=== PATIENT | male | born 1955 | race Caucasian/White ===

== ENCOUNTER 2024-05-29 16:48 | Inpatient (IN) | payer MEDICARE, MEDICAID, SELFPAY ==
[2024-05-29 17:01] VITALS: BP 169/80; PULSE 105; RESP 16; TEMP 37.4; O2SAT 97; BMI 25.8
--- NOTE | 2024-05-29 17:05 | ED_ITS ---
HPI - Psych General Chief Complaint: Psychiatric Symptoms Stated Complaint: SECTION 12 Time Seen by Provider: 05/29/24 16:53 Source: patient, EMS and old records reviewed Mode of arrival: EMS Limitations: other (poor historian) History of Present Illness ED Provider: PEDRO RIBEIRO Narrative: 68 yo male with PMH schizophrenia apparently not on medications who has been decompensated and calling PD weekly they note he appears more disheveled pressured and thin. He is very hard to interview he starts fixating on someone stealing cards at his house or a girlfriend getting murdered. He then states he is okay and looks away and is rambling complaint: other Onset (ago): unknown Duration: getting worse History of same: Yes Relieving factors: none Exacerbating factors: other Context: not taking psychiatric medications Associated psychiatric symptoms: racing thoughts and delusions Associated symptoms: denies other symptoms Treatments prior to arrival: placed on mental health hold Related Data Allergies Allergy/AdvReac Type Severity Reaction Status Date / Time No Known Allergies Allergy Unknown UNKNOWN Verified 05/29/24 17:28 Review of Systems 2 Review of Systems: ROS unable to be obtained due to inability to have a coherent conversation [facility] Past Medical History Source: other Medical History Schizophrenia Social History Social History (Updated 05/29/24 @ 17:45 by Erica Grady DO) Patient Tobacco Use Status: Tobacco use Unknown Advance Directives: No Advance Directives Information Provided: No Physical Exam 2 Vital Signs: Vital Signs: Last Vital Signs Temp 99.3 F 05/29/24 17:01 Pulse 105 H 05/29/24 17:01 Resp 16 05/29/24 17:42 BP 169/80 H 05/29/24 17:01 Pulse Ox 97 05/29/24 17:01 O2 Del Method Room Air 05/29/24 17:01 BMI result Body Mass Index 25.8 Appearance: Alert. Oriented X3. rapid pressured speech poor eye contact, non fluent conversation, no acute distress. Eyes: Pupils equal, round and reactive to light. ENT: Pharynx normal. atraumatic Neck: Normal inspection. Neck supple. CVS: Normal heart rate and rhythm. Pulses normal. Respiratory: No respiratory distress. Breath sounds normal. Abdomen: Soft and non-tender. Skin: Skin warm and dry. Normal skin color. Extremities: No lower extremity edema. Neuro: Oriented X 3. No motor deficit. No sensory deficit. CN2-12 intact Medications Administered Discontinued Medications Generic Name Dose Route Start Last Admin Trade Name Ilsa PRN Reason Stop Dose Admin Lorazepam 1 mg 05/29/24 17:30 05/29/24 17:46 Lorazepam 1 Mg Tablet PO 05/29/24 17:31 1 mg ONCE ONE Administration Olanzapine 10 mg 05/29/24 17:30 05/29/24 17:46 Olanzapine Odt 10 Mg Tab.Rapdis TRANSLINGU 05/29/24 17:31 10 mg ONCE ONE Administration Medical Decision Making Medical Decision Making [facility] Narrative: 68 yo male with PMH schizophrenia here with decompensation and patient is not on medications at this time will need labs, CARE team consult, I offered oral medications which he agreed to. He denies any medical issues but he is very hard to interview Differential Diagnosis Differential Diagnoses: The differential diagnosis associated with the presentation includes schizophrenia, decompensation Admission/Observation Consideration of admission/observation: Escalation of care including admission/observation considered physician observation started at 550pm pending CARE team Consult Healthcare Provider Management of the patient was discussed with: Behavioral Health Provider Lab Data [facility] Lab Attestation statement: I reviewed the patient's lab results. 05/29/24 19:31 05/29/24 19:30 Labs: Lab Results 05/29/24 05/29/24 Range/Units 18:06 19:31 WBC 6.6 (4.8-10.8) X10*3/uL RBC 4.49 L (4.60-5.80) X10*6/uL Hgb 13.6 L (14.0-18.0) g/dl Hct 40.5 L (42.0-52.0) % MCV 90.2 (80.0-98.0) fL MCH 30.3 (27.0-33.0) pg MCHC 33.6 (31.0-36.0) g/dl RDW 12.8 (11.0-16.0) % Plt Count 183 (160-400) X10*3/uL MPV 10.0 (9.4-12.4) fL Immature Gran % (Auto) 0.2 (0.0-0.4) % Neut % (Auto) 82.0 H (45-73) % Lymph % (Auto) 8.8 L (20-40) % [place] % (Auto) 7.9 (2-11) % Eos % (Auto) 0.6 (0-4) % Baso % (Auto) 0.5 (0-2) % Lymph # (Auto) 0.6 L (1.2-4.9) X10*3/uL [place] # (Auto) 0.5 (0.1-1.2) X10*3/uL Eos # (Auto) 0.0 (0.0-0.4) X10*3/uL Baso # (Auto) 0.0 (0.0-0.2) X10*3/uL Abs Immat Gran (auto) 0.01 (0.00-0.03) X10*3/uL Absolute Neuts (auto) 5.4 (2.0-8.3) x10*3/uL Absolute Nucleated RBC 0.000 (0.0-0.012) X10*3/uL Nucleated RBC % (auto) 0.0 (0.0-0.2) /100WBC Urine Color Yellow Urine Appearance Clear Urine pH 6.5 (5.0-9.0) Ur Specific [place] 1.020 (1.005-1.025) Urine Protein 30 (1+) H (Neg-Trace) mg/dL Urine Glucose (UA) Negative (Negative) mg/dL Urine Ketones Negative (Negative) mg/dL Urine Blood Negative (Negative) Urine Nitrite Negative (Negative) Ur Leukocyte Esterase Trace H (Negative) Urine RBC 0-2 (0-2) /HPF Urine WBC 0-5 (0-5) /HPF Ur Squamous Epith Cells 0-2 (0-2) /HPF Urine Bacteria None Seen (None Seen) Hyaline Casts 0-2 (0-2) /LPF Urine Opiates Screen Not Detected (Not Detect) Ur Buprenorphine Scrn Not Detected (Not Detect) ng/mL Ur Oxycodone Screen Not Detected (Not Detect) ng/mL Urine Methadone Screen Not Detected (Not Detect) ng/mL Urine Fentanyl Screen Not Detected (Not Detect) Ur Barbiturates Screen Not Detected (Not Detect) Ur Phencyclidine Scrn Not Detected (Not Detect) Ur Amphetamines Screen Not Detected (Not Detect) U Benzodiazepines Scrn Not Detected (Not Detect) Urine Cocaine Screen Not Detected (Not Detect) U Marijuana (THC) Screen Not Detected (Not Detect) Independent Interpretation I performed an independent interpretation of an: EKG Interpretation: Rate: 63 Rhythm: NSR [place]: normal Normal P waves. Normal JARED. Normal QRS complex. ST T wave : inverted t wave V1, no AMINA qTC: 411 prior studies: no acute ischemia The study has been interpreted contemporaneously by me. . Independent Historian Clinical information obtained from an independent historian. History obtained from or confirmed by: EMS External Record Review External record reviewed: Outpatient record Discharge Plan Discharge Clinical Impression: Schizophrenia Qualifiers: Schizophrenia type: unspecified Qualified Code(s): F20.9 - Schizophrenia, unspecified Patient Disposition: Still a Patient Interventions: Weber-Suicide Risk Severity Scale Last Done: 05/29/24 17:44 Print Language: Persian
--- NOTE | 2024-05-29 17:20 | MHC.CARE ---
Addendum entered by Ana Galaviz LCSW 05/29/24 17:26: Dx of Paranoid Schizophrenia Original Note: Pt seen [place] Co-response clincian (Barb) due to concern of increased disorganization, diminished ADL's and weight loss secondary to non medication compliance for 4 months. Pt was transported to [facility] on a section 12. HCP/cousin: Marlin Dowd; [phone] Psychiatrist: Bronson Condon OP: Maria Alejandra Hough [facility] Elder Care: Maricel Singh
--- NOTE | 2024-05-29 17:29 | ECG_ITS ---
Test Reason : med clear Blood Pressure : / mmHG Vent. Rate : 063 BPM Atrial Rate : 063 BPM P-R Int : 178 ms QRS Dur : 098 ms QT Int : 402 ms P-R-T Axes : 059 072 046 degrees QTc Int : 411 ms Normal sinus rhythm with sinus arrhythmia Normal ECG When compared with ECG of 06-JUL-2019 09:11, No significant change was found Referred By: Erica Grady Electronically Signed By:HANH LEE MD
[2024-05-29 17:42] VITALS: RESP 16
[2024-05-29] MEDS: OLANZapine ODT 10 MG TAB.RAPDIS TRANSLINGU (17:46)
[2024-05-29] MEDS: LORazepam 1 MG TABLET PO (17:46)
--- NOTE | 2024-05-29 17:49 | PC.NURSE ---
Pt willingly took Zyprexa and Ativan PO without issue. Patient does present to ED with pressured speech, rambling about losing his house, choosing the right , occasionally unclear what the topic is. Patient is calm and cooperative for this RN, able to redirect verbally at this time. Patient in common area speaking with another patient at this time. patient denies SI/HI/AH/VH. Per senior warehouse clerk, patient has been non-med compliant over the past two months and has since decompensated
[2024-05-29 18:15] LABS: Appearance Urine Clear; Color Urine Yellow; Glucose Urine UA Negative (Negative); Leukocyte Esterase Urine Trace (Negative); Nitrite Urine Negative (Negative); PH 6.5 (5.0-9.0); UMIC TRIGGER UACC YES; Urine Blood Negative (Negative); Urine Ketones Negative (Negative); Urine Protein 30 (1+) mg/dL (Neg-Trace)
[2024-05-29 18:21] LABS: Bacteria Urine None Seen (None Seen); Hyaline Casts Urine 0-2 /LPF (0-2); RBC Urine 0-2 /HPF (0-2); Squamous Epithelial Cell Urine 0-2 /HPF (0-2); WBC Urine 0-5 /HPF (0-5)
[2024-05-29 18:25] LABS: Amphetamine Screen Urine Not Detected (Not Detect); Barbiturates, Urine Not Detected (Not Detect); Benzodiazepines Screen Urine Not Detected (Not Detect); Buprenorphine Scr Not Detected (Not Detect); Cannabinoid Screen Urine Not Detected (Not Detect); Cocaine Screen Urine Not Detected (Not Detect); Fentanyl, urine Not Detected (Not Detect); Methadone Screen, Urine Not Detected (Not Detect); Opiate Screen Urine Not Detected (Not Detect); Oxycodone Screen Urine Not Detected (Not Detect); Phencyclidine Screen Urine Not Detected (Not Detect)
[2024-05-29 19:38] LABS: MANUAL DIFF FLAG NO
[2024-05-29 19:43] LABS: Basophils Percent Auto 0.5 % (0-2); Eosinophils Percent Auto 0.6 % (0-4); Hematocrit 40.5 % (42.0-52.0); Hemoglobin 13.6 g/dl (14.0-18.0); Imm Gran Abs Auto 0.01 X10*3/uL (0.00-0.03); Imm Gran Pct Auto 0.2 % (0.0-0.4); Lymphocytes Absolute Auto 0.6 X10*3/uL (1.2-4.9); Lymphocytes Percent Auto 8.8 % (20-40); Mean Corpuscular HGB Conc 33.6 g/dl (31.0-36.0); Mean Corpuscular Hemoglobin 30.3 pg (27.0-33.0); Mean Corpuscular Volume 90.2 fL (80.0-98.0); Monocytes Absolute Auto 0.5 X10*3/uL (0.1-1.2); Monocytes Percent Auto 7.9 % (2-11); Neutrophils Absolute Auto 5.4 x10*3/uL (2.0-8.3); Platelet Count 183 X10*3/uL (160-400); Red Blood Count 4.49 X10*6/uL (4.60-5.80); Red Cell Distribution Width 12.8 % (11.0-16.0); White Blood Count 6.6 X10*3/uL (4.8-10.8)
[2024-05-29 20:04] VITALS: BP 165/60; PULSE 58; RESP 17; TEMP 36.7; O2SAT 100
[2024-05-29 20:04] LABS: Alanine Aminotransferase 22 U/L (0-40); Albumin Level 3.8 g/dL (3.5-5.0); Alkaline Phosphatase 75 U/L (39-117); Anion Gap 8 (12-20); Aspartate Amino Transferase 25 U/L (5-37); Bilirubin Direct 0.2 mg/dL (0.0-0.5); Bilirubin Total 0.5 mg/dL (0.0-1.0); Blood Urea Nitrogen 16 mg/dL (9-16); Carbon Dioxide 28 mmol/L (22-29); Chloride 107 mmol/L (96-108); Creatinine Clr Calc Pharmacy 86.4; Estimated Glomerular Filt Rate > 60; Ethanol < 10 mg/dL; Glucose Random 102 mg/dL (60-115); Magnesium 2.2 mg/dL (1.6-2.6); Potassium 3.5 mmol/L (3.3-5.1); Sodium 139 mmol/L (135-145); Total Protein 6.8 g/dL (6.5-8.0)
[2024-05-29 20:14] LABS: TSH reflex Free T4 0.83 uIU/mL (0.32-4.0)
--- NOTE | 2024-05-30 04:24 | PC.NURSE ---
patient appears to be getting up about q 30 mins or 60 minutes and spontaneously bubbles of conversation arise. client reoriented and returns to room
[2024-05-30 05:57] VITALS: BP 151/51; PULSE 65; RESP 18; TEMP 36.9; O2SAT 98
--- NOTE | 2024-05-30 07:03 | PC.NURSE ---
Assumed care of patient at 0645, patient appears to be in no apparent distress this am, tossing and turning in bed, respirations even and unlabored. Continue plan of care for inpatient bedsearch at this time
--- NOTE | 2024-05-30 09:12 | PC.NURSE ---
RE: med rec this RN confirmed medications with [facility] Bertrand Love
[2024-05-30 12:30] VITALS: BP 173/84; PULSE 67; RESP 18; TEMP 36.5; O2SAT 100
--- NOTE | 2024-05-30 13:40 | HO.PSYADMNOT ---
HPI Date of Service: 05/30/24 Chief Complaint: crisis Sources of Information: patient interviewed, chart reviewed and crisis/core team assessment reviewed HPI Subjective Notes: [place] Warning and Section 12B Narrative: Patient is a 68-year-old male with history of schizophrenia who was brought in to ER via ambulance on a section 12 by police and [facility] due to disorganization and diminished ADLs secondary to medication noncompliance. Per crisis report, police and [facility] team were dispatched to patient's home after patient called 911 speaking incoherently about his girlfriend who in 2009. When they arrived to his home patient was speaking rapidly and making statements about satellite shooting down planes, making cars disappear, and was not able to be redirected. He appeared disheveled. Patient is paranoid and delusional at baseline. When EMS arrived patient became combative and agitated stating, I'll get a knife and slit my throat before I let you take me to the hospital . Patient's cousin who is healthcare proxy, reports patient's in 2022 and pt has significantly declined since. Patient was connected with [facility] and in-home services with [facility] but due to noncompliance the services were terminated. Patient does receive meals on wheels. No history of substance use. During admission assessment, patient presents calm yet agitated. Patient requesting to be discharged home. Organized throughout the conversation however, becomes tangential at times but is able to be redirected back to the topic; rapid and pressured speech. Patient reports feeling fine ; patient stated, two people came to my door saying they were checking on me and then they told me that I needed help. I didn't do anything wrong. I felt fine . Patient reports that he showers every day and when asked about his eating habits; patient stated I eat all kinds of food . Patient reports that he has lost weight recently due to yard work at his home. Patient reports being medication compliant to T/W however, told admitting RN that he has not been taking his medications. Patient stated, I think this is a big mistake. I'm not going to sign something that isn't fair to me. I can just go home and take my medications . Patient denies SI/HI/VH/AH. Discussed restarting his home medications; patient agreed to take medications while inpatient. Past Psychiatric History: History of inpatient psychiatric admissions. Unclear of last inpatient admission. Psychiatrist: Therapist: Maxine Padron History of being connected with [facility] and [facility] Medical Evaluation Reviewed: Yes [facility] Medical History Schizophrenia Family History: Denies Social History: . No children. Lives alone in [place] in his own home. Substance History: Denies Trauma History: Denies Diagnostics Vital Signs (24Hr): Vital Signs - 24 hr 05/29/24 17:01 05/29/24 17:42 05/29/24 20:04 Temperature 99.3 F 98.1 F Pulse Rate 105 H 58 Respiratory Rate 16 16 17 Blood Pressure 169/80 H 165/60 H Pulse Oximetry 97 100 Oxygen Delivery Method Room Air Room Air 05/30/24 05:57 05/30/24 12:30 Temperature 98.4 F 97.7 F Pulse Rate 65 67 Respiratory Rate 18 18 Blood Pressure 151/51 H 173/84 H Pulse Oximetry 98 100 Oxygen Delivery Method Room Air Room Air BMI result Body Mass Index 25.8 Labs 05/29/24 19:31 05/30/24 15:25 Labs: Laboratory Results - last 48 hr 05/29/24 05/29/24 05/29/24 18:06 19:30 19:31 WBC 6.6 RBC 4.49 L Hgb 13.6 L Hct 40.5 L MCV 90.2 MCH 30.3 MCHC 33.6 RDW 12.8 Plt Count 183 MPV 10.0 Immature Gran % (Auto) 0.2 Neut % (Auto) 82.0 H Lymph % (Auto) 8.8 L [place] % (Auto) 7.9 Eos % (Auto) 0.6 Baso % (Auto) 0.5 Lymph # (Auto) 0.6 L [place] # (Auto) 0.5 Eos # (Auto) 0.0 Baso # (Auto) 0.0 Abs Immat Gran (auto) 0.01 Absolute Neuts (auto) 5.4 Absolute Nucleated RBC 0.000 Nucleated RBC % (auto) 0.0 Sodium 139 Potassium 3.5 Chloride 107 Carbon Dioxide 28 Anion Gap 8 L BUN 16 Creatinine 0.91 Estim Creat Clear Calc 86.4 Estimated GFR > 60 Random Glucose 102 Calcium 9.0 Magnesium 2.2 Total Bilirubin 0.5 Direct Bilirubin 0.2 AST 25 ALT 22 Alkaline Phosphatase 75 Total Protein 6.8 Albumin 3.8 TSH 0.83 Urine Color Yellow Urine Appearance Clear Urine pH 6.5 Ur Specific [place] 1.020 Urine Protein 30 (1+) H Urine Glucose (UA) Negative Urine Ketones Negative Urine Blood Negative Urine Nitrite Negative Ur Leukocyte Esterase Trace H Urine RBC 0-2 Urine WBC 0-5 Ur Squamous Epith Cells 0-2 Urine Bacteria None Seen Hyaline Casts 0-2 Urine Opiates Screen Not Detected Ur Buprenorphine Scrn Not Detected Ur Oxycodone Screen Not Detected Urine Methadone Screen Not Detected Urine Fentanyl Screen Not Detected Ur Barbiturates Screen Not Detected Ur Phencyclidine Scrn Not Detected Ur Amphetamines Screen Not Detected U Benzodiazepines Scrn Not Detected Urine Cocaine Screen Not Detected U Marijuana (THC) Screen Not Detected Ethyl Alcohol < 10 Meds/Allergies Meds Home Medications ?Medication ?Instructions ?Recorded ?Confirmed ?Type betaxolol 0.5 % eye drops 1 drp ophthalmic (eye) Q12H 05/30/24 05/30/24 History bimatoprost 0.01 % eye drops 1 drp ophthalmic (eye) BEDTIME 05/30/24 05/30/24 History ([place]) brinzolamide 1 %-brimonidine 0.2 % 1 drp ophthalmic (eye) Q12H 05/30/24 05/30/24 History eye drops,suspension (Simbrinza) cariprazine 3 mg capsule (Vraylar) 3 mg PO BEDTIME 05/30/24 05/30/24 History paliperidone 6 mg tablet,extended 6 mg PO BEDTIME 05/30/24 05/30/24 History release 24 hr Allergies Allergies Allergy/AdvReac Type Severity Reaction Status Date / Time No Known Allergies Allergy Unknown UNKNOWN Verified 05/29/24 17:28 Mental Status Exam Mental Status Exam Narrative: Pt is alert and oriented; behavior is agitated; dressed in casual attire; mood is described as fine ; eye contact appropriate; Speech is rapid rate, normal volume but pressured; tangential at times, focused on discharge, is able to be redirected back to conversation; denies SI/HI/VH/AH. Assessment & Plan Assessment & Plan (1) Schizophrenia: Status: Acute Qualifiers: Schizophrenia type: unspecified Qualified Code(s): F20.9 - Schizophrenia, unspecified Code(s): F20.9 - Schizophrenia, unspecified Plan Patient is a 68-year-old male with history of schizophrenia who was brought in to ER via ambulance on a section 12 by police and [facility] due to disorganization and diminished ADLs secondary to medication noncompliance. Plan: 12B 15 minute safety checks Continue home medications Obtain collateral Encourage groups Discharge planning Patient educated on: diagnosis and medication risk/benefits Reason for continued inpatient stay Substantial Risk for: med/psych decompensation Statement Statement: I have reviewed the history and physical and performed a pertinent examination on my patient. No changes have occurred unless specified. If the History and Physical was not performed prior to admission, the Hospitalist's service will be consulted for completing the admission physical. Time Spent With Patient Time: Total time managing care of this patient today _60___ minutes.
--- NOTE | 2024-05-30 13:50 | PC.NURSE ---
Pt refused flu vaccine at this time
[2024-05-30 13:51] VITALS: BMI 22.0
--- NOTE | 2024-05-30 13:52 | PC.ADMIT ---
Kash is a 68-year-old male admitted from [facility] to [facility] on a 12b for treatment of unspecified psychosis. Tox screen negative. Pt was transported to [facility] ED due to disorganized thoughts, poor ADLs, and weight loss secondary to pt not taking his medications for the last 4 months. When police arrived to pt's home, pt made a statement I'll get a knife and slit my throat before I let you take me to the hospital. Upon arrival to [facility], pt's speech was pressured, thought process disorganized at times and tangential. Pt appears internally preoccupied and was talking to himself. Pt appears paranoid and suspicious however pt is paranoid and delusional at baseline. Pt was unable to answer assessment questions or complete admission due to mental status. Pt lacks insight into diagnosis and situation and said I'm not mentally ill, that girl that made me come here is mentally ill. I don't need to be in a hospital, I want to go home. I've been falsely accused, someone is trying to take my identity. Pt has medical hx HTN. Pt currently has a non-productive cough. Pt placed on 15 minute safety checks. Pt's cousin Marlin Dowd is pt's HCP, paperwork is in his chart.
[2024-05-30 16:34] LABS: Albumin Level 3.9 g/dL (3.5-5.0); Aspartate Amino Transferase 25 U/L (5-37); Bilirubin Total 0.4 mg/dL (0.0-1.0); Blood Urea Nitrogen 17 mg/dL (9-16); Calcium 9.2 mg/dL (8.4-10.2); Creatinine Clr Calc Pharmacy 81.1; Estimated Glomerular Filt Rate > 60; Glucose Random 97 mg/dL (60-115)
[2024-05-30 16:54] LABS: Alanine Aminotransferase 20 U/L (0-40); Alkaline Phosphatase 81 U/L (39-117); Anion Gap 12 (12-20); Carbon Dioxide 29 mmol/L (22-29); Chloride 103 mmol/L (96-108); Potassium 4.3 mmol/L (3.3-5.1); Sodium 140 mmol/L (135-145)
[2024-05-30 19:30] VITALS: BP 205/98; PULSE 78; RESP 16; TEMP 36.8; O2SAT 100
[2024-05-30] MEDS: Dorzolamide HCl 2 % Ophth Sol 10 ML DRPBTL 1 DROP EYE-BOTH (20:03)
[2024-05-30] MEDS: Brimonidine Tartrate 0.2% Oph 5 ML BOTTLE 1 DROP EYE-BOTH (20:03)
[2024-05-30] MEDS: Latanoprost 0.005 % Ophth Sol 2.5 ML DROPS 1 DROP EYE-BOTH (20:03)
[2024-05-30] MEDS: timoloL maleate 0.5 % Oph Sol 5 ML DRBTL 1 DROP EYE-BOTH (20:04)
[2024-05-30] MEDS: Cariprazine HCl 3 MG CAPSULE PO (20:11)
[2024-05-30] MEDS: Paliperidone ER 6 MG TAB.ER.24 PO (20:11)
[2024-05-30 21:00] VITALS: BP 151/70; PULSE 76
[2024-05-31] MEDS: OLANZapine 5 MG TABLET PO ×2 (02:00→20:51)
[2024-05-31 08:00] VITALS: BP 163/72; PULSE 80; RESP 20; TEMP 36.6; O2SAT 96
[2024-05-31] MEDS: timoloL maleate 0.5 % Oph Sol 5 ML DRBTL 1 DROP EYE-BOTH ×2 (08:54→20:50)
[2024-05-31] MEDS: Dorzolamide HCl 2 % Ophth Sol 10 ML DRPBTL 1 DROP EYE-BOTH ×2 (08:54→20:51)
[2024-05-31] MEDS: Brimonidine Tartrate 0.2% Oph 5 ML BOTTLE 1 DROP EYE-BOTH ×2 (08:54→20:49)
--- NOTE | 2024-05-31 09:36 | HO.PSYCHPN ---
Subjective Subjective Date of Service: 05/31/24 Reason For Visit: crisis Subjective Notes: Section 12B Interim History: Rapid and pressured speech. Alert and oriented to time,date, place and situation. He reports feeling fine today; pt stated, I just want to get out of here. I can take care of my self. I took care of my and took her to her doctors appointments. I would take my meds if I went home . When discussing comments he made prior to admission, pt stated, I don't want to talk about that stuff . Showering, eating meals. 12b up on 06/02/24. Medication Compliance: Yes Side effects from medications: No Review of Systems Constitutional: Reports as per HPI Eyes: Reports as per HPI Reports as per HPI Cardiovascular: Reports as per HPI Respiratory: Reports as per HPI Gastrointestinal: Reports as per HPI Genitourinary: Reports as per HPI Musculoskeletal: Reports as per HPI Skin/Breast: Reports as per HPI Reports as per HPI Psychiatric: Reports as per HPI Endocrine: Reports as per HPI Hematologic/Lymphatic: Reports as per HPI Allergic/Immunologic: Reports as per HPI Mental Status Exam Mental Status Exam Narrative: Pt is alert and oriented; behavior is cooperative; dressed in casual attire; mood is described as fine ; eye contact appropriate; Speech is rapid rate, normal volume but pressured; focused on discharge; not making any paranoid or delusional statements during assessment; denies SI/HI/VH/AH. Diagnostics Vital Signs (24Hr): Vital Signs - 24 hr 05/30/24 12:30 05/30/24 19:30 05/30/24 21:00 Temperature 97.7 F 98.3 F Pulse Rate 67 78 76 Respiratory Rate 18 16 Blood Pressure 173/84 H 205/98 H 151/70 H Pulse Oximetry 100 100 Oxygen Delivery Method Room Air Room Air 05/31/24 08:00 Temperature 98 F Pulse Rate 80 Respiratory Rate 20 Blood Pressure 163/72 H Pulse Oximetry 96 Oxygen Delivery Method Room Air BMI result Body Mass Index 22.0 Labs 05/29/24 19:31 05/30/24 15:25 Labs: Laboratory Results - last 48 hr 05/29/24 05/29/24 05/29/24 18:06 19:30 19:31 WBC 6.6 RBC 4.49 L Hgb 13.6 L Hct 40.5 L MCV 90.2 MCH 30.3 MCHC 33.6 RDW 12.8 Plt Count 183 MPV 10.0 Immature Gran % (Auto) 0.2 Neut % (Auto) 82.0 H Lymph % (Auto) 8.8 L [place] % (Auto) 7.9 Eos % (Auto) 0.6 Baso % (Auto) 0.5 Lymph # (Auto) 0.6 L [place] # (Auto) 0.5 Eos # (Auto) 0.0 Baso # (Auto) 0.0 Abs Immat Gran (auto) 0.01 Absolute Neuts (auto) 5.4 Absolute Nucleated RBC 0.000 Nucleated RBC % (auto) 0.0 Hold Purple Top Sodium 139 Potassium 3.5 Chloride 107 Carbon Dioxide 28 Anion Gap 8 L BUN 16 Creatinine 0.91 Estim Creat Clear Calc 86.4 Estimated GFR > 60 Random Glucose 102 Calcium 9.0 Magnesium 2.2 Total Bilirubin 0.5 Direct Bilirubin 0.2 AST 25 ALT 22 Alkaline Phosphatase 75 Total Protein 6.8 Albumin 3.8 TSH 0.83 Urine Color Yellow Urine Appearance Clear Urine pH 6.5 Ur Specific [place] 1.020 Urine Protein 30 (1+) H Urine Glucose (UA) Negative Urine Ketones Negative Urine Blood Negative Urine Nitrite Negative Ur Leukocyte Esterase Trace H Urine RBC 0-2 Urine WBC 0-5 Ur Squamous Epith Cells 0-2 Urine Bacteria None Seen Hyaline Casts 0-2 Urine Opiates Screen Not Detected Ur Buprenorphine Scrn Not Detected Ur Oxycodone Screen Not Detected Urine Methadone Screen Not Detected Urine Fentanyl Screen Not Detected Ur Barbiturates Screen Not Detected Ur Phencyclidine Scrn Not Detected Ur Amphetamines Screen Not Detected U Benzodiazepines Scrn Not Detected Urine Cocaine Screen Not Detected U Marijuana (THC) Screen Not Detected Ethyl Alcohol < 10 05/30/24 05/30/24 15:25 15:30 WBC RBC Hgb Hct MCV MCH MCHC RDW Plt Count MPV Immature Gran % (Auto) Neut % (Auto) Lymph % (Auto) [place] % (Auto) Eos % (Auto) Baso % (Auto) Lymph # (Auto) [place] # (Auto) Eos # (Auto) Baso # (Auto) Abs Immat Gran (auto) Absolute Neuts (auto) Absolute Nucleated RBC Nucleated RBC % (auto) Hold Purple Top SEE NOTE Sodium 140 Potassium 4.3 D Chloride 103 Carbon Dioxide 29 Anion Gap 12 BUN 17 H Creatinine 0.92 Estim Creat Clear Calc 81.1 Estimated GFR > 60 Random Glucose 97 Calcium 9.2 Magnesium Total Bilirubin 0.4 Direct Bilirubin AST 25 ALT 20 Alkaline Phosphatase 81 Total Protein 7.0 Albumin 3.9 TSH Urine Color Urine Appearance Urine pH Ur Specific [place] Urine Protein Urine Glucose (UA) Urine Ketones Urine Blood Urine Nitrite Ur Leukocyte Esterase Urine RBC Urine WBC Ur Squamous Epith Cells Urine Bacteria Hyaline Casts Urine Opiates Screen Ur Buprenorphine Scrn Ur Oxycodone Screen Urine Methadone Screen Urine Fentanyl Screen Ur Barbiturates Screen Ur Phencyclidine Scrn Ur Amphetamines Screen U Benzodiazepines Scrn Urine Cocaine Screen U Marijuana (THC) Screen Ethyl Alcohol Medications Medications Current Medications Acetaminophen (Acetaminophen 325 Mg Tablet) 650 mg PO Q6H PRN PRN Reason: Headache/Pain Mild Scale (1-3) Al Hydroxide/Mg Hydroxide (Magnesium Hydrox/Alum Hydrox 30 Ml Oral.Susp) 30 ml PO Q6H PRN PRN Reason: Heartburn/Nausea Brimonidine Tartrate (Brimonidine Tartrate 0.2% Oph 5 Ml Bottle) 1 drop EYE-BOTH BID [facility] Last Admin: 05/31/24 08:54 Dose: 1 drop Cariprazine (Cariprazine Hcl 3 Mg Capsule) 3 mg PO BEDTIME [facility] Last Admin: 05/30/24 20:11 Dose: 3 mg Dorzolamide HCl (Dorzolamide Hcl 2 % Ophth Jossy 10 Ml Drpbtl) 1 drop EYE-BOTH BID [facility] Last Admin: 05/31/24 08:54 Dose: 1 drop Hydroxyzine HCl (Hydroxyzine Hcl 25 Mg Tablet) 25 mg PO Q6H PRN PRN Reason: Anxiety Latanoprost (Latanoprost 0.005 % Ophth Jossy 2.5 Ml Drops) 1 drop EYE-BOTH BEDTIME [facility] Last Admin: 05/30/24 20:03 Dose: 1 drop Magnesium Hydroxide (Milk Of Magnesia 30 Ml Oral.Susp) 30 ml PO DAILY PRN PRN Reason: Constipation Nicotine Polacrilex (Nicotine Polacrilex 2 Mg Gum) 4 mg BUCCAL Q2H PRN PRN Reason: Nicotine Cravings Olanzapine (Olanzapine 5 Mg Tablet) 5 mg PO Q4H PRN PRN Reason: agitation Last Admin: 05/31/24 02:00 Dose: 5 mg Paliperidone (Paliperidone Er 6 Mg Tab.Er.24) 6 mg PO BEDTIME [facility] Last Admin: 12/10/24 20:11 Dose: 6 mg Timolol Maleate (Timolol Maleate 0.5 % Oph Jossy 5 Ml Drbtl) 1 drop EYE-BOTH BID [facility] Last Admin: 05/31/24 08:54 Dose: 1 drop Trazodone HCl (Trazodone Hcl 50 Mg Tablet) 50 mg PO BEDTIME MRX1 PRN PRN Reason: Insomnia Allergies Allergies Allergy/AdvReac Type Severity Reaction Status Date / Time No Known Allergies Allergy Unknown UNKNOWN Verified 05/29/24 17:28 Assessment & Plan Assessment & Plan (1) Schizophrenia: Qualifiers: Schizophrenia type: unspecified Qualified Code(s): F20.9 - Schizophrenia, unspecified Status: Acute Code(s): F20.9 - Schizophrenia, unspecified Plan Patient is a 68-year-old male with history of schizophrenia who was brought in to ER via ambulance on a section 12 by police and [facility] due to disorganization and diminished ADLs secondary to medication noncompliance. Plan: 12B 15 minute safety checks Continue home medications Obtain collateral Encourage groups Discharge planning 05/31: Rapid and pressured speech. Alert and oriented to time,date, place and situation. He reports feeling fine today; pt stated, I just want to get out of here. I can take care of my self. I took care of my and took her to her doctors appointments. I would take my meds if I went home . When discussing comments he made prior to admission, pt stated, I don't want to talk about that stuff . Showering, eating meals, medication compliant. 12b up on 06/02/24. Continue current tx plan. Patient educated on: diagnosis and medication risk/benefits Reason for continued inpatient stay Substantial Risk for: med/psych decompensation Time Spent With Patient Time: Total time managing care of this patient today _20___ minutes.
[2024-05-31 10:00] LABS: Cholesterol 128 mg/dL (<200); HDL Cholesterol 49 mg/dL (>40); LDL Cholesterol Calculated 65 mg/dL (<100); Triglycerides 74 mg/dL (<150)
--- OUTSIDE RECORDS SUMMARY | 2024-05-31 18:08 | XMS_ITS | Clinical Summary ---
Author Organization Unknown Care Team Providers Care Office Services Assistant Name Role Phone PILLO MAC, JOEY Unavailable Unavailable SINGH MESSINA, LETICIA Unavailable Unavailable Payers Payer Name Policy Type Policy Number Effective Date Expira tion Date [place] - ABN [id number] ON DEMAND MEDICARE - [facility] BILLING - ABN [id number] Problems Condition Name Condition Details Condition Category Status Onset Date Resolution Date Last Treatment Date Treating Clinician Comments PARANOID SCHIZOPHRENI A Active 10-21 00:00: 00 Allergies, Adverse Reactions, Alerts Allergy Name Allergy Type Status Severity Reaction(s) Onset Date Inactive Date Treating Clinician Comments NKA Propensity to adverse reactions Active 2022-12 11:22:4 2 Medications Ordered Medication Name Filled Medication Name Start Date Stop Date Current Medication? Ordering Clinician Indication Dosage Frequency Signature (SIG) Comments Components betaxolol 0.5 % eye drops 12 00:00: 00 Yes [id number] 1 drops EVERY AM 1 drops EVERY AM (route: ophthalmic (eye)) Med Classific ation: Ophthalmi c Agents bupropion HCl SR 200 mg tablet,12 hr sustained-r elease 8-18 00:00: 00 05-28 23:59 :00 No [id number] 1 tablet DAILY 1 tablet DAILY (route: oral) Med Classific ation: Central Nervous System Agents clonazepam 0.5 mg tablet 3-04 00:00: 00 04-19 23:59 :00 No [id number] 1 tablet Every hs 1 tablet Every hs (route: oral) Med Classific ation: Central Nervous System Agents Latuda 20 mg tablet 5-27 00:00: 00 05-28 23:59 :00 No [id number] 1 tablet Every bedtime 1 tablet Every bedtime (route: oral) Med Classific ation: Central Nervous System Agents lisinopril 20 mg-hydrochl orothiazide 12.5 mg tablet 08-30 00:00: 00 Yes [id number] 1 tablet EVERY AM 1 tablet EVERY AM (route: oral) Med Classific ation: Cardiovas cular Therapy Agents Risperdal 3 mg tablet 8-26 00:00: 00 05-28 23:59 :00 No [id number] 2 tablet BEDTIME 2 tablet BEDTIME (route: oral) Med Classific ation: Central Nervous System Agents Seroquel 100 mg tablet 07-25 00:00: 00 12-24 23:59 :00 No [id number] 1 tablet Every hs 1 tablet Every hs (route: oral) Med Classific ation: Central Nervous System Agents Simbrinza 1 %-0.2 % eye drops,suspe nsion 08-30 00:00: 00 Yes [id number] Per instruc tions EVERY AM Per instructio ns EVERY AM (route: ophthalmic (eye)) Med Classific ation: Ophthalmi c Agents Fish Oil 1,000 mg (120 mg-180 mg) capsule 2019-06 00:00: 00 08-31 23:59 :00 No [id number] 1 capsule DAILY 1 capsule DAILY (route: oral) Med Classific ation: Cardiovas cular Therapy Agents Invega 6 mg tablet,exte nded release 2019-06 00:00: 00 08-31 23:59 :00 No [id number] 1 tablet BEDTIME 1 tablet BEDTIME (route: oral) Med Classific ation: Central Nervous System Agents Multivitami n 50 Plus tablet 2019-06 00:00: 00 08-31 23:59 :00 No [id number] 1 tablet DAILY 1 tablet DAILY (route: oral) Med Classific ation: Electroly te Balance-N utritiona l Products Vitamin D3 25 mcg (1,000 unit) capsule 2019-06 00:00: 00 08-31 23:59 :00 No [id number] 1 capsule DAILY 1 capsule DAILY (route: oral) Med Classific ation: Electroly te Balance-N utritiona l Products bupropion HCl SR 200 mg tablet,12 hr sustained-r elease 2019-06 2-22 00:00: 00 03-21 23:59 :00 No [id number] 1 tablet DAILY 1 tablet DAILY (route: oral) Med Classific ation: Central Nervous System Agents clonazepam 0.5 mg tablet 3-13 00:00: 00 09-11 23:59 :00 No [id number] 1 tablet NEEDED 1 tablet NEEDED (route: oral) Med Classific ation: Central Nervous System Agents risperidone 3 mg tablet 13 00:00: 00 01-07 23:59 :00 No [id number] 2 tablet BEDTIME 2 tablet BEDTIME (route: oral) Med Classific ation: Central Nervous System Agents bupropion HCl XL 300 mg 24 hr tablet, extended release 2020-06 030 00:00: 00 01-07 23:59 :00 No [id number] 300 mg DAILY 300 mg DAILY (route: oral) Med Classific ation: Central Nervous System Agents Ativan 0.5 mg tablet 12-25 00:00: 00 Yes [id number] 0.5 mg 2 TIMES DAILY 0.5 mg 2 TIMES DAILY (route: oral) Med Classific ation: Central Nervous System Agents Nyamyc 100,000 unit/gram topical powder 12-08 00:00: 00 Yes [id number] 1 gram NEEDED 1 gram NEEDED (route: topical) Med Classific ation: Dermatolo gical quetiapine 100 mg tablet 12-24 00:00: 00 02-19 23:59 :00 No [id number] 2 tablet BEDTIME 2 tablet BEDTIME (route: oral) Med Classific ation: Central Nervous System Agents betaxolol 0.5 % eye drops 11-30 00:00: 00 Yes [id number] 1 drops DAILY 1 drops DAILY (route: ophthalmic (eye)) Med Classific ation: Ophthalmi c Agents Simbrinza 1 %-0.2 % eye drops,suspe nsion 11-30 00:00: 00 12-24 23:59 :00 No [id number] 1 drops DAILY 1 drops DAILY (route: ophthalmic (eye)) Med Classific ation: Ophthalmi c Agents Lumigan 0.01 % eye drops 609 00:00: 00 Yes [id number] 1 drops BEDTIME 1 drops BEDTIME (route: ophthalmic (eye)) Med Classific ation: Ophthalmi c Agents clonazepam 0.5 mg tablet 05 00:00: 00 12-24 23:59 :00 No [id number] 1 tablet BEDTIME 1 tablet BEDTIME (route: oral) Med Classific ation: Central Nervous System Agents risperidone 2 mg tablet 20 00:00: 00 Yes [id number] 1 tablet DAILY 1 tablet DAILY (route: oral) Med Classific ation: Central Nervous System Agents risperidone 3 mg tablet 01-07 00:00: 00 Yes [id number] 1 tablet DAILY 1 tablet DAILY (route: oral) Med Classific ation: Central Nervous System Agents Seroquel 100 mg tablet 9-04 00:00: 00 Yes [id number] 1 tablet BEDTIME 1 tablet BEDTIME (route: oral) Med Classific ation: Central Nervous System Agents INVEGA ORAL 6-04 00:00: 00 02-05 00:00 :00 No 1 tab6mg Every pm 1 tab6mg Every pm (route: ) Med Classific ation: CENTRAL NERVOUS SYSTEM AGENTS BUPROPION HCL ORAL 2-25 00:00: 00 02-05 00:00 :00 No 1 [id number] g Daily 1 [id number] Daily (route: ) Med Classific ation: CENTRAL NERVOUS SYSTEM AGENTS RISPERDAL ORAL 8-18 00:00: 00 02-13 00:00 :00 No 3 mg1 BEDTIME 3 mg1 BEDTIME (route: ) Med Classific ation: CENTRAL NERVOUS SYSTEM AGENTS Vital Signs Vital Name Observation Time Observation Value Commen ts Temperature 2023-06-07 06:53:00.000 98.8 [degF] Temperature 2023-06-03 07:04:00.000 98.3 [degF] Temperature 2023-05-20 07:13:00.000 98.6 [degF] Temperature 2023-05-12 07:28:00.000 97.5 [degF] Temperature 2023-05-10 07:17:00.000 97.8 [degF] Temperature 2023-05-06 07:34:00.000 98.3 [degF] Pulse 2023-06-10 20:06:00.000 78 /min Pulse 2023-06-07 06:53:00.000 94 /min Pulse 2023-06-03 07:04:00.000 110 /min Pulse 2023-05-31 16:30:00.000 80 /min Pulse 2023-05-27 07:29:00.000 72 /min Pulse 2023-05-17 07:14:00.000 88 /min Pulse 2023-05-12 07:28:00.000 99 /min Pulse 2023-05-10 07:17:00.000 89 /min Pulse 2023-05-06 07:34:00.000 78 /min O2 Saturation (%) 2023-06-07 06:53:00.000 96 % O2 Saturation (%) 2023-06-03 07:04:00.000 97 % O2 Saturation (%) 2023-05-12 07:28:00.000 96 % O2 Saturation (%) 2023-05-10 07:17:00.000 96 % O2 Saturation (%) 2023-05-06 07:34:00.000 98 % Respirations 2023-06-10 20:06:00.000 18 /min Respirations 2023-06-07 06:53:00.000 18 /min Respirations 2023-06-03 07:04:00.000 20 /min Respirations 2023-05-31 16:30:00.000 18 /min Respirations 2023-05-27 07:29:00.000 18 /min Respirations 2023-05-24 07:19:00.000 18 /min Respirations 2023-05-20 07:13:00.000 18 /min Respirations 2023-05-17 07:14:00.000 18 /min Respirations 2023-05-12 07:28:00.000 17 /min Respirations 2023-05-10 07:17:00.000 18 /min Respirations 2023-05-06 07:34:00.000 16 /min Respirations 2023-04-29 07:37:00.000 18 /min Systolic Blood Pressure 2023-06-10 20:06:00.000 138 mm [Hg] Systolic Blood Pressure 2023-06-07 06:53:00.000 136 mm [Hg] Systolic Blood Pressure 2023-06-03 07:04:00.000 138 mm [Hg] Systolic Blood Pressure 2023-05-31 16:30:00.000 140 mm [Hg] Systolic Blood Pressure 2023-05-27 07:29:00.000 132 mm [Hg] Systolic Blood Pressure 2023-05-24 07:19:00.000 130 mm [Hg] Systolic Blood Pressure 2023-05-20 07:13:00.000 118 mm [Hg] Systolic Blood Pressure 2023-05-17 07:14:00.000 122 mm [Hg] Systolic Blood Pressure 2023-05-12 07:28:00.000 150 mm [Hg] Systolic Blood Pressure 2023-05-10 07:17:00.000 150 mm [Hg] Systolic Blood Pressure 2023-05-06 07:34:00.000 120 mm [Hg] Systolic Blood Pressure 2023-04-29 07:37:00.000 130 mm [Hg] Systolic Blood Pressure 2023-04-26 07:20:00.000 130 mm [Hg] Diastolic Blood Pressure 2023-06-10 20:06:00.000 80 mm [Hg] Diastolic Blood Pressure 2023-06-07 06:53:00.000 88 mm [Hg] Diastolic Blood Pressure 2023-06-03 07:04:00.000 80 mm [Hg] Diastolic Blood Pressure 2023-05-31 16:30:00.000 60 mm [Hg] Diastolic Blood Pressure 2023-05-27 07:29:00.000 78 mm [Hg] Diastolic Blood Pressure 2023-05-24 07:19:00.000 60 mm [Hg] Diastolic Blood Pressure 2023-05-20 07:13:00.000 60 mm [Hg] Diastolic Blood Pressure 2023-05-17 07:14:00.000 62 mm [Hg] Diastolic Blood Pressure 2023-05-12 07:28:00.000 70 mm [Hg] Diastolic Blood Pressure 2023-05-10 07:17:00.000 80 mm [Hg] Diastolic Blood Pressure 2023-05-06 07:34:00.000 80 mm [Hg] Diastolic Blood Pressure 2023-04-29 07:37:00.000 70 mm [Hg] Diastolic Blood Pressure 2023-04-26 07:20:00.000 62 mm [Hg] Plan of Treatment Planned Activity Planned Date Details Comments Future Scheduled Test SKILLED NU RSE TO EVALUATE PATIENT, IDENTIFY PRIMARY AND CO-MORBID CONDITIONS CODED PER CODING GUIDELINES, AND DEVELOP PATIENT SPECIFIC PLAN OF CARE THAT INCLUDES PATIENT GOAL FOR HOME HEALTH. [code = SKILLED NURSE TO EVALUATE PATIENT, IDENTIFY PRIMARY AND CO-MORBID CONDITIONS CODED PER CODING GUIDELINES, AND DEVELOP PATIENT SPECIFIC PLAN OF CARE THAT INCLUDES PATIENT GOAL FOR HOME HEALTH.] Future Scheduled Test SKILLED NU RSE TO O/A OF PATIENTS MENTAL/BEHAVIORAL STATUS, ASSESS VITAL SIGNS MONTHLY AND PRN ALLOW 2 PRNS FOR MEDICATION MANAGEMENT. [code = SKILLED NURSE TO O/A OF PATIENTS MENTAL/BEHAVIORAL STATUS, ASSESS VITAL SIGNS MONTHLY AND PRN ALLOW 2 PRNS FOR MEDICATION MANAGEMENT.] Future Scheduled Test SKILLED NU RSE TO PRE-POUR MEDICATION PER MEDICATION LIST [code = SKILLED NURSE TO PRE-POUR MEDICATION PER MEDICATION LIST] Future Scheduled Test SKILLED NU RSE FOR O/A AND SKILLED TEACHING OF COPING SKILLS TO MANAGE ANXIETY AND MAINTAIN SAFETY. [code = SKILLED NURSE FOR O/A AND SKILLED TEACHING OF COPING SKILLS TO MANAGE ANXIETY AND MAINTAIN SAFETY.] Future Scheduled Test SKILLED NU RSE FOR O/A OF ALTERED THOUGHT PROCESS AND/OR DISRUPTION IN COGNITIVE OPERATIONS AND ACTIVITIES [code = SKILLED NURSE FOR O/A OF ALTERED THOUGHT PROCESS AND/OR DISRUPTION IN COGNITIVE OPERATIONS AND ACTIVITIES ] Future Scheduled Test SKILLED NU RSE TO PROVIDE TEACHING ON SIGNS AND SYMPTOMS AND MANAGEMENT OF HYPERTENSION. [code = SKILLED NURSE TO PROVIDE TEACHING ON SIGNS AND SYMPTOMS AND MANAGEMENT OF HYPERTENSION.] Future Scheduled Test SKILLED NU RSE FOR O/A OF CLIENT'S ALTERED PSYCHOSOCIAL BEHAVIOR [code = SKILLED NURSE FOR O/A OF CLIENT'S ALTERED PSYCHOSOCIAL BEHAVIOR] Future Scheduled Test SKILLED NU RSE FOR O/A OF CLIENT'S SLEEP PATTERNS. MAY TEACH INTERVENTIONS R/T ACQUIRING IMPROVED REST [code = SKILLED NURSE FOR O/A OF CLIENT'S SLEEP PATTERNS. MAY TEACH INTERVENTIONS R/T ACQUIRING IMPROVED REST] Goal 2023-02-19 Patient Goal - N OGOALS, TAKE IT ONE DAY AT A TIME Goal 2023-04-19 Patient Goal - N O GOALS, TAKE IT ONE DAY AT A TIME Goal 2023-06-17 Patient Goal - N O GOALS, TAKE IT ONE DAY AT A TIME Goal Provider Goal - A PLAN OF CARE WILL BE ESTABLISHED THAT MEETS PATIENT'S JAIL NEEDS AND INCLUDES PATIENT GOAL FOR HOME HEALTH. Goal Provider Goal - ALTERED MENTAL/BEHAVIORAL STATUS WILL BE IDENTIFIED PROMPTLY AND INTERVENTION INITIATED QUICKLY TO MINIMIZE ASSOCIATED RISKS Goal Provider Goal - PATIENT WILL COMPLY WITH MEDICATION WHEN SKILLED NURSE PRE-POURS MEDICATION. Goal Provider Goal - PATIENT WILL BE ABLE TO PERFORM DAILY FUNCTIONS AND HAVE OPTIMAL IMPROVEMENT IN LEVEL OF ANXIETY Goal Provider Goal - PATIENT WILL BE ABLE TO PERFORM DAILY FUNCTIONS AND HAVE OPTIMAL IMPROVEMENT IN THOUGHT PROCESS Goal Provider Goal - PATIENT/CAREGIVER WILL VERBALIZE SIGNS AND SYMPTOMS OF HYPERTENSION AND WILL BE ABLE TO DEMONSTRATE ABILITY TO MANAGE EXACERBATION BY END OF THE EPISODE. Goal Provider Goal - PATIENT WILL VERBALIZE ACCEPTANCE OF ALTERED PSYCHOSOCIAL BEHAVIOR AND WILL BE ACCEPTING OF ENOC'S ASSISTANCE IN THERAPEUTIC APPROACH TO WELLNESS. Goal Provider Goal - PATIENT WILL REPORT AT LEAST 6-8 HOURS A NIGHT, RESTFUL SLEEP PATTERNS ACHIEVED USING THERAPEUTIC INTERVENTIONS BEFORE THE END OF THE CERTIFICATION PERIOD. Reason for Visit INDEPENDENT IN THE COMMUNITY Encounters Start Date/Time End Date/Time Encounter Type Admission Type Attending [facility] Care Department Encounter ID Discharge Date Discharge Status Discharge Condition Discharge Reason Percent Goals Met 2022-12-24 00:00:00 2023-06-17 00:00:00 Outpatient RECERTIFIC LETICIA ZUÑIGA [facility] [id number] 2023-06-17 00:00:00 DISCHARGE TO HOME OR SELF CARE INDEPENDEN T IN THE COMMUNITY PER CLIENT REQUEST 58.33
[2024-05-31 20:00] VITALS: BP 152/67; PULSE 62; RESP 16; TEMP 36.4; O2SAT 100
[2024-05-31] MEDS: Latanoprost 0.005 % Ophth Sol 2.5 ML DROPS 1 DROP EYE-BOTH (20:50)
[2024-05-31] MEDS: Paliperidone ER 6 MG TAB.ER.24 PO (20:51)
[2024-06-01] MEDS: traZODone HCL 50 MG TABLET PO ×2 (02:55→20:46)
[2024-06-01 07:00] VITALS: BMI 22.2
[2024-06-01 07:38] VITALS: BP 155/85; PULSE 69; RESP 18; TEMP 36.2; O2SAT 99
[2024-06-01 08:00] VITALS: BP 155/85; PULSE 69; RESP 18; TEMP 36.2; O2SAT 99
[2024-06-01] MEDS: timoloL maleate 0.5 % Oph Sol 5 ML DRBTL 1 DROP EYE-BOTH ×2 (08:37→20:44)
[2024-06-01] MEDS: Dorzolamide HCl 2 % Ophth Sol 10 ML DRPBTL 1 DROP EYE-BOTH ×2 (08:37→20:44)
[2024-06-01] MEDS: Brimonidine Tartrate 0.2% Oph 5 ML BOTTLE 1 DROP EYE-BOTH ×2 (08:38→20:44)
--- NOTE | 2024-06-01 09:25 | HO.PSYCHPN ---
Subjective Subjective Date of Service: 06/01/24 Reason For Visit: crisis Subjective Notes: Section 12B Interim History: Patient calmer today. Showering, eating meals. He reports feeling good ; he is hoping to be discharged home tomorrow. Pt reports he plans on continuing to take his prescribed medications. He agreed to VNA services. Pt did not make any delusional or paranoid statements; when asked about statements he made prior to admission. Pt stated, oh, I don't think those things anymore . denies SI/HI/VH/AH. 12b up 06/02/24. Spoke to patient's cousin, Marlin; and pt's outpatient psychiatrist, Dr. Condon, with patient's verbal consent. Both report pt does not have hx of violent behavior or self injurious behavior. Medication Compliance: Yes Side effects from medications: No Attending Groups: No Review of Systems Constitutional: Reports as per HPI Eyes: Reports as per HPI Reports as per HPI Cardiovascular: Reports as per HPI Respiratory: Reports as per HPI Gastrointestinal: Reports as per HPI Genitourinary: Reports as per HPI Musculoskeletal: Reports as per HPI Skin/Breast: Reports as per HPI Reports as per HPI Psychiatric: Reports as per HPI Endocrine: Reports as per HPI Hematologic/Lymphatic: Reports as per HPI Allergic/Immunologic: Reports as per HPI Mental Status Exam Mental Status Exam Narrative: Pt is alert and oriented; behavior is cooperative; dressed in casual attire; mood is described as good ; eye contact appropriate; Speech is normal rate, volume but pressured; focused on discharge; not making any paranoid or delusional statements during assessment; denies SI/HI/VH/AH. Diagnostics Vital Signs (24Hr): Vital Signs - 24 hr 05/31/24 20:00 06/01/24 07:38 06/01/24 08:00 Temperature 97.6 F 97.2 F 97.2 F Pulse Rate 62 69 69 Respiratory Rate 16 18 18 Blood Pressure 152/67 H 155/85 H 155/85 H Pulse Oximetry 100 99 99 Oxygen Delivery Method Room Air Room Air Room Air BMI result Body Mass Index 22.2 Labs 05/29/24 19:31 05/30/24 15:25 Labs: Laboratory Results - last 48 hr 05/30/24 05/30/24 05/31/24 15:25 15:30 09:10 Hold Purple Top SEE NOTE Sodium 140 Potassium 4.3 D Chloride 103 Carbon Dioxide 29 Anion Gap 12 BUN 17 H Creatinine 0.92 Estim Creat Clear Calc 81.1 Estimated GFR > 60 Random Glucose 97 Calcium 9.2 Total Bilirubin 0.4 AST 25 ALT 20 Alkaline Phosphatase 81 Total Protein 7.0 Albumin 3.9 Triglycerides 74 Cholesterol 128 LDL Cholesterol, Calc 65 HDL Cholesterol 49 Medications Medications Current Medications Acetaminophen (Acetaminophen 325 Mg Tablet) 650 mg PO Q6H PRN PRN Reason: Headache/Pain Mild Scale (1-3) Al Hydroxide/Mg Hydroxide (Magnesium Hydrox/Alum Hydrox 30 Ml Oral.Susp) 30 ml PO Q6H PRN PRN Reason: Heartburn/Nausea Brimonidine Tartrate (Brimonidine Tartrate 0.2% Oph 5 Ml Bottle) 1 drop EYE-BOTH BID [facility] Last Admin: 06/01/24 08:38 Dose: 1 drop Cariprazine (Cariprazine Hcl 3 Mg Capsule) 3 mg PO BEDTIME NAZ Last Admin: 05/31/24 20:54 Dose: Not Given Clonidine HCl (Clonidine Hcl 0.1 Mg Tablet) 0.1 mg PO BID PRN; Protocol PRN Reason: anxiety Dorzolamide HCl (Dorzolamide Hcl 2 % Ophth Jossy 10 Ml Drpbtl) 1 drop EYE-BOTH BID [facility] Last Admin: 06/01/24 08:37 Dose: 1 drop Hydroxyzine HCl (Hydroxyzine Hcl 25 Mg Tablet) 25 mg PO Q6H PRN PRN Reason: Anxiety Latanoprost (Latanoprost 0.005 % Ophth Jossy 2.5 Ml Drops) 1 drop EYE-BOTH BEDTIME [facility] Last Admin: 05/31/24 20:50 Dose: 1 drop Magnesium Hydroxide (Milk Of Magnesia 30 Ml Oral.Susp) 30 ml PO DAILY PRN PRN Reason: Constipation Nicotine Polacrilex (Nicotine Polacrilex 2 Mg Gum) 4 mg BUCCAL Q2H PRN PRN Reason: Nicotine Cravings Olanzapine (Olanzapine 5 Mg Tablet) 5 mg PO Q4H PRN PRN Reason: agitation Last Admin: 05/31/24 20:51 Dose: 5 mg Paliperidone (Paliperidone Er 6 Mg Tab.Er.24) 6 mg PO BEDTIME NAZ Last Admin: 05/31/24 20:51 Dose: 6 mg Timolol Maleate (Timolol Maleate 0.5 % Oph Jossy 5 Ml Drbtl) 1 drop EYE-BOTH BID NAZ Last Admin: 06/01/24 08:37 Dose: 1 drop Trazodone HCl (Trazodone Hcl 50 Mg Tablet) 50 mg PO BEDTIME MRX1 PRN PRN Reason: Insomnia Last Admin: 06/01/24 02:55 Dose: 50 mg Allergies Allergies Allergy/AdvReac Type Severity Reaction Status Date / Time No Known Allergies Allergy Unknown UNKNOWN Verified 05/29/24 17:28 Assessment & Plan Assessment & Plan (1) Schizophrenia: Qualifiers: Schizophrenia type: unspecified Qualified Code(s): F20.9 - Schizophrenia, unspecified Status: Acute Code(s): F20.9 - Schizophrenia, unspecified Plan Patient is a 68-year-old male with history of schizophrenia who was brought in to ER via ambulance on a section 12 by police and [employer] due to disorganization and diminished ADLs secondary to medication noncompliance. Plan: 12B 15 minute safety checks Continue home medications Obtain collateral Encourage groups Discharge planning 05/31: Rapid and pressured speech. Alert and oriented to time,date, place and situation. He reports feeling fine today; pt stated, I just want to get out of here. I can take care of my self. I took care of my and took her to her doctors appointments. I would take my meds if I went home . When discussing comments he made prior to admission, pt stated, I don't want to talk about that stuff . Showering, eating meals, medication compliant. 12b up on 06/02/24. Continue current tx plan. 06/01: Patient calmer today. Showering, eating meals. He reports feeling good ; he is hoping to be discharged home tomorrow. Pt reports he plans on continuing to take his prescribed medications. He agreed to VNA services. Pt did not make any delusional or paranoid statements; when asked about statements he made prior to admission. Pt stated, oh, I don't think those things anymore . denies SI/HI/VH/AH. 12b up 06/02/24. Spoke to patient's cousin, Marlin; and pt's outpatient psychiatrist, Dr. Condon, with patient's verbal consent. Both report pt does not have hx of violent behavior or self injurious behavior. Patient educated on: diagnosis and medication risk/benefits Reason for continued inpatient stay Substantial Risk for: med/psych decompensation Time Spent With Patient Time: Total time managing care of this patient today _20___ minutes.
[2024-06-01] MEDS: LORazepam 0.5 MG TABLET PO (13:13)
[2024-06-01 20:00] VITALS: BP 159/77; PULSE 63; RESP 16; TEMP 36.4; O2SAT 100
[2024-06-01] MEDS: Latanoprost 0.005 % Ophth Sol 2.5 ML DROPS 1 DROP EYE-BOTH (20:44)
[2024-06-01] MEDS: cloNIDine HCL 0.1 MG TABLET PO (20:46)
[2024-06-01] MEDS: hydrOXYzine HCL 25 MG TABLET PO (20:46)
[2024-06-01] MEDS: Paliperidone ER 6 MG TAB.ER.24 PO (20:46)
[2024-06-01] MEDS: OLANZapine 5 MG TABLET PO (20:46)
[2024-06-02 07:34] VITALS: BP 135/63; PULSE 63; RESP 14; TEMP 36.4; O2SAT 99
[2024-06-02] MEDS: Dorzolamide HCl 2 % Ophth Sol 10 ML DRPBTL 1 DROP EYE-BOTH (09:12)
[2024-06-02] MEDS: timoloL maleate 0.5 % Oph Sol 5 ML DRBTL 1 DROP EYE-BOTH (09:12)
[2024-06-02] MEDS: Brimonidine Tartrate 0.2% Oph 5 ML BOTTLE 1 DROP EYE-BOTH (09:12)
--- NOTE | 2024-06-02 09:17 | PM.PSYDC ---
DS: Providers Provider Date of Service: 06/02/24 Date of admission: 05/30/24 11:54 Date of discharge: 06/02/24 Primary care physician: Rodrick Milan MD Admitting clinician: So Zambrano Attending physician on admission: Roman Garcia Attending physician on discharge: Roman Garcia Discharging clinician: So Zambrano DS: Diagnosis Discharge Diagnosis (1) Schizophrenia: Status: Acute DS: Medications Discharge Medications Home Medications: Home Medications ?Medication ?Instructions ?Recorded ?Confirmed betaxolol 0.5 % eye drops 1 drp ophthalmic (eye) Q12H 05/30/24 05/30/24 bimatoprost 0.01 % eye drops 1 drp ophthalmic (eye) BEDTIME 05/30/24 05/30/24 (Lumigan) brinzolamide 1 %-brimonidine 0.2 % 1 drp ophthalmic (eye) Q12H 05/30/24 05/30/24 eye drops,suspension (Simbrinza) cariprazine 3 mg capsule (Vraylar) 3 mg PO BEDTIME 05/30/24 05/30/24 paliperidone 6 mg tablet,extended 6 mg PO BEDTIME 05/30/24 05/30/24 release 24 hr Mental Status Exam Mental Status Exam Narrative: Pt is alert and oriented; behavior is cooperative; dressed in casual attire; mood is described as good ; eye contact appropriate; Speech is normal rate, volume; focused on discharge; denies SI/HI/VH/AH. Data Data Completed and Pending Completed studies during hospitalization [Text1]: 05/29/24 05/29/24 05/29/24 18:06 19:30 19:31 WBC 6.6 RBC 4.49 L Hgb 13.6 L Hct 40.5 L MCV 90.2 MCH 30.3 MCHC 33.6 RDW 12.8 Plt Count 183 MPV 10.0 Immature Gran % (Auto) 0.2 Neut % (Auto) 82.0 H Lymph % (Auto) 8.8 L [place] % (Auto) 7.9 Eos % (Auto) 0.6 Baso % (Auto) 0.5 Lymph # (Auto) 0.6 L [place] # (Auto) 0.5 Eos # (Auto) 0.0 Baso # (Auto) 0.0 Abs Immat Gran (auto) 0.01 Absolute Neuts (auto) 5.4 Absolute Nucleated RBC 0.000 Nucleated RBC % (auto) 0.0 Hold Purple Top Sodium 139 Potassium 3.5 Chloride 107 Carbon Dioxide 28 Anion Gap 8 L BUN 16 Creatinine 0.91 Estim Creat Clear Calc 86.4 Estimated GFR > 60 Random Glucose 102 Calcium 9.0 Magnesium 2.2 Total Bilirubin 0.5 Direct Bilirubin 0.2 AST 25 ALT 22 Alkaline Phosphatase 75 Total Protein 6.8 Albumin 3.8 Triglycerides Cholesterol LDL Cholesterol, Calc HDL Cholesterol TSH 0.83 Urine Color Yellow Urine Appearance Clear Urine pH 6.5 Ur Specific [place] 1.020 Urine Protein 30 (1+) H Urine Glucose (UA) Negative Urine Ketones Negative Urine Blood Negative Urine Nitrite Negative Ur Leukocyte Esterase Trace H Urine RBC 0-2 Urine WBC 0-5 Ur Squamous Epith Cells 0-2 Urine Bacteria None Seen Hyaline Casts 0-2 Urine Opiates Screen Not Detected Ur Buprenorphine Scrn Not Detected Ur Oxycodone Screen Not Detected Urine Methadone Screen Not Detected Urine Fentanyl Screen Not Detected Ur Barbiturates Screen Not Detected Ur Phencyclidine Scrn Not Detected Ur Amphetamines Screen Not Detected U Benzodiazepines Scrn Not Detected Urine Cocaine Screen Not Detected U Marijuana (THC) Screen Not Detected Ethyl Alcohol < 10 05/30/24 05/30/24 05/31/24 15:25 15:30 09:10 WBC RBC Hgb Hct MCV MCH MCHC RDW Plt Count MPV Immature Gran % (Auto) Neut % (Auto) Lymph % (Auto) [place] % (Auto) Eos % (Auto) Baso % (Auto) Lymph # (Auto) [place] # (Auto) Eos # (Auto) Baso # (Auto) Abs Immat Gran (auto) Absolute Neuts (auto) Absolute Nucleated RBC Nucleated RBC % (auto) Hold Purple Top SEE NOTE Sodium 140 Potassium 4.3 D Chloride 103 Carbon Dioxide 29 Anion Gap 12 BUN 17 H Creatinine 0.92 Estim Creat Clear Calc 81.1 Estimated GFR > 60 Random Glucose 97 Calcium 9.2 Magnesium Total Bilirubin 0.4 Direct Bilirubin AST 25 ALT 20 Alkaline Phosphatase 81 Total Protein 7.0 Albumin 3.9 Triglycerides 74 Cholesterol 128 LDL Cholesterol, Calc 65 HDL Cholesterol 49 TSH Urine Color Urine Appearance Urine pH Ur Specific [place] Urine Protein Urine Glucose (UA) Urine Ketones Urine Blood Urine Nitrite Ur Leukocyte Esterase Urine RBC Urine WBC Ur Squamous Epith Cells Urine Bacteria Hyaline Casts Urine Opiates Screen Ur Buprenorphine Scrn Ur Oxycodone Screen Urine Methadone Screen Urine Fentanyl Screen Ur Barbiturates Screen Ur Phencyclidine Scrn Ur Amphetamines Screen U Benzodiazepines Scrn Urine Cocaine Screen U Marijuana (THC) Screen Ethyl Alcohol DS: Summary Hospital Course Hospital Course: Patient is a 68-year-old male with history of schizophrenia who was brought in to ER via ambulance on a section 12 by police and [facility] due to disorganization and diminished ADLs secondary to medication noncompliance. Per crisis report, police and [employer] team were dispatched to patient's home after patient called 911 speaking incoherently about his girlfriend who in 2009. When they arrived to his home patient was speaking rapidly and making statements about satellite shooting down planes, making cars disappear, and was not able to be redirected. He appeared disheveled. Patient is paranoid and delusional at baseline. When EMS arrived patient became combative and agitated stating, I'll get a knife and slit my throat before I let you take me to the hospital . Patient's cousin who is healthcare proxy, reports patient's in 2022 and pt has significantly declined since. Patient was connected with [facility] and in-home services with [facility] but due to noncompliance the services were terminated. Patient does receive meals on wheels. No history of substance use. During admission assessment, patient presents calm yet agitated. Patient requesting to be discharged home. Organized throughout the conversation however, becomes tangential at times but is able to be redirected back to the topic; rapid and pressured speech. Patient reports feeling fine ; patient stated, two people came to my door saying they were checking on me and then they told me that I needed help. I didn't do anything wrong. I felt fine . Patient reports that he showers every day and when asked about his eating habits; patient stated I eat all kinds of food . Patient reports that he has lost weight recently due to yard work at his home. Patient reports being medication compliant to T/W however, told admitting RN that he has not been taking his medications. Patient stated, I think this is a big mistake. I'm not going to sign something that isn't fair to me. I can just go home and take my medications . Patient denies SI/HI/VH/AH. Discussed restarting his home medications; patient agreed to take medications while inpatient. Plan: 12B 15 minute safety checks Continue home medications Obtain collateral Encourage groups Discharge planning Rapid and pressured speech. Alert and oriented to time,date, place and situation. He reports feeling fine today; pt stated, I just want to get out of here. I can take care of my self. I took care of my and took her to her doctors appointments. I would take my meds if I went home . When discussing comments he made prior to admission, pt stated, I don't want to talk about that stuff . Showering, eating meals, medication compliant. 12b up on 06/02/24. Continue current tx plan. Patient calmer today. Showering, eating meals. He reports feeling good ; he is hoping to be discharged home tomorrow. Pt reports he plans on continuing to take his prescribed medications. He agreed to VNA services. Pt did not make any delusional or paranoid statements; when asked about statements he made prior to admission. Pt stated, oh, I don't think those things anymore . denies SI/HI/VH/AH. 12b up 06/02/24. Spoke to patient's cousin, Marlin; and pt's outpatient psychiatrist, Dr. Condon, with patient's verbal consent. Both report pt does not have hx of violent behavior or self injurious behavior. Patient reports feeling great and ready to go home ; patient reports he plans on continuing taking his medications and following up with his outpatient providers. denies SI/HI/VH/AH. Time spent discussing smoking cessation with patient: 3 to 10 minutes Status at Discharge Cognitive/behavioral status at discharge: Patient has insight and demonstrates good judgment in terms of wanting to pursue treatment. Patient has a safety plan that includes presenting to the closest ER or calling 911 if feeling unsafe. Functional status at discharge: independent ambulation Overall status at discharge: patient is back to baseline Time Spent with Patient Time attestation: Total time managing care of this patient today _20___ minutes. Time spent: Less than 30 minutes Discharge Plan Discharge Anticipated Discharge Date/Time: 06/02/24 11:00 Patient Disposition: Home, Self-Care Discharge Diagnosis: Schizophrenia Referrals: Dr. Bronson Condon (psychiatrist) [Other] - 06/19/24 11:30 am (In person appointment) Rodrick Milan MD [Primary Care Provider] - 1 Week (your primary care provider will be contacting you within 24 hours to schedule your follow up appt.) Discharge Medications: Continued betaxolol 0.5 % drops 1 drp ophthalmic (eye) Q12H Lumigan 0.01 % drops 1 drp ophthalmic (eye) BEDTIME Simbrinza 1-0.2 % drops,suspension 1 drp ophthalmic (eye) Q12H paliperidone 6 mg tablet extended release 24 hr 6 mg PO BEDTIME 30 Days Qty: 30 0RF Vraylar 3 mg capsule 3 mg PO BEDTIME 30 Days Qty: 30 0RF Discharge Orders: Discharge Order (Routine); Ordered 06/02/24 Ordered By: So Zambrano Diet: Regular diet Activity on Discharge: As tolerated Stand Alone Forms: Patient Portal Discharge page, Community Support Print Language: Uzbek Care Plan Goals: Maintain mood and safe behaviors Take medications as prescribed Practice coping skills Continue with outpatient providers and reach out to them as needed Health Concerns: Mood stability and behaviors Plan of Treatment: Follow up with your PCP, psychiatric provider and other outpatient providers regarding above concerns Take medications as prescribed Assessment: Patient has insight and demonstrates good judgment in terms of wanting to pursue treatment. Patient has a safety plan that includes presenting to the closest ER or calling 911 if feeling unsafe.
== END 2024-06-02 11:11 | disposition home or self-care (01) | DRG 885 ==
LOC: HO.ED 19:28 → HO.PADLT16 05-30 11:55
PROVIDERS: Admitting Provider Registered Nurse; Emergency Provider Emergency Medicine; PCP Internal Medicine; Responsible Provider Registered Nurse; Visit Provider Psychiatry & Neurology Psychiatry
DX: F20.9 Schizophrenia, unspecified (principal); Z91.148 Patient's other noncompliance with medication regimen for other reason; Z79.899 Other long term (current) drug therapy
CPT/HCPCS: 36415; 80048; 80053; 80061; 80076; 80307; 81001; 83735; 84443; 85025; 93005; 99285

== ENCOUNTER → 2024-05-29 17:29 | Outpatient (BNV) | payer MEDICARE, MEDICAID, SELFPAY | PROVIDERS: Admitting Provider Registered Nurse; Emergency Provider Emergency Medicine; PCP Internal Medicine; Responsible Provider Registered Nurse; Visit Provider Internal Medicine Cardiovascular Disease | DX: I49.9 Cardiac arrhythmia, unspecified (principal) | CPT/HCPCS: 93010 ==

== ENCOUNTER → 2024-05-30 11:54 | Outpatient (BNV) | payer MEDICARE, MEDICAID, SELFPAY | PROVIDERS: Admitting Provider Registered Nurse; Emergency Provider Emergency Medicine; PCP Internal Medicine; Responsible Provider Registered Nurse; Visit Provider Registered Nurse | DX: F20.9 Schizophrenia, unspecified (principal) | CPT/HCPCS: 90792 ==

== ENCOUNTER 2024-06-14 00:18 | Inpatient (IN) | payer MEDICARE, MEDICAID, SELFPAY ==
[2024-06-14 00:30] VITALS: BP 143/81; PULSE 105; RESP 18; TEMP 36.4; O2SAT 98; BMI 23.5
--- NOTE | 2024-06-14 00:46 | ED_ITS ---
HPI - Psych General Chief Complaint: Psychiatric Symptoms Stated Complaint: MANIC EPISODE Time Seen by Provider: 06/14/24 00:46 Source: EMS Mode of arrival: EMS Limitations: no limitations History of Present Illness ED Provider: HPI Narrative: Patient's history of schizophrenia found by PD driving in his backyard with lights off patient appears to be hyperverbal and manic talking to himself according to PD they have seen him before when he does not take this medication patient is very manic and talking to himself and not responding to questions Related Data Home Medications ?Medication ?Instructions ?Recorded ?Confirmed betaxolol 0.5 % eye drops 1 drp ophthalmic (eye) Q12H 05/30/24 05/30/24 bimatoprost 0.01 % eye drops 1 drp ophthalmic (eye) BEDTIME 05/30/24 05/30/24 (Lumigan) brinzolamide 1 %-brimonidine 0.2 % 1 drp ophthalmic (eye) Q12H 05/30/24 05/30/24 eye drops,suspension (Simbrinza) Previous Rx's ?Medication ?Instructions ?Recorded cariprazine 3 mg capsule (Vraylar) 3 mg PO BEDTIME 30 days #30 caps 06/02/24 paliperidone 6 mg tablet,extended 6 mg PO BEDTIME 30 days #30 tabs 06/02/24 release 24 hr Allergies Allergy/AdvReac Type Severity Reaction Status Date / Time No Known Allergies Allergy Unknown UNKNOWN Verified 06/14/24 00:30 Review of Systems 2 Review of Systems: Yes all other systems are reviewed and are negative PMFSH Past Medical History Medical History Schizophrenia Social History Social History Household Members: None Housing: House Do you presently have visiting nurse or other home services: No Patient Tobacco Use Status: Refuse Tobacco use screen Advance Directives: Yes Advance Directives on File: Yes Advance Directives Date on File: 06/05/24 service: No Sexual orientation: Straight/Heterosexual Physical Exam 2 Vital Signs: Vital Signs: Last Vital Signs Temp 97.6 F 06/14/24 00:30 Pulse 103 H 06/14/24 03:42 Resp 18 06/14/24 03:42 BP 160/91 H 06/14/24 03:42 Pulse Ox 96 06/14/24 03:42 O2 Del Method Room Air 06/14/24 03:42 BMI result Body Mass Index 23.5 Appearance: Alert. Manic talking to himself. No acute distress. Eyes: PERRLA, No Nystagmus ENT: Pharynx normal. Oral Mucosa moist Neck: Normal inspection. Neck supple. CVS: Normal heart rate and rhythm. Pulses normal. Respiratory: No respiratory distress. Equal air entry bilateral, no wheezing/rales/rhonchi Abdomen: Soft and nontender. Bowel sounds are present, no mass palpable, no CVA tenderness Skin: Skin warm and dry. Normal skin color. Normal skin turgor. Extremities: No lower extremity edema. No calf tenderness Neuro: Manic moving all 4 extremities Medications Administered Discontinued Medications Generic Name Dose Route Start Last Admin Trade Name Freq PRN Reason Stop Dose Admin Diphenhydramine HCl 50 mg 06/14/24 06:19 06/14/24 06:25 Diphenhydramine Hcl 50 Mg/Ml Vial IM 06/14/24 06:20 50 mg ONCE ONE Administration Haloperidol Lactate 5 mg 06/14/24 06:19 06/14/24 06:25 Haloperidol Lactate 5 Mg/Ml Vial IM 06/14/24 06:20 5 mg ONCE ONE Administration Lorazepam 2 mg 06/14/24 00:53 06/14/24 01:20 Lorazepam 1 Mg Tablet PO 06/14/24 00:54 Not Given ONCE ONE Olanzapine 10 mg 06/14/24 00:53 06/14/24 01:20 Olanzapine 10 Mg Tablet PO 06/14/24 00:54 Not Given ONCE ONE Medical Decision Making Medical Decision Making [facility] Narrative: Patient has schizoaffective disorder with acute psychotic presentation? Noncompliant to his medication. Will get care team involved for further evaluation 545 am patient's very manic and agitated had to give IM Haldol and Benadryl patient has refused to take p.o. medication earlier Lab Data [facility] Lab Attestation statement: I reviewed the patient's lab results. 06/14/24 00:45 06/14/24 00:45 Labs: Lab Results 06/14/24 06/14/24 Range/Units 00:45 04:18 WBC 6.7 (4.8-10.8) X10*3/uL RBC 4.45 L (4.60-5.80) X10*6/uL Hgb 13.8 L (14.0-18.0) g/dl Hct 39.9 L (42.0-52.0) % MCV 89.7 (80.0-98.0) fL MCH 31.0 (27.0-33.0) pg MCHC 34.6 (31.0-36.0) g/dl RDW 12.4 (11.0-16.0) % Plt Count 222 (160-400) X10*3/uL MPV 9.6 (9.4-12.4) fL Immature Gran % (Auto) 0.3 (0.0-0.4) % Neut % (Auto) 65.4 (45-73) % Lymph % (Auto) 21.7 (20-40) % [place] % (Auto) 11.1 H (2-11) % Eos % (Auto) 1.2 (0-4) % Baso % (Auto) 0.3 (0-2) % Lymph # (Auto) 1.5 (1.2-4.9) X10*3/uL [place] # (Auto) 0.8 (0.1-1.2) X10*3/uL Eos # (Auto) 0.1 (0.0-0.4) X10*3/uL Baso # (Auto) 0.0 (0.0-0.2) X10*3/uL Abs Immat Gran (auto) 0.02 (0.00-0.03) X10*3/uL Absolute Neuts (auto) 4.4 (2.0-8.3) x10*3/uL Absolute Nucleated RBC 0.000 (0.0-0.012) X10*3/uL Nucleated RBC % (auto) 0.0 (0.0-0.2) /100WBC Sodium 144 (135-145) mmol/L Potassium 3.6 (3.3-5.1) mmol/L Chloride 110 H (96-108) mmol/L Carbon Dioxide 24 (22-29) mmol/L Anion Gap 14 (12-20) BUN 18 H (9-16) mg/dL Creatinine 0.74 (0.5-1.4) mg/dL Estim Creat Clear Calc 103.1 Estimated GFR > 60 Random Glucose 129 H (60-115) mg/dL Calcium 9.3 (8.4-10.2) mg/dL Total Bilirubin 0.7 (0.0-1.0) mg/dL AST 24 (5-37) U/L ALT 17 (0-40) U/L Alkaline Phosphatase 93 (39-117) U/L Total Protein 7.7 (6.5-8.0) g/dL Albumin 4.2 (3.5-5.0) g/dL Urine Color Yellow Urine Appearance Clear Urine pH 6.0 (5.0-9.0) Ur Specific [place] 1.025 (1.005-1.025) Urine Protein 100 (2+) H (Neg-Trace) mg/dL Urine Glucose (UA) Negative (Negative) mg/dL Urine Ketones 15 (Negative) mg/dL Urine Blood Negative (Negative) Urine Nitrite Negative (Negative) Ur Leukocyte Esterase Trace H (Negative) Urine RBC 0-2 (0-2) /HPF Urine WBC 6-10 H (0-5) /HPF Ur Squamous Epith Cells 0-2 (0-2) /HPF Urine Bacteria None Seen (None Seen) Hyaline Casts 0-2 (0-2) /LPF Urine Opiates Screen Not Detected (Not Detect) Ur Buprenorphine Scrn Not Detected (Not Detect) ng/mL Ur Oxycodone Screen Not Detected (Not Detect) ng/mL Urine Methadone Screen Not Detected (Not Detect) ng/mL Urine Fentanyl Screen Not Detected (Not Detect) Ur Barbiturates Screen Not Detected (Not Detect) Ur Phencyclidine Scrn Not Detected (Not Detect) Ur Amphetamines Screen Not Detected (Not Detect) U Benzodiazepines Scrn Not Detected (Not Detect) Urine Cocaine Screen Not Detected (Not Detect) U Marijuana (THC) Screen Not Detected (Not Detect) Ethyl Alcohol < 10 mg/dL Discharge Plan Discharge Clinical Impression: Acute psychosis Schizophrenia Qualifiers: Schizophrenia type: unspecified Qualified Code(s): F20.9 - Schizophrenia, unspecified Patient Disposition: Still a Patient Prescriptions: No Action betaxolol 0.5 % drops 1 drp ophthalmic (eye) Q12H Lumigan 0.01 % drops 1 drp ophthalmic (eye) BEDTIME Simbrinza 1-0.2 % drops,suspension 1 drp ophthalmic (eye) Q12H paliperidone 6 mg tablet extended release 24 hr 6 mg PO BEDTIME 30 Days Qty: 30 0RF Vraylar 3 mg capsule 3 mg PO BEDTIME 30 Days Qty: 30 0RF Print Language: Slovenian
[2024-06-14 00:49] LABS: MANUAL DIFF FLAG NO
[2024-06-14 00:50] LABS: Basophils Percent Auto 0.3 % (0-2); Eosinophils Absolute Auto 0.1 X10*3/uL (0.0-0.4); Eosinophils Percent Auto 1.2 % (0-4); Hematocrit 39.9 % (42.0-52.0); Hemoglobin 13.8 g/dl (14.0-18.0); Imm Gran Abs Auto 0.02 X10*3/uL (0.00-0.03); Imm Gran Pct Auto 0.3 % (0.0-0.4); Lymphocytes Absolute Auto 1.5 X10*3/uL (1.2-4.9); Lymphocytes Percent Auto 21.7 % (20-40); Mean Corpuscular HGB Conc 34.6 g/dl (31.0-36.0); Mean Corpuscular Volume 89.7 fL (80.0-98.0); Mean Platelet Volume 9.6 fL (9.4-12.4); Monocytes Absolute Auto 0.8 X10*3/uL (0.1-1.2); Monocytes Percent Auto 11.1 % (2-11); Neutrophils Absolute Auto 4.4 x10*3/uL (2.0-8.3); Neutrophils Percent Auto 65.4 % (45-73); Platelet Count 222 X10*3/uL (160-400); Red Blood Count 4.45 X10*6/uL (4.60-5.80); Red Cell Distribution Width 12.4 % (11.0-16.0); White Blood Count 6.7 X10*3/uL (4.8-10.8)
--- OUTSIDE RECORDS SUMMARY | 2024-06-14 00:57 | XMS_ITS | Clinical Summary ---
Author Organization Unknown Care Team Providers Care Dock Loader Name Role Phone [place] MAC, DANIEL Unavailable Unavailable LUIS MESSINA, MAGI Unavailable Unavailable Payers Payer Name Policy Type Policy Number Effective Date Expira tion Date ON DEMAND MEDIC[place] - [place] [id number] [place] [id number] Problems Condition Name Condition Details Condition Category Status Onset Date Resolution Date Last Treatment Date Treating Clinician Comments SCHIZOPHRENI A, UNSPECIFIED Active 2023-06 00:00: 00 Allergies, Adverse Reactions, Alerts Allergy Name Allergy Type Status Severity Reaction(s) Onset Date Inactive Date Treating Clinician Comments NKA Propensity to adverse reactions Active 2024-05 13:53:0 6 Medications Ordered Medication Name Filled Medication Name Start Date Stop Date Current Medication? Ordering Clinician Indication Dosage Frequency Signature (SIG) Comments Components betaxolol 0.5 % eye drops 08-30 00:00: 00 06-08 00:00 :00 No [id number] 1 drops EVERY AM 1 drops EVERY AM (route: ophthalmic (eye)) Med Classific ation: Ophthalmi c Agents bupropion HCl SR 200 mg tablet,12 hr sustained-r elease 8-18 00:00: 00 05-28 23:59 :00 No [id number] 1 tablet DAILY 1 tablet DAILY (route: oral) Med Classific ation: Central Nervous System Agents clonazepam 0.5 mg tablet 3-04 00:00: 00 04-19 23:59 :00 No [id number] 1 tablet Every hs 1 tablet Every hs (route: oral) Med Classific ation: Central Nervous System Agents Latuda 20 mg tablet 5-27 00:00: 00 05-28 23:59 :00 No [id number] 1 tablet Every bedtime 1 tablet Every bedtime (route: oral) Med Classific ation: Central Nervous System Agents lisinopril 20 mg-hydrochl orothiazide 12.5 mg tablet 08-30 00:00: 00 06-08 00:00 :00 No [id number] 1 tablet EVERY AM 1 tablet EVERY AM (route: oral) Med Classific ation: Cardiovas cular Therapy Agents Risperdal 3 mg tablet 8-26 00:00: 00 05-28 23:59 :00 No [id number] 2 tablet BEDTIME 2 tablet BEDTIME (route: oral) Med Classific ation: Central Nervous System Agents Seroquel 100 mg tablet 2 00:00: 00 12-24 23:59 :00 No [id number] 1 tablet Every hs 1 tablet Every hs (route: oral) Med Classific ation: Central Nervous System Agents Simbrinza 1 %-0.2 % eye drops,suspe nsion 08-30 00:00: 00 06-08 00:00 :00 No [id number] Per instruc tions EVERY AM Per instructio ns EVERY AM (route: ophthalmic (eye)) Med Classific ation: Ophthalmi c Agents Fish Oil 1,000 mg (120 mg-180 mg) capsule 2019-06 00:00: 00 08-31 23:59 :00 No [id number] 1 capsule DAILY 1 capsule DAILY (route: oral) Med Classific ation: Cardiovas cular Therapy Agents Invega 6 mg tablet,exte nded release 2019-06 00:00: 00 08-31 23:59 :00 No [id number] 1 tablet BEDTIME 1 tablet BEDTIME (route: oral) Med Classific ation: Central Nervous System Agents Multivitami n 50 Plus tablet 2019-06 00:00: 00 08-31 23:59 :00 No [id number] 1 tablet DAILY 1 tablet DAILY (route: oral) Med Classific ation: Electroly te Balance-N utritiona l Products Vitamin D3 25 mcg (1,000 unit) capsule 2019-06 00:00: 00 08-31 23:59 :00 No [id number] 1 capsule DAILY 1 capsule DAILY (route: oral) Med Classific ation: Electroly te Balance-N utritiona l Products bupropion HCl SR 200 mg tablet,12 hr sustained-r elease 2019-0622 00:00: 00 03-21 23:59 :00 No [id number] 1 tablet DAILY 1 tablet DAILY (route: oral) Med Classific ation: Central Nervous System Agents clonazepam 0.5 mg tablet 08-31 00:00: 00 09-11 23:59 :00 No [id number] 1 tablet NEEDED 1 tablet NEEDED (route: oral) Med Classific ation: Central Nervous System Agents risperidone 3 mg tablet 08-31 00:00: 00 01-07 23:59 :00 No [id number] 2 tablet BEDTIME 2 tablet BEDTIME (route: oral) Med Classific ation: Central Nervous System Agents bupropion HCl XL 300 mg 24 hr tablet, extended release 2020-06 030 00:00: 00 01-07 23:59 :00 No [id number] 300 mg DAILY 300 mg DAILY (route: oral) Med Classific ation: Central Nervous System Agents Ativan 0.5 mg tablet 12-25 00:00: 00 06-08 00:00 :00 No [id number] 0.5 mg 2 TIMES DAILY 0.5 mg 2 TIMES DAILY (route: oral) Med Classific ation: Central Nervous System Agents Nyamyc 100,000 unit/gram topical powder 12-08 00:00: 00 06-08 00:00 :00 No [id number] 1 gram NEEDED 1 gram NEEDED (route: topical) Med Classific ation: Dermatolo gical quetiapine 100 mg tablet 12-24 00:00: 00 02-19 23:59 :00 No [id number] 2 tablet BEDTIME 2 tablet BEDTIME (route: oral) Med Classific ation: Central Nervous System Agents betaxolol 0.5 % eye drops 11-30 00:00: 00 06-08 00:00 :00 No [id number] 1 drops DAILY 1 drops DAILY (route: ophthalmic (eye)) Med Classific ation: Ophthalmi c Agents Simbrinza 1 %-0.2 % eye drops,suspe nsion 11-30 00:00: 00 12-24 23:59 :00 No [id number] 1 drops DAILY 1 drops DAILY (route: ophthalmic (eye)) Med Classific ation: Ophthalmi c Agents Lumigan 0.01 % eye drops 11-27 00:00: 00 06-08 00:00 :00 No [id number] 1 drops BEDTIME 1 drops BEDTIME (route: ophthalmic (eye)) Med Classific ation: Ophthalmi c Agents clonazepam 0.5 mg tablet 11-23 00:00: 00 12-24 23:59 :00 No [id number] 1 tablet BEDTIME 1 tablet BEDTIME (route: oral) Med Classific ation: Central Nervous System Agents risperidone 2 mg tablet -20 00:00: 00 06-08 00:00 :00 No [id number] 1 tablet DAILY 1 tablet DAILY (route: oral) Med Classific ation: Central Nervous System Agents risperidone 3 mg tablet -20 00:00: 00 06-08 00:00 :00 No [id number] 1 tablet DAILY 1 tablet DAILY (route: oral) Med Classific ation: Central Nervous System Agents Seroquel 100 mg tablet 9-04 00:00: 00 06-08 00:00 :00 No [id number] 1 tablet BEDTIME 1 tablet BEDTIME (route: oral) Med Classific ation: Central Nervous System Agents RISPERDAL ORAL 8-18 00:00: 00 02-13 00:00 :00 No 3 mg1 BEDTIME 3 mg1 BEDTIME (route: ) Med Classific ation: CENTRAL NERVOUS SYSTEM AGENTS BUPROPION HCL ORAL 0 2-25 00:00: 00 02-05 00:00 :00 No 1 [id number] g Daily 1 [id number] Daily (route: ) Med Classific ation: CENTRAL NERVOUS SYSTEM AGENTS INVEGA ORAL 6-04 00:00: 00 02-05 00:00 :00 No 1 tab6mg Every pm 1 tab6mg Every pm (route: ) Med Classific ation: CENTRAL NERVOUS SYSTEM AGENTS Vital Signs Vital Name Observation Time Observation Value Commen ts BMI (%) 2024-06-08 11:23:00.000 22 kg/m2 Height 2024-06-08 11:23:00.000 71 [in_us] Pulse 2024-06-08 11:23:00.000 96 /min O2 Saturation (%) 2024-06-08 11:27:00.000 97 % Respirations 2024-06-08 11:23:00.000 20 /min Weight (lbs) 2024-06-08 11:23:00.000 158 [lb_av] Systolic Blood Pressure 2024-06-08 11:23:00.000 160 mm [Hg] Diastolic Blood Pressure 2024-06-08 11:23:00.000 72 mm [Hg] Plan of Treatment Planned Activity [...] OF PATIENTS MENTAL/BEHAVIORAL STATUS, ASSESS VITAL SIGNS 1X/WK, SNV 5WK8 ALLOW 2 PRNS FOR MEDICATION MANAGEMENT. [code = SKILLED NURSE TO O/A OF PATIENTS MENTAL/BEHAVIORAL STATUS, ASSESS VITAL SIGNS 1X/WK, SNV 5WK8 ALLOW 2 PRNS FOR MEDICATION MANAGEMENT.] Future Scheduled Test SKILLED NU RSE FOR O/A OF ALTERED THOUGHT PROCESS AND/OR DISRUPTION IN COGNITIVE OPERATIONS AND ACTIVITIES [code = SKILLED NURSE FOR O/A OF ALTERED THOUGHT PROCESS AND/OR DISRUPTION IN COGNITIVE OPERATIONS AND ACTIVITIES ] Future Scheduled Test SKILLED NU RSE FOR O/A OF GENERAL HEALTH STATUS OF PAIN, CARDIAC, RESPIRATORY, GASTROINTESTINAL, GENITOURINARY, SKIN, NEUROLOGIC, ENDOCRINE SYSTEMS TO IDENTIFY CHANGES ASSOCIATED WITH EXACERBATION FOR EARLY INTERVENTION OF COMPLICATIONS WEEKLY. [code = SKILLED NURSE FOR O/A OF GENERAL HEALTH STATUS OF PAIN, CARDIAC, RESPIRATORY, GASTROINTESTINAL, GENITOURINARY, SKIN, NEUROLOGIC, ENDOCRINE SYSTEMS TO IDENTIFY CHANGES ASSOCIATED WITH EXACERBATION FOR EARLY INTERVENTION OF COMPLICATIONS WEEKLY.] Future Scheduled Test SKILLED NU RSE TO ADMINISTER MEDICATIONS 5WK8 AND PRE-POUR MEDICATIONS 1WK8 PER MEDICATION LIST. [code = SKILLED NURSE TO ADMINISTER MEDICATIONS 5WK8 AND PRE-POUR MEDICATIONS 1WK8 PER MEDICATION LIST.] Future Scheduled Test SKILLED NU RSE FOR O/A AND SKILLED TEACHING RELATED TO MANAGEMENT OF DEPRESSIVE SYMPTOMS AND/OR DEPRESSION. SN TO REPORT SIGNIFICANT CHANGE IN DEPRESSIVE SYMPTOMS TO CLINICAL PROVIDER FOR EARLY INTERVENTION. [code = SKILLED NURSE FOR O/A AND SKILLED TEACHING RELATED TO MANAGEMENT OF DEPRESSIVE SYMPTOMS AND/OR DEPRESSION. SN TO REPORT SIGNIFICANT CHANGE IN DEPRESSIVE SYMPTOMS TO CLINICAL PROVIDER FOR EARLY INTERVENTION.] Future Scheduled Test SKILLED NU RSE TO REVIEW PATIENT MEDICATIONS. INSTRUCT PATIENT/CAREGIVER ON MONITORING OF EFFECTIVENESS, ADVERSE DRUG REACTIONS, SIDE EFFECTS OF ALL MEDICATIONS (PRESCRIPTION/-OTC), AND HOW AND WHEN TO REPORT PROBLEMS. [code = SKILLED NURSE TO REVIEW PATIENT MEDICATIONS. INSTRUCT PATIENT/CAREGIVER ON MONITORING OF EFFECTIVENESS, ADVERSE DRUG REACTIONS, SIDE EFFECTS OF ALL MEDICATIONS (PRESCRIPTION/-OTC), AND HOW AND WHEN TO REPORT PROBLEMS. ] Future Scheduled Test SKILLED NU RSE TO ASSESS PATIENTS PSYCHOSOCIAL STATUS TO IDENTIFY POTENTIAL ISSUES THAT MAY COMPLICATE THE PROVISION OF THE PLAN OF CARE INCLUDING THE PATIENTS ABILITY TO ACCESS COMMUNITY RESOURCES AND PSYCHOSOCIAL SUPPORT SERVICES. [code = SKILLED NURSE TO ASSESS PATIENTS PSYCHOSOCIAL STATUS TO IDENTIFY POTENTIAL ISSUES THAT MAY COMPLICATE THE PROVISION OF THE PLAN OF CARE INCLUDING THE PATIENTS ABILITY TO ACCESS COMMUNITY RESOURCES AND PSYCHOSOCIAL SUPPORT SERVICES.] Future Scheduled Test SKILLED NU RSE WILL MAINTAIN SITUATIONAL AWARENESS FOR SAFETY AND WILL NOTIFY CLINICAL SOCIOLOGY INSTRUCTOR AND PHYSICIAN/PROVIDER WITH ANY CHANGE IN CONDITION. [code = SKILLED NURSE WILL MAINTAIN SITUATIONAL AWARENESS FOR SAFETY AND WILL NOTIFY CLINICAL SOCIOLOGY INSTRUCTOR AND PHYSICIAN/PROVIDER WITH ANY CHANGE IN CONDITION.] Goal Patient Goal - NO ANSWER FRO M PATIENT Goal Provider Goal - A PLAN OF CARE WILL BE ESTABLISHED THAT MEETS PATIENT'S SENIOR CARE NEEDS AND INCLUDES PATIENT GOAL FOR HOME HEALTH. Goal Provider Goal - ALTERED MENTAL/BEHAVIORAL STATUS WILL BE IDENTIFIED PROMPTLY AND INTERVENTION INITIATED QUICKLY TO MINIMIZE ASSOCIATED RISKS THROUGHOUT CERTIFICATION PERIOD. Goal Provider Goal - PATIENT WILL BE ABLE TO PERFORM DAILY FUNCTIONS AND HAVE OPTIMAL IMPROVEMENT IN THOUGHT PROCESS THROUGHOUT CERTIFICATION PERIOD. Goal Provider Goal - CHANGE IN GENERAL HEALTH STATUS WILL BE IDENTIFIED AND REPORTED TO PHYSICIAN FOR PROMPT INTERVENTION TO MINIMIZE ASSOCIATED RISKS THROUGHOUT CERTIFICATION PERIOD. Goal Provider Goal - PATIENT WILL COMPLY WITH MEDICATION WHEN SKILLED NURSE ADMINISTERS AND PRE-POURS MEDICATION THROUGHOUT CERTIFICATION PERIOD. Goal Provider Goal - PATIENT WILL REMAIN SAFE WITHOUT DECOMPENSATION IN DEPRESSIVE CONDITION, WHILE MAINTAINING OPTIMAL LEVEL OF MENTAL HEALTH AND WELL BEING THROUGHOUT CERTIFICATION PERIOD. Goal Provider Goal - PATIENT/CAREGIVER WILL VERBALIZE UNDERSTANDING OF EDUCATION PROVIDED ON MEDICATIONS BY THE END OF THE CERTIFICATION PERIOD. Goal Provider Goal - PSYCHOSOCIAL NEEDS WILL BE IDENTIFIED AND PLAN IMPLEMENTED TO MINIMIZE RISK THROUGHOUT CERTIFICATION PERIOD. Goal Provider Goal - PATIENT WILL REMAIN SAFE IN THE COMMUNITY AND WILL BE FREE OF DANGER TO SELF AND OTHERS THROUGHOUT THE CERTIFICATION PERIOD. Progress Notes Progress Notes <paragraph>[Visit Date: 2023 by MAGI SMITH RN]:</paragraph><paragraph>PATIENT IS A 68 YO SINGLE MALE THAT LIVES ALONE IN A SINGLE FAMILY HOME IN [place]. HE IS BEING SEEN TODAY FOR A SOC. HE HAS A PRIMARY DX OF SCHIZOPHRENIA. HE WAS RECENTLY HOSPITALIZED AFTER BEING SECTIONED AFTER A WELFARE CHECK. HE PRESENTS DISHELVELED AND UNKEPT. HE IS PARANOID, HYPERACTIVE, AND HYPERVERBAL DURING ASSESSMENT AND EDUCATION PROCESS. HE REPORTS AUDIO AND VISUAL HALLUCINATIONS. HE DENIES SI/HI. HE DOES NOT PRESENT WITH ANY AGGRESSIVE OR THREATENING BEHAVIOR. SN WAS UNABLE TO LOCATE ANY PO MEDICATIONS IN THE HOME. SN CALLED [facility] AND PT DOES HAVE ACTIVE SCRIPTS ON FILE. SN CALLED PCP AND UPDATED ON PT ADMISSION TO SERVICES AND THAT PT HAS NOT BEEN TAKING HIS MEDICATIONS. SN REQUESTED RETURN CALL WITH CLARIFICATION ON HIS CURRENT MEDICATIONS SO SN CAN HAVE FILLED. HOME IS NOTED TO BE CLUTTERED AND DIRTY, HE DENIES ANY COMMUNITY SERVICES. SN TO SEE PATIENT 5WK8 FOR MEDICATION ADMINISTRATION/MANAGEMENT AND MONITORING OF HIS DISEASE PROCESS. A REFERRAL FOR A [facility] IS NECESSARY FOR MORE SUPPORTIVE SERVICES DUE TO HIS RISK OF DECOMPENSATION AND REHOSPITALIZATION..</paragraph> Encounters Start Date/Time End Date/Time Encounter Type Admission Type Attending Clinicians Care Facility Care Department Encounter ID Discharge Date Discharge Status Discharge Condition Discharge Reason Percent Goals Met 2024-06-08 00:00:00 2024-08-06 00:00:00 Outpatient MAGI CRAFT [facility] [id number] 20.00
[2024-06-14 01:07] LABS: Alanine Aminotransferase 17 U/L (0-40); Albumin Level 4.2 g/dL (3.5-5.0); Alkaline Phosphatase 93 U/L (39-117); Anion Gap 14 (12-20); Aspartate Amino Transferase 24 U/L (5-37); Bilirubin Total 0.7 mg/dL (0.0-1.0); Blood Urea Nitrogen 18 mg/dL (9-16); Calcium 9.3 mg/dL (8.4-10.2); Carbon Dioxide 24 mmol/L (22-29); Chloride 110 mmol/L (96-108); Creatinine Clr Calc Pharmacy 103.1; Estimated Glomerular Filt Rate > 60; Ethanol < 10 mg/dL; Glucose Random 129 mg/dL (60-115); Potassium 3.6 mmol/L (3.3-5.1); Sodium 144 mmol/L (135-145); Total Protein 7.7 g/dL (6.5-8.0)
[2024-06-14 03:31] VITALS: RESP 18
[2024-06-14 03:42] VITALS: BP 160/91; PULSE 103; RESP 18; O2SAT 96
[2024-06-14 04:26] LABS: Appearance Urine Clear; Color Urine Yellow; Glucose Urine UA Negative (Negative); Leukocyte Esterase Urine Trace (Negative); Nitrite Urine Negative (Negative); Specific Gravity - Urine 1.025 (1.005-1.025); UMIC TRIGGER UACC YES; Urine Blood Negative (Negative); Urine Ketones 15 mg/dL (Negative); Urine Protein 100 (2+) mg/dL (Neg-Trace)
[2024-06-14 04:28] LABS: Bacteria Urine None Seen (None Seen); Hyaline Casts Urine 0-2 /LPF (0-2); RBC Urine 0-2 /HPF (0-2); Squamous Epithelial Cell Urine 0-2 /HPF (0-2); UACC Culture Trigger YES
[2024-06-14 04:40] LABS: Amphetamine Screen Urine Not Detected (Not Detect); Barbiturates, Urine Not Detected (Not Detect); Benzodiazepines Screen Urine Not Detected (Not Detect); Buprenorphine Scr Not Detected (Not Detect); Cannabinoid Screen Urine Not Detected (Not Detect); Cocaine Screen Urine Not Detected (Not Detect); Fentanyl, urine Not Detected (Not Detect); Methadone Screen, Urine Not Detected (Not Detect); Opiate Screen Urine Not Detected (Not Detect); Oxycodone Screen Urine Not Detected (Not Detect); Phencyclidine Screen Urine Not Detected (Not Detect)
[2024-06-14] MEDS: diphenhydrAMINE HCL 50 MG/ML VIAL IM (06:25)
[2024-06-14] MEDS: Haloperidol Lactate 5 MG/ML VIAL IM (06:25)
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
--- NOTE | 2024-06-14 07:03 | PC.NURSE ---
Assumed care of patient, patient up ambulating on unit. Patient speaking rapidly with disorganized speech. Difficult to re-direct, patient provided with warm blanket ambulated to bed to lay down. Continues to decline vitals becomes agitated
--- NOTE | 2024-06-14 12:21 | PC.NURSE ---
Ambulating on unit appearing to be responding to internal stimuli. Walked up to clock in common area and stood in front of it point and talking towards clock. Sitting in room at desk eating lunch.
[2024-06-14 13:01] VITALS: BP 153/69; PULSE 99; RESP 23; TEMP 37.1; O2SAT 95
--- NOTE | 2024-06-14 13:44 | PC.NURSE ---
Continues to respond to internal stimuli. Provided with toothbrush and toothpaste to brush teeth after lunch. Patient talking about who , stating he needs to go home to take care of her.
--- NOTE | 2024-06-14 14:02 | PC.NURSE ---
Patient came to common area stating he now wants his eyes drops or he will go blind, medicated per mar
[2024-06-14] MEDS: Brimonidine Tartrate 0.2% Oph 5 ML BOTTLE 1 DROP EYE-BOTH ×2 (14:03→20:11)
[2024-06-14] MEDS: Dorzolamide HCl 2 % Ophth Sol 10 ML DRPBTL 1 DROP EYE-BOTH ×2 (14:05→20:02)
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
--- NOTE | 2024-06-14 20:10 | PC.NURSE ---
disinhibited, rambling near constant speech
[2024-06-14] MEDS: Latanoprost 0.005 % Ophth Sol 2.5 ML DROPS 1 DROP EYE-BOTH (20:11)
[2024-06-14] MEDS: timoloL maleate 0.5 % Oph Sol 5 ML DRBTL 1 DROP EYE-BOTH (20:11)
[2024-06-14] MEDS: Paliperidone ER 3 MG TAB.ER.24 6 MG PO (20:24)
[2024-06-14] MEDS: Cariprazine HCl 3 MG CAPSULE PO (20:24)
--- NOTE | 2024-06-14 20:35 | PC.NURSE ---
ptient takes meds w encouragement then a few minutes later comes out with wm top off, rapid rambling speech.
[2024-06-15] MEDS: diphenhydrAMINE HCL 25 MG CAPSULE 50 MG PO (00:01)
[2024-06-15] MEDS: HaloperidoL 5 MG TABLET PO (00:01)
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
--- NOTE | 2024-06-15 03:50 | PC.NURSE ---
patient has had very broken sleep, sleeping no longer than 120 minutes uninterruptedly.
[2024-06-15 06:18] VITALS: BP 144/63; PULSE 63; RESP 16; TEMP 36.7; O2SAT 98
--- NOTE | 2024-06-15 08:13 | ECG_ITS ---
Test Reason : MEDICAL CLERANCE Blood Pressure : / mmHG Vent. Rate : 060 BPM Atrial Rate : 060 BPM P-R Int : 182 ms QRS Dur : 100 ms QT Int : 422 ms P-R-T Axes : 069 079 058 degrees QTc Int : 422 ms Normal sinus rhythm Normal ECG No previous ECGs available Referred By: Lamar Carter Electronically Signed By:HANH LEE MD
[2024-06-15] MEDS: Brimonidine Tartrate 0.2% Oph 5 ML BOTTLE 1 DROP EYE-BOTH ×2 (09:33→19:53)
[2024-06-15] MEDS: timoloL maleate 0.5 % Oph Sol 5 ML DRBTL 1 DROP EYE-BOTH ×2 (09:34→19:54)
[2024-06-15] MEDS: Dorzolamide HCl 2 % Ophth Sol 10 ML DRPBTL 1 DROP EYE-BOTH ×2 (09:35→19:54)
--- NOTE | 2024-06-15 10:06 | PHA.MEDREC ---
Addendum entered by Kian Flores RPh 06/15/24 10:22: Reviewed by [facility]. Original Note: Pharmacy Consult ? Medication Reconciliation Pharmacy reviewed med rec done by nursing. Claims match what is confirmed on med rec.
--- NOTE | 2024-06-15 12:02 | MHC.CM.ED ---
Received notification from [facility] that patient is active with their agency. Return referral made in [facility] so agency can follow for d/c needs.
[2024-06-15 17:49] VITALS: BP 167/82; PULSE 74; RESP 18; TEMP 36.6; O2SAT 100
[2024-06-15] MEDS: Cariprazine HCl 3 MG CAPSULE PO (19:53)
[2024-06-15] MEDS: Paliperidone ER 3 MG TAB.ER.24 6 MG PO (19:53)
[2024-06-15] MEDS: Latanoprost 0.005 % Ophth Sol 2.5 ML DROPS 1 DROP EYE-BOTH (19:54)
[2024-06-15 20:35] VITALS: BP 136/66; PULSE 72; RESP 16; TEMP 36.3; O2SAT 99
[2024-06-16] MEDS: traZODone HCL 50 MG TABLET PO ×2 (02:55→20:36)
[2024-06-16] MEDS: OLANZapine 5 MG TABLET PO ×3 (02:55→20:36)
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
[2024-06-16 08:10] VITALS: BP 166/80; PULSE 70; TEMP 36.4; O2SAT 98
[2024-06-16] MEDS: Brimonidine Tartrate 0.2% Oph 5 ML BOTTLE 1 DROP EYE-BOTH ×2 (08:44→20:33)
[2024-06-16] MEDS: Dorzolamide HCl 2 % Ophth Sol 10 ML DRPBTL 1 DROP EYE-BOTH ×3 (08:49→20:33)
[2024-06-16 08:51] LABS: Estimated Average Glucose 120 mg/dL; Hemoglobin A1C 148.9424 umol/L; Hemoglobin A1c % 5.8 % (<6.0); Total Hemoglobin (HGBA1C) 3719.7202 umol/L
[2024-06-16] MEDS: timoloL maleate 0.5 % Oph Sol 5 ML DRBTL 1 DROP EYE-BOTH ×2 (08:56→20:33)
[2024-06-16 09:03] LABS: Cholesterol 121 mg/dL (<200); HDL Cholesterol 52 mg/dL (>40); LDL Cholesterol Calculated 59 mg/dL (<100); Magnesium 2.2 mg/dL (1.6-2.6); Triglycerides 53 mg/dL (<150)
[2024-06-16 09:21] LABS: Free T4 (Free Thyroxine) 1.49 ng/dL (0.71-1.85); Thyroid Stimulating Hormone 1.06 uIU/mL (0.32-4.0)
[2024-06-16 09:33] LABS: Folate 10.1 ng/mL (> or = 4.0); Vitamin B12 186 pg/mL (200-900)
--- NOTE | 2024-06-16 10:16 | HO.PSYADMNOT ---
HPI Date of Service: 06/16/24 Chief Complaint: schizophrenia Sources of Information: patient interviewed, chart reviewed and crisis/core team assessment reviewed HPI Subjective Notes: [place] Warning, Conditional Voluntary and Section 12B Narrative: Patient is a 68-year-old male with history of schizoaffective, bipolar type, (vs bipolar), glaucoma who presents via police for disorganized behavior in the community. Patient is disorganized in speech, rambling, often incoherently. He asks commercial insurance underwriter. about the mott of the sexes and Eleazar and Vidya... Learning Center Instructor inquired about ED/police report that he was disorganized, that he was driving in the backyard of his house, shiny his lights on neighbors house. He said he was trying to park in his driveway and I did not. Mean to drive in the backyard.. Saying it was accidental. Regarding being disorganized outside a convenience store, patient said that there was a angry woman there a sick woman.. Who was upset with and all he was doing was sitting in his car outside the convenience store for a little while, listening to music. Patient denies any drug or alcohol use. Says his throat is bothering him but he can not tolerate any questions regarding it. Says he does not need medications but has been taking them since he got here. Collateral report says patient was brought in for acting erratic, driving in circles and backyard of his house after neighbors called; also reports that he was acting erratically at nighttime outside of a convenience store. Patient seen at 11 a.m. Past Psychiatric History: History of numerous inpatient psychiatric admissions. Most recently discharged from on 06/01/2024 Psychiatrist: Therapist: Maxine Padron History of being connected with [facility] and [facility] [place]. Medical Evaluation Reviewed: Yes [facility] Medical History (Updated 06/16/24 @ 14:16 by Kaleb Loza MD) Glaucoma Schizoaffective disorder, bipolar type Schizophrenia Family History: Denies Social History: girlfriend who in 2009. . No children. Lives alone in [place] in his own home. Substance History: Denies and UDS negative Trauma History: Denies Diagnostics Vital Signs (24Hr): Vital Signs - 24 hr 06/15/24 17:49 06/15/24 20:35 06/16/24 08:10 Temperature 97.9 F 97.3 F 97.5 F Pulse Rate 74 72 70 Respiratory Rate 18 16 Blood Pressure 167/82 H 136/66 166/80 H Pulse Oximetry 100 99 98 Oxygen Delivery Method Room Air Room Air Room Air BMI result Body Mass Index 23.5 Labs 06/14/24 00:45 06/14/24 00:45 Labs: Laboratory Results - last 48 hr 06/16/24 08:20 Estimat Average Glucose 120 Hemoglobin A1c % 5.8 Magnesium 2.2 Triglycerides 53 Cholesterol 121 LDL Cholesterol, Calc 59 HDL Cholesterol 52 Vitamin B12 186 L Folate 10.1 TSH 1.06 Free T4 1.49 Meds/Allergies Meds Home Medications ?Medication ?Instructions ?Recorded ?Confirmed ?Type betaxolol 0.5 % eye drops 1 drp ophthalmic (eye) Q12H 05/30/24 06/14/24 History bimatoprost 0.01 % eye drops 1 drp ophthalmic (eye) BEDTIME 05/30/24 06/14/24 History (Lumigan) brinzolamide 1 %-brimonidine 0.2 % 1 drp ophthalmic (eye) Q12H 05/30/24 06/14/24 History eye drops,suspension (Simbrinza) Allergies Allergies Allergy/AdvReac Type Severity Reaction Status Date / Time No Known Allergies Allergy Unknown UNKNOWN Verified 06/14/24 00:30 Mental Status Exam Mental Status Exam Narrative: Pt is alert and oriented; behavior is disorganized, standing up, sitting down, pressured speech; patient is not in distress; dressed in hospital attire, disheveled; mood is described as fine and affect irritable; eye contact limited; Speech is pressured and rambling, often muttering incoherently; [id number] psychomotor agitation present; thought process is disorganized, rambling and tangential; Thought content is on various unrelated topics; denies any SI/HI. Denies AH but patient appears to be internally preoccupied and responding to internal stimuli. Patients insight and judgment impaired. Assessment & Plan Assessment & Plan (1) Schizoaffective disorder, bipolar type: Status: Acute Code(s): F25.0 - Schizoaffective disorder, bipolar type (2) Glaucoma: Status: Acute Code(s): H40.9 - Unspecified glaucoma Plan Patient is a 68-year-old male with history of schizoaffective, bipolar type (vs bipolar), glaucoma who presents via police for disorganized behavior in the community in the face of medication noncompliance. Patient is disorganized in speech, rambling, often incoherently. He asks commercial insurance underwriter. about the mott of the sexes and Eleazar and Vidya... Learning Center Instructor inquired about ED/police report that he was disorganized, that he was driving in the backyard of his house, shiny his lights on neighbors house. He said he was trying to park in his driveway and I did not. Mean to drive in the backyard.. Saying it was accidental. Regarding being disorganized outside a convenience store, patient said that there was a angry woman there a sick woman.. Who was upset with and all he was doing was sitting in his car outside the convenience store for a little while, listening to music. Patient denies any drug or alcohol use. Says his throat is bothering him but he can not tolerate any questions regarding it. Says he does not need medications but has been taking them since he got here. Collateral report says patient was brought in for acting erratic, driving in circles and backyard of his house after neighbors called; also reports that he was acting erratically at nighttime outside of a convenience store. Formulation/clinical reasoning: Patient presents in a manic episode and acting erratically in the community. Recently discharged from [facility] on paliperidone 6mg qhs and Vraylar 3mg qhs. Not sure why patient is on 2 antipsychotics unless Vraylar is meant to be only a mood stabilizer. Will continue this regimen now since he seemed to somewhat stabilize on M3. If stabilizes will strongly consider long-acting injectable of paliperidone given history of noncompliance Plan: Twelve B Q 15 minute checks Restarted Vraylar 3 mg q.h.s. Restarted Paliperidone 6 mg q.h.s. Continue Brimonide Tartrate Continue Dorzolamide Continue Latanoprost Continue Timolol Patient educated on: diagnosis and medication risk/benefits Informed Consent: understands, does not understand and further education needed Reason for continued inpatient stay Substantial Risk for: inability to function Statement Statement: I have reviewed the history and physical and performed a pertinent examination on my patient. No changes have occurred unless specified. If the History and Physical was not performed prior to admission, the Hospitalist's service will be consulted for completing the admission physical. Time Spent With Patient Time: Total time managing care of this patient today ____ minutes.
[2024-06-16] MEDS: Acetaminophen 325 MG TABLET 650 MG PO (13:42)
--- NOTE | 2024-06-16 17:06 | MHC.SL.SWA ---
Speech Pathologist Impression: WFL Risk of Aspiration Due to: N/A Dysphasia Diet Status: No Change Liquid Consistency and Strategies for Safe Swallow: Liquid Intake Recommendation: Thin Liquid Intake Strategies: Small Sips Solid Food Consistency: Dietary Recommendations: Regular Oral Medication Intake: Whole with Liquid Please contact the pharmacy regarding appropriate crushable or liquid drug formulations that are available whenever modified delivery is recommended. Compensatory Strategies and Precautions to be Taken for Safe Swallow: Sitting Upright (90 deg) Small Bites and Sips Alternate Liquids/Solids Supervision While Eating and Drinking for Safe Swallow: None Needed Recommendation for Speech: NA:Typical Evaluation Comment: Unremarkable exam. Further dysphagia tx no longer indicated. Please re-refer if needed. Towel Folder Clinican/Clinical Fellow: No Supervisory Statement: I have reviewed and agree with the student/clinical fellow's documentation: N/A Speech Language Pathologist: Mayelin Garcia M.A., CCC-LEGAL ACTIVITY ADJUDICATOR
[2024-06-16 19:52] VITALS: BP 180/81; PULSE 75; TEMP 36.9; O2SAT 99
[2024-06-16] MEDS: Latanoprost 0.005 % Ophth Sol 2.5 ML DROPS 1 DROP EYE-BOTH (20:33)
[2024-06-16] MEDS: Paliperidone ER 3 MG TAB.ER.24 6 MG PO (20:36)
[2024-06-17] MEDS: traZODone HCL 50 MG TABLET PO (00:32)
[2024-06-17] MEDS: hydrOXYzine HCL 25 MG TABLET PO (00:32)
[2024-06-17 08:12] VITALS: BP 156/74; PULSE 61; TEMP 36.4; O2SAT 99
[2024-06-17] MEDS: Dorzolamide HCl 2 % Ophth Sol 10 ML DRPBTL 1 DROP EYE-BOTH ×3 (09:53→20:44)
[2024-06-17] MEDS: Brimonidine Tartrate 0.2% Oph 5 ML BOTTLE 1 DROP EYE-BOTH ×2 (09:53→20:44)
[2024-06-17] MEDS: timoloL maleate 0.5 % Oph Sol 5 ML DRBTL 1 DROP EYE-BOTH ×2 (10:16→20:44)
--- NOTE | 2024-06-17 15:19 | HO.PSYCHPN ---
Subjective Subjective Date of Service: 06/17/24 Reason For Visit: schizophrenia Interim History: Pt seen, discussed with team Plan of care reviewed Pt is bed, with disorganization, confusion Attempted to address his questions Reports appetite is adequate, sleep is poor Medication Compliance: Yes Side effects from medications: No Attending Groups: No Review of Systems Acute medical concerns: No Review of Systems Review of Systems Yes Unobtainable due to mental status Mental Status Exam Mental Status Exam Patient Appearance: Fatigued Patient Orientation: Person and Place Level of Consciousness: Alert Patient Behavior: Talkative Mood Description: Constricted Affect Description: Constricted Ability to Follow Directions: Fair Speech Pattern: Spontaneous Speech Memory Description: Episodic Impaired Delusions: Present Thought Process: Distracted Thought Content: positive for Disorganized Judgement: Poor Diagnostics Vital Signs (24Hr): Vital Signs - 24 hr 06/16/24 19:52 06/17/24 08:12 Temperature 98.4 F 97.5 F Pulse Rate 75 61 Blood Pressure 180/81 H 156/74 H Pulse Oximetry 99 99 Oxygen Delivery Method Room Air Room Air BMI result Body Mass Index 23.5 Labs 06/14/24 00:45 06/14/24 00:45 Labs: Laboratory Results - last 48 hr 06/16/24 08:20 Estimat Average Glucose 120 Hemoglobin A1c % 5.8 Magnesium 2.2 Triglycerides 53 Cholesterol 121 LDL Cholesterol, Calc 59 HDL Cholesterol 52 Vitamin B12 186 L Folate 10.1 TSH 1.06 Free T4 1.49 Medications Medications Current Medications Acetaminophen (Acetaminophen 325 Mg Tablet) 650 mg PO Q6H PRN PRN Reason: Headache/Pain Mild Scale (1-3) Last Admin: 06/16/24 13:42 Dose: 650 mg Al Hydroxide/Mg Hydroxide (Magnesium Hydrox/Alum Hydrox 30 Ml Oral.Susp) 30 ml PO Q6H PRN PRN Reason: Heartburn/Nausea Brimonidine Tartrate (Brimonidine Tartrate 0.2% Oph 5 Ml Bottle) 1 drop EYE-BOTH BID [facility] Last Admin: 06/17/24 09:53 Dose: 1 drop Cariprazine (Cariprazine Hcl 3 Mg Capsule) 3 mg PO BEDTIME [facility] Last Admin: 06/16/24 20:38 Dose: Not Given Dorzolamide HCl (Dorzolamide Hcl 2 % Ophth Jossy 10 Ml Drpbtl) 1 drop EYE-BOTH TID [facility] Last Admin: 06/17/24 09:53 Dose: 1 drop Hydroxyzine HCl (Hydroxyzine Hcl 25 Mg Tablet) 25 mg PO Q6H PRN PRN Reason: Anxiety Last Admin: 06/17/24 00:32 Dose: 25 mg Latanoprost (Latanoprost 0.005 % Ophth Jossy 2.5 Ml Drops) 1 drop EYE-BOTH BEDTIME NAZ Last Admin: 06/16/24 20:33 Dose: 1 drop Magnesium Hydroxide (Milk Of Magnesia 30 Ml Oral.Susp) 30 ml PO DAILY PRN PRN Reason: Constipation Nicotine (Nicotine 21 Mg Patch.Td24) 21 mg TRANSDERMA DAILY PRN PRN Reason: nicotine cravings Nicotine Polacrilex (Nicotine Polacrilex 2 Mg Gum) 4 mg BUCCAL Q2H PRN PRN Reason: Nicotine Cravings Olanzapine (Olanzapine 5 Mg Tablet) 5 mg PO Q4H PRN PRN Reason: agitation,psychosis Last Admin: 06/16/24 20:36 Dose: 5 mg Paliperidone (Paliperidone Er 3 Mg Tab.Er.24) 6 mg PO BEDTIME NAZ Last Admin: 06/16/24 20:36 Dose: 6 mg Timolol Maleate (Timolol Maleate 0.5 % Oph Jossy 5 Ml Drbtl) 1 drop EYE-BOTH BID NAZ Last Admin: 06/17/24 10:16 Dose: 1 drop Trazodone HCl (Trazodone Hcl 50 Mg Tablet) 50 mg PO BEDTIME MRX1 PRN PRN Reason: Insomnia Last Admin: 06/17/24 00:32 Dose: 50 mg Allergies Allergies Allergy/AdvReac Type Severity Reaction Status Date / Time No Known Allergies Allergy Unknown UNKNOWN Verified 06/14/24 00:30 Assessment & Plan Assessment & Plan (1) Schizoaffective disorder, bipolar type: Status: Acute Code(s): F25.0 - Schizoaffective disorder, bipolar type (2) Glaucoma: Status: Acute Code(s): H40.9 - Unspecified glaucoma Plan Patient is a 68-year-old male with history of schizoaffective, bipolar type (vs bipolar), glaucoma who presents via police for disorganized behavior in the community in the face of medication noncompliance. Patient is disorganized in speech, rambling, often incoherently. He asks script writer. about the mott of the sexes and Soha... Generator Repairer inquired about ED/police report that he was disorganized, that he was driving in the backyard of his house, shiny his lights on neighbors house. He said he was trying to park in his driveway and I did not. Mean to drive in the backyard.. Saying it was accidental. Regarding being disorganized outside a convenience store, patient said that there was a angry woman there a sick woman.. Who was upset with and all he was doing was sitting in his car outside the convenience store for a little while, listening to music. Patient denies any drug or alcohol use. Says his throat is bothering him but he can not tolerate any questions regarding it. Says he does not need medications but has been taking them since he got here. Collateral report says patient was brought in for acting erratic, driving in circles and backyard of his house after neighbors called; also reports that he was acting erratically at nighttime outside of a convenience store. 06/17/24: Continue regime/plan. Formulation/clinical reasoning: Patient presents in a manic episode and acting erratically in the community. Recently discharged from [facility] on paliperidone 6mg qhs and Vraylar 3mg qhs. Not sure why patient is on 2 antipsychotics unless Vraylar is meant to be only a mood stabilizer. Will continue this regimen now since he seemed to somewhat stabilize on M3. If stabilizes will strongly consider long-acting injectable of paliperidone given history of noncompliance Plan: Twelve B Q 15 minute checks Restarted Vraylar 3 mg q.h.s. Restarted Paliperidone 6 mg q.h.s. Continue Brimonide Tartrate Continue Dorzolamide Continue Latanoprost Continue Timolol Reason for continued inpatient stay Substantial Risk for: rapid decompensation Time Spent With Patient Time: Total time managing care of this patient today ____ minutes.
[2024-06-17 19:43] VITALS: BP 165/84; PULSE 62; TEMP 36.8; O2SAT 100
[2024-06-17] MEDS: Latanoprost 0.005 % Ophth Sol 2.5 ML DROPS 1 DROP EYE-BOTH (20:44)
[2024-06-17] MEDS: Paliperidone ER 3 MG TAB.ER.24 6 MG PO (20:48)
[2024-06-18 08:28] VITALS: BP 143/70; PULSE 69; TEMP 36.9; O2SAT 98
[2024-06-18] MEDS: Dorzolamide HCl 2 % Ophth Sol 10 ML DRPBTL 1 DROP EYE-BOTH ×3 (09:30→20:37)
[2024-06-18] MEDS: timoloL maleate 0.5 % Oph Sol 5 ML DRBTL 1 DROP EYE-BOTH ×2 (09:30→20:37)
[2024-06-18] MEDS: Brimonidine Tartrate 0.2% Oph 5 ML BOTTLE 1 DROP EYE-BOTH ×2 (09:30→20:37)
--- NOTE | 2024-06-18 14:04 | P.PNPSI_ITS ---
Subjective Subjective Date of Service: 06/18/24 Reason For Visit: schizophrenia Interim History: Pt seen, reviewed with the team. Psychotic presentation, poor sleep last night, elopement risk per team. Thought process, content is disorganized, tangential, delusional. Medication Compliance: Yes Side effects from medications: No Attending Groups: No Review of Systems Acute medical concerns: No Medical Review of Systems: unchanged Review of Systems Review of Systems Yes Unobtainable due to mental status Mental Status Exam Mental Status Exam Patient Appearance: Fatigued Patient Orientation: Person and Place Level of Consciousness: Alert Patient Behavior: Talkative Mood Description: Constricted Affect Description: Constricted Ability to Follow Directions: Fair Speech Pattern: Spontaneous Speech Memory Description: Episodic Impaired Delusions: Present Thought Process: Distracted Thought Content: positive for Disorganized Judgement: Poor Diagnostics Vital Signs (24Hr): Vital Signs - 24 hr 06/17/24 19:43 06/18/24 08:28 Temperature 98.2 F 98.5 F Pulse Rate 62 69 Blood Pressure 165/84 H 143/70 H Pulse Oximetry 100 98 Oxygen Delivery Method Room Air Room Air BMI result Body Mass Index 23.5 Labs 06/14/24 00:45 06/14/24 00:45 Medications Medications Current Medications Acetaminophen (Acetaminophen 325 Mg Tablet) 650 mg PO Q6H PRN PRN Reason: Headache/Pain Mild Scale (1-3) Last Admin: 06/16/24 13:42 Dose: 650 mg Al Hydroxide/Mg Hydroxide (Magnesium Hydrox/Alum Hydrox 30 Ml Oral.Susp) 30 ml PO Q6H PRN PRN Reason: Heartburn/Nausea Brimonidine Tartrate (Brimonidine Tartrate 0.2% Oph 5 Ml Bottle) 1 drop EYE- BOTH BID [facility] Last Admin: 06/18/24 09:30 Dose: 1 drop Cariprazine (Cariprazine Hcl 3 Mg Capsule) 3 mg PO BEDTIME [facility] Last Admin: 06/17/24 20:49 Dose: Not Given Dorzolamide HCl (Dorzolamide Hcl 2 % Ophth Jossy 10 Ml Drpbtl) 1 drop EYE-BOTH TID [facility] Last Admin: 06/18/24 09:30 Dose: 1 drop Hydroxyzine HCl (Hydroxyzine Hcl 25 Mg Tablet) 25 mg PO Q6H PRN PRN Reason: Anxiety Last Admin: 06/17/24 00:32 Dose: 25 mg Latanoprost (Latanoprost 0.005 % Ophth Jossy 2.5 Ml Drops) 1 drop EYE-BOTH BEDTIME NAZ Last Admin: 06/17/24 20:44 Dose: 1 drop Lorazepam (Lorazepam 1 Mg Tablet) 1 mg PO BEDTIME NAZ Magnesium Hydroxide (Milk Of Magnesia 30 Ml Oral.Susp) 30 ml PO DAILY PRN PRN Reason: Constipation Nicotine (Nicotine 21 Mg Patch.Td24) 21 mg TRANSDERMA DAILY PRN PRN Reason: nicotine cravings Nicotine Polacrilex (Nicotine Polacrilex 2 Mg Gum) 4 mg BUCCAL Q2H PRN PRN Reason: Nicotine Cravings Olanzapine (Olanzapine 5 Mg Tablet) 5 mg PO Q4H PRN PRN Reason: agitation,psychosis Last Admin: 06/16/24 20:36 Dose: 5 mg Paliperidone (Paliperidone Er 3 Mg Tab.Er.24) 6 mg PO BEDTIME NAZ Last Admin: 06/17/24 20:48 Dose: 6 mg Timolol Maleate (Timolol Maleate 0.5 % Oph Jossy 5 Ml Drbtl) 1 drop EYE-BOTH BID NAZ Last Admin: 06/18/24 09:30 Dose: 1 drop Trazodone HCl (Trazodone Hcl 50 Mg Tablet) 50 mg PO BEDTIME MRX1 PRN PRN Reason: Insomnia Last Admin: 06/17/24 00:32 Dose: 50 mg Allergies Allergies Allergy/AdvReac Type Severity Reaction Status Date / Time No Known Allergies Allergy Unknown UNKNOWN Verified 06/14/24 00:30 Assessment & Plan Assessment & Plan (1) Schizoaffective disorder, bipolar type: Status: Acute Code(s): F25.0 - Schizoaffective disorder, bipolar type (2) Glaucoma: Status: Acute Code(s): H40.9 - Unspecified glaucoma Plan Patient is a 68-year-old male with history of schizoaffective, bipolar type (vs bipolar), glaucoma who presents via police for disorganized behavior in the community in the face of medication noncompliance. Patient is disorganized in speech, rambling, often incoherently. He asks production underwriter. about the mott of the sexes and Eleazar and Vidya... Hotel Room Attendant inquired about ED/police report that he was disorganized, that he was driving in the backyard of his house, shiny his lights on neighbors house. He said he was trying to park in his driveway and I did not. Mean to drive in the backyard.. Saying it was accidental. Regarding being disorganized outside a convenience store, patient said that there was a angry woman there a sick woman.. Who was upset with and all he was doing was sitting in his car outside the convenience store for a little while, listening to music. Patient denies any drug or alcohol use. Says his throat is bothering him but he can not tolerate any questions regarding it. Says he does not need medications but has been taking them since he got here. Collateral report says patient was brought in for acting erratic, driving in circles and backyard of his house after neighbors called; also reports that he was acting erratically at nighttime outside of a convenience store. 06/18: Continue tx Formulation/clinical reasoning: Patient presents in a manic episode and acting erratically in the community. Recently discharged from [facility] on paliperidone 6mg qhs and Vraylar 3mg qhs. Not sure why patient is on 2 antipsychotics unless Vraylar is meant to be only a mood stabilizer. Will continue this regimen now since he seemed to somewhat stabilize on M3. If stabilizes will strongly consider long-acting injectable of paliperidone given history of noncompliance Plan: Twelve B Q 15 minute checks Restarted Vraylar 3 mg q.h.s. Restarted Paliperidone 6 mg q.h.s. Continue Brimonide Tartrate Continue Dorzolamide Continue Latanoprost Continue Timolol Reason for continued inpatient stay Substantial Risk for: rapid decompensation Time Spent With Patient Time: Total time managing care of this patient today ____ minutes.
[2024-06-18 20:00] VITALS: BP 161/74; PULSE 66; TEMP 36.9; O2SAT 99
[2024-06-18] MEDS: Paliperidone ER 3 MG TAB.ER.24 6 MG PO (20:36)
[2024-06-18] MEDS: Latanoprost 0.005 % Ophth Sol 2.5 ML DROPS 1 DROP EYE-BOTH (20:37)
[2024-06-18] MEDS: LORazepam 1 MG TABLET PO (20:37)
[2024-06-19] MEDS: traZODone HCL 50 MG TABLET PO ×2 (01:26→02:40)
[2024-06-19] MEDS: Dorzolamide HCl 2 % Ophth Sol 10 ML DRPBTL 1 DROP EYE-BOTH ×3 (08:37→21:07)
[2024-06-19] MEDS: timoloL maleate 0.5 % Oph Sol 5 ML DRBTL 1 DROP EYE-BOTH ×2 (08:37→21:07)
[2024-06-19] MEDS: Brimonidine Tartrate 0.2% Oph 5 ML BOTTLE 1 DROP EYE-BOTH ×2 (08:37→21:07)
--- NOTE | 2024-06-19 09:52 | P.PNPSI_ITS ---
Subjective Subjective Date of Service: 06/19/24 Reason For Visit: schizophrenia Interim History: Met with patient; discussed with team Patient remains disorganized and is having a difficult time explaining his thoughts. On approach he is rambling about something and magnetic tape typewriter operator has a very hard time understanding him as he is jumping from topic to topic. He says he wants to go home and that he has a lot to accomplish. He has not been taking Vraylar and says he does not like it. He said he will take the paliperidone but refuses long-acting injectable. Multi Media Specialist asked about paranoid delusional thinking and he said that others are making fictitious statements. Regarding driving erratically, he says I was driving between the lines... However he does acknowledge he was playing his music too loudly. Multi Media Specialist discussed that team does not feel he is ready for discharge however patient is unable to tolerate this discussion just says no that he wants to go... wafer production worker discussed case with patient's cousin Marlin Dowd who is also his healthcare proxy (document in chart). She has significant concerns about his safety. She said that over the past week to 2 weeks he has been increasingly disorganized; magnetic tape typewriter operator around [place] he refused his meds (from [facility]?); she drove in the car as a passenger with him and said she was very fearful as he was driving well below the speed limit, weaving in and out of the lanes and completely unsafe. She said he recently showed up at a work place and employees were scared of him because he was talking nonsensically. She says that he is delusional, thinking that his food is poisoned and threw away a significant amount of food that he got from a food shelf. She says he has lost about 30-40 lb over the past 2 months. She says that he has talked about raise or beams beaming down onto his head; saying that he seeing cars Vanish, planes Vanish and other bizarre delusional things. She says that he is historically not compliant with medication and would like him to be on a long-acting injectable. Multi Media Specialist discussed case with HOUSING DEVELOPMENT SPECIALIST inpatient provider who saw patient on his recent admission to a few weeks ago; she talked with his outpatient psychiatric provider Dr. Condon the said that patient needed Vraylar in addition to palpate own for stabilization. Mental Status Exam Mental Status Exam Narrative: Pt is alert and oriented; behavior is disorganized, hyperverbal patient is not in distress; dressed in casual attire, with improved grooming; mood is described as good however affect constricted and irritable; eye contact limited; Speech is pressured and rambling, sometimes muttering incoherently; mild psychomotor agitation present; thought process is disorganized, rambling and tangential; Thought content is on various unrelated topics; denies any paranoid delusional thinking; denies any SI/HI. Denies AH but patient appears to be internally preoccupied and responding to internal stimuli. Patients insight and judgment impaired. Diagnostics Vital Signs (24Hr): Vital Signs - 24 hr 06/18/24 20:00 Temperature 98.5 F Pulse Rate 66 Blood Pressure 161/74 H Pulse Oximetry 99 Oxygen Delivery Method Room Air BMI result Body Mass Index 23.5 Labs 06/14/24 00:45 06/14/24 00:45 Medications Medications Current Medications Acetaminophen (Acetaminophen 325 Mg Tablet) 650 mg PO Q6H PRN PRN Reason: Headache/Pain Mild Scale (1-3) Last Admin: 06/16/24 13:42 Dose: 650 mg Al Hydroxide/Mg Hydroxide (Magnesium Hydrox/Alum Hydrox 30 Ml Oral.Susp) 30 ml PO Q6H PRN PRN Reason: Heartburn/Nausea Brimonidine Tartrate (Brimonidine Tartrate 0.2% Oph 5 Ml Bottle) 1 drop EYE- BOTH BID [facility] Last Admin: 06/19/24 08:37 Dose: 1 drop Cariprazine (Cariprazine Hcl 3 Mg Capsule) 3 mg PO BEDTIME [facility] Last Admin: 06/18/24 20:39 Dose: Not Given Dorzolamide HCl (Dorzolamide Hcl 2 % Ophth Jossy 10 Ml Drpbtl) 1 drop EYE-BOTH TID [facility] Last Admin: 06/19/24 08:37 Dose: 1 drop Hydroxyzine HCl (Hydroxyzine Hcl 25 Mg Tablet) 25 mg PO Q6H PRN PRN Reason: Anxiety Last Admin: 06/17/24 00:32 Dose: 25 mg Latanoprost (Latanoprost 0.005 % Ophth Jossy 2.5 Ml Drops) 1 drop EYE-BOTH BEDTIME [facility] Last Admin: 06/18/24 20:37 Dose: 1 drop Lorazepam (Lorazepam 1 Mg Tablet) 1 mg PO BEDTIME [facility] Last Admin: 06/18/24 20:37 Dose: 1 mg Magnesium Hydroxide (Milk Of Magnesia 30 Ml Oral.Susp) 30 ml PO DAILY PRN PRN Reason: Constipation Nicotine (Nicotine 21 Mg Patch.Td24) 21 mg TRANSDERMA DAILY PRN PRN Reason: nicotine cravings Nicotine Polacrilex (Nicotine Polacrilex 2 Mg Gum) 4 mg BUCCAL Q2H PRN PRN Reason: Nicotine Cravings Olanzapine (Olanzapine 5 Mg Tablet) 5 mg PO Q4H PRN PRN Reason: agitation,psychosis Last Admin: 06/16/24 20:36 Dose: 5 mg Paliperidone (Paliperidone Er 3 Mg Tab.Er.24) 6 mg PO BEDTIME [facility] Last Admin: 06/18/24 20:36 Dose: 6 mg Thiamine HCl (Thiamine Hcl 100 Mg Tablet) 100 mg PO DAILY [facility] Last Admin: 06/19/24 09:31 Dose: Not Given Timolol Maleate (Timolol Maleate 0.5 % Oph Jossy 5 Ml Drbtl) 1 drop EYE-BOTH BID [facility] Last Admin: 06/19/24 08:37 Dose: 1 drop Trazodone HCl (Trazodone Hcl 50 Mg Tablet) 50 mg PO BEDTIME MRX1 PRN PRN Reason: Insomnia Last Admin: 06/19/24 02:40 Dose: 50 mg Allergies Allergies Allergy/AdvReac Type Severity Reaction Status Date / Time No Known Allergies Allergy Unknown UNKNOWN Verified 06/14/24 00:30 Assessment & Plan Assessment & Plan (1) Schizoaffective disorder, bipolar type: Status: Acute Code(s): F25.0 - Schizoaffective disorder, bipolar type (2) Glaucoma: Status: Acute Code(s): H40.9 - Unspecified glaucoma Plan Patient is a 68-year-old male with history of schizoaffective, bipolar type (vs bipolar), glaucoma who presents via police for disorganized behavior in the community in the face of medication noncompliance. Patient is disorganized in speech, rambling, often incoherently. He asks magnetic tape typewriter operator. about the mott of the sexes and Eleazar and Vidya... Multi Media Specialist inquired about ED/police report that he was disorganized, that he was driving in the backyard of his house, shiny his lights on neighbors house. He said he was trying to park in his driveway and I did not. Mean to drive in the backyard.. Saying it was accidental. Regarding being disorganized outside a convenience store, patient said that there was a angry woman there a sick woman.. Who was upset with and all he was doing was sitting in his car outside the convenience store for a little while, listening to music. Patient denies any drug or alcohol use. Says his throat is bothering him but he can not tolerate any questions regarding it. Says he does not need medications but has been taking them since he got here. Collateral report says patient was brought in for acting erratic, driving in circles and backyard of his house after neighbors called; also reports that he was acting erratically at nighttime outside of a convenience store. Formulation/clinical reasoning: Patient presents in a manic episode and acting erratically in the community. Recently discharged from [facility] on paliperidone 6mg qhs and Vraylar 3mg qhs. Not sure why patient is on 2 antipsychotics unless Vraylar is meant to be only a mood stabilizer. Will continue this regimen now since he seemed to somewhat stabilize on [facility]. If stabilizes will strongly consider long-acting injectable of paliperidone given history of noncompliance Hospital course: 06/19 Patient remains disorganized and is having a difficult time explaining his thoughts. On approach he is rambling about something and magnetic tape typewriter operator has a very hard time understanding him as he is jumping from topic to topic. He says he wants to go home and that he has a lot to accomplish. He has not been taking Vraylar and says he does not like it. He said he will take the paliperidone but refuses long-acting injectable. Multi Media Specialist asked about paranoid delusional thinking and he said that others are making fictitious statements. Regarding driving erratically, he says I was driving between the lines... However he does acknowledge he was playing his music too loudly. Multi Media Specialist discussed that team does not feel he is ready for discharge however patient is unable to tolerate this discussion just says no that he wants to go... wafer production worker discussed case with patient's cousin Marlin Dowd who is also his healthcare proxy (document in chart). She has significant concerns about his safety. She said that over the past week to 2 weeks he has been increasingly disorganized; magnetic tape typewriter operator around [place] he refused his meds (from [facility]?); she drove in the car as a passenger with him and said she was very fearful as he was driving well below the speed limit, weaving in and out of the lanes and completely unsafe. She said he recently showed up at a work place and employees were scared of him because he was talking nonsensically. She says that he is delusional, thinking that his food is poisoned and threw away a significant amount of food that he got from a food shelf. She says he has lost about 30-40 lb over the past 2 months. She says that he has talked about raise or beams beaming down onto his head; saying that he seeing cars Vanish, planes Vanish and other bizarre delusional things. She says that he is historically not compliant with medication and would like him to be on a long-acting injectable. Multi Media Specialist discussed case with HOUSING DEVELOPMENT SPECIALIST inpatient provider who saw patient on his recent admission to a few weeks ago; she talked with his outpatient psychiatric provider Dr. Condon the said that patient needed Vraylar in addition to palpate own for stabilization. Impression: As patient remains without any insight to his illness or his behaviors, he remains unsafe and a danger to himself and others due to his erratic driving; also due to paranoid delusions he has been eating very little and seems to have lost significant weight and only a few months. At this time patient is not safe for discharge. He is not willing to sign a CV. Multi Media Specialist will file for involuntary commitment and substituted judgment. Also, magnetic tape typewriter operator is invoking the HCP on 06/19/24 as patient is unable to make medical decisions for himself. Plan: Twelve B Invoking healthcare proxy (06/19/2024) Filing for involuntary commitment and substituted judgment Q 15 minute checks Continue Vraylar 3 mg q.h.s. Continue Paliperidone 6 mg q.h.s. Continue Brimonide Tartrate Continue Dorzolamide Continue Latanoprost Continue Timolol Patient educated on: diagnosis and medication risk/benefits Informed Consent: does not understand Reason for continued inpatient stay Substantial Risk for: harm to self, harm to others and inability to function Time Spent With Patient Time: Total time managing care of this patient today ____ minutes.
[2024-06-19 20:00] VITALS: BP 157/79; PULSE 78; TEMP 36.2; O2SAT 99
[2024-06-19] MEDS: Paliperidone ER 3 MG TAB.ER.24 6 MG PO (21:06)
[2024-06-19] MEDS: LORazepam 1 MG TABLET PO (21:06)
[2024-06-19] MEDS: Latanoprost 0.005 % Ophth Sol 2.5 ML DROPS 1 DROP EYE-BOTH (21:07)
[2024-06-20] MEDS: OLANZapine 5 MG TABLET PO (03:37)
[2024-06-20 08:15] VITALS: BP 153/82; PULSE 86; TEMP 36.5; O2SAT 98
[2024-06-20] MEDS: Brimonidine Tartrate 0.2% Oph 5 ML BOTTLE 1 DROP EYE-BOTH ×2 (08:56→22:13)
[2024-06-20] MEDS: timoloL maleate 0.5 % Oph Sol 5 ML DRBTL 1 DROP EYE-BOTH ×2 (08:57→22:12)
[2024-06-20] MEDS: Dorzolamide HCl 2 % Ophth Sol 10 ML DRPBTL 1 DROP EYE-BOTH ×3 (08:58→22:12)
[2024-06-20] MEDS: Thiamine HCL 100 MG TABLET PO (09:03)
--- NOTE | 2024-06-20 09:07 | HO.PSYCHPN ---
Subjective Subjective Date of Service: 06/20/24 Reason For Visit: schizophrenia Interim History: Met with patient; discussed with team rambling, hard to understand. Impossible to have a therapeutic conversation with patient as he quickly becomes oblivious to typewriter assembly and parts inspector, lost in a tangential thought and rambling about unrelated and mostly non-sensical things. Tried to ask pt about collateral reports, however he adamantly denies reports. t. Pt standing in [place] talking to himself. from the unit, pt called 911 and told police there is a sniper loose; on inquiry, could not explain his concern Diagnostics Vital Signs (24Hr): Vital Signs - 24 hr 06/19/24 20:00 06/20/24 08:15 Temperature 97.1 F 97.7 F Pulse Rate 78 86 Blood Pressure 157/79 H 153/82 H Pulse Oximetry 99 98 Oxygen Delivery Method Room Air Room Air BMI result Body Mass Index 23.5 Labs 06/14/24 00:45 06/14/24 00:45 Medications Medications Current Medications Acetaminophen (Acetaminophen 325 Mg Tablet) 650 mg PO Q6H PRN PRN Reason: Headache/Pain Mild Scale (1-3) Last Admin: 06/16/24 13:42 Dose: 650 mg Al Hydroxide/Mg Hydroxide (Magnesium Hydrox/Alum Hydrox 30 Ml Oral.Susp) 30 ml PO Q6H PRN PRN Reason: Heartburn/Nausea Brimonidine Tartrate (Brimonidine Tartrate 0.2% Oph 5 Ml Bottle) 1 drop EYE-BOTH BID [facility] Last Admin: 06/20/24 08:56 Dose: 1 drop Cariprazine (Cariprazine Hcl 3 Mg Capsule) 3 mg PO BEDTIME [facility] Last Admin: 06/19/24 21:25 Dose: Not Given Dorzolamide HCl (Dorzolamide Hcl 2 % Ophth Jossy 10 Ml Drpbtl) 1 drop EYE-BOTH TID [facility] Last Admin: 06/20/24 08:58 Dose: 1 drop Hydroxyzine HCl (Hydroxyzine Hcl 25 Mg Tablet) 25 mg PO Q6H PRN PRN Reason: Anxiety Last Admin: 06/17/24 00:32 Dose: 25 mg Latanoprost (Latanoprost 0.005 % Ophth Jossy 2.5 Ml Drops) 1 drop EYE-BOTH BEDTIME [facility] Last Admin: 06/19/24 21:07 Dose: 1 drop Lorazepam (Lorazepam 1 Mg Tablet) 1 mg PO BEDTIME [facility] Last Admin: 06/19/24 21:06 Dose: 1 mg Magnesium Hydroxide (Milk Of Magnesia 30 Ml Oral.Susp) 30 ml PO DAILY PRN PRN Reason: Constipation Nicotine (Nicotine 21 Mg Patch.Td24) 21 mg TRANSDERMA DAILY PRN PRN Reason: nicotine cravings Nicotine Polacrilex (Nicotine Polacrilex 2 Mg Gum) 4 mg BUCCAL Q2H PRN PRN Reason: Nicotine Cravings Olanzapine (Olanzapine 5 Mg Tablet) 5 mg PO Q4H PRN PRN Reason: agitation,psychosis Last Admin: 06/20/24 03:37 Dose: 5 mg Paliperidone (Paliperidone Er 3 Mg Tab.Er.24) 6 mg PO BEDTIME [facility] Last Admin: 06/19/24 21:06 Dose: 6 mg Thiamine HCl (Thiamine Hcl 100 Mg Tablet) 100 mg PO DAILY [facility] Last Admin: 06/20/24 09:03 Dose: 100 mg Timolol Maleate (Timolol Maleate 0.5 % Oph Jossy 5 Ml Drbtl) 1 drop EYE-BOTH BID [facility] Last Admin: 06/20/24 08:57 Dose: 1 drop Trazodone HCl (Trazodone Hcl 50 Mg Tablet) 50 mg PO BEDTIME MRX1 PRN PRN Reason: Insomnia Last Admin: 06/19/24 02:40 Dose: 50 mg Allergies Allergies Allergy/AdvReac Type Severity Reaction Status Date / Time No Known Allergies Allergy Unknown UNKNOWN Verified 06/14/24 00:30 Assessment & Plan Assessment & Plan (1) Schizoaffective disorder, bipolar type: Status: Acute Code(s): F25.0 - Schizoaffective disorder, bipolar type (2) Glaucoma: Status: Acute Code(s): H40.9 - Unspecified glaucoma Plan Patient is a 68-year-old male with history of schizoaffective, bipolar type (vs bipolar), glaucoma who presents via police for disorganized behavior in the community in the face of medication noncompliance. Patient is disorganized in speech, rambling, often incoherently. He asks typewriter assembly and parts inspector. about the mott of the sexes and Eleazar and Vidya... Nanny/Household Manager inquired about ED/police report that he was disorganized, that he was driving in the backyard of his house, shiny his lights on neighbors house. He said he was trying to park in his driveway and I did not. Mean to drive in the backyard.. Saying it was accidental. Regarding being disorganized outside a convenience store, patient said that there was a angry woman there a sick woman.. Who was upset with and all he was doing was sitting in his car outside the convenience store for a little while, listening to music. Patient denies any drug or alcohol use. Says his throat is bothering him but he can not tolerate any questions regarding it. Says he does not need medications but has been taking them since he got here. Collateral report says patient was brought in for acting erratic, driving in circles and backyard of his house after neighbors called; also reports that he was acting erratically at nighttime outside of a convenience store. Formulation/clinical reasoning: Patient presents in a manic episode and acting erratically in the community. Recently discharged from [facility] on paliperidone 6mg qhs and Vraylar 3mg qhs. Not sure why patient is on 2 antipsychotics unless Vraylar is meant to be only a mood stabilizer. Will continue this regimen now since he seemed to somewhat stabilize on [facility]. If stabilizes will strongly consider long-acting injectable of paliperidone given history of noncompliance Hospital course: 06/19 Patient remains disorganized and is having a difficult time explaining his thoughts. On approach he is rambling about something and typewriter assembly and parts inspector has a very hard time understanding him as he is jumping from topic to topic. He says he wants to go home and that he has a lot to accomplish. He has not been taking Vraylar and says he does not like it. He said he will take the paliperidone but refuses long-acting injectable. Nanny/Household Manager asked about paranoid delusional thinking and he said that others are making fictitious statements. Regarding driving erratically, he says I was driving between the lines... However he does acknowledge he was playing his music too loudly. Nanny/Household Manager discussed that team does not feel he is ready for discharge however patient is unable to tolerate this discussion just says no that he wants to go... cone worker discussed case with patient's cousin Marlin Dowd who is also his healthcare proxy (document in chart). She has significant concerns about his safety. She said that over the past week to 2 weeks he has been increasingly disorganized; typewriter assembly and parts inspector around [place] he refused his meds (from [facility]?); she drove in the car as a passenger with him and said she was very fearful as he was driving well below the speed limit, weaving in and out of the lanes and completely unsafe. She said he recently showed up at a work place and employees were scared of him because he was talking nonsensically. She says that he is delusional, thinking that his food is poisoned and threw away a significant amount of food that he got from a food shelf. She says he has lost about 30-40 lb over the past 2 months. She says that he has talked about raise or beams beaming down onto his head; saying that he seeing cars Vanish, planes Vanish and other bizarre delusional things. She says that he is historically not compliant with medication and would like him to be on a long-acting injectable. Nanny/Household Manager discussed case with SIDE STITCHING MACHINE OPERATOR inpatient provider who saw patient on his recent admission to a few weeks ago; she talked with his outpatient psychiatric provider Dr. Condon the said that patient needed Vraylar in addition to palpate own for stabilization. 06/20 rambling, hard to understand. Impossible to have a therapeutic conversation with patient as he quickly becomes oblivious to typewriter assembly and parts inspector, lost in a tangential thought and rambling about unrelated and mostly non-sensical things. Tried to ask pt about collateral reports, however he adamantly denies reports. t. Pt standing in [place] talking to himself. from the unit, pt called 911 and told police there is a sniper loose; on inquiry, could not explain his concern Impression: As patient remains without any insight to his illness or his behaviors, he remains unsafe and a danger to himself and others due to his erratic driving; also due to paranoid delusions he has been eating very little and seems to have lost significant weight and only a few months. At this time patient is not safe for discharge. He is not willing to sign a CV. Nanny/Household Manager will file for involuntary commitment and substituted judgment. Also, typewriter assembly and parts inspector is invoking the HCP on 06/19/24 as patient is unable to make medical decisions for himself. Plan: [place] (Filing for involuntary commitment and substituted judgment) Invoking healthcare proxy (06/19/2024) Q 15 minute checks Continue Vraylar 3 mg q.h.s. Continue Paliperidone 6 mg q.h.s. Continue Brimonide Tartrate Continue Dorzolamide Continue Latanoprost Continue Timolol Patient educated on: diagnosis and medication risk/benefits Informed Consent: does not understand Reason for continued inpatient stay Substantial Risk for: inability to function Time Spent With Patient Time: Total time managing care of this patient today ____ minutes.
[2024-06-20 20:00] VITALS: BP 156/81; PULSE 86; RESP 16; TEMP 36.9; O2SAT 100
[2024-06-20] MEDS: Latanoprost 0.005 % Ophth Sol 2.5 ML DROPS 1 DROP EYE-BOTH (22:12)
[2024-06-21 08:00] VITALS: BP 189/86; PULSE 87; TEMP 36.4; O2SAT 100
[2024-06-21] MEDS: timoloL maleate 0.5 % Oph Sol 5 ML DRBTL 1 DROP EYE-BOTH ×2 (08:20→21:41)
[2024-06-21] MEDS: Dorzolamide HCl 2 % Ophth Sol 10 ML DRPBTL 1 DROP EYE-BOTH ×3 (08:30→21:46)
[2024-06-21] MEDS: Thiamine HCL 100 MG TABLET PO (08:49)
[2024-06-21] MEDS: Brimonidine Tartrate 0.2% Oph 5 ML BOTTLE 1 DROP EYE-BOTH ×2 (08:49→21:41)
[2024-06-21 08:54] VITALS: BP 149/74; PULSE 78
--- NOTE | 2024-06-21 09:46 | HO.PSYCHPN ---
Subjective Subjective Date of Service: 06/21/24 Reason For Visit: schizophrenia Interim History: Met with patient; discussed with team Patient remains disorganized; perseveration on his relationship. He says he is good today...wants to get back to his house since he rebuilt his whole house and has things to do...He said he does not think he'll take psychiatric medications. He tells bond underwriter that he has his own doctor, Dr. Hay. However, pt seemed open to writers explanation that medications ordered are the same ones that Dr. Hay prescribed. He seemed to agree to consider taking psych meds. Mental Status Exam Mental Status Exam Narrative: Pt is alert and oriented; behavior is disorganized, hyperverbal patient is not in distress; dressed in casual attire, with improved grooming; mood is described as good however affect constricted but less irritable; eye contact limited; Speech is pressured and rambling, sometimes muttering incoherently but a little easier to understand; no psychomotor agitation present; thought process is still disorganized, rambling and tangential; Thought content is on various unrelated topics; denies any paranoid delusional thinking; denies any SI/HI. Denies AH but patient appears to be internally preoccupied and responding to internal stimuli. Patients insight and judgment impaired. Diagnostics Vital Signs (24Hr): Vital Signs - 24 hr 06/20/24 20:00 Temperature 98.4 F Pulse Rate 86 Respiratory Rate 16 Blood Pressure 156/81 H Pulse Oximetry 100 Oxygen Delivery Method Room Air BMI result Body Mass Index 23.5 Labs 06/14/24 00:45 06/14/24 00:45 Medications Medications Current Medications Acetaminophen (Acetaminophen 325 Mg Tablet) 650 mg PO Q6H PRN PRN Reason: Headache/Pain Mild Scale (1-3) Last Admin: 06/16/24 13:42 Dose: 650 mg Al Hydroxide/Mg Hydroxide (Magnesium Hydrox/Alum Hydrox 30 Ml Oral.Susp) 30 ml PO Q6H PRN PRN Reason: Heartburn/Nausea Brimonidine Tartrate (Brimonidine Tartrate 0.2% Oph 5 Ml Bottle) 1 drop EYE-BOTH BID [facility] Last Admin: 06/21/24 08:49 Dose: 1 drop Cariprazine (Cariprazine Hcl 3 Mg Capsule) 3 mg PO BEDTIME [facility] Last Admin: 06/20/24 22:22 Dose: Not Given Dorzolamide HCl (Dorzolamide Hcl 2 % Ophth Jossy 10 Ml Drpbtl) 1 drop EYE-BOTH TID [facility] Last Admin: 06/21/24 08:30 Dose: 1 drop Hydroxyzine HCl (Hydroxyzine Hcl 25 Mg Tablet) 25 mg PO Q6H PRN PRN Reason: Anxiety Last Admin: 06/17/24 00:32 Dose: 25 mg Latanoprost (Latanoprost 0.005 % Ophth Jossy 2.5 Ml Drops) 1 drop EYE-BOTH BEDTIME [facility] Last Admin: 06/20/24 22:12 Dose: 1 drop Lorazepam (Lorazepam 1 Mg Tablet) 1 mg PO BEDTIME [facility] Last Admin: 06/20/24 22:22 Dose: Not Given Magnesium Hydroxide (Milk Of Magnesia 30 Ml Oral.Susp) 30 ml PO DAILY PRN PRN Reason: Constipation Nicotine (Nicotine 21 Mg Patch.Td24) 21 mg TRANSDERMA DAILY PRN PRN Reason: nicotine cravings Nicotine Polacrilex (Nicotine Polacrilex 2 Mg Gum) 4 mg BUCCAL Q2H PRN PRN Reason: Nicotine Cravings Olanzapine (Olanzapine 5 Mg Tablet) 5 mg PO Q4H PRN PRN Reason: agitation,psychosis Last Admin: 06/20/24 03:37 Dose: 5 mg Paliperidone (Paliperidone Er 3 Mg Tab.Er.24) 6 mg PO BEDTIME [facility] Last Admin: 06/20/24 22:22 Dose: Not Given Thiamine HCl (Thiamine Hcl 100 Mg Tablet) 100 mg PO DAILY [facility] Last Admin: 06/21/24 08:49 Dose: 100 mg Timolol Maleate (Timolol Maleate 0.5 % Oph Jossy 5 Ml Drbtl) 1 drop EYE-BOTH BID [facility] Last Admin: 06/21/24 08:20 Dose: 1 drop Trazodone HCl (Trazodone Hcl 50 Mg Tablet) 50 mg PO BEDTIME MRX1 PRN PRN Reason: Insomnia Last Admin: 06/19/24 02:40 Dose: 50 mg Allergies Allergies Allergy/AdvReac Type Severity Reaction Status Date / Time No Known Allergies Allergy Unknown UNKNOWN Verified 06/14/24 00:30 Assessment & Plan Assessment & Plan (1) Schizoaffective disorder, bipolar type: Status: Acute Code(s): F25.0 - Schizoaffective disorder, bipolar type (2) Glaucoma: Status: Acute Code(s): H40.9 - Unspecified glaucoma Plan Patient is a 68-year-old male with history of schizoaffective, bipolar type (vs bipolar), glaucoma who presents via police for disorganized behavior in the community in the face of medication noncompliance. Patient is disorganized in speech, rambling, often incoherently. He asks bond underwriter. about the mott of the sexes and Eleazar and Vidya... Paper Deliverer inquired about ED/police report that he was disorganized, that he was driving in the backyard of his house, shiny his lights on neighbors house. He said he was trying to park in his driveway and I did not. Mean to drive in the backyard.. Saying it was accidental. Regarding being disorganized outside a convenience store, patient said that there was a angry woman there a sick woman.. Who was upset with and all he was doing was sitting in his car outside the convenience store for a little while, listening to music. Patient denies any drug or alcohol use. Says his throat is bothering him but he can not tolerate any questions regarding it. Says he does not need medications but has been taking them since he got here. Collateral report says patient was brought in for acting erratic, driving in circles and backyard of his house after neighbors called; also reports that he was acting erratically at nighttime outside of a convenience store. Formulation/clinical reasoning: Patient presents in a manic episode and acting erratically in the community. Recently discharged from [facility] on paliperidone 6mg qhs and Vraylar 3mg qhs. Not sure why patient is on 2 antipsychotics unless Vraylar is meant to be only a mood stabilizer. Will continue this regimen now since he seemed to somewhat stabilize on M3. If stabilizes will strongly consider long-acting injectable of paliperidone given history of noncompliance Hospital course: 06/19 Patient remains disorganized and is having a difficult time explaining his thoughts. On approach he is rambling about something and bond underwriter has a very hard time understanding him as he is jumping from topic to topic. He says he wants to go home and that he has a lot to accomplish. He has not been taking Vraylar and says he does not like it. He said he will take the paliperidone but refuses long-acting injectable. Paper Deliverer asked about paranoid delusional thinking and he said that others are making fictitious statements. Regarding driving erratically, he says I was driving between the lines... However he does acknowledge he was playing his music too loudly. Paper Deliverer discussed that team does not feel he is ready for discharge however patient is unable to tolerate this discussion just says no that he wants to go... dairy feed worker discussed case with patient's cousin Marlin Dowd who is also his healthcare proxy (document in chart). She has significant concerns about his safety. She said that over the past week to 2 weeks he has been increasingly disorganized; bond underwriter around [place] he refused his meds (from [facility]?); she drove in the car as a passenger with him and said she was very fearful as he was driving well below the speed limit, weaving in and out of the lanes and completely unsafe. She said he recently showed up at a work place and employees were scared of him because he was talking nonsensically. She says that he is delusional, thinking that his food is poisoned and threw away a significant amount of food that he got from a food shelf. She says he has lost about 30-40 lb over the past 2 months. She says that he has talked about raise or beams beaming down onto his head; saying that he seeing cars Vanish, planes Vanish and other bizarre delusional things. She says that he is historically not compliant with medication and would like him to be on a long-acting injectable. Paper Deliverer discussed case with [facility] inpatient provider who saw patient on his recent admission to a few weeks ago; she talked with his outpatient psychiatric provider Dr. Condon the said that patient needed Vraylar in addition to palpate own for stabilization. 06/20 rambling, hard to understand. Impossible to have a therapeutic conversation with patient as he quickly becomes oblivious to bond underwriter, lost in a tangential thought and rambling about unrelated and mostly non-sensical things. Tried to ask pt about collateral reports, however he adamantly denies reports. t. Pt standing in [place] talking to himself. from the unit, pt called 911 and told police there is a sniper loose; on inquiry, could not explain his concern 06/21/24 Patient remains disorganized; perseveration on his relationship. He says he is good today...wants to get back to his house since he rebuilt his whole house and has things to do...He said he does not think he'll take psychiatric medications. He tells bond underwriter that he has his own doctor, Dr. Hay. However, pt seemed open to writers explanation that medications ordered are the same ones that Dr. Hay prescribed. He seemed to agree to consider taking psych meds. Impression: As patient remains without any insight to his illness or his behaviors, he remains unsafe and a danger to himself and others due to his erratic driving; also due to paranoid delusions he has been eating very little and seems to have lost significant weight and only a few months. At this time patient is not safe for discharge. He is not willing to sign a CV. Paper Deliverer will file for involuntary commitment and substituted judgment. Also, bond underwriter is invoking the HCP on 06/19/24 as patient is unable to make medical decisions for himself. Plan: Section 7 (Filing for involuntary commitment and substituted judgment) Invoking healthcare proxy (06/19/2024) Q 15 minute checks Continue Vraylar 3 mg q.h.s. Continue Paliperidone 6 mg q.h.s. Continue Brimonide Tartrate Continue Dorzolamide Continue Latanoprost Continue Timolol Patient educated on: diagnosis and medication risk/benefits Informed Consent: understands, does not understand and further education needed Reason for continued inpatient stay Substantial Risk for: inability to function Time Spent With Patient Time: Total time managing care of this patient today ____ minutes.
[2024-06-21 20:00] VITALS: BP 183/92; PULSE 69; RESP 18; TEMP 36.4; O2SAT 99
[2024-06-21] MEDS: Latanoprost 0.005 % Ophth Sol 2.5 ML DROPS 1 DROP EYE-BOTH (21:41)
[2024-06-21] MEDS: LORazepam 1 MG TABLET PO (21:43)
[2024-06-22 07:00] VITALS: BMI 24.1
[2024-06-22 09:00] VITALS: BP 154/72; PULSE 59; RESP 18; TEMP 36.5; O2SAT 99
[2024-06-22] MEDS: Thiamine HCL 100 MG TABLET PO (09:21)
[2024-06-22] MEDS: timoloL maleate 0.5 % Oph Sol 5 ML DRBTL 1 DROP EYE-BOTH ×2 (09:22→21:59)
[2024-06-22] MEDS: Brimonidine Tartrate 0.2% Oph 5 ML BOTTLE 1 DROP EYE-BOTH ×2 (09:24→21:59)
[2024-06-22] MEDS: Dorzolamide HCl 2 % Ophth Sol 10 ML DRPBTL 1 DROP EYE-BOTH ×3 (09:25→21:59)
[2024-06-22 20:00] VITALS: BP 175/81; PULSE 71; RESP 18; TEMP 36.3; O2SAT 98
[2024-06-22] MEDS: Latanoprost 0.005 % Ophth Sol 2.5 ML DROPS 1 DROP EYE-BOTH (21:59)
[2024-06-22] MEDS: Paliperidone ER 9 MG TAB.ER.24 PO (22:00)
[2024-06-22] MEDS: LORazepam 1 MG TABLET PO (22:00)
[2024-06-23] MEDS: hydrOXYzine HCL 25 MG TABLET PO (02:11)
[2024-06-23 08:00] VITALS: BP 157/77; PULSE 61; RESP 16; TEMP 36.5; O2SAT 98
[2024-06-23] MEDS: Dorzolamide HCl 2 % Ophth Sol 10 ML DRPBTL 1 DROP EYE-BOTH ×2 (09:20→21:13)
[2024-06-23] MEDS: timoloL maleate 0.5 % Oph Sol 5 ML DRBTL 1 DROP EYE-BOTH ×2 (09:20→21:13)
[2024-06-23] MEDS: Brimonidine Tartrate 0.2% Oph 5 ML BOTTLE 1 DROP EYE-BOTH ×2 (09:20→21:11)
--- NOTE | 2024-06-23 09:21 | HO.PSYCHPN ---
Subjective Subjective Date of Service: 06/22/24 Reason For Visit: schizophrenia Interim History: late entry note for patient seen on 06/22/24; discussed with team Patient remains disorganized, delusional. Start talking to patient about 1 topic but he is rambling and trails off into another completely unrelated 1. Tells typewriter repairer he thinks that there are gangs in the area and then something his cousin but typewriter repairer could not tell exactly. Inventory Manager again asked about taking medication and he said he would consider it. Mental Status Exam Mental Status Exam Narrative: Pt is alert and oriented; behavior is disorganized, hyperverbal patient is not in distress; dressed in casual attire, with improved grooming; mood is described as good however affect constricted but less irritable; eye contact limited; Speech is pressured and rambling, sometimes muttering incoherently but a little easier to understand; no psychomotor agitation present; thought process is still disorganized, rambling and tangential; Thought content is on various unrelated topics; denies any paranoid delusional thinking; denies any SI/HI. Denies AH but patient appears to be internally preoccupied and responding to internal stimuli. Patients insight and judgment impaired. Diagnostics Vital Signs (24Hr): Vital Signs - 24 hr 06/22/24 20:00 06/23/24 08:00 Temperature 97.3 F 97.7 F Pulse Rate 71 61 Respiratory Rate 18 16 Blood Pressure 175/81 H 157/77 H Pulse Oximetry 98 98 Oxygen Delivery Method Room Air BMI result Body Mass Index 24.1 Labs 06/14/24 00:45 06/14/24 00:45 Medications Medications Current Medications Acetaminophen (Acetaminophen 325 Mg Tablet) 650 mg PO Q6H PRN PRN Reason: Headache/Pain Mild Scale (1-3) Last Admin: 06/16/24 13:42 Dose: 650 mg Al Hydroxide/Mg Hydroxide (Magnesium Hydrox/Alum Hydrox 30 Ml Oral.Susp) 30 ml PO Q6H PRN PRN Reason: Heartburn/Nausea Brimonidine Tartrate (Brimonidine Tartrate 0.2% Oph 5 Ml Bottle) 1 drop EYE-BOTH BID [facility] Last Admin: 06/22/24 21:59 Dose: 1 drop Cariprazine (Cariprazine Hcl 3 Mg Capsule) 3 mg PO BEDTIME [facility] Last Admin: 06/22/24 22:13 Dose: Not Given Dorzolamide HCl (Dorzolamide Hcl 2 % Ophth Jossy 10 Ml Drpbtl) 1 drop EYE-BOTH TID [facility] Last Admin: 06/22/24 21:59 Dose: 1 drop Hydroxyzine HCl (Hydroxyzine Hcl 25 Mg Tablet) 25 mg PO Q6H PRN PRN Reason: Anxiety Last Admin: 06/23/24 02:11 Dose: 25 mg Latanoprost (Latanoprost 0.005 % Ophth Jossy 2.5 Ml Drops) 1 drop EYE-BOTH BEDTIME [facility] Last Admin: 06/22/24 21:59 Dose: 1 drop Lorazepam (Lorazepam 1 Mg Tablet) 1 mg PO BEDTIME [facility] Last Admin: 06/22/24 22:00 Dose: 1 mg Magnesium Hydroxide (Milk Of Magnesia 30 Ml Oral.Susp) 30 ml PO DAILY PRN PRN Reason: Constipation Nicotine (Nicotine 21 Mg Patch.Td24) 21 mg TRANSDERMA DAILY PRN PRN Reason: nicotine cravings Nicotine Polacrilex (Nicotine Polacrilex 2 Mg Gum) 4 mg BUCCAL Q2H PRN PRN Reason: Nicotine Cravings Olanzapine (Olanzapine 5 Mg Tablet) 5 mg PO Q4H PRN PRN Reason: agitation,psychosis Last Admin: 06/20/24 03:37 Dose: 5 mg Paliperidone (Paliperidone Er 9 Mg Tab.Er.24) 9 mg PO BEDTIME [facility] Last Admin: 06/22/24 22:00 Dose: 9 mg Thiamine HCl (Thiamine Hcl 100 Mg Tablet) 100 mg PO DAILY [facility] Last Admin: 06/22/24 09:21 Dose: 100 mg Timolol Maleate (Timolol Maleate 0.5 % Oph Jossy 5 Ml Drbtl) 1 drop EYE-BOTH BID [facility] Last Admin: 06/22/24 21:59 Dose: 1 drop Trazodone HCl (Trazodone Hcl 50 Mg Tablet) 50 mg PO BEDTIME MRX1 PRN PRN Reason: Insomnia Last Admin: 06/19/24 02:40 Dose: 50 mg Allergies Allergies Allergy/AdvReac Type Severity Reaction Status Date / Time No Known Allergies Allergy Unknown UNKNOWN Verified 06/14/24 00:30 Assessment & Plan Assessment & Plan (1) Schizoaffective disorder, bipolar type: Status: Acute Code(s): F25.0 - Schizoaffective disorder, bipolar type (2) Glaucoma: Status: Acute Code(s): H40.9 - Unspecified glaucoma Plan Patient is a 68-year-old male with history of schizoaffective, bipolar type (vs bipolar), glaucoma who presents via police for disorganized behavior in the community in the face of medication noncompliance. Patient is disorganized in speech, rambling, often incoherently. He asks typewriter repairer. about the mott of the sexes and Eleazar and Vidya... Inventory Manager inquired about ED/police report that he was disorganized, that he was driving in the backyard of his house, shiny his lights on neighbors house. He said he was trying to park in his driveway and I did not. Mean to drive in the backyard.. Saying it was accidental. Regarding being disorganized outside a convenience store, patient said that there was a angry woman there a sick woman.. Who was upset with and all he was doing was sitting in his car outside the convenience store for a little while, listening to music. Patient denies any drug or alcohol use. Says his throat is bothering him but he can not tolerate any questions regarding it. Says he does not need medications but has been taking them since he got here. Collateral report says patient was brought in for acting erratic, driving in circles and backyard of his house after neighbors called; also reports that he was acting erratically at nighttime outside of a convenience store. Formulation/clinical reasoning: Patient presents in a manic episode and acting erratically in the community. Recently discharged from [facility] on paliperidone 6mg qhs and Vraylar 3mg qhs. Not sure why patient is on 2 antipsychotics unless Vraylar is meant to be only a mood stabilizer. Will continue this regimen now since he seemed to somewhat stabilize on M[facility]. If stabilizes will strongly consider long-acting injectable of paliperidone given history of noncompliance Hospital course: 06/19 Patient remains disorganized and is having a difficult time explaining his thoughts. On approach he is rambling about something and typewriter repairer has a very hard time understanding him as he is jumping from topic to topic. He says he wants to go home and that he has a lot to accomplish. He has not been taking Vraylar and says he does not like it. He said he will take the paliperidone but refuses long-acting injectable. Inventory Manager asked about paranoid delusional thinking and he said that others are making fictitious statements. Regarding driving erratically, he says I was driving between the lines... However he does acknowledge he was playing his music too loudly. Inventory Manager discussed that team does not feel he is ready for discharge however patient is unable to tolerate this discussion just says no that he wants to go... cleaner touch up worker discussed case with patient's cousin Marlin Dowd who is also his healthcare proxy (document in chart). She has significant concerns about his safety. She said that over the past week to 2 weeks he has been increasingly disorganized; typewriter repairer around [place] he refused his meds (from [facility]?); she drove in the car as a passenger with him and said she was very fearful as he was driving well below the speed limit, weaving in and out of the lanes and completely unsafe. She said he recently showed up at a work place and employees were scared of him because he was talking nonsensically. She says that he is delusional, thinking that his food is poisoned and threw away a significant amount of food that he got from a food shelf. She says he has lost about 30-40 lb over the past 2 months. She says that he has talked about raise or beams beaming down onto his head; saying that he seeing cars Vanish, planes Vanish and other bizarre delusional things. She says that he is historically not compliant with medication and would like him to be on a long-acting injectable. Inventory Manager discussed case with [facility] inpatient provider who saw patient on his recent admission to a few weeks ago; she talked with his outpatient psychiatric provider Dr. Condon the said that patient needed Vraylar in addition to palpate own for stabilization. 06/20 rambling, hard to understand. Impossible to have a therapeutic conversation with patient as he quickly becomes oblivious to typewriter repairer, lost in a tangential thought and rambling about unrelated and mostly non-sensical things. Tried to ask pt about collateral reports, however he adamantly denies reports. t. Pt standing in [place] talking to himself. from the unit, pt called 911 and told police there is a sniper loose; on inquiry, could not explain his concern 1/1/25 Patient remains disorganized; perseveration on his relationship. He says he is good today...wants to get back to his house since he rebuilt his whole house and has things to do...He said he does not think he'll take psychiatric medications. He tells typewriter repairer that he has his own doctor, Dr. Hay. However, pt seemed open to writers explanation that medications ordered are the same ones that Dr. Hay prescribed. He seemed to agree to consider taking psych meds. 06/22 no change in presentation, remains disorganized, manic, delusional. Patient said he will contemplate taking the paliperidone. Will increase dose Impression: As patient remains without any insight to his illness or his behaviors, he remains unsafe and a danger to himself and others due to his erratic driving; also due to paranoid delusions he has been eating very little and seems to have lost significant weight and only a few months. At this time patient is not safe for discharge. He is not willing to sign a CV. Inventory Manager will file for involuntary commitment and substituted judgment. Also, typewriter repairer is invoking the HCP on 06/19/24 as patient is unable to make medical decisions for himself. Plan: Section 7 (Filing for involuntary commitment and substituted judgment) Invoking healthcare proxy (06/19/2024) Q 15 minute checks Continue Vraylar 3 mg q.h.s. Increase to Paliperidone 9 mg q.h.s. Continue Brimonide Tartrate Continue Dorzolamide Continue Latanoprost Continue Timolol Patient educated on: diagnosis and medication risk/benefits Informed Consent: understands, does not understand and further education needed Reason for continued inpatient stay Substantial Risk for: inability to function Time Spent With Patient Time: Total time managing care of this patient today ____ minutes.
--- NOTE | 2024-06-23 12:52 | P.PNPSI_ITS ---
Subjective Subjective Date of Service: 06/23/24 Reason For Visit: schizophrenia Interim History: Met with patient; discussed with team Remains delusional, paranoid thoughts, disorganized; patient rambling by himself in the romano, saying words out loud such as police... Killing Hot Air Furnace Installer And Repairer discussed patient's HTN and pt said he used to be on enalapril and agrees to restart ISAC-inhibitor Mental Status Exam Mental Status Exam Narrative: Pt is alert and oriented; behavior is disorganized, hyperverbal patient is not in distress; dressed in casual attire, with improved grooming; mood is described as good however affect constricted but less irritable; eye contact limited; Speech is pressured and rambling, sometimes muttering incoherently but a little easier to understand; no psychomotor agitation present; thought process is still disorganized, rambling and tangential; Thought content is on various unrelated topics; denies any paranoid delusional thinking; denies any SI/HI. Denies AH but patient appears to be internally preoccupied and responding to internal stimuli. Patients insight and judgment impaired. Diagnostics Vital Signs (24Hr): Vital Signs - 24 hr 06/22/24 20:00 06/23/24 08:00 Temperature 97.3 F 97.7 F Pulse Rate 71 61 Respiratory Rate 18 16 Blood Pressure 175/81 H 157/77 H Pulse Oximetry 98 98 Oxygen Delivery Method Room Air BMI result Body Mass Index 24.1 Labs 06/14/24 00:45 06/14/24 00:45 Medications Medications Current Medications Acetaminophen (Acetaminophen 325 Mg Tablet) 650 mg PO Q6H PRN PRN Reason: Headache/Pain Mild Scale (1-3) Last Admin: 06/16/24 13:42 Dose: 650 mg Al Hydroxide/Mg Hydroxide (Magnesium Hydrox/Alum Hydrox 30 Ml Oral.Susp) 30 ml PO Q6H PRN PRN Reason: Heartburn/Nausea Brimonidine Tartrate (Brimonidine Tartrate 0.2% Oph 5 Ml Bottle) 1 drop EYE- BOTH BID [facility] Last Admin: 06/23/24 09:20 Dose: 1 drop Cariprazine (Cariprazine Hcl 3 Mg Capsule) 3 mg PO BEDTIME [facility] Last Admin: 06/22/24 22:13 Dose: Not Given Dorzolamide HCl (Dorzolamide Hcl 2 % Ophth Jossy 10 Ml Drpbtl) 1 drop EYE-BOTH TID [facility] Last Admin: 06/23/24 09:20 Dose: 1 drop Hydroxyzine HCl (Hydroxyzine Hcl 25 Mg Tablet) 25 mg PO Q6H PRN PRN Reason: Anxiety Last Admin: 06/23/24 02:11 Dose: 25 mg Latanoprost (Latanoprost 0.005 % Ophth Jossy 2.5 Ml Drops) 1 drop EYE-BOTH BEDTIME [facility] Last Admin: 06/22/24 21:59 Dose: 1 drop Lisinopril (Lisinopril 5 Mg Tablet) 5 mg PO ONCE ONE; Protocol Stop: 06/23/24 12:52 Lisinopril (Lisinopril 5 Mg Tablet) 5 mg PO DAILY [facility]; Protocol Lorazepam (Lorazepam 1 Mg Tablet) 1 mg PO BEDTIME [facility] Last Admin: 06/22/24 22:00 Dose: 1 mg Magnesium Hydroxide (Milk Of Magnesia 30 Ml Oral.Susp) 30 ml PO DAILY PRN PRN Reason: Constipation Nicotine (Nicotine 21 Mg Patch.Td24) 21 mg TRANSDERMA DAILY PRN PRN Reason: nicotine cravings Nicotine Polacrilex (Nicotine Polacrilex 2 Mg Gum) 4 mg BUCCAL Q2H PRN PRN Reason: Nicotine Cravings Olanzapine (Olanzapine 5 Mg Tablet) 5 mg PO Q4H PRN PRN Reason: agitation,psychosis Last Admin: 06/20/24 03:37 Dose: 5 mg Paliperidone (Paliperidone Er 9 Mg Tab.Er.24) 9 mg PO BEDTIME [facility] Last Admin: 06/22/24 22:00 Dose: 9 mg Thiamine HCl (Thiamine Hcl 100 Mg Tablet) 100 mg PO DAILY [facility] Last Admin: 06/23/24 09:21 Dose: Not Given Timolol Maleate (Timolol Maleate 0.5 % Oph Jossy 5 Ml Drbtl) 1 drop EYE-BOTH BID [facility] Last Admin: 06/23/24 09:20 Dose: 1 drop Trazodone HCl (Trazodone Hcl 50 Mg Tablet) 50 mg PO BEDTIME MRX1 PRN PRN Reason: Insomnia Last Admin: 06/19/24 02:40 Dose: 50 mg Allergies Allergies Allergy/AdvReac Type Severity Reaction Status Date / Time No Known Allergies Allergy Unknown UNKNOWN Verified 06/14/24 00:30 Assessment & Plan Assessment & Plan (1) Schizoaffective disorder, bipolar type: Status: Acute Code(s): F25.0 - Schizoaffective disorder, bipolar type (2) Glaucoma: Status: Acute Code(s): H40.9 - Unspecified glaucoma Plan Patient is a 68-year-old male with history of schizoaffective, bipolar type (vs bipolar), glaucoma who presents via police for disorganized behavior in the community in the face of medication noncompliance. Patient is disorganized in speech, rambling, often incoherently. He asks underwriter solicitation director. about the mott of the sexes and Eleazar and Vidya... Hot Air Furnace Installer And Repairer inquired about ED/police report that he was disorganized, that he was driving in the backyard of his house, shiny his lights on neighbors house. He said he was trying to park in his driveway and I did not. Mean to drive in the backyard.. Saying it was accidental. Regarding being disorganized outside a convenience store, patient said that there was a angry woman there a sick woman.. Who was upset with and all he was doing was sitting in his car outside the convenience store for a little while, listening to music. Patient denies any drug or alcohol use. Says his throat is bothering him but he can not tolerate any questions regarding it. Says he does not need medications but has been taking them since he got here. Collateral report says patient was brought in for acting erratic, driving in circles and backyard of his house after neighbors called; also reports that he was acting erratically at nighttime outside of a convenience store. Formulation/clinical reasoning: Patient presents in a manic episode and acting erratically in the community. Recently discharged from [facility] on paliperidone 6mg qhs and Vraylar 3mg qhs. Not sure why patient is on 2 antipsychotics unless Vraylar is meant to be only a mood stabilizer. Will continue this regimen now since he seemed to somewhat stabilize on M3. If stabilizes will strongly consider long-acting injectable of paliperidone given history of noncompliance Hospital course: 06/19 Patient remains disorganized and is having a difficult time explaining his thoughts. On approach he is rambling about something and underwriter solicitation director has a very hard time understanding him as he is jumping from topic to topic. He says he wants to go home and that he has a lot to accomplish. He has not been taking Vraylar and says he does not like it. He said he will take the paliperidone but refuses long-acting injectable. Hot Air Furnace Installer And Repairer asked about paranoid delusional thinking and he said that others are making fictitious statements. Regarding driving erratically, he says I was driving between the lines... However he does acknowledge he was playing his music too loudly. Hot Air Furnace Installer And Repairer discussed that team does not feel he is ready for discharge however patient is unable to tolerate this discussion just says no that he wants to go... foundry worker apprentice discussed case with patient's cousin Marlin Dowd who is also his healthcare proxy (document in chart). She has significant concerns about his safety. She said that over the past week to 2 weeks he has been increasingly disorganized; underwriter solicitation director around [place] he refused his meds (from [facility]?); she drove in the car as a passenger with him and said she was very fearful as he was driving well below the speed limit, weaving in and out of the lanes and completely unsafe. She said he recently showed up at a work place and employees were scared of him because he was talking nonsensically. She says that he is delusional, thinking that his food is poisoned and threw away a significant amount of food that he got from a food shelf. She says he has lost about 30-40 lb over the past 2 months. She says that he has talked about raise or beams beaming down onto his head; saying that he seeing cars Vanish, planes Vanish and other bizarre delusional things. She says that he is historically not compliant with medication and would like him to be on a long-acting injectable. Hot Air Furnace Installer And Repairer discussed case with [employer] inpatient provider who saw patient on his recent admission to a few weeks ago; she talked with his outpatient psychiatric provider Dr. Condon the said that patient needed Vraylar in addition to palpate own for stabilization. 06/20 rambling, hard to understand. Impossible to have a therapeutic conversation with patient as he quickly becomes oblivious to underwriter solicitation director, lost in a tangential thought and rambling about unrelated and mostly non-sensical things. Tried to ask pt about collateral reports, however he adamantly denies reports. t. Pt standing in romano talking to himself. from the unit, pt called 911 and told police there is a sniper loose; on inquiry, could not explain his concern 06/21/24 Patient remains disorganized; perseveration on his relationship. He says he is good today...wants to get back to his house since he rebuilt his whole house and has things to do...He said he does not think he'll take psychiatric medications. He tells underwriter solicitation director that he has his own doctor, Dr. Hay. However, pt seemed open to writers explanation that medications ordered are the same ones that Dr. Hay prescribed. He seemed to agree to consider taking psych meds. 06/22 no change in presentation, remains disorganized, manic, delusional. Patient said he will contemplate taking the paliperidone. Will increase dose 06/23 patient took paliperidone last night. No change in presentation. Hot Air Furnace Installer And Repairer discussed hypertension with patient and he said he used to be on an ISAC inhibitor and agreed to restart 1 now Impression: As patient remains without any insight to his illness or his behaviors, he remains unsafe and a danger to himself and others due to his erratic driving; also due to paranoid delusions he has been eating very little and seems to have lost significant weight and only a few months. At this time patient is not safe for discharge. He is not willing to sign a CV. Hot Air Furnace Installer And Repairer will file for involuntary commitment and substituted judgment. Also, underwriter solicitation director is invoking the HCP on 06/19/24 as patient is unable to make medical decisions for himself. Plan: Section 7 (Filing for involuntary commitment and substituted judgment) Invoking healthcare proxy (06/19/2024) Q 15 minute checks START Lisinopril 5mg daily (patient said he used to be on enalapril however not on formulary) Continue Vraylar 3 mg q.h.s. Continue Paliperidone 6 mg q.h.s. Continue Brimonide Tartrate Continue Dorzolamide Continue Latanoprost Continue Timolol Patient educated on: diagnosis, medication risk/benefits and medical condition Informed Consent: understands, does not understand and further education needed Reason for continued inpatient stay Substantial Risk for: inability to function Time Spent With Patient Time: Total time managing care of this patient today ____ minutes.
[2024-06-23 20:00] VITALS: BP 185/82; PULSE 82; TEMP 36.6
[2024-06-23] MEDS: LORazepam 1 MG TABLET PO (21:06)
[2024-06-23] MEDS: Paliperidone ER 9 MG TAB.ER.24 PO (21:07)
[2024-06-23] MEDS: Latanoprost 0.005 % Ophth Sol 2.5 ML DROPS 1 DROP EYE-BOTH (21:14)
[2024-06-24 08:00] VITALS: BP 125/59; PULSE 79; RESP 16; TEMP 36.6; O2SAT 98
[2024-06-24] MEDS: Brimonidine Tartrate 0.2% Oph 5 ML BOTTLE 1 DROP EYE-BOTH ×2 (09:13→20:45)
[2024-06-24] MEDS: timoloL maleate 0.5 % Oph Sol 5 ML DRBTL 1 DROP EYE-BOTH ×2 (09:13→20:49)
[2024-06-24 09:14] VITALS: BP 125/59
[2024-06-24] MEDS: lisinopriL 5 MG TABLET PO (09:14)
[2024-06-24] MEDS: Thiamine HCL 100 MG TABLET PO (09:15)
[2024-06-24] MEDS: Dorzolamide HCl 2 % Ophth Sol 10 ML DRPBTL 1 DROP EYE-BOTH ×3 (09:26→20:47)
--- NOTE | 2024-06-24 09:52 | HO.PSYCHPN ---
Subjective Subjective Date of Service: 06/24/24 Reason For Visit: schizophrenia Medical Problems Affecting Mental Status: No Interim History: met with patient. Discussed with Nursing. In room. Is tangential, slightly pressured. Making statements that were quite connected for example talked about being a football player, then talked about [employer] in [place], then wanting to go home, then talked about the war many years ago. Declining all medications. Denied SI or HI. Denied feeling paranoid or scared from staff. Medication Compliance: No Side effects from medications: No Attending Groups: No Review of Systems Acute medical concerns: No Mental Status Exam Mental Status Exam Narrative: Pt is alert and oriented; behavior is disorganized, hyperverbal patient is not in distress; dressed in casual attire, with improved grooming; mood is described as very good however affect constricted; eye contact limited; Speech is pressured and rambling, sometimes muttering incoherently but a little easier to understand; no psychomotor agitation present; thought process is still disorganized, rambling and tangential; Thought content is on various unrelated topics; denies any paranoid delusional thinking; denies any SI/HI. Denies AH but patient appears to be internally preoccupied and responding to internal stimuli. Patients insight and judgment impaired. Diagnostics Vital Signs (24Hr): Vital Signs - 24 hr 06/23/24 20:00 06/24/24 08:00 06/24/24 09:14 Temperature 97.9 F 97.8 F Pulse Rate 82 79 Respiratory Rate 16 Blood Pressure 185/82 H 125/59 L 125/59 L Pulse Oximetry 98 BMI result Body Mass Index 24.1 Labs 06/14/24 00:45 06/14/24 00:45 Medications Medications Current Medications Acetaminophen (Acetaminophen 325 Mg Tablet) 650 mg PO Q6H PRN PRN Reason: Headache/Pain Mild Scale (1-3) Last Admin: 06/16/24 13:42 Dose: 650 mg Al Hydroxide/Mg Hydroxide (Magnesium Hydrox/Alum Hydrox 30 Ml Oral.Susp) 30 ml PO Q6H PRN PRN Reason: Heartburn/Nausea Brimonidine Tartrate (Brimonidine Tartrate 0.2% Oph 5 Ml Bottle) 1 drop EYE-BOTH BID [facility] Last Admin: 06/24/24 09:13 Dose: 1 drop Cariprazine (Cariprazine Hcl 3 Mg Capsule) 3 mg PO BEDTIME [facility] Last Admin: 06/23/24 21:06 Dose: Not Given Dorzolamide HCl (Dorzolamide Hcl 2 % Ophth Jossy 10 Ml Drpbtl) 1 drop EYE-BOTH TID [facility] Last Admin: 06/24/24 09:26 Dose: 1 drop Hydroxyzine HCl (Hydroxyzine Hcl 25 Mg Tablet) 25 mg PO Q6H PRN PRN Reason: Anxiety Last Admin: 06/23/24 02:11 Dose: 25 mg Latanoprost (Latanoprost 0.005 % Ophth Jossy 2.5 Ml Drops) 1 drop EYE-BOTH BEDTIME [facility] Last Admin: 06/23/24 21:14 Dose: 1 drop Lisinopril (Lisinopril 5 Mg Tablet) 5 mg PO DAILY [facility]; Protocol Last Admin: 06/24/24 09:14 Dose: 5 mg Lorazepam (Lorazepam 1 Mg Tablet) 1 mg PO BEDTIME [facility] Last Admin: 06/23/24 21:06 Dose: 1 mg Magnesium Hydroxide (Milk Of Magnesia 30 Ml Oral.Susp) 30 ml PO DAILY PRN PRN Reason: Constipation Nicotine (Nicotine 21 Mg Patch.Td24) 21 mg TRANSDERMA DAILY PRN PRN Reason: nicotine cravings Nicotine Polacrilex (Nicotine Polacrilex 2 Mg Gum) 4 mg BUCCAL Q2H PRN PRN Reason: Nicotine Cravings Olanzapine (Olanzapine 5 Mg Tablet) 5 mg PO Q4H PRN PRN Reason: agitation,psychosis Last Admin: 06/20/24 03:37 Dose: 5 mg Paliperidone (Paliperidone Er 9 Mg Tab.Er.24) 9 mg PO BEDTIME [facility] Last Admin: 06/23/24 21:07 Dose: 9 mg Thiamine HCl (Thiamine Hcl 100 Mg Tablet) 100 mg PO DAILY [facility] Last Admin: 06/24/24 09:15 Dose: 100 mg Timolol Maleate (Timolol Maleate 0.5 % Oph Jossy 5 Ml Drbtl) 1 drop EYE-BOTH BID [facility] Last Admin: 06/24/24 09:13 Dose: 1 drop Trazodone HCl (Trazodone Hcl 50 Mg Tablet) 50 mg PO BEDTIME MRX1 PRN PRN Reason: Insomnia Last Admin: 06/19/24 02:40 Dose: 50 mg Allergies Allergies Allergy/AdvReac Type Severity Reaction Status Date / Time No Known Allergies Allergy Unknown UNKNOWN Verified 06/14/24 00:30 Assessment & Plan Assessment & Plan (1) Schizoaffective disorder, bipolar type: Status: Acute Code(s): F25.0 - Schizoaffective disorder, bipolar type (2) Glaucoma: Status: Acute Code(s): H40.9 - Unspecified glaucoma Plan Patient is a 68-year-old male with history of schizoaffective, bipolar type (vs bipolar), glaucoma who presents via police for disorganized behavior in the community in the face of medication noncompliance. Patient is disorganized in speech, rambling, often incoherently. He asks feature writer. about the mott of the sexes and Eleazar and Vidya... Escrow Representative inquired about ED/police report that he was disorganized, that he was driving in the backyard of his house, shiny his lights on neighbors house. He said he was trying to park in his driveway and I did not. Mean to drive in the backyard.. Saying it was accidental. Regarding being disorganized outside a convenience store, patient said that there was a angry woman there a sick woman.. Who was upset with and all he was doing was sitting in his car outside the convenience store for a little while, listening to music. Patient denies any drug or alcohol use. Says his throat is bothering him but he can not tolerate any questions regarding it. Says he does not need medications but has been taking them since he got here. Collateral report says patient was brought in for acting erratic, driving in circles and backyard of his house after neighbors called; also reports that he was acting erratically at nighttime outside of a convenience store. Formulation/clinical reasoning: Patient presents in a manic episode and acting erratically in the community. Recently discharged from [facility] on paliperidone 6mg qhs and Vraylar 3mg qhs. Not sure why patient is on 2 antipsychotics unless Vraylar is meant to be only a mood stabilizer. Will continue this regimen now since he seemed to somewhat stabilize on M3. If stabilizes will strongly consider long-acting injectable of paliperidone given history of noncompliance Hospital course: 06/19 Patient remains disorganized and is having a difficult time explaining his thoughts. On approach he is rambling about something and feature writer has a very hard time understanding him as he is jumping from topic to topic. He says he wants to go home and that he has a lot to accomplish. He has not been taking Vraylar and says he does not like it. He said he will take the paliperidone but refuses long-acting injectable. Escrow Representative asked about paranoid delusional thinking and he said that others are making fictitious statements. Regarding driving erratically, he says I was driving between the lines... However he does acknowledge he was playing his music too loudly. Escrow Representative discussed that team does not feel he is ready for discharge however patient is unable to tolerate this discussion just says no that he wants to go... burlap worker discussed case with patient's cousin Marlin Dowd who is also his healthcare proxy (document in chart). She has significant concerns about his safety. She said that over the past week to 2 weeks he has been increasingly disorganized; feature writer around [place] he refused his meds (from [facility]?); she drove in the car as a passenger with him and said she was very fearful as he was driving well below the speed limit, weaving in and out of the lanes and completely unsafe. She said he recently showed up at a work place and employees were scared of him because he was talking nonsensically. She says that he is delusional, thinking that his food is poisoned and threw away a significant amount of food that he got from a food shelf. She says he has lost about 30-40 lb over the past 2 months. She says that he has talked about raise or beams beaming down onto his head; saying that he seeing cars Vanish, planes Vanish and other bizarre delusional things. She says that he is historically not compliant with medication and would like him to be on a long-acting injectable. Escrow Representative discussed case with HAND INSERTER OPERATOR inpatient provider who saw patient on his recent admission to a few weeks ago; she talked with his outpatient psychiatric provider Dr. Condon the said that patient needed Vraylar in addition to palpate own for stabilization. 06/20 rambling, hard to understand. Impossible to have a therapeutic conversation with patient as he quickly becomes oblivious to feature writer, lost in a tangential thought and rambling about unrelated and mostly non-sensical things. Tried to ask pt about collateral reports, however he adamantly denies reports. t. Pt standing in [place] talking to himself. from the unit, pt called 911 and told police there is a sniper loose; on inquiry, could not explain his concern 06/21/24 Patient remains disorganized; perseveration on his relationship. He says he is good today...wants to get back to his house since he rebuilt his whole house and has things to do...He said he does not think he'll take psychiatric medications. He tells feature writer that he has his own doctor, Dr. Hay. However, pt seemed open to writers explanation that medications ordered are the same ones that Dr. Hay prescribed. He seemed to agree to consider taking psych meds. 06/22 no change in presentation, remains disorganized, manic, delusional. Patient said he will contemplate taking the paliperidone. Will increase dose 06/23 patient took paliperidone last night. No change in presentation. Escrow Representative discussed hypertension with patient and he said he used to be on an ISAC inhibitor and agreed to restart 1 now 06/24/2024: Continue to encourage medication adherence Impression: As patient remains without any insight to his illness or his behaviors, he remains unsafe and a danger to himself and others due to his erratic driving; also due to paranoid delusions he has been eating very little and seems to have lost significant weight and only a few months. At this time patient is not safe for discharge. He is not willing to sign a CV. Escrow Representative will file for involuntary commitment and substituted judgment. Also, feature writer is invoking the HCP on 06/19/24 as patient is unable to make medical decisions for himself. Plan: Section 7 (Filing for involuntary commitment and substituted judgment) Invoking healthcare proxy (06/19/2024) Q 15 minute checks START Lisinopril 5mg daily (patient said he used to be on enalapril however not on formulary) Continue Vraylar 3 mg q.h.s. Continue Paliperidone 6 mg q.h.s. Continue Brimonide Tartrate Continue Dorzolamide Continue Latanoprost Continue Timolol Reason for continued inpatient stay Substantial Risk for: inability to function Time Spent With Patient Time: Total time managing care of this patient today ____ minutes.
[2024-06-24 20:00] VITALS: BP 153/68; PULSE 85; TEMP 37; O2SAT 99
[2024-06-24] MEDS: Paliperidone ER 9 MG TAB.ER.24 PO (20:42)
[2024-06-24] MEDS: LORazepam 1 MG TABLET PO (20:43)
[2024-06-24] MEDS: Latanoprost 0.005 % Ophth Sol 2.5 ML DROPS 1 DROP EYE-BOTH (20:47)
[2024-06-25 08:00] VITALS: BP 136/63; PULSE 69; RESP 16; TEMP 36.9; O2SAT 97
--- NOTE | 2024-06-25 08:34 | P.PNPSI_ITS ---
Subjective Subjective Date of Service: 06/25/24 Reason For Visit: schizophrenia Interim History: met with patient. Discussed with Nursing. in milieu. Continues to be tangential and difficult to follow in thought form. Reports wanting discharge home. Also difficulty communicating admission circumstances, how things have been in the hospital and any future planning. Reported feeling safe in the hospital. Declining all medications. Denied SI or HI. Medication Compliance: No Side effects from medications: No Attending Groups: Intermittent Review of Systems Acute medical concerns: No Review of Systems Review of Systems Unremarkable Mental Status Exam Mental Status Exam Narrative: Pt is alert and oriented; behavior is disorganized, hyperverbal patient is not in distress; dressed in casual attire, with improved grooming; mood is described as good however affect constricted; eye contact limited; Speech is pressured and rambling, sometimes muttering incoherently but a little easier to understand; no psychomotor agitation present; thought process is still disorganized, rambling and tangential; Thought content is on various unrelated topics; denies any paranoid delusional thinking; denies any SI/HI. Denies AH but patient appears to be internally preoccupied and responding to internal stimuli. Patients insight and judgment impaired. Diagnostics Vital Signs (24Hr): Vital Signs - 24 hr 06/24/24 09:14 06/24/24 20:00 Temperature 98.6 F Pulse Rate 85 Blood Pressure 125/59 L 153/68 H Pulse Oximetry 99 Oxygen Delivery Method Room Air BMI result Body Mass Index 24.1 Labs 06/14/24 00:45 06/14/24 00:45 Medications Medications Current Medications Acetaminophen (Acetaminophen 325 Mg Tablet) 650 mg PO Q6H PRN PRN Reason: Headache/Pain Mild Scale (1-3) Last Admin: 06/16/24 13:42 Dose: 650 mg Al Hydroxide/Mg Hydroxide (Magnesium Hydrox/Alum Hydrox 30 Ml Oral.Susp) 30 ml PO Q6H PRN PRN Reason: Heartburn/Nausea Brimonidine Tartrate (Brimonidine Tartrate 0.2% Oph 5 Ml Bottle) 1 drop EYE- BOTH BID [facility] Last Admin: 06/24/24 20:45 Dose: 1 drop Cariprazine (Cariprazine Hcl 3 Mg Capsule) 3 mg PO BEDTIME [facility] Last Admin: 06/24/24 20:46 Dose: Not Given Dorzolamide HCl (Dorzolamide Hcl 2 % Ophth Jossy 10 Ml Drpbtl) 1 drop EYE-BOTH TID [facility] Last Admin: 06/24/24 20:47 Dose: 1 drop Hydroxyzine HCl (Hydroxyzine Hcl 25 Mg Tablet) 25 mg PO Q6H PRN PRN Reason: Anxiety Last Admin: 06/23/24 02:11 Dose: 25 mg Latanoprost (Latanoprost 0.005 % Ophth Jossy 2.5 Ml Drops) 1 drop EYE-BOTH BEDTIME [facility] Last Admin: 06/24/24 20:47 Dose: 1 drop Lisinopril (Lisinopril 5 Mg Tablet) 5 mg PO DAILY [facility]; Protocol Last Admin: 06/24/24 09:14 Dose: 5 mg Lorazepam (Lorazepam 1 Mg Tablet) 1 mg PO BEDTIME [facility] Last Admin: 06/24/24 20:43 Dose: 1 mg Magnesium Hydroxide (Milk Of Magnesia 30 Ml Oral.Susp) 30 ml PO DAILY PRN PRN Reason: Constipation Nicotine (Nicotine 21 Mg Patch.Td24) 21 mg TRANSDERMA DAILY PRN PRN Reason: nicotine cravings Nicotine Polacrilex (Nicotine Polacrilex 2 Mg Gum) 4 mg BUCCAL Q2H PRN PRN Reason: Nicotine Cravings Olanzapine (Olanzapine 5 Mg Tablet) 5 mg PO Q4H PRN PRN Reason: agitation,psychosis Last Admin: 06/20/24 03:37 Dose: 5 mg Paliperidone (Paliperidone Er 9 Mg Tab.Er.24) 9 mg PO BEDTIME [facility] Last Admin: 06/24/24 20:42 Dose: 9 mg Thiamine HCl (Thiamine Hcl 100 Mg Tablet) 100 mg PO DAILY [facility] Last Admin: 06/24/24 09:15 Dose: 100 mg Timolol Maleate (Timolol Maleate 0.5 % Oph Jossy 5 Ml Drbtl) 1 drop EYE-BOTH BID [facility] Last Admin: 06/24/24 20:49 Dose: 1 drop Trazodone HCl (Trazodone Hcl 50 Mg Tablet) 50 mg PO BEDTIME MRX1 PRN PRN Reason: Insomnia Last Admin: 06/19/24 02:40 Dose: 50 mg Allergies Allergies Allergy/AdvReac Type Severity Reaction Status Date / Time No Known Allergies Allergy Unknown UNKNOWN Verified 06/14/24 00:30 Assessment & Plan Assessment & Plan (1) Schizoaffective disorder, bipolar type: Status: Acute Code(s): F25.0 - Schizoaffective disorder, bipolar type (2) Glaucoma: Status: Acute Code(s): H40.9 - Unspecified glaucoma Plan Patient is a 68-year-old male with history of schizoaffective, bipolar type (vs bipolar), glaucoma who presents via police for disorganized behavior in the community in the face of medication noncompliance. Patient is disorganized in speech, rambling, often incoherently. He asks typewriter assembly and parts inspector. about the mott of the sexes and Eleazar and Vidya... Transfer Iron Operator inquired about ED/police report that he was disorganized, that he was driving in the backyard of his house, shiny his lights on neighbors house. He said he was trying to park in his driveway and I did not. Mean to drive in the backyard.. Saying it was accidental. Regarding being disorganized outside a convenience store, patient said that there was a angry woman there a sick woman.. Who was upset with and all he was doing was sitting in his car outside the convenience store for a little while, listening to music. Patient denies any drug or alcohol use. Says his throat is bothering him but he can not tolerate any questions regarding it. Says he does not need medications but has been taking them since he got here. Collateral report says patient was brought in for acting erratic, driving in circles and backyard of his house after neighbors called; also reports that he was acting erratically at nighttime outside of a convenience store. Formulation/clinical reasoning: Patient presents in a manic episode and acting erratically in the community. Recently discharged from [facility] on paliperidone 6mg qhs and Vraylar 3mg qhs. Not sure why patient is on 2 antipsychotics unless Vraylar is meant to be only a mood stabilizer. Will continue this regimen now since he seemed to somewhat stabilize on M3. If stabilizes will strongly consider long-acting injectable of paliperidone given history of noncompliance Hospital course: 06/19 Patient remains disorganized and is having a difficult time explaining his thoughts. On approach he is rambling about something and typewriter assembly and parts inspector has a very hard time understanding him as he is jumping from topic to topic. He says he wants to go home and that he has a lot to accomplish. He has not been taking Vraylar and says he does not like it. He said he will take the paliperidone but refuses long-acting injectable. Transfer Iron Operator asked about paranoid delusional thinking and he said that others are making fictitious statements. Regarding driving erratically, he says I was driving between the lines... However he does acknowledge he was playing his music too loudly. Transfer Iron Operator discussed that team does not feel he is ready for discharge however patient is unable to tolerate this discussion just says no that he wants to go... pit crew support worker discussed case with patient's cousin Marlin Dowd who is also his healthcare proxy (document in chart). She has significant concerns about his safety. She said that over the past week to 2 weeks he has been increasingly disorganized; typewriter assembly and parts inspector around [place] he refused his meds (from [facility]?); she drove in the car as a passenger with him and said she was very fearful as he was driving well below the speed limit, weaving in and out of the lanes and completely unsafe. She said he recently showed up at a work place and employees were scared of him because he was talking nonsensically. She says that he is delusional, thinking that his food is poisoned and threw away a significant amount of food that he got from a food shelf. She says he has lost about 30-40 lb over the past 2 months. She says that he has talked about raise or beams beaming down onto his head; saying that he seeing cars Vanish, planes Vanish and other bizarre delusional things. She says that he is historically not compliant with medication and would like him to be on a long-acting injectable. Transfer Iron Operator discussed case with LANDSCAPING MANAGER inpatient provider who saw patient on his recent admission to a few weeks ago; she talked with his outpatient psychiatric provider Dr. Condon the said that patient needed Vraylar in addition to palpate own for stabilization. 06/20 rambling, hard to understand. Impossible to have a therapeutic conversation with patient as he quickly becomes oblivious to typewriter assembly and parts inspector, lost in a tangential thought and rambling about unrelated and mostly non-sensical things. Tried to ask pt about collateral reports, however he adamantly denies reports. t. Pt standing in [place] talking to himself. from the unit, pt called 911 and told police there is a sniper loose; on inquiry, could not explain his concern 06/21/24 Patient remains disorganized; perseveration on his relationship. He says he is good today...wants to get back to his house since he rebuilt his whole house and has things to do...He said he does not think he'll take psychiatric medications. He tells typewriter assembly and parts inspector that he has his own doctor, Dr. Hay. However, pt seemed open to writers explanation that medications ordered are the same ones that Dr. Hya prescribed. He seemed to agree to consider taking psych meds. 06/22 no change in presentation, remains disorganized, manic, delusional. Patient said he will contemplate taking the paliperidone. Will increase dose 06/23 patient took paliperidone last night. No change in presentation. Transfer Iron Operator discussed hypertension with patient and he said he used to be on an ISAC inhibitor and agreed to restart 1 now 06/25/2024: Continue to encourage medication adherence Impression: As patient remains without any insight to his illness or his behaviors, he remains unsafe and a danger to himself and others due to his erratic driving; also due to paranoid delusions he has been eating very little and seems to have lost significant weight and only a few months. At this time patient is not safe for discharge. He is not willing to sign a CV. Transfer Iron Operator will file for involuntary commitment and substituted judgment. Also, typewriter assembly and parts inspector is invoking the HCP on 06/19/24 as patient is unable to make medical decisions for himself. Plan: Section 7 (Filing for involuntary commitment and substituted judgment) Invoking healthcare proxy (06/19/2024) Q 15 minute checks START Lisinopril 5mg daily (patient said he used to be on enalapril however not on formulary) Continue Vraylar 3 mg q.h.s. Continue Paliperidone 6 mg q.h.s. Continue Brimonide Tartrate Continue Dorzolamide Continue Latanoprost Continue Timolol Reason for continued inpatient stay Substantial Risk for: inability to function Time Spent With Patient Time: Total time managing care of this patient today ____ minutes.
[2024-06-25 08:49] VITALS: BP 136/63
[2024-06-25] MEDS: Thiamine HCL 100 MG TABLET PO (08:49)
[2024-06-25] MEDS: lisinopriL 5 MG TABLET PO (08:49)
[2024-06-25] MEDS: Brimonidine Tartrate 0.2% Oph 5 ML BOTTLE 1 DROP EYE-BOTH ×2 (08:50→20:33)
[2024-06-25] MEDS: timoloL maleate 0.5 % Oph Sol 5 ML DRBTL 1 DROP EYE-BOTH ×2 (08:50→20:34)
[2024-06-25] MEDS: Dorzolamide HCl 2 % Ophth Sol 10 ML DRPBTL 1 DROP EYE-BOTH ×2 (08:50→20:34)
[2024-06-25 19:45] VITALS: BP 166/77; PULSE 81; TEMP 36.7; O2SAT 95
[2024-06-25] MEDS: Paliperidone ER 9 MG TAB.ER.24 PO (20:33)
[2024-06-25] MEDS: Latanoprost 0.005 % Ophth Sol 2.5 ML DROPS 1 DROP EYE-BOTH (20:33)
[2024-06-25] MEDS: LORazepam 1 MG TABLET PO (20:34)
[2024-06-26] MEDS: traZODone HCL 50 MG TABLET PO ×2 (03:07→20:34)
[2024-06-26 08:00] VITALS: BP 185/76; PULSE 80; RESP 18; TEMP 36.9; O2SAT 96
[2024-06-26] MEDS: Thiamine HCL 100 MG TABLET PO (08:32)
[2024-06-26] MEDS: lisinopriL 5 MG TABLET PO ×2 (08:32→12:52)
[2024-06-26] MEDS: Dorzolamide HCl 2 % Ophth Sol 10 ML DRPBTL 1 DROP EYE-BOTH ×2 (08:34→14:58)
[2024-06-26] MEDS: timoloL maleate 0.5 % Oph Sol 5 ML DRBTL 1 DROP EYE-BOTH (08:34)
[2024-06-26] MEDS: Brimonidine Tartrate 0.2% Oph 5 ML BOTTLE 1 DROP EYE-BOTH (09:23)
--- NOTE | 2024-06-26 09:43 | P.PNPSI_ITS ---
Subjective Subjective Date of Service: 06/26/24 Reason For Visit: schizophrenia Interim History: Met with patient; discussed with team No change in presentation; patient remains manic, rambling about various unrelated things. Came up to typewriter aligner and said something about [address] which patient could not explain. Staff reports only sleeping 2 hours last night. Patient again refuses Vraylar or long-acting medication. He says that the police that came to take him to the hospital were not real police... And says they were just dressed up to look like police. Again patient could not discuss this further Mental Status Exam Mental Status Exam Narrative: Pt is alert and oriented; behavior is disorganized, hyperverbal patient is not in distress; dressed in casual attire, with improved grooming; mood is described as good however affect constricted or expansive; eye contact limited; Speech is pressured and rambling, sometimes muttering incoherently but a little easier to understand; no psychomotor agitation present; thought process is still disorganized, rambling and tangential; Thought content is on various unrelated topics; denies any paranoid delusional thinking; denies any SI/HI. Denies AH but patient appears to be internally preoccupied and responding to internal stimuli. Patients insight and judgment impaired. Diagnostics Vital Signs (24Hr): Vital Signs - 24 hr 06/25/24 19:45 06/26/24 08:00 Temperature 98.0 F 98.5 F Pulse Rate 81 80 Respiratory Rate 18 Blood Pressure 166/77 H 185/76 H Pulse Oximetry 95 96 Oxygen Delivery Method Room Air Room Air BMI result Body Mass Index 24.1 Labs 06/14/24 00:45 06/14/24 00:45 Medications Medications Current Medications Acetaminophen (Acetaminophen 325 Mg Tablet) 650 mg PO Q6H PRN PRN Reason: Headache/Pain Mild Scale (1-3) Last Admin: 06/16/24 13:42 Dose: 650 mg Al Hydroxide/Mg Hydroxide (Magnesium Hydrox/Alum Hydrox 30 Ml Oral.Susp) 30 ml PO Q6H PRN PRN Reason: Heartburn/Nausea Brimonidine Tartrate (Brimonidine Tartrate 0.2% Oph 5 Ml Bottle) 1 drop EYE- BOTH BID [facility] Last Admin: 06/26/24 09:23 Dose: 1 drop Cariprazine (Cariprazine Hcl 3 Mg Capsule) 3 mg PO BEDTIME [facility] Last Admin: 06/25/24 20:33 Dose: Not Given Dorzolamide HCl (Dorzolamide Hcl 2 % Ophth Jossy 10 Ml Drpbtl) 1 drop EYE-BOTH TID [facility] Last Admin: 06/26/24 08:34 Dose: 1 drop Hydroxyzine HCl (Hydroxyzine Hcl 25 Mg Tablet) 25 mg PO Q6H PRN PRN Reason: Anxiety Last Admin: 06/23/24 02:11 Dose: 25 mg Latanoprost (Latanoprost 0.005 % Ophth Jossy 2.5 Ml Drops) 1 drop EYE-BOTH BEDTIME [facility] Last Admin: 06/25/24 20:33 Dose: 1 drop Lisinopril (Lisinopril 5 Mg Tablet) 5 mg PO DAILY [facility]; Protocol Last Admin: 06/26/24 08:32 Dose: 5 mg Lorazepam (Lorazepam 1 Mg Tablet) 1 mg PO BEDTIME [facility] Last Admin: 06/25/24 20:34 Dose: 1 mg Magnesium Hydroxide (Milk Of Magnesia 30 Ml Oral.Susp) 30 ml PO DAILY PRN PRN Reason: Constipation Nicotine (Nicotine 21 Mg Patch.Td24) 21 mg TRANSDERMA DAILY PRN PRN Reason: nicotine cravings Nicotine Polacrilex (Nicotine Polacrilex 2 Mg Gum) 4 mg BUCCAL Q2H PRN PRN Reason: Nicotine Cravings Olanzapine (Olanzapine 5 Mg Tablet) 5 mg PO Q4H PRN PRN Reason: agitation,psychosis Last Admin: 06/20/24 03:37 Dose: 5 mg Paliperidone (Paliperidone Er 9 Mg Tab.Er.24) 9 mg PO BEDTIME [facility] Last Admin: 06/25/24 20:33 Dose: 9 mg Thiamine HCl (Thiamine Hcl 100 Mg Tablet) 100 mg PO DAILY [facility] Last Admin: 06/26/24 08:32 Dose: 100 mg Timolol Maleate (Timolol Maleate 0.5 % Oph Jossy 5 Ml Drbtl) 1 drop EYE-BOTH BID [facility] Last Admin: 06/26/24 08:34 Dose: 1 drop Trazodone HCl (Trazodone Hcl 50 Mg Tablet) 50 mg PO BEDTIME MRX1 PRN PRN Reason: Insomnia Last Admin: 06/26/24 03:07 Dose: 50 mg Allergies Allergies Allergy/AdvReac Type Severity Reaction Status Date / Time No Known Allergies Allergy Unknown UNKNOWN Verified 06/14/24 00:30 Assessment & Plan Assessment & Plan (1) Schizoaffective disorder, bipolar type: Status: Acute Code(s): F25.0 - Schizoaffective disorder, bipolar type (2) Glaucoma: Status: Acute Code(s): H40.9 - Unspecified glaucoma Plan Patient is a 68-year-old male with history of schizoaffective, bipolar type (vs bipolar), glaucoma who presents via police for disorganized behavior in the community in the face of medication noncompliance. Patient is disorganized in speech, rambling, often incoherently. He asks typewriter aligner. about the mott of the sexes and Eleazar and Vidya... Social Science Manager inquired about ED/police report that he was disorganized, that he was driving in the backyard of his house, shiny his lights on neighbors house. He said he was trying to park in his driveway and I did not. Mean to drive in the backyard.. Saying it was accidental. Regarding being disorganized outside a convenience store, patient said that there was a angry woman there a sick woman.. Who was upset with and all he was doing was sitting in his car outside the convenience store for a little while, listening to music. Patient denies any drug or alcohol use. Says his throat is bothering him but he can not tolerate any questions regarding it. Says he does not need medications but has been taking them since he got here. Collateral report says patient was brought in for acting erratic, driving in circles and backyard of his house after neighbors called; also reports that he was acting erratically at nighttime outside of a convenience store. Formulation/clinical reasoning: Patient presents in a manic episode and acting erratically in the community. Recently discharged from [facility] on paliperidone 6mg qhs and Vraylar 3mg qhs. Not sure why patient is on 2 antipsychotics unless Vraylar is meant to be only a mood stabilizer. Will continue this regimen now since he seemed to somewhat stabilize on M3. If stabilizes will strongly consider long-acting injectable of paliperidone given history of noncompliance Hospital course: 06/19 Patient remains disorganized and is having a difficult time explaining his thoughts. On approach he is rambling about something and typewriter aligner has a very hard time understanding him as he is jumping from topic to topic. He says he wants to go home and that he has a lot to accomplish. He has not been taking Vraylar and says he does not like it. He said he will take the paliperidone but refuses long-acting injectable. Social Science Manager asked about paranoid delusional thinking and he said that others are making fictitious statements. Regarding driving erratically, he says I was driving between the lines... However he does acknowledge he was playing his music too loudly. Social Science Manager discussed that team does not feel he is ready for discharge however patient is unable to tolerate this discussion just says no that he wants to go... bushel worker discussed case with patient's cousin Marlin Dowd who is also his healthcare proxy (document in chart). She has significant concerns about his safety. She said that over the past week to 2 weeks he has been increasingly disorganized; typewriter aligner around [place] he refused his meds (from [facility]?); she drove in the car as a passenger with him and said she was very fearful as he was driving well below the speed limit, weaving in and out of the lanes and completely unsafe. She said he recently showed up at a work place and employees were scared of him because he was talking nonsensically. She says that he is delusional, thinking that his food is poisoned and threw away a significant amount of food that he got from a food shelf. She says he has lost about 30-40 lb over the past 2 months. She says that he has talked about raise or beams beaming down onto his head; saying that he seeing cars Vanish, planes Vanish and other bizarre delusional things. She says that he is historically not compliant with medication and would like him to be on a long-acting injectable. Social Science Manager discussed case with TRAVELING OPERATOR inpatient provider who saw patient on his recent admission to a few weeks ago; she talked with his outpatient psychiatric provider Dr. Condon the said that patient needed Vraylar in addition to palpate own for stabilization. 06/20 rambling, hard to understand. Impossible to have a therapeutic conversation with patient as he quickly becomes oblivious to typewriter aligner, lost in a tangential thought and rambling about unrelated and mostly non-sensical things. Tried to ask pt about collateral reports, however he adamantly denies reports. t. Pt standing in [place] talking to himself. from the unit, pt called 911 and told police there is a sniper loose; on inquiry, could not explain his concern 06/21/24 Patient remains disorganized; perseveration on his relationship. He says he is good today...wants to get back to his house since he rebuilt his whole house and has things to do...He said he does not think he'll take psychiatric medications. He tells typewriter aligner that he has his own doctor, Dr. Hay. However, pt seemed open to writers explanation that medications ordered are the same ones that Dr. Hay prescribed. He seemed to agree to consider taking psych meds. 06/22 no change in presentation, remains disorganized, manic, delusional. Patient said he will contemplate taking the paliperidone. Will increase dose 06/23 patient took paliperidone last night. No change in presentation. Social Science Manager discussed hypertension with patient and he said he used to be on an ISAC inhibitor and agreed to restart 1 now 06/25/2024: Continue to encourage medication adherence 06/26 No change in presentation; patient remains manic, rambling about various unrelated things. Came up to typewriter aligner and said something about [address] which patient could not explain. Staff reports only sleeping 2 hours last night. Patient again refuses Vraylar or long-acting medication. He says that the police that came to take him to the hospital were not real police... And says they were just dressed up to look like police. Again patient could not discuss this further; patient did however agree to increase lisinopril to 10 mg given continued hypertension -patient remains manic, disorganized and without any insight. It seems that without a mood stabilizer on board, patient will remain manic and disorganized and unable to be safe in the community. Impression: As patient remains without any insight to his illness or his behaviors, he remains unsafe and a danger to himself and others due to his erratic driving; also due to paranoid delusions he has been eating very little and seems to have lost significant weight and only a few months. At this time patient is not safe for discharge. He is not willing to sign a CV. Social Science Manager will file for involuntary commitment and substituted judgment. Also, typewriter aligner is invoking the HCP on 06/19/24 as patient is unable to make medical decisions for himself. Plan: Section 7 (Filing for involuntary commitment and substituted judgment) Invoking healthcare proxy (06/19/2024) Q 15 minute checks Increase to Lisinopril 10mg daily (patient said he used to be on enalapril however not on formulary) Continue Vraylar 3 mg q.h.s. Continue Paliperidone 6 mg q.h.s. Continue Brimonide Tartrate Continue Dorzolamide Continue Latanoprost Continue Timolol Patient educated on: diagnosis, medication risk/benefits and medical condition Informed Consent: understands, does not understand and further education needed Reason for continued inpatient stay Substantial Risk for: inability to function Time Spent With Patient Time: Total time managing care of this patient today ____ minutes.
[2024-06-26 12:51] VITALS: BP 164/77; PULSE 83; RESP 18; TEMP 36.3; O2SAT 96
[2024-06-26 20:00] VITALS: BP 168/84; PULSE 83; TEMP 36.7; O2SAT 100
[2024-06-26] MEDS: Cariprazine HCl 3 MG CAPSULE PO (20:34)
[2024-06-26] MEDS: Paliperidone ER 9 MG TAB.ER.24 PO (20:34)
[2024-06-26] MEDS: LORazepam 1 MG TABLET PO (20:34)
[2024-06-27 08:00] VITALS: BP 158/76; PULSE 82; RESP 18; TEMP 36.3; O2SAT 100
[2024-06-27 08:18] LABS: Glucose, Whole Blood 92 mg/dL (60-115)
[2024-06-27] MEDS: Thiamine HCL 100 MG TABLET PO (09:32)
[2024-06-27] MEDS: lisinopriL 10 MG TABLET PO (09:32)
[2024-06-27] MEDS: hydrOXYzine HCL 25 MG TABLET PO (09:34)
[2024-06-27] MEDS: Dorzolamide HCl 2 % Ophth Sol 10 ML DRPBTL 1 DROP EYE-BOTH ×3 (09:36→20:27)
[2024-06-27] MEDS: Brimonidine Tartrate 0.2% Oph 5 ML BOTTLE 1 DROP EYE-BOTH ×2 (09:36→20:31)
[2024-06-27] MEDS: timoloL maleate 0.5 % Oph Sol 5 ML DRBTL 1 DROP EYE-BOTH ×2 (09:37→20:29)
--- NOTE | 2024-06-27 17:52 | HO.PSYCHPN ---
Subjective Subjective Date of Service: 06/27/24 Reason For Visit: schizophrenia Interim History: Met with patient; discussed with team Again no change in presentation. Patient rambling and difficult with which to engage or understand. Did sleep a little more last night. Mental Status Exam Mental Status Exam Narrative: Pt is alert and oriented; behavior is disorganized, hyperverbal patient is not in distress; dressed in casual attire, with improved grooming; mood is described as good however affect constricted or expansive; eye contact limited; Speech is pressured and rambling, sometimes muttering incoherently but a little easier to understand; no psychomotor agitation present; thought process is still disorganized, rambling and tangential; Thought content is on various unrelated topics; denies any paranoid delusional thinking; denies any SI/HI. Denies AH but patient appears to be internally preoccupied and responding to internal stimuli. Patients insight and judgment impaired. Diagnostics Vital Signs (24Hr): Vital Signs - 24 hr 06/26/24 20:00 06/27/24 08:00 Temperature 98.0 F 97.3 F Pulse Rate 83 82 Respiratory Rate 18 Blood Pressure 168/84 H 158/76 H Pulse Oximetry 100 100 Oxygen Delivery Method Room Air Room Air BMI result Body Mass Index 24.1 Labs 06/14/24 00:45 06/14/24 00:45 Labs: Laboratory Results - last 48 hr 06/27/24 08:08 POC Glucose 92 Medications Medications Current Medications Acetaminophen (Acetaminophen 325 Mg Tablet) 650 mg PO Q6H PRN PRN Reason: Headache/Pain Mild Scale (1-3) Last Admin: 06/16/24 13:42 Dose: 650 mg Al Hydroxide/Mg Hydroxide (Magnesium Hydrox/Alum Hydrox 30 Ml Oral.Susp) 30 ml PO Q6H PRN PRN Reason: Heartburn/Nausea Brimonidine Tartrate (Brimonidine Tartrate 0.2% Oph 5 Ml Bottle) 1 drop EYE-BOTH BID COUNT INCLUDES [facility] Last Admin: 06/27/24 09:36 Dose: 1 drop Cariprazine (Cariprazine Hcl 3 Mg Capsule) 3 mg PO BEDTIME COUNT INCLUDES [facility] Last Admin: 06/26/24 20:34 Dose: 3 mg Dorzolamide HCl (Dorzolamide Hcl 2 % Ophth Jossy 10 Ml Drpbtl) 1 drop EYE-BOTH TID COUNT INCLUDES [facility] Last Admin: 06/27/24 16:27 Dose: 1 drop Hydroxyzine HCl (Hydroxyzine Hcl 25 Mg Tablet) 25 mg PO Q6H PRN PRN Reason: Anxiety Last Admin: 06/27/24 09:34 Dose: 25 mg Latanoprost (Latanoprost 0.005 % Ophth Jossy 2.5 Ml Drops) 1 drop EYE-BOTH BEDTIME COUNT INCLUDES [facility] Last Admin: 06/26/24 20:37 Dose: Not Given Lisinopril (Lisinopril 10 Mg Tablet) 10 mg PO DAILY COUNT [facility]CLUD[facility]; Protocol Last Admin: 06/27/24 09:32 Dose: 10 mg Lorazepam (Lorazepam 1 Mg Tablet) 1 mg PO BEDTIME COUNT [facility]CLUDES [facility] Last Admin: 06/26/24 20:34 Dose: 1 mg Magnesium Hydroxide (Milk Of Magnesia 30 Ml Oral.Susp) 30 ml PO DAILY PRN PRN Reason: Constipation Nicotine (Nicotine 21 Mg Patch.Td24) 21 mg TRANSDERMA DAILY PRN PRN Reason: nicotine cravings Nicotine Polacrilex (Nicotine Polacrilex 2 Mg Gum) 4 mg BUCCAL Q2H PRN PRN Reason: Nicotine Cravings Olanzapine (Olanzapine 5 Mg Tablet) 5 mg PO Q4H PRN PRN Reason: agitation,psychosis Last Admin: 06/20/24 03:37 Dose: 5 mg Paliperidone (Paliperidone Er 9 Mg Tab.Er.24) 9 mg PO BEDTIME COUNT INCLUDES [facility] Last Admin: 06/26/24 20:34 Dose: 9 mg Thiamine HCl (Thiamine Hcl 100 Mg Tablet) 100 mg PO DAILY COUNT [facility]CLUDES [facility] Last Admin: 06/27/24 09:32 Dose: 100 mg Timolol Maleate (Timolol Maleate 0.5 % Oph Jossy 5 Ml Drbtl) 1 drop EYE-BOTH BID COUNT [facility]CLUDES [facility] Last Admin: 06/27/24 09:37 Dose: 1 drop Trazodone HCl (Trazodone Hcl 50 Mg Tablet) 50 mg PO BEDTIME MRX1 PRN PRN Reason: Insomnia Last Admin: 06/26/24 20:34 Dose: 50 mg Allergies Allergies Allergy/AdvReac Type Severity Reaction Status Date / Time No Known Allergies Allergy Unknown UNKNOWN Verified 06/14/24 00:30 Assessment & Plan Assessment & Plan (1) Schizoaffective disorder, bipolar type: Status: Acute Code(s): F25.0 - Schizoaffective disorder, bipolar type (2) Glaucoma: Status: Acute Code(s): H40.9 - Unspecified glaucoma Plan Patient is a 68-year-old male with history of schizoaffective, bipolar type (vs bipolar), glaucoma who presents via police for disorganized behavior in the community in the face of medication noncompliance. Patient is disorganized in speech, rambling, often incoherently. He asks functional tester typewriters. about the mott of the sexes and Eleazar and Vidya... Clinical Technician inquired about ED/police report that he was disorganized, that he was driving in the backyard of his house, shiny his lights on neighbors house. He said he was trying to park in his driveway and I did not. Mean to drive in the backyard.. Saying it was accidental. Regarding being disorganized outside a convenience store, patient said that there was a angry woman there a sick woman.. Who was upset with and all he was doing was sitting in his car outside the convenience store for a little while, listening to music. Patient denies any drug or alcohol use. Says his throat is bothering him but he can not tolerate any questions regarding it. Says he does not need medications but has been taking them since he got here. Collateral report says patient was brought in for acting erratic, driving in circles and backyard of his house after neighbors called; also reports that he was acting erratically at nighttime outside of a convenience store. Formulation/clinical reasoning: Patient presents in a manic episode and acting erratically in the community. Recently discharged from [facility] on paliperidone 6mg qhs and Vraylar 3mg qhs. Not sure why patient is on 2 antipsychotics unless Vraylar is meant to be only a mood stabilizer. Will continue this regimen now since he seemed to somewhat stabilize on M3. If stabilizes will strongly consider long-acting injectable of paliperidone given history of noncompliance Hospital course: 06/19 Patient remains disorganized and is having a difficult time explaining his thoughts. On approach he is rambling about something and functional tester typewriters has a very hard time understanding him as he is jumping from topic to topic. He says he wants to go home and that he has a lot to accomplish. He has not been taking Vraylar and says he does not like it. He said he will take the paliperidone but refuses long-acting injectable. Clinical Technician asked about paranoid delusional thinking and he said that others are making fictitious statements. Regarding driving erratically, he says I was driving between the lines... However he does acknowledge he was playing his music too loudly. Clinical Technician discussed that team does not feel he is ready for discharge however patient is unable to tolerate this discussion just says no that he wants to go... rocket test fire worker discussed case with patient's cousin Marlin Dowd who is also his healthcare proxy (document in chart). She has significant concerns about his safety. She said that over the past week to 2 weeks he has been increasingly disorganized; functional tester typewriters around [place] he refused his meds (from [facility]?); she drove in the car as a passenger with him and said she was very fearful as he was driving well below the speed limit, weaving in and out of the lanes and completely unsafe. She said he recently showed up at a work place and employees were scared of him because he was talking nonsensically. She says that he is delusional, thinking that his food is poisoned and threw away a significant amount of food that he got from a food shelf. She says he has lost about 30-40 lb over the past 2 months. She says that he has talked about raise or beams beaming down onto his head; saying that he seeing cars Vanish, planes Vanish and other bizarre delusional things. She says that he is historically not compliant with medication and would like him to be on a long-acting injectable. Clinical Technician discussed case with BETTING AGENCY COUNTER CLERK inpatient provider who saw patient on his recent admission to a few weeks ago; she talked with his outpatient psychiatric provider Dr. Condon the said that patient needed Vraylar in addition to palpate own for stabilization. 06/20 rambling, hard to understand. Impossible to have a therapeutic conversation with patient as he quickly becomes oblivious to functional tester typewriters, lost in a tangential thought and rambling about unrelated and mostly non-sensical things. Tried to ask pt about collateral reports, however he adamantly denies reports. t. Pt standing in [place] talking to himself. from the unit, pt called 911 and told police there is a sniper loose; on inquiry, could not explain his concern 06/21/24 Patient remains disorganized; perseveration on his relationship. He says he is good today...wants to get back to his house since he rebuilt his whole house and has things to do...He said he does not think he'll take psychiatric medications. He tells functional tester typewriters that he has his own doctor, Dr. Hay. However, pt seemed open to writers explanation that medications ordered are the same ones that Dr. Hay prescribed. He seemed to agree to consider taking psych meds. 06/22 no change in presentation, remains disorganized, manic, delusional. Patient said he will contemplate taking the paliperidone. Will increase dose 06/23 patient took paliperidone last night. No change in presentation. Clinical Technician discussed hypertension with patient and he said he used to be on an ISAC inhibitor and agreed to restart 1 now 06/25/2024: Continue to encourage medication adherence 06/26 No change in presentation; patient remains manic, rambling about various unrelated things. Came up to functional tester typewriters and said something about [address] which patient could not explain. Staff reports only sleeping 2 hours last night. Patient again refuses Vraylar or long-acting medication. He says that the police that came to take him to the hospital were not real police... And says they were just dressed up to look like police. Again patient could not discuss this further; patient did however agree to increase lisinopril to 10 mg given continued hypertension 06/27 remains manic; reviewed blood pressures which was still avoided however lisinopril was just increase so needs more time to be effective. -patient remains manic, disorganized and without any insight. It seems that without a mood stabilizer on board, patient will remain manic and disorganized and unable to be safe in the community. Impression: As patient remains without any insight to his illness or his behaviors, he remains unsafe and a danger to himself and others due to his erratic driving; also due to paranoid delusions he has been eating very little and seems to have lost significant weight and only a few months. At this time patient is not safe for discharge. He is not willing to sign a CV. Clinical Technician will file for involuntary commitment and substituted judgment. Also, functional tester typewriters is invoking the HCP on 06/19/24 as patient is unable to make medical decisions for himself. Plan: Section 7 (Filing for involuntary commitment and substituted judgment) Invoking healthcare proxy (06/19/2024) Q 15 minute checks Increase to Lisinopril 10mg daily (patient said he used to be on enalapril however not on formulary) Continue Vraylar 3 mg q.h.s. Continue Paliperidone 6 mg q.h.s. Continue Brimonide Tartrate Continue Dorzolamide Continue Latanoprost Continue Timolol Patient educated on: diagnosis Informed Consent: does not understand Reason for continued inpatient stay Substantial Risk for: inability to function Time Spent With Patient Time: Total time managing care of this patient today ____ minutes.
[2024-06-27 20:00] VITALS: BP 168/89; PULSE 90; RESP 16; TEMP 35.7; O2SAT 98
[2024-06-27] MEDS: LORazepam 1 MG TABLET PO (20:22)
[2024-06-27] MEDS: Latanoprost 0.005 % Ophth Sol 2.5 ML DROPS 1 DROP EYE-BOTH (20:33)
[2024-06-27] MEDS: Paliperidone ER 9 MG TAB.ER.24 PO (20:44)
[2024-06-28] MEDS: Dorzolamide HCl 2 % Ophth Sol 10 ML DRPBTL 1 DROP EYE-BOTH ×3 (08:52→21:43)
[2024-06-28 08:54] VITALS: BP 140/73; PULSE 74; RESP 18; TEMP 36.2; O2SAT 98
[2024-06-28] MEDS: lisinopriL 10 MG TABLET PO (08:54)
[2024-06-28] MEDS: Thiamine HCL 100 MG TABLET PO (08:54)
[2024-06-28] MEDS: Brimonidine Tartrate 0.2% Oph 5 ML BOTTLE 1 DROP EYE-BOTH ×2 (09:20→21:45)
--- NOTE | 2024-06-28 10:04 | HO.PSYCHPN ---
Subjective Subjective Date of Service: 06/28/24 Reason For Visit: schizophrenia Interim History: Met with patient; discussed with team pt remains disorganized, rambling about various things perseverates on going home to fix his house, repair the roof. Telling staff that this financial underwriter is an imposter and saying i know who my 's killer is... Mental Status Exam Mental Status Exam Narrative: Pt is alert and oriented; behavior is disorganized, hyperverbal patient is not in distress; dressed in casual attire, adequate grooming; mood is described as good however affect constricted or expansive; eye contact appropriate; Speech is pressured and rambling, sometimes muttering incoherently but easier to understand; no psychomotor agitation present; thought process is still disorganized, rambling and tangential; Thought content is on various unrelated topics; denies any paranoid delusional thinking; denies any SI/HI. Denies AH but patient appears to be internally preoccupied and responding to internal stimuli. Patients insight and judgment impaired. Diagnostics Vital Signs (24Hr): Vital Signs - 24 hr 06/27/24 20:00 06/28/24 08:54 06/28/24 08:54 Temperature 96.2 F L 97.1 F Pulse Rate 90 74 Respiratory Rate 16 18 Blood Pressure 168/89 H 140/73 H 140/73 H Pulse Oximetry 98 98 Oxygen Delivery Method Room Air Room Air BMI result Body Mass Index 24.1 Labs 06/14/24 00:45 06/14/24 00:45 Labs: Laboratory Results - last 48 hr 06/27/24 08:08 POC Glucose 92 Medications Medications Current Medications Acetaminophen (Acetaminophen 325 Mg Tablet) 650 mg PO Q6H PRN PRN Reason: Headache/Pain Mild Scale (1-3) Last Admin: 06/16/24 13:42 Dose: 650 mg Al Hydroxide/Mg Hydroxide (Magnesium Hydrox/Alum Hydrox 30 Ml Oral.Susp) 30 ml PO Q6H PRN PRN Reason: Heartburn/Nausea Brimonidine Tartrate (Brimonidine Tartrate 0.2% Oph 5 Ml Bottle) 1 drop EYE-BOTH BID [facility] Last Admin: 06/28/24 09:20 Dose: 1 drop Cariprazine (Cariprazine Hcl 3 Mg Capsule) 3 mg PO BEDTIME [facility] Last Admin: 06/27/24 20:46 Dose: Not Given Dorzolamide HCl (Dorzolamide Hcl 2 % Ophth Jossy 10 Ml Drpbtl) 1 drop EYE-BOTH TID [facility] Last Admin: 06/28/24 08:52 Dose: 1 drop Hydroxyzine HCl (Hydroxyzine Hcl 25 Mg Tablet) 25 mg PO Q6H PRN PRN Reason: Anxiety Last Admin: 06/27/24 09:34 Dose: 25 mg Latanoprost (Latanoprost 0.005 % Ophth Jossy 2.5 Ml Drops) 1 drop EYE-BOTH BEDTIME [facility] Last Admin: 06/27/24 20:33 Dose: 1 drop Lisinopril (Lisinopril 10 Mg Tablet) 10 mg PO DAILY [facility]; Protocol Last Admin: 06/28/24 08:54 Dose: 10 mg Lorazepam (Lorazepam 1 Mg Tablet) 1 mg PO BEDTIME [facility] Last Admin: 06/27/24 20:22 Dose: 1 mg Magnesium Hydroxide (Milk Of Magnesia 30 Ml Oral.Susp) 30 ml PO DAILY PRN PRN Reason: Constipation Nicotine (Nicotine 21 Mg Patch.Td24) 21 mg TRANSDERMA DAILY PRN PRN Reason: nicotine cravings Nicotine Polacrilex (Nicotine Polacrilex 2 Mg Gum) 4 mg BUCCAL Q2H PRN PRN Reason: Nicotine Cravings Olanzapine (Olanzapine 5 Mg Tablet) 5 mg PO Q4H PRN PRN Reason: agitation,psychosis Last Admin: 06/20/24 03:37 Dose: 5 mg Paliperidone (Paliperidone Er 9 Mg Tab.Er.24) 9 mg PO BEDTIME [facility] Last Admin: 06/27/24 20:44 Dose: 9 mg Thiamine HCl (Thiamine Hcl 100 Mg Tablet) 100 mg PO DAILY [facility] Last Admin: 06/28/24 08:54 Dose: 100 mg Timolol Maleate (Timolol Maleate 0.5 % Oph Jossy 5 Ml Drbtl) 1 drop EYE-BOTH BID [facility] Last Admin: 06/27/24 20:29 Dose: 1 drop Trazodone HCl (Trazodone Hcl 50 Mg Tablet) 50 mg PO BEDTIME MRX1 PRN PRN Reason: Insomnia Last Admin: 06/26/24 20:34 Dose: 50 mg Allergies Allergies Allergy/AdvReac Type Severity Reaction Status Date / Time No Known Allergies Allergy Unknown UNKNOWN Verified 06/14/24 00:30 Assessment & Plan Assessment & Plan (1) Schizoaffective disorder, bipolar type: Status: Acute Code(s): F25.0 - Schizoaffective disorder, bipolar type (2) Glaucoma: Status: Acute Code(s): H40.9 - Unspecified glaucoma Plan Patient is a 68-year-old male with history of schizoaffective, bipolar type (vs bipolar), glaucoma who presents via police for disorganized behavior in the community in the face of medication noncompliance. Patient is disorganized in speech, rambling, often incoherently. He asks financial underwriter. about the mott of the sexes and Eleazar and Vidya... Apn inquired about ED/police report that he was disorganized, that he was driving in the backyard of his house, shiny his lights on neighbors house. He said he was trying to park in his driveway and I did not. Mean to drive in the backyard.. Saying it was accidental. Regarding being disorganized outside a convenience store, patient said that there was a angry woman there a sick woman.. Who was upset with and all he was doing was sitting in his car outside the convenience store for a little while, listening to music. Patient denies any drug or alcohol use. Says his throat is bothering him but he can not tolerate any questions regarding it. Says he does not need medications but has been taking them since he got here. Collateral report says patient was brought in for acting erratic, driving in circles and backyard of his house after neighbors called; also reports that he was acting erratically at nighttime outside of a convenience store. Formulation/clinical reasoning: Patient presents in a manic episode and acting erratically in the community. Recently discharged from [facility] on paliperidone 6mg qhs and Vraylar 3mg qhs. Not sure why patient is on 2 antipsychotics unless Vraylar is meant to be only a mood stabilizer. Will continue this regimen now since he seemed to somewhat stabilize on M3. If stabilizes will strongly consider long-acting injectable of paliperidone given history of noncompliance Hospital course: 06/19 Patient remains disorganized and is having a difficult time explaining his thoughts. On approach he is rambling about something and financial underwriter has a very hard time understanding him as he is jumping from topic to topic. He says he wants to go home and that he has a lot to accomplish. He has not been taking Vraylar and says he does not like it. He said he will take the paliperidone but refuses long-acting injectable. Apn asked about paranoid delusional thinking and he said that others are making fictitious statements. Regarding driving erratically, he says I was driving between the lines... However he does acknowledge he was playing his music too loudly. Apn discussed that team does not feel he is ready for discharge however patient is unable to tolerate this discussion just says no that he wants to go... nursery worker discussed case with patient's cousin Marlin Dowd who is also his healthcare proxy (document in chart). She has significant concerns about his safety. She said that over the past week to 2 weeks he has been increasingly disorganized; financial underwriter around [place] he refused his meds (from [facility]?); she drove in the car as a passenger with him and said she was very fearful as he was driving well below the speed limit, weaving in and out of the lanes and completely unsafe. She said he recently showed up at a work place and employees were scared of him because he was talking nonsensically. She says that he is delusional, thinking that his food is poisoned and threw away a significant amount of food that he got from a food shelf. She says he has lost about 30-40 lb over the past 2 months. She says that he has talked about raise or beams beaming down onto his head; saying that he seeing cars Vanish, planes Vanish and other bizarre delusional things. She says that he is historically not compliant with medication and would like him to be on a long-acting injectable. Apn discussed case with SILVER LAP MACHINE TENDER inpatient provider who saw patient on his recent admission to a few weeks ago; she talked with his outpatient psychiatric provider Dr. Condon the said that patient needed Vraylar in addition to palpate own for stabilization. 06/20 rambling, hard to understand. Impossible to have a therapeutic conversation with patient as he quickly becomes oblivious to financial underwriter, lost in a tangential thought and rambling about unrelated and mostly non-sensical things. Tried to ask pt about collateral reports, however he adamantly denies reports. t. Pt standing in [place] talking to himself. from the unit, pt called 911 and told police there is a sniper loose; on inquiry, could not explain his concern 06/21/24 Patient remains disorganized; perseveration on his relationship. He says he is good today...wants to get back to his house since he rebuilt his whole house and has things to do...He said he does not think he'll take psychiatric medications. He tells financial underwriter that he has his own doctor, Dr. Hay. However, pt seemed open to writers explanation that medications ordered are the same ones that Dr. Hay prescribed. He seemed to agree to consider taking psych meds. 06/22 no change in presentation, remains disorganized, manic, delusional. Patient said he will contemplate taking the paliperidone. Will increase dose 06/23 patient took paliperidone last night. No change in presentation. Apn discussed hypertension with patient and he said he used to be on an ISAC inhibitor and agreed to restart 1 now 06/25/2024: Continue to encourage medication adherence 06/26 No change in presentation; patient remains manic, rambling about various unrelated things. Came up to financial underwriter and said something about [address] which patient could not explain. Staff reports only sleeping 2 hours last night. Patient again refuses Vraylar or long-acting medication. He says that the police that came to take him to the hospital were not real police... And says they were just dressed up to look like police. Again patient could not discuss this further; patient did however agree to increase lisinopril to 10 mg given continued hypertension 06/27 remains manic; reviewed blood pressures which was still avoided however lisinopril was just increase so needs more time to be effective. -patient remains manic, disorganized and without any insight. It seems that without a mood stabilizer on board, patient will remain manic and disorganized and unable to be safe in the community. 06/28 pt remains disorganized, rambling about various things perseverates on going home to fix his house, repair the roof. Telling staff that this financial underwriter is an imposter and saying i know who my 's killer is... Impression: As patient remains without any insight to his illness or his behaviors, he remains unsafe and a danger to himself and others due to his erratic driving; also due to paranoid delusions he has been eating very little and seems to have lost significant weight and only a few months. At this time patient is not safe for discharge. He is not willing to sign a CV. Apn will file for involuntary commitment and substituted judgment. Also, financial underwriter is invoking the HCP on 06/19/24 as patient is unable to make medical decisions for himself. Plan: Section 7 (Filing for involuntary commitment and substituted judgment) Invoking healthcare proxy (06/19/2024) Q 15 minute checks Increase to Lisinopril 10mg daily (patient said he used to be on enalapril however not on formulary) Continue Vraylar 3 mg q.h.s. Continue Paliperidone 6 mg q.h.s. Continue Brimonide Tartrate Continue Dorzolamide Continue Latanoprost Continue Timolol Patient educated on: diagnosis and medication risk/benefits Informed Consent: does not understand Reason for continued inpatient stay Substantial Risk for: inability to function Time Spent With Patient Time: Total time managing care of this patient today ____ minutes.
[2024-06-28] MEDS: timoloL maleate 0.5 % Oph Sol 5 ML DRBTL 1 DROP EYE-BOTH ×2 (10:51→21:44)
[2024-06-28 20:00] VITALS: BP 148/79; PULSE 77; RESP 18; TEMP 36.6; O2SAT 99
[2024-06-28] MEDS: Paliperidone ER 9 MG TAB.ER.24 PO (21:41)
[2024-06-28] MEDS: LORazepam 1 MG TABLET PO (21:42)
[2024-06-28] MEDS: Latanoprost 0.005 % Ophth Sol 2.5 ML DROPS 1 DROP EYE-BOTH (22:23)
[2024-06-29 08:00] VITALS: BP 143/66; PULSE 70; RESP 16; TEMP 36.2; O2SAT 100
[2024-06-29] MEDS: Thiamine HCL 100 MG TABLET PO (08:48)
[2024-06-29] MEDS: timoloL maleate 0.5 % Oph Sol 5 ML DRBTL 1 DROP EYE-BOTH ×2 (08:49→21:16)
[2024-06-29] MEDS: Brimonidine Tartrate 0.2% Oph 5 ML BOTTLE 1 DROP EYE-BOTH ×2 (08:50→21:16)
[2024-06-29] MEDS: Dorzolamide HCl 2 % Ophth Sol 10 ML DRPBTL 1 DROP EYE-BOTH ×2 (08:51→21:16)
--- NOTE | 2024-06-29 18:05 | P.PNPSI_ITS ---
Subjective Subjective Date of Service: 06/29/24 Reason For Visit: schizophrenia Interim History: Met with patient; discussed with team still telling staff he thinks card writer hand is an imposter. Dental Technician Metal addressed this and assured pt card writer hand is a doctor. Patient accepted this and said he understood but shared why he was worried saying i know there are a lot of terrorists around and you never know...i was watching [place] Gallegos's speech on terrorists... Mental Status Exam Mental Status Exam Narrative: Pt is alert and oriented; behavior is disorganized, hyperverbal patient is not in distress; dressed in casual attire, adequate grooming; mood is described as good however affect constricted or expansive; eye contact appropriate; Speech is pressured and rambling, sometimes muttering incoherently but easier to understand; no psychomotor agitation present; thought process is still disorganized, rambling and tangential; Thought content is on various unrelated topics; denies any paranoid delusional thinking; denies any SI/HI. Denies AH but patient appears to be internally preoccupied and responding to internal stimuli. Patients insight and judgment impaired. Diagnostics Vital Signs (24Hr): Vital Signs - 24 hr 06/28/24 20:00 06/29/24 08:00 Temperature 97.8 F 97.1 F Pulse Rate 77 70 Respiratory Rate 18 16 Blood Pressure 148/79 H 143/66 H Pulse Oximetry 99 100 Oxygen Delivery Method Room Air BMI result Body Mass Index 24.1 Labs 06/14/24 00:45 06/14/24 00:45 Medications Medications Current Medications Acetaminophen (Acetaminophen 325 Mg Tablet) 650 mg PO Q6H PRN PRN Reason: Headache/Pain Mild Scale (1-3) Last Admin: 06/16/24 13:42 Dose: 650 mg Al Hydroxide/Mg Hydroxide (Magnesium Hydrox/Alum Hydrox 30 Ml Oral.Susp) 30 ml PO Q6H PRN PRN Reason: Heartburn/Nausea Brimonidine Tartrate (Brimonidine Tartrate 0.2% Oph 5 Ml Bottle) 1 drop EYE- BOTH BID [facility] Last Admin: 06/29/24 08:50 Dose: 1 drop Cariprazine (Cariprazine Hcl 3 Mg Capsule) 3 mg PO BEDTIME [facility] Last Admin: 06/28/24 22:17 Dose: Not Given Dorzolamide HCl (Dorzolamide Hcl 2 % Ophth Jossy 10 Ml Drpbtl) 1 drop EYE-BOTH TID [facility] Last Admin: 06/29/24 15:30 Dose: Not Given Hydroxyzine HCl (Hydroxyzine Hcl 25 Mg Tablet) 25 mg PO Q6H PRN PRN Reason: Anxiety Last Admin: 06/27/24 09:34 Dose: 25 mg Latanoprost (Latanoprost 0.005 % Ophth Jossy 2.5 Ml Drops) 1 drop EYE-BOTH BEDTIME [facility] Last Admin: 06/28/24 22:23 Dose: 1 drop Lisinopril (Lisinopril 10 Mg Tablet) 10 mg PO DAILY [facility]; Protocol Last Admin: 06/29/24 08:52 Dose: Not Given Lorazepam (Lorazepam 1 Mg Tablet) 1 mg PO BEDTIME [facility] Last Admin: 06/28/24 21:42 Dose: 1 mg Magnesium Hydroxide (Milk Of Magnesia 30 Ml Oral.Susp) 30 ml PO DAILY PRN PRN Reason: Constipation Nicotine (Nicotine 21 Mg Patch.Td24) 21 mg TRANSDERMA DAILY PRN PRN Reason: nicotine cravings Nicotine Polacrilex (Nicotine Polacrilex 2 Mg Gum) 4 mg BUCCAL Q2H PRN PRN Reason: Nicotine Cravings Olanzapine (Olanzapine 5 Mg Tablet) 5 mg PO Q4H PRN PRN Reason: agitation,psychosis Last Admin: 06/20/24 03:37 Dose: 5 mg Paliperidone (Paliperidone Er 9 Mg Tab.Er.24) 9 mg PO BEDTIME [facility] Last Admin: 06/28/24 21:41 Dose: 9 mg Thiamine HCl (Thiamine Hcl 100 Mg Tablet) 100 mg PO DAILY [facility] Last Admin: 06/29/24 08:48 Dose: 100 mg Timolol Maleate (Timolol Maleate 0.5 % Oph Jossy 5 Ml Drbtl) 1 drop EYE-BOTH BID [facility] Last Admin: 06/29/24 08:49 Dose: 1 drop Trazodone HCl (Trazodone Hcl 50 Mg Tablet) 50 mg PO BEDTIME MRX1 PRN PRN Reason: Insomnia Last Admin: 06/26/24 20:34 Dose: 50 mg Allergies Allergies Allergy/AdvReac Type Severity Reaction Status Date / Time No Known Allergies Allergy Unknown UNKNOWN Verified 06/14/24 00:30 Assessment & Plan Assessment & Plan (1) Schizoaffective disorder, bipolar type: Status: Acute Code(s): F25.0 - Schizoaffective disorder, bipolar type (2) Glaucoma: Status: Acute Code(s): H40.9 - Unspecified glaucoma Plan Patient is a 68-year-old male with history of schizoaffective, bipolar type (vs bipolar), glaucoma who presents via police for disorganized behavior in the community in the face of medication noncompliance. Patient is disorganized in speech, rambling, often incoherently. He asks card writer hand. about the mott of the sexes and Eleazar and Vidya... Dental Technician Metal inquired about ED/police report that he was disorganized, that he was driving in the backyard of his house, shiny his lights on neighbors house. He said he was trying to park in his driveway and I did not. Mean to drive in the backyard.. Saying it was accidental. Regarding being disorganized outside a convenience store, patient said that there was a angry woman there a sick woman.. Who was upset with and all he was doing was sitting in his car outside the convenience store for a little while, listening to music. Patient denies any drug or alcohol use. Says his throat is bothering him but he can not tolerate any questions regarding it. Says he does not need medications but has been taking them since he got here. Collateral report says patient was brought in for acting erratic, driving in circles and backyard of his house after neighbors called; also reports that he was acting erratically at nighttime outside of a convenience store. Formulation/clinical reasoning: Patient presents in a manic episode and acting erratically in the community. Recently discharged from [facility] on paliperidone 6mg qhs and Vraylar 3mg qhs. Not sure why patient is on 2 antipsychotics unless Vraylar is meant to be only a mood stabilizer. Will continue this regimen now since he seemed to somewhat stabilize on [facility]. If stabilizes will strongly consider long-acting injectable of paliperidone given history of noncompliance Hospital course: 06/19 Patient remains disorganized and is having a difficult time explaining his thoughts. On approach he is rambling about something and card writer hand has a very hard time understanding him as he is jumping from topic to topic. He says he wants to go home and that he has a lot to accomplish. He has not been taking Vraylar and says he does not like it. He said he will take the paliperidone but refuses long-acting injectable. Dental Technician Metal asked about paranoid delusional thinking and he said that others are making fictitious statements. Regarding driving erratically, he says I was driving between the lines... However he does acknowledge he was playing his music too loudly. Dental Technician Metal discussed that team does not feel he is ready for discharge however patient is unable to tolerate this discussion just says no that he wants to go... pole frame construction worker discussed case with patient's cousin Marlin Dowd who is also his healthcare proxy (document in chart). She has significant concerns about his safety. She said that over the past week to 2 weeks he has been increasingly disorganized; card writer hand around [place] he refused his meds (from [facility]?); she drove in the car as a passenger with him and said she was very fearful as he was driving well below the speed limit, weaving in and out of the lanes and completely unsafe. She said he recently showed up at a work place and employees were scared of him because he was talking nonsensically. She says that he is delusional, thinking that his food is poisoned and threw away a significant amount of food that he got from a food shelf. She says he has lost about 30-40 lb over the past 2 months. She says that he has talked about raise or beams beaming down onto his head; saying that he seeing cars Vanish, planes Vanish and other bizarre delusional things. She says that he is historically not compliant with medication and would like him to be on a long-acting injectable. Dental Technician Metal discussed case with [facility] inpatient provider who saw patient on his recent admission to a few weeks ago; she talked with his outpatient psychiatric provider Dr. Condon the said that patient needed Vraylar in addition to palpate own for stabilization. 06/20 rambling, hard to understand. Impossible to have a therapeutic conversation with patient as he quickly becomes oblivious to card writer hand, lost in a tangential thought and rambling about unrelated and mostly non-sensical things. Tried to ask pt about collateral reports, however he adamantly denies reports. t. Pt standing in [place] talking to himself. from the unit, pt called 911 and told police there is a sniper loose; on inquiry, could not explain his concern 06/21/24 Patient remains disorganized; perseveration on his relationship. He says he is good today...wants to get back to his house since he rebuilt his whole house and has things to do...He said he does not think he'll take psychiatric medications. He tells card writer hand that he has his own doctor, Dr. Hay. However, pt seemed open to writers explanation that medications ordered are the same ones that Dr. Hay prescribed. He seemed to agree to consider taking psych meds. 06/22 no change in presentation, remains disorganized, manic, delusional. Patient said he will contemplate taking the paliperidone. Will increase dose 06/23 patient took paliperidone last night. No change in presentation. Dental Technician Metal discussed hypertension with patient and he said he used to be on an ISAC inhibitor and agreed to restart 1 now 06/25/2024: Continue to encourage medication adherence 06/26 No change in presentation; patient remains manic, rambling about various unrelated things. Came up to card writer hand and said something about [address] which patient could not explain. Staff reports only sleeping 2 hours last night. Patient again refuses Vraylar or long-acting medication. He says that the police that came to take him to the hospital were not real police... And says they were just dressed up to look like police. Again patient could not discuss this further; patient did however agree to increase lisinopril to 10 mg given continued hypertension 06/27 remains manic; reviewed blood pressures which was still avoided however lisinopril was just increase so needs more time to be effective. -patient remains manic, disorganized and without any insight. It seems that without a mood stabilizer on board, patient will remain manic and disorganized and unable to be safe in the community. 06/28 pt remains disorganized, rambling about various things perseverates on going home to fix his house, repair the roof. Telling staff that this card writer hand is an imposter and saying i know who my 's killer is... 06/29 continue tx plan; pt not open to increasing dose. Impression: As patient remains without any insight to his illness or his behaviors, he remains unsafe and a danger to himself and others due to his erratic driving; also due to paranoid delusions he has been eating very little and seems to have lost significant weight and only a few months. At this time patient is not safe for discharge. He is not willing to sign a CV. Dental Technician Metal will file for involuntary commitment and substituted judgment. Also, card writer hand is invoking the HCP on 06/19/24 as patient is unable to make medical decisions for himself. Plan: Section 7 (Filing for involuntary commitment and substituted judgment) Invoking healthcare proxy (06/19/2024) Q 15 minute checks Increased Lisinopril 10mg daily (patient said he used to be on enalapril however not on formulary) Continue Vraylar 3 mg q.h.s. Continue Paliperidone 6 mg q.h.s. Continue Brimonide Tartrate Continue Dorzolamide Continue Latanoprost Continue Timolol Patient educated on: diagnosis and medication risk/benefits Informed Consent: does not understand Reason for continued inpatient stay Substantial Risk for: inability to function Time Spent With Patient Time: Total time managing care of this patient today ____ minutes.
[2024-06-29 20:00] VITALS: BP 151/69; PULSE 76; RESP 16; TEMP 36.6; O2SAT 100
[2024-06-29] MEDS: Paliperidone ER 9 MG TAB.ER.24 PO (21:16)
[2024-06-29] MEDS: Latanoprost 0.005 % Ophth Sol 2.5 ML DROPS 1 DROP EYE-BOTH (21:16)
[2024-06-29] MEDS: LORazepam 1 MG TABLET PO (21:19)
[2024-06-30 08:00] VITALS: BP 166/74; PULSE 90; RESP 16; TEMP 36.5; O2SAT 100
[2024-06-30] MEDS: lisinopriL 10 MG TABLET PO (08:48)
[2024-06-30] MEDS: hydrOXYzine HCL 25 MG TABLET PO (08:48)
[2024-06-30] MEDS: Brimonidine Tartrate 0.2% Oph 5 ML BOTTLE 1 DROP EYE-BOTH ×2 (08:50→20:38)
[2024-06-30] MEDS: Dorzolamide HCl 2 % Ophth Sol 10 ML DRPBTL 1 DROP EYE-BOTH ×2 (08:50→20:36)
[2024-06-30] MEDS: timoloL maleate 0.5 % Oph Sol 5 ML DRBTL 1 DROP EYE-BOTH ×2 (08:50→20:38)
--- NOTE | 2024-06-30 10:17 | HO.PSYCHPN ---
Subjective Subjective Date of Service: 06/30/24 Reason For Visit: schizophrenia Interim History: Met with patient; discussed with team No change in presentation. Says he wants to get home so he can work on his house. Continuing to rambling about unrelated, irrelevant and or delusional things. Refuses any medication changes. Walking around the milieu with buttocks exposed. Mental Status Exam Mental Status Exam Narrative: Pt is alert and oriented; behavior is disorganized, hyperverbal patient is not in distress; dressed in casual attire, adequate grooming; mood is described as good however affect constricted or expansive; eye contact appropriate; Speech is pressured and rambling, sometimes muttering incoherently but easier to understand; no psychomotor agitation present; thought process is still disorganized, rambling and tangential; Thought content is on various unrelated topics; denies any paranoid delusional thinking; denies any SI/HI. Denies AH but patient appears to be internally preoccupied and responding to internal stimuli. Patients insight and judgment impaired. Diagnostics Vital Signs (24Hr): Vital Signs - 24 hr 06/29/24 20:00 06/30/24 08:00 Temperature 97.9 F 97.7 F Pulse Rate 76 90 Respiratory Rate 16 16 Blood Pressure 151/69 H 166/74 H Pulse Oximetry 100 100 Oxygen Delivery Method Room Air BMI result Body Mass Index 24.1 Labs 06/14/24 00:45 06/14/24 00:45 Medications Medications Current Medications Acetaminophen (Acetaminophen 325 Mg Tablet) 650 mg PO Q6H PRN PRN Reason: Headache/Pain Mild Scale (1-3) Last Admin: 06/16/24 13:42 Dose: 650 mg Al Hydroxide/Mg Hydroxide (Magnesium Hydrox/Alum Hydrox 30 Ml Oral.Susp) 30 ml PO Q6H PRN PRN Reason: Heartburn/Nausea Brimonidine Tartrate (Brimonidine Tartrate 0.2% Oph 5 Ml Bottle) 1 drop EYE-BOTH BID [facility] Last Admin: 06/30/24 08:50 Dose: 1 drop Cariprazine (Cariprazine Hcl 3 Mg Capsule) 3 mg PO BEDTIME [facility] Last Admin: 06/29/24 21:22 Dose: Not Given Dorzolamide HCl (Dorzolamide Hcl 2 % Ophth Jossy 10 Ml Drpbtl) 1 drop EYE-BOTH TID [facility] Last Admin: 06/30/24 08:50 Dose: 1 drop Hydroxyzine HCl (Hydroxyzine Hcl 25 Mg Tablet) 25 mg PO Q6H PRN PRN Reason: Anxiety Last Admin: 06/30/24 08:48 Dose: 25 mg Latanoprost (Latanoprost 0.005 % Ophth Jossy 2.5 Ml Drops) 1 drop EYE-BOTH BEDTIME [facility] Last Admin: 06/29/24 21:16 Dose: 1 drop Lisinopril (Lisinopril 10 Mg Tablet) 10 mg PO DAILY [facility]; Protocol Last Admin: 06/30/24 08:48 Dose: 10 mg Lorazepam (Lorazepam 1 Mg Tablet) 1 mg PO BEDTIME [facility] Last Admin: 06/29/24 21:19 Dose: 1 mg Magnesium Hydroxide (Milk Of Magnesia 30 Ml Oral.Susp) 30 ml PO DAILY PRN PRN Reason: Constipation Nicotine (Nicotine 21 Mg Patch.Td24) 21 mg TRANSDERMA DAILY PRN PRN Reason: nicotine cravings Nicotine Polacrilex (Nicotine Polacrilex 2 Mg Gum) 4 mg BUCCAL Q2H PRN PRN Reason: Nicotine Cravings Olanzapine (Olanzapine 5 Mg Tablet) 5 mg PO Q4H PRN PRN Reason: agitation,psychosis Last Admin: 06/20/24 03:37 Dose: 5 mg Paliperidone (Paliperidone Er 9 Mg Tab.Er.24) 9 mg PO BEDTIME [facility] Last Admin: 06/29/24 21:16 Dose: 9 mg Thiamine HCl (Thiamine Hcl 100 Mg Tablet) 100 mg PO DAILY [facility] Last Admin: 06/30/24 08:53 Dose: Not Given Timolol Maleate (Timolol Maleate 0.5 % Oph Jossy 5 Ml Drbtl) 1 drop EYE-BOTH BID [facility] Last Admin: 06/30/24 08:50 Dose: 1 drop Trazodone HCl (Trazodone Hcl 50 Mg Tablet) 50 mg PO BEDTIME MRX1 PRN PRN Reason: Insomnia Last Admin: 06/26/24 20:34 Dose: 50 mg Allergies Allergies Allergy/AdvReac Type Severity Reaction Status Date / Time No Known Allergies Allergy Unknown UNKNOWN Verified 06/14/24 00:30 Assessment & Plan Assessment & Plan (1) Schizoaffective disorder, bipolar type: Status: Acute Code(s): F25.0 - Schizoaffective disorder, bipolar type (2) Glaucoma: Status: Acute Code(s): H40.9 - Unspecified glaucoma Plan Patient is a 68-year-old male with history of schizoaffective, bipolar type (vs bipolar), glaucoma who presents via police for disorganized behavior in the community in the face of medication noncompliance. Patient is disorganized in speech, rambling, often incoherently. He asks credit underwriter. about the mott of the sexes and Eleazar and Vidya... Telecommunication Tower Technician inquired about ED/police report that he was disorganized, that he was driving in the backyard of his house, shiny his lights on neighbors house. He said he was trying to park in his driveway and I did not. Mean to drive in the backyard.. Saying it was accidental. Regarding being disorganized outside a convenience store, patient said that there was a angry woman there a sick woman.. Who was upset with and all he was doing was sitting in his car outside the convenience store for a little while, listening to music. Patient denies any drug or alcohol use. Says his throat is bothering him but he can not tolerate any questions regarding it. Says he does not need medications but has been taking them since he got here. Collateral report says patient was brought in for acting erratic, driving in circles and backyard of his house after neighbors called; also reports that he was acting erratically at nighttime outside of a convenience store. Formulation/clinical reasoning: Patient presents in a manic episode and acting erratically in the community. Recently discharged from [facility] on paliperidone 6mg qhs and Vraylar 3mg qhs. Not sure why patient is on 2 antipsychotics unless Vraylar is meant to be only a mood stabilizer. Will continue this regimen now since he seemed to somewhat stabilize on [facility]. If stabilizes will strongly consider long-acting injectable of paliperidone given history of noncompliance Hospital course: 06/19 Patient remains disorganized and is having a difficult time explaining his thoughts. On approach he is rambling about something and credit underwriter has a very hard time understanding him as he is jumping from topic to topic. He says he wants to go home and that he has a lot to accomplish. He has not been taking Vraylar and says he does not like it. He said he will take the paliperidone but refuses long-acting injectable. Telecommunication Tower Technician asked about paranoid delusional thinking and he said that others are making fictitious statements. Regarding driving erratically, he says I was driving between the lines... However he does acknowledge he was playing his music too loudly. Telecommunication Tower Technician discussed that team does not feel he is ready for discharge however patient is unable to tolerate this discussion just says no that he wants to go... forest worker discussed case with patient's cousin Marlin Dowd who is also his healthcare proxy (document in chart). She has significant concerns about his safety. She said that over the past week to 2 weeks he has been increasingly disorganized; credit underwriter around [place] he refused his meds (from [facility]?); she drove in the car as a passenger with him and said she was very fearful as he was driving well below the speed limit, weaving in and out of the lanes and completely unsafe. She said he recently showed up at a work place and employees were scared of him because he was talking nonsensically. She says that he is delusional, thinking that his food is poisoned and threw away a significant amount of food that he got from a food shelf. She says he has lost about 30-40 lb over the past 2 months. She says that he has talked about raise or beams beaming down onto his head; saying that he seeing cars Vanish, planes Vanish and other bizarre delusional things. She says that he is historically not compliant with medication and would like him to be on a long-acting injectable. Telecommunication Tower Technician discussed case with ELECTRIC DEICER INSPECTOR inpatient provider who saw patient on his recent admission to a few weeks ago; she talked with his outpatient psychiatric provider Dr. Condon the said that patient needed Vraylar in addition to palpate own for stabilization. 06/20 rambling, hard to understand. Impossible to have a therapeutic conversation with patient as he quickly becomes oblivious to credit underwriter, lost in a tangential thought and rambling about unrelated and mostly non-sensical things. Tried to ask pt about collateral reports, however he adamantly denies reports. t. Pt standing in [place] talking to himself. from the unit, pt called 911 and told police there is a sniper loose; on inquiry, could not explain his concern 06/21/24 Patient remains disorganized; perseveration on his relationship. He says he is good today...wants to get back to his house since he rebuilt his whole house and has things to do...He said he does not think he'll take psychiatric medications. He tells credit underwriter that he has his own doctor, Dr. Hay. However, pt seemed open to writers explanation that medications ordered are the same ones that Dr. Hay prescribed. He seemed to agree to consider taking psych meds. 06/22 no change in presentation, remains disorganized, manic, delusional. Patient said he will contemplate taking the paliperidone. Will increase dose 06/23 patient took paliperidone last night. No change in presentation. Telecommunication Tower Technician discussed hypertension with patient and he said he used to be on an ISAC inhibitor and agreed to restart 1 now 06/25/2024: Continue to encourage medication adherence 06/26 No change in presentation; patient remains manic, rambling about various unrelated things. Came up to credit underwriter and said something about [employer] [address] which patient could not explain. Staff reports only sleeping 2 hours last night. Patient again refuses Vraylar or long-acting medication. He says that the police that came to take him to the hospital were not real police... And says they were just dressed up to look like police. Again patient could not discuss this further; patient did however agree to increase lisinopril to 10 mg given continued hypertension 06/27 remains manic; reviewed blood pressures which was still avoided however lisinopril was just increase so needs more time to be effective. -patient remains manic, disorganized and without any insight. It seems that without a mood stabilizer on board, patient will remain manic and disorganized and unable to be safe in the community. 06/28 pt remains disorganized, rambling about various things perseverates on going home to fix his house, repair the roof. Telling staff that this credit underwriter is an imposter and saying i know who my 's killer is... 06/29 continue tx plan; pt not open to increasing dose. 06/30 No change in presentation. Says he wants to get home so he can work on his house. Continuing to rambling about unrelated, irrelevant and or delusional things. Refuses any medication changes. Walking around the milieu with buttocks exposed. Impression: As patient remains without any insight to his illness or his behaviors, he remains unsafe and a danger to himself and others due to his erratic driving; also due to paranoid delusions he has been eating very little and seems to have lost significant weight and only a few months. At this time patient is not safe for discharge. He is not willing to sign a CV. Telecommunication Tower Technician will file for involuntary commitment and substituted judgment. Also, credit underwriter is invoking the HCP on 06/19/24 as patient is unable to make medical decisions for himself. Plan: Section 7 (Filing for involuntary commitment and substituted judgment) Invoking healthcare proxy (06/19/2024) Q 15 minute checks Increased Lisinopril 10mg daily (patient said he used to be on enalapril however not on formulary) Continue Vraylar 3 mg q.h.s. Continue Paliperidone 6 mg q.h.s. Continue Brimonide Tartrate Continue Dorzolamide Continue Latanoprost Continue Timolol Patient educated on: diagnosis and medication risk/benefits Informed Consent: does not understand Reason for continued inpatient stay Substantial Risk for: inability to function Time Spent With Patient Time: Total time managing care of this patient today ____ minutes.
[2024-06-30 20:00] VITALS: BP 173/78; PULSE 83; RESP 18; TEMP 36.7; O2SAT 99
[2024-06-30] MEDS: Paliperidone ER 9 MG TAB.ER.24 PO (20:34)
[2024-06-30] MEDS: Latanoprost 0.005 % Ophth Sol 2.5 ML DROPS 1 DROP EYE-BOTH (20:37)
[2024-07-01 08:00] VITALS: BP 193/93; PULSE 98; RESP 18; TEMP 36.4; O2SAT 98
[2024-07-01] MEDS: lisinopriL 10 MG TABLET PO ×2 (08:18→14:23)
[2024-07-01] MEDS: Thiamine HCL 100 MG TABLET PO (08:18)
[2024-07-01] MEDS: Brimonidine Tartrate 0.2% Oph 5 ML BOTTLE 1 DROP EYE-BOTH ×2 (08:19→20:52)
[2024-07-01] MEDS: timoloL maleate 0.5 % Oph Sol 5 ML DRBTL 1 DROP EYE-BOTH ×2 (08:19→20:51)
[2024-07-01] MEDS: Dorzolamide HCl 2 % Ophth Sol 10 ML DRPBTL 1 DROP EYE-BOTH ×3 (08:19→20:52)
[2024-07-01 09:13] VITALS: BP 144/67
--- NOTE | 2024-07-01 13:38 | P.PNPSI_ITS ---
Subjective Subjective Date of Service: 07/01/24 Reason For Visit: schizophrenia Interim History: Met with patient; discussed with team patient remains disorganized; rambling about various things, often talking about his , referring to paranoid delusions about terrorists... Reviewed blood pressure and he remains hypertensive; patient agree to increasing lisinopril Mental Status Exam Mental Status Exam Narrative: Pt is alert and oriented; behavior is disorganized, hyperverbal patient is not in distress; dressed in casual attire, adequate grooming; mood is described as good however affect constricted or expansive; eye contact appropriate; Speech is pressured and rambling, sometimes muttering incoherently but easier to understand; no psychomotor agitation present; thought process is still disorganized, rambling and tangential; Thought content is on various unrelated topics; denies any paranoid delusional thinking; denies any SI/HI. Denies AH but patient appears to be internally preoccupied and responding to internal stimuli. Patients insight and judgment impaired. Diagnostics Vital Signs (24Hr): Vital Signs - 24 hr 06/30/24 20:00 07/01/24 08:00 07/01/24 09:13 Temperature 98.1 F 97.5 F Pulse Rate 83 98 Respiratory Rate 18 18 Blood Pressure 173/78 H 193/93 H 144/67 H Pulse Oximetry 99 98 Oxygen Delivery Method Room Air Room Air BMI result Body Mass Index 24.1 Labs 06/14/24 00:45 06/14/24 00:45 Medications Medications Current Medications Acetaminophen (Acetaminophen 325 Mg Tablet) 650 mg PO Q6H PRN PRN Reason: Headache/Pain Mild Scale (1-3) Last Admin: 06/16/24 13:42 Dose: 650 mg Al Hydroxide/Mg Hydroxide (Magnesium Hydrox/Alum Hydrox 30 Ml Oral.Susp) 30 ml PO Q6H PRN PRN Reason: Heartburn/Nausea Brimonidine Tartrate (Brimonidine Tartrate 0.2% Oph 5 Ml Bottle) 1 drop EYE- BOTH BID [facility] Last Admin: 07/01/24 08:19 Dose: 1 drop Cariprazine (Cariprazine Hcl 3 Mg Capsule) 3 mg PO BEDTIME [facility] Last Admin: 06/30/24 20:39 Dose: Not Given Dorzolamide HCl (Dorzolamide Hcl 2 % Ophth Jossy 10 Ml Drpbtl) 1 drop EYE-BOTH TID [facility] Last Admin: 07/01/24 08:19 Dose: 1 drop Hydroxyzine HCl (Hydroxyzine Hcl 25 Mg Tablet) 25 mg PO Q6H PRN PRN Reason: Anxiety Last Admin: 06/30/24 08:48 Dose: 25 mg Latanoprost (Latanoprost 0.005 % Ophth Jossy 2.5 Ml Drops) 1 drop EYE-BOTH BEDTIME [facility] Last Admin: 06/30/24 20:37 Dose: 1 drop Lisinopril (Lisinopril 10 Mg Tablet) 10 mg PO DAILY [facility]; Protocol Last Admin: 07/01/24 08:18 Dose: 10 mg Lorazepam (Lorazepam 1 Mg Tablet) 1 mg PO BEDTIME [facility] Last Admin: 06/30/24 22:19 Dose: Not Given Magnesium Hydroxide (Milk Of Magnesia 30 Ml Oral.Susp) 30 ml PO DAILY PRN PRN Reason: Constipation Nicotine (Nicotine 21 Mg Patch.Td24) 21 mg TRANSDERMA DAILY PRN PRN Reason: nicotine cravings Nicotine Polacrilex (Nicotine Polacrilex 2 Mg Gum) 4 mg BUCCAL Q2H PRN PRN Reason: Nicotine Cravings Olanzapine (Olanzapine 5 Mg Tablet) 5 mg PO Q4H PRN PRN Reason: agitation,psychosis Last Admin: 06/20/24 03:37 Dose: 5 mg Paliperidone (Paliperidone Er 9 Mg Tab.Er.24) 9 mg PO BEDTIME [facility] Last Admin: 06/30/24 20:34 Dose: 9 mg Thiamine HCl (Thiamine Hcl 100 Mg Tablet) 100 mg PO DAILY [facility] Last Admin: 07/01/24 08:18 Dose: 100 mg Timolol Maleate (Timolol Maleate 0.5 % Oph Jossy 5 Ml Drbtl) 1 drop EYE-BOTH BID [facility] Last Admin: 07/01/24 08:19 Dose: 1 drop Trazodone HCl (Trazodone Hcl 50 Mg Tablet) 50 mg PO BEDTIME MRX1 PRN PRN Reason: Insomnia Last Admin: 06/26/24 20:34 Dose: 50 mg Allergies Allergies Allergy/AdvReac Type Severity Reaction Status Date / Time No Known Allergies Allergy Unknown UNKNOWN Verified 06/14/24 00:30 Assessment & Plan Assessment & Plan (1) Schizoaffective disorder, bipolar type: Status: Acute Code(s): F25.0 - Schizoaffective disorder, bipolar type (2) Glaucoma: Status: Acute Code(s): H40.9 - Unspecified glaucoma Plan Patient is a 68-year-old male with history of schizoaffective, bipolar type (vs bipolar), glaucoma who presents via police for disorganized behavior in the community in the face of medication noncompliance. Patient is disorganized in speech, rambling, often incoherently. He asks credit underwriter. about the mott of the sexes and Eleazar and Vidya... Professional Athlete inquired about ED/police report that he was disorganized, that he was driving in the backyard of his house, shiny his lights on neighbors house. He said he was trying to park in his driveway and I did not. Mean to drive in the backyard.. Saying it was accidental. Regarding being disorganized outside a convenience store, patient said that there was a angry woman there a sick woman.. Who was upset with and all he was doing was sitting in his car outside the convenience store for a little while, listening to music. Patient denies any drug or alcohol use. Says his throat is bothering him but he can not tolerate any questions regarding it. Says he does not need medications but has been taking them since he got here. Collateral report says patient was brought in for acting erratic, driving in circles and backyard of his house after neighbors called; also reports that he was acting erratically at nighttime outside of a convenience store. Formulation/clinical reasoning: Patient presents in a manic episode and acting erratically in the community. Recently discharged from [facility] on paliperidone 6mg qhs and Vraylar 3mg qhs. Not sure why patient is on 2 antipsychotics unless Vraylar is meant to be only a mood stabilizer. Will continue this regimen now since he seemed to somewhat stabilize on [facility]. If stabilizes will strongly consider long-acting injectable of paliperidone given history of noncompliance Hospital course: 06/19 Patient remains disorganized and is having a difficult time explaining his thoughts. On approach he is rambling about something and credit underwriter has a very hard time understanding him as he is jumping from topic to topic. He says he wants to go home and that he has a lot to accomplish. He has not been taking Vraylar and says he does not like it. He said he will take the paliperidone but refuses long-acting injectable. Professional Athlete asked about paranoid delusional thinking and he said that others are making fictitious statements. Regarding driving erratically, he says I was driving between the lines... However he does acknowledge he was playing his music too loudly. Professional Athlete discussed that team does not feel he is ready for discharge however patient is unable to tolerate this discussion just says no that he wants to go... lead worker of housekeeping and laundry discussed case with patient's cousin Marlin Dowd who is also his healthcare proxy (document in chart). She has significant concerns about his safety. She said that over the past week to 2 weeks he has been increasingly disorganized; credit underwriter around [place] he refused his meds (from [facility]?); she drove in the car as a passenger with him and said she was very fearful as he was driving well below the speed limit, weaving in and out of the lanes and completely unsafe. She said he recently showed up at a work place and employees were scared of him because he was talking nonsensically. She says that he is delusional, thinking that his food is poisoned and threw away a significant amount of food that he got from a food shelf. She says he has lost about 30-40 lb over the past 2 months. She says that he has talked about raise or beams beaming down onto his head; saying that he seeing cars Vanish, planes Vanish and other bizarre delusional things. She says that he is historically not compliant with medication and would like him to be on a long-acting injectable. Professional Athlete discussed case with [facility] inpatient provider who saw patient on his recent admission to a few weeks ago; she talked with his outpatient psychiatric provider Dr. Condon the said that patient needed Vraylar in addition to palpate own for stabilization. 06/20 rambling, hard to understand. Impossible to have a therapeutic conversation with patient as he quickly becomes oblivious to credit underwriter, lost in a tangential thought and rambling about unrelated and mostly non-sensical things. Tried to ask pt about collateral reports, however he adamantly denies reports. t. Pt standing in [place] talking to himself. from the unit, pt called 911 and told police there is a sniper loose; on inquiry, could not explain his concern 06/21/24 Patient remains disorganized; perseveration on his relationship. He says he is good today...wants to get back to his house since he rebuilt his whole house and has things to do...He said he does not think he'll take psychiatric medications. He tells credit underwriter that he has his own doctor, Dr. Hay. However, pt seemed open to writers explanation that medications ordered are the same ones that Dr. Hay prescribed. He seemed to agree to consider taking psych meds. 06/22 no change in presentation, remains disorganized, manic, delusional. Patient said he will contemplate taking the paliperidone. Will increase dose 06/23 patient took paliperidone last night. No change in presentation. Professional Athlete discussed hypertension with patient and he said he used to be on an ISAC inhibitor and agreed to restart 1 now 06/25/2024: Continue to encourage medication adherence 06/26 No change in presentation; patient remains manic, rambling about various unrelated things. Came up to credit underwriter and said something about [address] which patient could not explain. Staff reports only sleeping 2 hours last night. Patient again refuses Vraylar or long-acting medication. He says that the police that came to take him to the hospital were not real police... And says they were just dressed up to look like police. Again patient could not discuss this further; patient did however agree to increase lisinopril to 10 mg given continued hypertension 06/27 remains manic; reviewed blood pressures which was still avoided however lisinopril was just increase so needs more time to be effective. -patient remains manic, disorganized and without any insight. It seems that without a mood stabilizer on board, patient will remain manic and disorganized and unable to be safe in the community. 06/28 pt remains disorganized, rambling about various things perseverates on going home to fix his house, repair the roof. Telling staff that this credit underwriter is an imposter and saying i know who my 's killer is... 06/29 continue tx plan; pt not open to increasing dose. 06/30 No change in presentation. Says he wants to get home so he can work on his house. Continuing to rambling about unrelated, irrelevant and or delusional things. Refuses any medication changes. Walking around the milieu with buttocks exposed. 07/01 patient remains disorganized; rambling about various things, often talking about his , referring to paranoid delusions about terrorists... Reviewed BP, HTN; discussed with pt who agrees to increasing lisinopril -will switch blood pressure measurements to t.i.d. to better assess effectiveness of antihypertensive Impression: As patient remains without any insight to his illness or his behaviors, he remains unsafe and a danger to himself and others due to his erratic driving; also due to paranoid delusions he has been eating very little and seems to have lost significant weight and only a few months. At this time patient is not safe for discharge. He is not willing to sign a CV. Professional Athlete will file for involuntary commitment and substituted judgment. Also, credit underwriter is invoking the HCP on 06/19/24 as patient is unable to make medical decisions for himself. Plan: Section 7 (Filing for involuntary commitment and substituted judgment) Invoking healthcare proxy (06/19/2024) Q 15 minute checks Increased Lisinopril 20mg daily (patient said he used to be on enalapril however not on formulary) Continue Vraylar 3 mg q.h.s. patient has been refusing Continue Paliperidone 6 mg q.h.s. Continue Brimonide Tartrate Continue Dorzolamide Continue Latanoprost Continue Timolol Patient educated on: diagnosis, medication risk/benefits and medical condition Informed Consent: understands, does not understand and further education needed Reason for continued inpatient stay Substantial Risk for: inability to function Time Spent With Patient Time: Total time managing care of this patient today ____ minutes.
[2024-07-01 14:23] VITALS: BP 159/73
[2024-07-01 18:00] VITALS: BP 181/82; PULSE 92; TEMP 36.3; O2SAT 99
[2024-07-01] MEDS: Latanoprost 0.005 % Ophth Sol 2.5 ML DROPS 1 DROP EYE-BOTH (20:52)
[2024-07-01] MEDS: Paliperidone ER 9 MG TAB.ER.24 PO (20:54)
[2024-07-01] MEDS: traZODone HCL 50 MG TABLET PO (20:54)
[2024-07-01] MEDS: LORazepam 1 MG TABLET PO (20:54)
[2024-07-02] MEDS: OLANZapine 5 MG TABLET PO ×2 (06:23→21:07)
[2024-07-02] MEDS: hydrOXYzine HCL 25 MG TABLET PO (06:23)
[2024-07-02 08:05] VITALS: BP 152/72; PULSE 69; RESP 16; TEMP 36.4; O2SAT 98
[2024-07-02] MEDS: Thiamine HCL 100 MG TABLET PO (08:37)
[2024-07-02] MEDS: timoloL maleate 0.5 % Oph Sol 5 ML DRBTL 1 DROP EYE-BOTH ×2 (08:37→21:18)
[2024-07-02] MEDS: Dorzolamide HCl 2 % Ophth Sol 10 ML DRPBTL 1 DROP EYE-BOTH ×3 (08:37→21:08)
[2024-07-02] MEDS: lisinopriL 20 MG TABLET PO (08:37)
[2024-07-02] MEDS: Brimonidine Tartrate 0.2% Oph 5 ML BOTTLE 1 DROP EYE-BOTH ×2 (08:37→21:09)
--- NOTE | 2024-07-02 15:56 | HO.PSYCHPN ---
Subjective Subjective Date of Service: 07/02/24 Reason For Visit: schizophrenia Interim History: Met with patient; discussed with team No change in presentation. Nitroglycerin Supervisor asks patient how he is doing any patient starts talking about his , having been stolen, put into slavery and sex trafficking; says she is probably somewhere crying... Nitroglycerin Supervisor tried to apply reality testing however patient kept talking about such things. Patient difficult to interrupt or with which to engage further Mental Status Exam Mental Status Exam Narrative: Pt is alert and oriented; behavior is disorganized, hyperverbal patient is not in distress; dressed in casual attire, adequate grooming; mood is described as ok however affect constricted or expansive; eye contact appropriate; Speech is pressured and rambling, sometimes muttering incoherently but easier to understand; no psychomotor agitation present; thought process is still disorganized, rambling and tangential; Thought content is on often on his but with delusional twists; otherwise on various unrelated topics; paranoid delusions remain; denies any SI/HI. Denies AH but patient appears to be internally preoccupied and responding to internal stimuli. Patients insight and judgment impaired. Diagnostics Vital Signs (24Hr): Vital Signs - 24 hr 07/01/24 18:00 07/02/24 08:05 Temperature 97.3 F 97.5 F Pulse Rate 92 69 Respiratory Rate 16 Blood Pressure 181/82 H 152/72 H Pulse Oximetry 99 98 Oxygen Delivery Method Room Air Room Air BMI result Body Mass Index 24.1 Labs 06/14/24 00:45 06/14/24 00:45 Medications Medications Current Medications Acetaminophen (Acetaminophen 325 Mg Tablet) 650 mg PO Q6H PRN PRN Reason: Headache/Pain Mild Scale (1-3) Last Admin: 06/16/24 13:42 Dose: 650 mg Al Hydroxide/Mg Hydroxide (Magnesium Hydrox/Alum Hydrox 30 Ml Oral.Susp) 30 ml PO Q6H PRN PRN Reason: Heartburn/Nausea Brimonidine Tartrate (Brimonidine Tartrate 0.2% Oph 5 Ml Bottle) 1 drop EYE-BOTH BID [facility] Last Admin: 07/02/24 08:37 Dose: 1 drop Cariprazine (Cariprazine Hcl 3 Mg Capsule) 3 mg PO BEDTIME [facility] Last Admin: 07/01/24 20:54 Dose: Not Given Dorzolamide HCl (Dorzolamide Hcl 2 % Ophth Jossy 10 Ml Drpbtl) 1 drop EYE-BOTH TID [facility] Last Admin: 07/02/24 15:45 Dose: 1 drop Hydroxyzine HCl (Hydroxyzine Hcl 25 Mg Tablet) 25 mg PO Q6H PRN PRN Reason: Anxiety Last Admin: 07/02/24 06:23 Dose: 25 mg Latanoprost (Latanoprost 0.005 % Ophth Jossy 2.5 Ml Drops) 1 drop EYE-BOTH BEDTIME NAZ Last Admin: 07/01/24 20:52 Dose: 1 drop Lisinopril (Lisinopril 20 Mg Tablet) 20 mg PO DAILY [facility]; Protocol Last Admin: 07/02/24 08:37 Dose: 20 mg Lorazepam (Lorazepam 1 Mg Tablet) 1 mg PO BEDTIME NAZ Last Admin: 07/01/24 20:54 Dose: 1 mg Magnesium Hydroxide (Milk Of Magnesia 30 Ml Oral.Susp) 30 ml PO DAILY PRN PRN Reason: Constipation Nicotine (Nicotine 21 Mg Patch.Td24) 21 mg TRANSDERMA DAILY PRN PRN Reason: nicotine cravings Nicotine Polacrilex (Nicotine Polacrilex 2 Mg Gum) 4 mg BUCCAL Q2H PRN PRN Reason: Nicotine Cravings Olanzapine (Olanzapine 5 Mg Tablet) 5 mg PO Q4H PRN PRN Reason: agitation,psychosis Last Admin: 07/02/24 06:23 Dose: 5 mg Paliperidone (Paliperidone Er 9 Mg Tab.Er.24) 9 mg PO BEDTIME [facility] Last Admin: 07/01/24 20:54 Dose: 9 mg Thiamine HCl (Thiamine Hcl 100 Mg Tablet) 100 mg PO DAILY [facility] Last Admin: 07/02/24 08:37 Dose: 100 mg Timolol Maleate (Timolol Maleate 0.5 % Oph Jossy 5 Ml Drbtl) 1 drop EYE-BOTH BID [facility] Last Admin: 07/02/24 08:37 Dose: 1 drop Trazodone HCl (Trazodone Hcl 50 Mg Tablet) 50 mg PO BEDTIME MRX1 PRN PRN Reason: Insomnia Last Admin: 07/01/24 20:54 Dose: 50 mg Allergies Allergies Allergy/AdvReac Type Severity Reaction Status Date / Time No Known Allergies Allergy Unknown UNKNOWN Verified 06/14/24 00:30 Assessment & Plan Assessment & Plan (1) Schizoaffective disorder, bipolar type: Status: Acute Code(s): F25.0 - Schizoaffective disorder, bipolar type (2) Glaucoma: Status: Acute Code(s): H40.9 - Unspecified glaucoma (3) Hypertension: Status: Acute Code(s): I10 - Essential (primary) hypertension Plan Patient is a 68-year-old male with history of schizoaffective, bipolar type (vs bipolar), glaucoma who presents via police for disorganized behavior in the community in the face of medication noncompliance. Patient is disorganized in speech, rambling, often incoherently. He asks customs entry writer. about the mott of the sexes and Eleazar and Vidya... Nitroglycerin Supervisor inquired about ED/police report that he was disorganized, that he was driving in the backyard of his house, shiny his lights on neighbors house. He said he was trying to park in his driveway and I did not. Mean to drive in the backyard.. Saying it was accidental. Regarding being disorganized outside a convenience store, patient said that there was a angry woman there a sick woman.. Who was upset with and all he was doing was sitting in his car outside the convenience store for a little while, listening to music. Patient denies any drug or alcohol use. Says his throat is bothering him but he can not tolerate any questions regarding it. Says he does not need medications but has been taking them since he got here. Collateral report says patient was brought in for acting erratic, driving in circles and backyard of his house after neighbors called; also reports that he was acting erratically at nighttime outside of a convenience store. Formulation/clinical reasoning: Patient presents in a manic episode and acting erratically in the community. Recently discharged from [facility] on paliperidone 6mg qhs and Vraylar 3mg qhs. Not sure why patient is on 2 antipsychotics unless Vraylar is meant to be only a mood stabilizer. Will continue this regimen now since he seemed to somewhat stabilize on [facility]. If stabilizes will strongly consider long-acting injectable of paliperidone given history of noncompliance Hospital course: 06/19 Patient remains disorganized and is having a difficult time explaining his thoughts. On approach he is rambling about something and customs entry writer has a very hard time understanding him as he is jumping from topic to topic. He says he wants to go home and that he has a lot to accomplish. He has not been taking Vraylar and says he does not like it. He said he will take the paliperidone but refuses long-acting injectable. Nitroglycerin Supervisor asked about paranoid delusional thinking and he said that others are making fictitious statements. Regarding driving erratically, he says I was driving between the lines... However he does acknowledge he was playing his music too loudly. Nitroglycerin Supervisor discussed that team does not feel he is ready for discharge however patient is unable to tolerate this discussion just says no that he wants to go... fabric and textile factory worker discussed case with patient's cousin Marlin Dowd who is also his healthcare proxy (document in chart). She has significant concerns about his safety. She said that over the past week to 2 weeks he has been increasingly disorganized; customs entry writer around [place] he refused his meds (from [facility]?); she drove in the car as a passenger with him and said she was very fearful as he was driving well below the speed limit, weaving in and out of the lanes and completely unsafe. She said he recently showed up at a work place and employees were scared of him because he was talking nonsensically. She says that he is delusional, thinking that his food is poisoned and threw away a significant amount of food that he got from a food shelf. She says he has lost about 30-40 lb over the past 2 months. She says that he has talked about raise or beams beaming down onto his head; saying that he seeing cars Vanish, planes Vanish and other bizarre delusional things. She says that he is historically not compliant with medication and would like him to be on a long-acting injectable. Nitroglycerin Supervisor discussed case with [facility] inpatient provider who saw patient on his recent admission to a few weeks ago; she talked with his outpatient psychiatric provider Dr. Condon the said that patient needed Vraylar in addition to palpate own for stabilization. 06/20 rambling, hard to understand. Impossible to have a therapeutic conversation with patient as he quickly becomes oblivious to customs entry writer, lost in a tangential thought and rambling about unrelated and mostly non-sensical things. Tried to ask pt about collateral reports, however he adamantly denies reports. t. Pt standing in [place] talking to himself. from the unit, pt called 911 and told police there is a sniper loose; on inquiry, could not explain his concern 06/21/24 Patient remains disorganized; perseveration on his relationship. He says he is good today...wants to get back to his house since he rebuilt his whole house and has things to do...He said he does not think he'll take psychiatric medications. He tells customs entry writer that he has his own doctor, Dr. Hay. However, pt seemed open to writers explanation that medications ordered are the same ones that Dr. Hay prescribed. He seemed to agree to consider taking psych meds. 06/22 no change in presentation, remains disorganized, manic, delusional. Patient said he will contemplate taking the paliperidone. Will increase dose 06/23 patient took paliperidone last night. No change in presentation. Nitroglycerin Supervisor discussed hypertension with patient and he said he used to be on an ISAC inhibitor and agreed to restart 1 now 06/25/2024: Continue to encourage medication adherence 06/26 No change in presentation; patient remains manic, rambling about various unrelated things. Came up to customs entry writer and said something about [address] which patient could not explain. Staff reports only sleeping 2 hours last night. Patient again refuses Vraylar or long-acting medication. He says that the police that came to take him to the hospital were not real police... And says they were just dressed up to look like police. Again patient could not discuss this further; patient did however agree to increase lisinopril to 10 mg given continued hypertension 06/27 remains manic; reviewed blood pressures which was still avoided however lisinopril was just increase so needs more time to be effective. -patient remains manic, disorganized and without any insight. It seems that without a mood stabilizer on board, patient will remain manic and disorganized and unable to be safe in the community. 06/28 pt remains disorganized, rambling about various things perseverates on going home to fix his house, repair the roof. Telling staff that this customs entry writer is an imposter and saying i know who my 's killer is... 06/29 continue tx plan; pt not open to increasing dose. 06/30 No change in presentation. Says he wants to get home so he can work on his house. Continuing to rambling about unrelated, irrelevant and or delusional things. Refuses any medication changes. Walking around the milieu with buttocks exposed. 07/01 patient remains disorganized; rambling about various things, often talking about his , referring to paranoid delusions about terrorists... Reviewed BP, HTN; discussed with pt who agrees to increasing lisinopril -will switch blood pressure measurements to t.i.d. to better assess effectiveness of antihypertensive 07/02 No change in presentation. Nitroglycerin Supervisor asks patient how he is doing any patient starts talking about his , having been stolen, put into slavery and sex trafficking; says she is probably somewhere crying... Nitroglycerin Supervisor tried to apply reality testing however patient kept talking about such things. Patient difficult to interrupt or with which to engage further Impression: As patient remains without any insight to his illness or his behaviors, he remains unsafe and a danger to himself and others due to his erratic driving; also due to paranoid delusions he has been eating very little and seems to have lost significant weight and only a few months. At this time patient is not safe for discharge. He is not willing to sign a CV. Nitroglycerin Supervisor will file for involuntary commitment and substituted judgment. Also, customs entry writer is invoking the HCP on 06/19/24 as patient is unable to make medical decisions for himself. Plan: Section 7 (Filing for involuntary commitment and substituted judgment) Invoking healthcare proxy (06/19/2024) Q 15 minute checks Increased Lisinopril 20mg daily (patient said he used to be on enalapril however not on formulary) Continue Vraylar 3 mg q.h.s. patient has been refusing Continue Paliperidone 6 mg q.h.s. Continue Brimonide Tartrate Continue Dorzolamide Continue Latanoprost Continue Timolol Patient educated on: diagnosis Informed Consent: understands and does not understand Reason for continued inpatient stay Substantial Risk for: inability to function Time Spent With Patient Time: Total time managing care of this patient today ____ minutes.
[2024-07-02 18:00] VITALS: BP 165/70; PULSE 71; RESP 16; TEMP 36.4; O2SAT 98
[2024-07-02] MEDS: Paliperidone ER 9 MG TAB.ER.24 PO (21:07)
[2024-07-02] MEDS: LORazepam 1 MG TABLET PO (21:07)
[2024-07-02] MEDS: traZODone HCL 50 MG TABLET PO (21:07)
[2024-07-02] MEDS: Latanoprost 0.005 % Ophth Sol 2.5 ML DROPS 1 DROP EYE-BOTH (21:08)
[2024-07-03 08:20] VITALS: BP 139/71; PULSE 65; RESP 16; TEMP 36.3; O2SAT 99
[2024-07-03] MEDS: lisinopriL 20 MG TABLET PO (08:53)
[2024-07-03] MEDS: timoloL maleate 0.5 % Oph Sol 5 ML DRBTL 1 DROP EYE-BOTH ×2 (08:54→20:32)
[2024-07-03] MEDS: Thiamine HCL 100 MG TABLET PO (08:54)
[2024-07-03] MEDS: Dorzolamide HCl 2 % Ophth Sol 10 ML DRPBTL 1 DROP EYE-BOTH ×2 (08:54→20:33)
[2024-07-03] MEDS: Brimonidine Tartrate 0.2% Oph 5 ML BOTTLE 1 DROP EYE-BOTH ×2 (08:54→20:33)
--- NOTE | 2024-07-03 09:48 | HO.PSYCHPN ---
Subjective Subjective Date of Service: 07/03/24 Reason For Visit: schizophrenia Interim History: Met with patient; discussed with team No change in presentation. When verse writer asks patient a question he starts rambling and answer but remains tangential, going off topic and talking about paranoid delusional things, with frequent references to his . He continues to say he wants to discharge home but is unable to have any productive conversation about why this is not happening yet. Mental Status Exam Mental Status Exam Narrative: Pt is alert and oriented; behavior is disorganized, hyperverbal patient is not in distress; dressed in casual attire, adequate grooming; mood is described as ok however affect constricted or expansive; eye contact appropriate; Speech is pressured and rambling, sometimes muttering incoherently but easier to understand; no psychomotor agitation present; thought process is still disorganized, rambling and tangential; Thought content is on often on his but with delusional twists; otherwise on various unrelated topics; paranoid delusions remain; denies any SI/HI. Denies AH but patient appears to be internally preoccupied and responding to internal stimuli. Patients insight and judgment impaired. Diagnostics Vital Signs (24Hr): Vital Signs - 24 hr 07/02/24 18:00 07/03/24 08:20 Temperature 97.5 F 97.3 F Pulse Rate 71 65 Respiratory Rate 16 16 Blood Pressure 165/70 H 139/71 Pulse Oximetry 98 99 Oxygen Delivery Method Room Air Room Air BMI result Body Mass Index 24.1 Labs 06/14/24 00:45 06/14/24 00:45 Medications Medications Current Medications Acetaminophen (Acetaminophen 325 Mg Tablet) 650 mg PO Q6H PRN PRN Reason: Headache/Pain Mild Scale (1-3) Last Admin: 06/16/24 13:42 Dose: 650 mg Al Hydroxide/Mg Hydroxide (Magnesium Hydrox/Alum Hydrox 30 Ml Oral.Susp) 30 ml PO Q6H PRN PRN Reason: Heartburn/Nausea Brimonidine Tartrate (Brimonidine Tartrate 0.2% Oph 5 Ml Bottle) 1 drop EYE-BOTH BID [facility] Last Admin: 07/03/24 08:54 Dose: 1 drop Cariprazine (Cariprazine Hcl 3 Mg Capsule) 3 mg PO BEDTIME [facility] Last Admin: 07/02/24 21:08 Dose: Not Given Dorzolamide HCl (Dorzolamide Hcl 2 % Ophth Jossy 10 Ml Drpbtl) 1 drop EYE-BOTH TID [facility] Last Admin: 07/03/24 08:54 Dose: 1 drop Hydroxyzine HCl (Hydroxyzine Hcl 25 Mg Tablet) 25 mg PO Q6H PRN PRN Reason: Anxiety Last Admin: 07/02/24 06:23 Dose: 25 mg Latanoprost (Latanoprost 0.005 % Ophth Jossy 2.5 Ml Drops) 1 drop EYE-BOTH BEDTIME [facility] Last Admin: 07/02/24 21:08 Dose: 1 drop Lisinopril (Lisinopril 20 Mg Tablet) 20 mg PO DAILY [facility]; Protocol Last Admin: 07/03/24 08:53 Dose: 20 mg Lorazepam (Lorazepam 1 Mg Tablet) 1 mg PO BEDTIME [facility] Last Admin: 07/02/24 21:07 Dose: 1 mg Magnesium Hydroxide (Milk Of Magnesia 30 Ml Oral.Susp) 30 ml PO DAILY PRN PRN Reason: Constipation Nicotine (Nicotine 21 Mg Patch.Td24) 21 mg TRANSDERMA DAILY PRN PRN Reason: nicotine cravings Nicotine Polacrilex (Nicotine Polacrilex 2 Mg Gum) 4 mg BUCCAL Q2H PRN PRN Reason: Nicotine Cravings Olanzapine (Olanzapine 5 Mg Tablet) 5 mg PO Q4H PRN PRN Reason: agitation,psychosis Last Admin: 07/02/24 21:07 Dose: 5 mg Paliperidone (Paliperidone Er 9 Mg Tab.Er.24) 9 mg PO BEDTIME [facility] Last Admin: 07/02/24 21:07 Dose: 9 mg Thiamine HCl (Thiamine Hcl 100 Mg Tablet) 100 mg PO DAILY [facility] Last Admin: 07/03/24 08:54 Dose: 100 mg Timolol Maleate (Timolol Maleate 0.5 % Oph Jossy 5 Ml Drbtl) 1 drop EYE-BOTH BID [facility] Last Admin: 07/03/24 08:54 Dose: 1 drop Trazodone HCl (Trazodone Hcl 50 Mg Tablet) 50 mg PO BEDTIME MRX1 PRN PRN Reason: Insomnia Last Admin: 07/02/24 21:07 Dose: 50 mg Allergies Allergies Allergy/AdvReac Type Severity Reaction Status Date / Time No Known Allergies Allergy Unknown UNKNOWN Verified 06/14/24 00:30 Assessment & Plan Assessment & Plan (1) Schizoaffective disorder, bipolar type: Status: Acute Code(s): F25.0 - Schizoaffective disorder, bipolar type (2) Glaucoma: Status: Acute Code(s): H40.9 - Unspecified glaucoma (3) Hypertension: Status: Acute Code(s): I10 - Essential (primary) hypertension Plan Patient is a 68-year-old male with history of schizoaffective, bipolar type (vs bipolar), glaucoma who presents via police for disorganized behavior in the community in the face of medication noncompliance. Patient is disorganized in speech, rambling, often incoherently. He asks verse writer. about the mott of the sexes and Eleazar and Vidya... Orientation And Mobility Specialist inquired about ED/police report that he was disorganized, that he was driving in the backyard of his house, shiny his lights on neighbors house. He said he was trying to park in his driveway and I did not. Mean to drive in the backyard.. Saying it was accidental. Regarding being disorganized outside a convenience store, patient said that there was a angry woman there a sick woman.. Who was upset with and all he was doing was sitting in his car outside the convenience store for a little while, listening to music. Patient denies any drug or alcohol use. Says his throat is bothering him but he can not tolerate any questions regarding it. Says he does not need medications but has been taking them since he got here. Collateral report says patient was brought in for acting erratic, driving in circles and backyard of his house after neighbors called; also reports that he was acting erratically at nighttime outside of a convenience store. Formulation/clinical reasoning: Patient presents in a manic episode and acting erratically in the community. Recently discharged from [facility] on paliperidone 6mg qhs and Vraylar 3mg qhs. Not sure why patient is on 2 antipsychotics unless Vraylar is meant to be only a mood stabilizer. Will continue this regimen now since he seemed to somewhat stabilize on [facility]. If stabilizes will strongly consider long-acting injectable of paliperidone given history of noncompliance Hospital course: 06/19 Patient remains disorganized and is having a difficult time explaining his thoughts. On approach he is rambling about something and verse writer has a very hard time understanding him as he is jumping from topic to topic. He says he wants to go home and that he has a lot to accomplish. He has not been taking Vraylar and says he does not like it. He said he will take the paliperidone but refuses long-acting injectable. Orientation And Mobility Specialist asked about paranoid delusional thinking and he said that others are making fictitious statements. Regarding driving erratically, he says I was driving between the lines... However he does acknowledge he was playing his music too loudly. Orientation And Mobility Specialist discussed that team does not feel he is ready for discharge however patient is unable to tolerate this discussion just says no that he wants to go... grain elevator worker discussed case with patient's cousin Marlin Dowd who is also his healthcare proxy (document in chart). She has significant concerns about his safety. She said that over the past week to 2 weeks he has been increasingly disorganized; verse writer around [place] he refused his meds (from [facility]?); she drove in the car as a passenger with him and said she was very fearful as he was driving well below the speed limit, weaving in and out of the lanes and completely unsafe. She said he recently showed up at a work place and employees were scared of him because he was talking nonsensically. She says that he is delusional, thinking that his food is poisoned and threw away a significant amount of food that he got from a food shelf. She says he has lost about 30-40 lb over the past 2 months. She says that he has talked about raise or beams beaming down onto his head; saying that he seeing cars Vanish, planes Vanish and other bizarre delusional things. She says that he is historically not compliant with medication and would like him to be on a long-acting injectable. Orientation And Mobility Specialist discussed case with [facility] inpatient provider who saw patient on his recent admission to a few weeks ago; she talked with his outpatient psychiatric provider Dr. Condon the said that patient needed Vraylar in addition to palpate own for stabilization. 06/20 rambling, hard to understand. Impossible to have a therapeutic conversation with patient as he quickly becomes oblivious to verse writer, lost in a tangential thought and rambling about unrelated and mostly non-sensical things. Tried to ask pt about collateral reports, however he adamantly denies reports. t. Pt standing in [place] talking to himself. from the unit, pt called 911 and told police there is a sniper loose; on inquiry, could not explain his concern 06/21/24 Patient remains disorganized; perseveration on his relationship. He says he is good today...wants to get back to his house since he rebuilt his whole house and has things to do...He said he does not think he'll take psychiatric medications. He tells verse writer that he has his own doctor, Dr. Hay. However, pt seemed open to writers explanation that medications ordered are the same ones that Dr. Hay prescribed. He seemed to agree to consider taking psych meds. 06/22 no change in presentation, remains disorganized, manic, delusional. Patient said he will contemplate taking the paliperidone. Will increase dose 06/23 patient took paliperidone last night. No change in presentation. Orientation And Mobility Specialist discussed hypertension with patient and he said he used to be on an ISAC inhibitor and agreed to restart 1 now 06/25/2024: Continue to encourage medication adherence 06/26 No change in presentation; patient remains manic, rambling about various unrelated things. Came up to verse writer and said something about [address] which patient could not explain. Staff reports only sleeping 2 hours last night. Patient again refuses Vraylar or long-acting medication. He says that the police that came to take him to the hospital were not real police... And says they were just dressed up to look like police. Again patient could not discuss this further; patient did however agree to increase lisinopril to 10 mg given continued hypertension 06/27 remains manic; reviewed blood pressures which was still avoided however lisinopril was just increase so needs more time to be effective. -patient remains manic, disorganized and without any insight. It seems that without a mood stabilizer on board, patient will remain manic and disorganized and unable to be safe in the community. 06/28 pt remains disorganized, rambling about various things perseverates on going home to fix his house, repair the roof. Telling staff that this verse writer is an imposter and saying i know who my 's killer is... 06/29 continue tx plan; pt not open to increasing dose. 06/30 No change in presentation. Says he wants to get home so he can work on his house. Continuing to rambling about unrelated, irrelevant and or delusional things. Refuses any medication changes. Walking around the milieu with buttocks exposed. 07/01 patient remains disorganized; rambling about various things, often talking about his , referring to paranoid delusions about terrorists... Reviewed BP, HTN; discussed with pt who agrees to increasing lisinopril -will switch blood pressure measurements to t.i.d. to better assess effectiveness of antihypertensive 07/02 No change in presentation. Orientation And Mobility Specialist asks patient how he is doing any patient starts talking about his , having been stolen, put into slavery and sex trafficking; says she is probably somewhere crying... Orientation And Mobility Specialist tried to apply reality testing however patient kept talking about such things. Patient difficult to interrupt or with which to engage further Impression: As patient remains without any insight to his illness or his behaviors, he remains unsafe and a danger to himself and others due to his erratic driving; also due to paranoid delusions he has been eating very little and seems to have lost significant weight and only a few months. At this time patient is not safe for discharge. He is not willing to sign a CV. Orientation And Mobility Specialist will file for involuntary commitment and substituted judgment. Also, verse writer is invoking the HCP on 06/19/24 as patient is unable to make medical decisions for himself. Plan: Section 7 (Filing for involuntary commitment and substituted judgment) Invoking healthcare proxy (06/19/2024) Q 15 minute checks Increased Lisinopril 20mg daily (patient said he used to be on enalapril however not on formulary) Continue Vraylar 3 mg q.h.s. patient has been refusing Continue Paliperidone 6 mg q.h.s. Continue Brimonide Tartrate Continue Dorzolamide Continue Latanoprost Continue Timolol Patient educated on: diagnosis and medication risk/benefits Informed Consent: does not understand Reason for continued inpatient stay Substantial Risk for: inability to function Time Spent With Patient Time: Total time managing care of this patient today ____ minutes.
[2024-07-03 13:00] VITALS: BP 134/80; PULSE 76; RESP 16; O2SAT 97
[2024-07-03 18:00] VITALS: BP 166/78; PULSE 81; TEMP 36.8; O2SAT 99
[2024-07-03] MEDS: Paliperidone ER 9 MG TAB.ER.24 PO (20:32)
[2024-07-03] MEDS: LORazepam 1 MG TABLET PO (20:32)
[2024-07-03] MEDS: Latanoprost 0.005 % Ophth Sol 2.5 ML DROPS 1 DROP EYE-BOTH (20:33)
[2024-07-04 08:07] VITALS: BP 141/61; PULSE 62; RESP 17; TEMP 35.7; O2SAT 99
[2024-07-04] MEDS: lisinopriL 20 MG TABLET PO (08:32)
[2024-07-04] MEDS: Thiamine HCL 100 MG TABLET PO (08:32)
[2024-07-04] MEDS: Brimonidine Tartrate 0.2% Oph 5 ML BOTTLE 1 DROP EYE-BOTH ×2 (08:33→21:12)
[2024-07-04] MEDS: timoloL maleate 0.5 % Oph Sol 5 ML DRBTL 1 DROP EYE-BOTH ×2 (08:33→21:12)
[2024-07-04] MEDS: Dorzolamide HCl 2 % Ophth Sol 10 ML DRPBTL 1 DROP EYE-BOTH ×3 (08:33→21:13)
[2024-07-04 16:00] VITALS: BP 171/77; PULSE 67; RESP 17; TEMP 37.1; O2SAT 99
[2024-07-04] MEDS: hydrOXYzine HCL 25 MG TABLET PO (16:24)
[2024-07-04] MEDS: OLANZapine 5 MG TABLET PO (16:24)
[2024-07-04 18:00] VITALS: BP 145/77; PULSE 67; RESP 18; TEMP 36.6; O2SAT 97
--- NOTE | 2024-07-04 18:33 | P.PNPSI_ITS ---
Subjective Subjective Date of Service: 07/04/24 Reason For Visit: schizophrenia Interim History: Met with patient; discussed with team Remains manic and psychotic. Only slept 2-3 hours last night and pacing the romano. On inquiry patient could not seem to answer the question. Told staff that he has mob ties so staff should be careful... Then said that his called him from another man's bed... Patient asked about medications and caption writer discussed Vraylar and when caption writer explained again that his outpatient provider was the 1 who prescribed Vraylar, patient got agitated, said that Dr. Condon should not be listening psychopaths and asked for the clinic phone number which caption writer gave him Mental Status Exam Mental Status Exam Narrative: Pt is alert and oriented; behavior is disorganized, hyperverbal patient is not in distress; dressed in casual attire, adequate grooming; mood is described as anxious, affect congruent; eye contact appropriate; Speech is pressured and rambling, sometimes muttering incoherently but easier to understand; no psychomotor agitation present; thought process is still disorganized, rambling and tangential; Thought content is on often on his but with delusional twists; otherwise on various unrelated topics; paranoid delusions remain; denies any SI/HI. Denies AH but patient appears to be internally preoccupied and responding to internal stimuli. Patients insight and judgment impaired. Diagnostics Vital Signs (24Hr): Vital Signs - 24 hr 07/04/24 08:07 07/04/24 16:00 Temperature 96.2 F L 98.8 F Pulse Rate 62 67 Respiratory Rate 17 17 Blood Pressure 141/61 H 171/77 H Pulse Oximetry 99 99 Oxygen Delivery Method Room Air Room Air BMI result Body Mass Index 24.1 Labs 06/14/24 00:45 06/14/24 00:45 Medications Medications Current Medications Acetaminophen (Acetaminophen 325 Mg Tablet) 650 mg PO Q6H PRN PRN Reason: Headache/Pain Mild Scale (1-3) Last Admin: 06/16/24 13:42 Dose: 650 mg Al Hydroxide/Mg Hydroxide (Magnesium Hydrox/Alum Hydrox 30 Ml Oral.Susp) 30 ml PO Q6H PRN PRN Reason: Heartburn/Nausea Brimonidine Tartrate (Brimonidine Tartrate 0.2% Oph 5 Ml Bottle) 1 drop EYE- BOTH BID NAZ Last Admin: 07/04/24 08:33 Dose: 1 drop Cariprazine (Cariprazine Hcl 3 Mg Capsule) 3 mg PO BEDTIME [facility] Last Admin: 07/03/24 20:33 Dose: Not Given Dorzolamide HCl (Dorzolamide Hcl 2 % Ophth Jossy 10 Ml Drpbtl) 1 drop EYE-BOTH TID [facility] Last Admin: 07/04/24 16:15 Dose: 1 drop Hydroxyzine HCl (Hydroxyzine Hcl 25 Mg Tablet) 25 mg PO Q6H PRN PRN Reason: Anxiety Last Admin: 07/04/24 16:24 Dose: 25 mg Latanoprost (Latanoprost 0.005 % Ophth Jossy 2.5 Ml Drops) 1 drop EYE-BOTH BEDTIME [facility] Last Admin: 07/03/24 20:33 Dose: 1 drop Lisinopril (Lisinopril 20 Mg Tablet) 20 mg PO DAILY [facility]; Protocol Last Admin: 07/04/24 08:32 Dose: 20 mg Lorazepam (Lorazepam 1 Mg Tablet) 1 mg PO BEDTIME [facility] Last Admin: 07/03/24 20:32 Dose: 1 mg Magnesium Hydroxide (Milk Of Magnesia 30 Ml Oral.Susp) 30 ml PO DAILY PRN PRN Reason: Constipation Nicotine (Nicotine 21 Mg Patch.Td24) 21 mg TRANSDERMA DAILY PRN PRN Reason: nicotine cravings Nicotine Polacrilex (Nicotine Polacrilex 2 Mg Gum) 4 mg BUCCAL Q2H PRN PRN Reason: Nicotine Cravings Olanzapine (Olanzapine 5 Mg Tablet) 5 mg PO Q4H PRN PRN Reason: agitation,psychosis Last Admin: 07/04/24 16:24 Dose: 5 mg Paliperidone (Paliperidone Er 9 Mg Tab.Er.24) 9 mg PO BEDTIME [facility] Last Admin: 07/03/24 20:32 Dose: 9 mg Thiamine HCl (Thiamine Hcl 100 Mg Tablet) 100 mg PO DAILY [facility] Last Admin: 07/04/24 08:32 Dose: 100 mg Timolol Maleate (Timolol Maleate 0.5 % Oph Jossy 5 Ml Drbtl) 1 drop EYE-BOTH BID [facility] Last Admin: 07/04/24 08:33 Dose: 1 drop Trazodone HCl (Trazodone Hcl 50 Mg Tablet) 50 mg PO BEDTIME [facility] PRN PRN Reason: Insomnia Last Admin: 07/02/24 21:07 Dose: 50 mg Allergies Allergies Allergy/AdvReac Type Severity Reaction Status Date / Time No Known Allergies Allergy Unknown UNKNOWN Verified 06/14/24 00:30 Assessment & Plan Assessment & Plan (1) Schizoaffective disorder, bipolar type: Status: Acute Code(s): F25.0 - Schizoaffective disorder, bipolar type (2) Glaucoma: Status: Acute Code(s): H40.9 - Unspecified glaucoma (3) Hypertension: Status: Acute Code(s): I10 - Essential (primary) hypertension Plan Patient is a 68-year-old male with history of schizoaffective, bipolar type (vs bipolar), glaucoma who presents via police for disorganized behavior in the community in the face of medication noncompliance. Patient is disorganized in speech, rambling, often incoherently. He asks caption writer. about the mott of the sexes and Eleazar and Vidya... Telephone Appointment Clerk inquired about ED/police report that he was disorganized, that he was driving in the backyard of his house, shiny his lights on neighbors house. He said he was trying to park in his driveway and I did not. Mean to drive in the backyard.. Saying it was accidental. Regarding being disorganized outside a convenience store, patient said that there was a angry woman there a sick woman.. Who was upset with and all he was doing was sitting in his car outside the convenience store for a little while, listening to music. Patient denies any drug or alcohol use. Says his throat is bothering him but he can not tolerate any questions regarding it. Says he does not need medications but has been taking them since he got here. Collateral report says patient was brought in for acting erratic, driving in circles and backyard of his house after neighbors called; also reports that he was acting erratically at nighttime outside of a convenience store. Formulation/clinical reasoning: Patient presents in a manic episode and acting erratically in the community. Recently discharged from [facility] on paliperidone 6mg qhs and Vraylar 3mg qhs. Not sure why patient is on 2 antipsychotics unless Vraylar is meant to be only a mood stabilizer. Will continue this regimen now since he seemed to somewhat stabilize on [facility]. If stabilizes will strongly consider long-acting injectable of paliperidone given history of noncompliance Hospital course: 06/19 Patient remains disorganized and is having a difficult time explaining his thoughts. On approach he is rambling about something and caption writer has a very hard time understanding him as he is jumping from topic to topic. He says he wants to go home and that he has a lot to accomplish. He has not been taking Vraylar and says he does not like it. He said he will take the paliperidone but refuses long-acting injectable. Telephone Appointment Clerk asked about paranoid delusional thinking and he said that others are making fictitious statements. Regarding driving erratically, he says I was driving between the lines... However he does acknowledge he was playing his music too loudly. Telephone Appointment Clerk discussed that team does not feel he is ready for discharge however patient is unable to tolerate this discussion just says no that he wants to go... turn out worker discussed case with patient's cousin Marlin Dowd who is also his healthcare proxy (document in chart). She has significant concerns about his safety. She said that over the past week to 2 weeks he has been increasingly disorganized; caption writer around [place] he refused his meds (from [facility]?); she drove in the car as a passenger with him and said she was very fearful as he was driving well below the speed limit, weaving in and out of the lanes and completely unsafe. She said he recently showed up at a work place and employees were scared of him because he was talking nonsensically. She says that he is delusional, thinking that his food is poisoned and threw away a significant amount of food that he got from a food shelf. She says he has lost about 30-40 lb over the past 2 months. She says that he has talked about raise or beams beaming down onto his head; saying that he seeing cars Vanish, planes Vanish and other bizarre delusional things. She says that he is historically not compliant with medication and would like him to be on a long-acting injectable. Telephone Appointment Clerk discussed case with ORTHOD[employer] TECHNICIAN [employer]ISTANT inpatient provider who saw patient on his recent admission to a few weeks ago; she talked with his outpatient psychiatric provider Dr. Condon the said that patient needed Vraylar in addition to palpate own for stabilization. 06/20 rambling, hard to understand. Impossible to have a therapeutic conversation with patient as he quickly becomes oblivious to caption writer, lost in a tangential thought and rambling about unrelated and mostly non-sensical things. Tried to ask pt about collateral reports, however he adamantly denies reports. t. Pt standing in romano talking to himself. from the unit, pt called 911 and told police there is a sniper loose; on inquiry, could not explain his concern 06/21/24 Patient remains disorganized; perseveration on his relationship. He says he is good today...wants to get back to his house since he rebuilt his whole house and has things to do...He said he does not think he'll take psychiatric medications. He tells caption writer that he has his own doctor, Dr. Hay. However, pt seemed open to writers explanation that medications ordered are the same ones that Dr. Hay prescribed. He seemed to agree to consider taking psych meds. 06/22 no change in presentation, remains disorganized, manic, delusional. Patient said he will contemplate taking the paliperidone. Will increase dose 06/23 patient took paliperidone last night. No change in presentation. Telephone Appointment Clerk discussed hypertension with patient and he said he used to be on an ISAC inhibitor and agreed to restart 1 now 06/25/2024: Continue to encourage medication adherence 06/26 No change in presentation; patient remains manic, rambling about various unrelated things. Came up to caption writer and said something about [employer] [address] which patient could not explain. Staff reports only sleeping 2 hours last night. Patient again refuses Vraylar or long-acting medication. He says that the police that came to take him to the hospital were not real police... And says they were just dressed up to look like police. Again patient could not discuss this further; patient did however agree to increase lisinopril to 10 mg given continued hypertension 06/27 remains manic; reviewed blood pressures which was still avoided however lisinopril was just increase so needs more time to be effective. -patient remains manic, disorganized and without any insight. It seems that without a mood stabilizer on board, patient will remain manic and disorganized and unable to be safe in the community. 06/28 pt remains disorganized, rambling about various things perseverates on going home to fix his house, repair the roof. Telling staff that this caption writer is an imposter and saying i know who my 's killer is... 06/29 continue tx plan; pt not open to increasing dose. 06/30 No change in presentation. Says he wants to get home so he can work on his house. Continuing to rambling about unrelated, irrelevant and or delusional things. Refuses any medication changes. Walking around the milieu with buttocks exposed. 07/01 patient remains disorganized; rambling about various things, often talking about his , referring to paranoid delusions about terrorists... Reviewed BP, HTN; discussed with pt who agrees to increasing lisinopril -will switch blood pressure measurements to t.i.d. to better assess effectiveness of antihypertensive 07/02 No change in presentation. Telephone Appointment Clerk asks patient how he is doing any patient starts talking about his , having been stolen, put into slavery and sex trafficking; says she is probably somewhere crying... Telephone Appointment Clerk tried to apply reality testing however patient kept talking about such things. Patient difficult to interrupt or with which to engage further 07/04 no change in presentation; no insight and refusing mood stabilizing meds Impression: As patient remains without any insight to his illness or his behaviors, he remains unsafe and a danger to himself and others due to his erratic driving; also due to paranoid delusions he has been eating very little and seems to have lost significant weight and only a few months. At this time patient is not safe for discharge. He is not willing to sign a CV. Telephone Appointment Clerk will file for involuntary commitment and substituted judgment. Also, caption writer is invoking the HCP on 06/19/24 as patient is unable to make medical decisions for himself. Plan: Section 7 (Filing for involuntary commitment and substituted judgment) Invoking healthcare proxy (06/19/2024) Q 15 minute checks Increased Lisinopril 20mg daily (patient said he used to be on enalapril however not on formulary) Continue Vraylar 3 mg q.h.s. patient has been refusing Continue Paliperidone 6 mg q.h.s. Continue Brimonide Tartrate Continue Dorzolamide Continue Latanoprost Continue Timolol Patient educated on: diagnosis and medication risk/benefits Informed Consent: does not understand Reason for continued inpatient stay Substantial Risk for: inability to function Time Spent With Patient Time: Total time managing care of this patient today ____ minutes.
[2024-07-04 20:01] VITALS: BP 140/85; PULSE 65; TEMP 36.6; O2SAT 100
[2024-07-04] MEDS: Paliperidone ER 9 MG TAB.ER.24 PO (21:11)
[2024-07-04] MEDS: LORazepam 1 MG TABLET PO (21:11)
[2024-07-04] MEDS: Latanoprost 0.005 % Ophth Sol 2.5 ML DROPS 1 DROP EYE-BOTH (21:13)
--- NOTE | 2024-07-05 12:50 | P.PNPSI_ITS ---
Subjective Subjective Date of Service: 07/05/24 Reason For Visit: schizophrenia Interim History: met with patient; discussed with team no change in presentation. starts asking telegraphic typewriter operator chief for discharge, talking about medications, but quickly his ramble changes from unrelated topic to unrelated topic, imbued with paranoid ideations Mental Status Exam Mental Status Exam Narrative: Pt is alert and oriented; behavior is disorganized, hyperverbal patient is not in distress; dressed in casual attire, adequate grooming; mood is described as anxious, affect congruent; eye contact appropriate; Speech is pressured and rambling, sometimes muttering incoherently but easier to understand; no psychomotor agitation present; thought process is still disorganized, rambling and tangential; Thought content is on often on his but with delusional twists; otherwise on various unrelated topics; paranoid delusions remain; denies any SI/HI. Denies AH but patient appears to be internally preoccupied and responding to internal stimuli. Patients insight and judgment impaired. Diagnostics Vital Signs (24Hr): Vital Signs - 24 hr 07/04/24 16:00 07/04/24 18:00 07/04/24 20:01 Temperature 98.8 F 97.8 F 97.8 F Pulse Rate 67 67 65 Respiratory Rate 17 18 Blood Pressure 171/77 H 145/77 H 140/85 H Pulse Oximetry 99 97 100 Oxygen Delivery Method Room Air Room Air Room Air BMI result Body Mass Index 24.1 Labs 06/14/24 00:45 06/14/24 00:45 Medications Medications Current Medications Acetaminophen (Acetaminophen 325 Mg Tablet) 650 mg PO Q6H PRN PRN Reason: Headache/Pain Mild Scale (1-3) Last Admin: 06/16/24 13:42 Dose: 650 mg Al Hydroxide/Mg Hydroxide (Magnesium Hydrox/Alum Hydrox 30 Ml Oral.Susp) 30 ml PO Q6H PRN PRN Reason: Heartburn/Nausea Brimonidine Tartrate (Brimonidine Tartrate 0.2% Oph 5 Ml Bottle) 1 drop EYE- BOTH BID [facility] Last Admin: 07/05/24 11:27 Dose: Not Given Cariprazine (Cariprazine Hcl 3 Mg Capsule) 3 mg PO BEDTIME [facility] Last Admin: 07/04/24 21:15 Dose: Not Given Dorzolamide HCl (Dorzolamide Hcl 2 % Ophth Jossy 10 Ml Drpbtl) 1 drop EYE-BOTH TID [facility] Last Admin: 07/05/24 11:27 Dose: Not Given Hydroxyzine HCl (Hydroxyzine Hcl 25 Mg Tablet) 25 mg PO Q6H PRN PRN Reason: Anxiety Last Admin: 07/04/24 16:24 Dose: 25 mg Latanoprost (Latanoprost 0.005 % Ophth Jossy 2.5 Ml Drops) 1 drop EYE-BOTH BEDTIME [facility]Z Last Admin: 07/04/24 21:13 Dose: 1 drop Lisinopril (Lisinopril 20 Mg Tablet) 20 mg PO DAILY [facility]; Protocol Last Admin: 07/05/24 11:27 Dose: Not Given Lorazepam (Lorazepam 1 Mg Tablet) 1 mg PO BEDTIME [facility] Last Admin: 07/04/24 21:11 Dose: 1 mg Magnesium Hydroxide (Milk Of Magnesia 30 Ml Oral.Susp) 30 ml PO DAILY PRN PRN Reason: Constipation Nicotine (Nicotine 21 Mg Patch.Td24) 21 mg TRANSDERMA DAILY PRN PRN Reason: nicotine cravings Nicotine Polacrilex (Nicotine Polacrilex 2 Mg Gum) 4 mg BUCCAL Q2H PRN PRN Reason: Nicotine Cravings Olanzapine (Olanzapine 5 Mg Tablet) 5 mg PO Q4H PRN PRN Reason: agitation,psychosis Last Admin: 07/04/24 16:24 Dose: 5 mg Paliperidone (Paliperidone Er 9 Mg Tab.Er.24) 9 mg PO BEDTIME [facility] Last Admin: 07/04/24 21:11 Dose: 9 mg Thiamine HCl (Thiamine Hcl 100 Mg Tablet) 100 mg PO DAILY [facility] Last Admin: 07/05/24 11:28 Dose: Not Given Timolol Maleate (Timolol Maleate 0.5 % Oph Jossy 5 Ml Drbtl) 1 drop EYE-BOTH BID [facility] Last Admin: 07/05/24 11:28 Dose: Not Given Trazodone HCl (Trazodone Hcl 50 Mg Tablet) 50 mg PO BEDTIME MRX1 PRN PRN Reason: Insomnia Last Admin: 07/02/24 21:07 Dose: 50 mg Allergies Allergies Allergy/AdvReac Type Severity Reaction Status Date / Time No Known Allergies Allergy Unknown UNKNOWN Verified 06/14/24 00:30 Assessment & Plan Assessment & Plan (1) Schizoaffective disorder, bipolar type: Status: Acute Code(s): F25.0 - Schizoaffective disorder, bipolar type (2) Glaucoma: Status: Acute Code(s): H40.9 - Unspecified glaucoma (3) Hypertension: Status: Acute Code(s): I10 - Essential (primary) hypertension Plan Patient is a 68-year-old male with history of schizoaffective, bipolar type (vs bipolar), glaucoma who presents via police for disorganized behavior in the community in the face of medication noncompliance. Patient is disorganized in speech, rambling, often incoherently. He asks telegraphic typewriter operator chief. about the mott of the sexes and Eleazar and Vidya... Pearl Stringer inquired about ED/police report that he was disorganized, that he was driving in the backyard of his house, shiny his lights on neighbors house. He said he was trying to park in his driveway and I did not. Mean to drive in the backyard.. Saying it was accidental. Regarding being disorganized outside a convenience store, patient said that there was a angry woman there a sick woman.. Who was upset with and all he was doing was sitting in his car outside the convenience store for a little while, listening to music. Patient denies any drug or alcohol use. Says his throat is bothering him but he can not tolerate any questions regarding it. Says he does not need medications but has been taking them since he got here. Collateral report says patient was brought in for acting erratic, driving in circles and backyard of his house after neighbors called; also reports that he was acting erratically at nighttime outside of a convenience store. Formulation/clinical reasoning: Patient presents in a manic episode and acting erratically in the community. Recently discharged from [facility] on paliperidone 6mg qhs and Vraylar 3mg qhs. Not sure why patient is on 2 antipsychotics unless Vraylar is meant to be only a mood stabilizer. Will continue this regimen now since he seemed to somewhat stabilize on [facility]. If stabilizes will strongly consider long-acting injectable of paliperidone given history of noncompliance Hospital course: 06/19 Patient remains disorganized and is having a difficult time explaining his thoughts. On approach he is rambling about something and telegraphic typewriter operator chief has a very hard time understanding him as he is jumping from topic to topic. He says he wants to go home and that he has a lot to accomplish. He has not been taking Vraylar and says he does not like it. He said he will take the paliperidone but refuses long-acting injectable. Pearl Stringer asked about paranoid delusional thinking and he said that others are making fictitious statements. Regarding driving erratically, he says I was driving between the lines... However he does acknowledge he was playing his music too loudly. Pearl Stringer discussed that team does not feel he is ready for discharge however patient is unable to tolerate this discussion just says no that he wants to go... electrical line worker discussed case with patient's cousin Marlin Dowd who is also his healthcare proxy (document in chart). She has significant concerns about his safety. She said that over the past week to 2 weeks he has been increasingly disorganized; telegraphic typewriter operator chief around [place] he refused his meds (from [facility]?); she drove in the car as a passenger with him and said she was very fearful as he was driving well below the speed limit, weaving in and out of the lanes and completely unsafe. She said he recently showed up at a work place and employees were scared of him because he was talking nonsensically. She says that he is delusional, thinking that his food is poisoned and threw away a significant amount of food that he got from a food shelf. She says he has lost about 30-40 lb over the past 2 months. She says that he has talked about raise or beams beaming down onto his head; saying that he seeing cars Vanish, planes Vanish and other bizarre delusional things. She says that he is historically not compliant with medication and would like him to be on a long-acting injectable. Pearl Stringer discussed case with ANALYTICAL LABORATORY TECHNICIAN inpatient provider who saw patient on his recent admission to a few weeks ago; she talked with his outpatient psychiatric provider Dr. Condon the said that patient needed Vraylar in addition to palpate own for stabilization. 06/20 rambling, hard to understand. Impossible to have a therapeutic conversation with patient as he quickly becomes oblivious to telegraphic typewriter operator chief, lost in a tangential thought and rambling about unrelated and mostly non-sensical things. Tried to ask pt about collateral reports, however he adamantly denies reports. t. Pt standing in [place] talking to himself. from the unit, pt called 911 and told police there is a sniper loose; on inquiry, could not explain his concern 06/21/24 Patient remains disorganized; perseveration on his relationship. He says he is good today...wants to get back to his house since he rebuilt his whole house and has things to do...He said he does not think he'll take psychiatric medications. He tells telegraphic typewriter operator chief that he has his own doctor, Dr. Hay. However, pt seemed open to writers explanation that medications ordered are the same ones that Dr. Hay prescribed. He seemed to agree to consider taking psych meds. 06/22 no change in presentation, remains disorganized, manic, delusional. Patient said he will contemplate taking the paliperidone. Will increase dose 06/23 patient took paliperidone last night. No change in presentation. Pearl Stringer discussed hypertension with patient and he said he used to be on an ISAC inhibitor and agreed to restart 1 now 06/25/2024: Continue to encourage medication adherence 06/26 No change in presentation; patient remains manic, rambling about various unrelated things. Came up to telegraphic typewriter operator chief and said something about [address] which patient could not explain. Staff reports only sleeping 2 hours last night. Patient again refuses Vraylar or long-acting medication. He says that the police that came to take him to the hospital were not real police... And says they were just dressed up to look like police. Again patient could not discuss this further; patient did however agree to increase lisinopril to 10 mg given continued hypertension 06/27 remains manic; reviewed blood pressures which was still avoided however lisinopril was just increase so needs more time to be effective. -patient remains manic, disorganized and without any insight. It seems that without a mood stabilizer on board, patient will remain manic and disorganized and unable to be safe in the community. 06/28 pt remains disorganized, rambling about various things perseverates on going home to fix his house, repair the roof. Telling staff that this telegraphic typewriter operator chief is an imposter and saying i know who my 's killer is... 06/29 continue tx plan; pt not open to increasing dose. 06/30 No change in presentation. Says he wants to get home so he can work on his house. Continuing to rambling about unrelated, irrelevant and or delusional things. Refuses any medication changes. Walking around the milieu with buttocks exposed. 07/01 patient remains disorganized; rambling about various things, often talking about his , referring to paranoid delusions about terrorists... Reviewed BP, HTN; discussed with pt who agrees to increasing lisinopril -will switch blood pressure measurements to t.i.d. to better assess effectiveness of antihypertensive 07/02 No change in presentation. Pearl Stringer asks patient how he is doing any patient starts talking about his , having been stolen, put into slavery and sex trafficking; says she is probably somewhere crying... Pearl Stringer tried to apply reality testing however patient kept talking about such things. Patient difficult to interrupt or with which to engage further 07/04 no change in presentation; no insight and refusing mood stabilizing meds o change in presentation. starts asking telegraphic typewriter operator chief for discharge, talking about medications, but quickly his ramble changes from unrelated topic to unrelated topic, imbued with paranoid ideations Impression: As patient remains without any insight to his illness or his behaviors, he remains unsafe and a danger to himself and others due to his erratic driving; also due to paranoid delusions he has been eating very little and seems to have lost significant weight and only a few months. At this time patient is not safe for discharge. He is not willing to sign a CV. Pearl Stringer will file for involuntary commitment and substituted judgment. Also, telegraphic typewriter operator chief is invoking the HCP on 06/19/24 as patient is unable to make medical decisions for himself. Plan: Section 7 (Filing for involuntary commitment and substituted judgment) Invoking healthcare proxy (06/19/2024) Q 15 minute checks Increased Lisinopril 20mg daily (patient said he used to be on enalapril however not on formulary) Continue Vraylar 3 mg q.h.s. patient has been refusing Continue Paliperidone 6 mg q.h.s. Continue Brimonide Tartrate Continue Dorzolamide Continue Latanoprost Continue Timolol Patient educated on: diagnosis and medication risk/benefits Informed Consent: understands Reason for continued inpatient stay Substantial Risk for: inability to function Time Spent With Patient Time: Total time managing care of this patient today ____ minutes.
[2024-07-05] MEDS: hydrOXYzine HCL 25 MG TABLET PO (15:25)
[2024-07-05 18:00] VITALS: BP 155/70; PULSE 70; RESP 16; TEMP 36.2; O2SAT 96
[2024-07-05] MEDS: Dorzolamide HCl 2 % Ophth Sol 10 ML DRPBTL 1 DROP EYE-BOTH (22:20)
[2024-07-05] MEDS: Latanoprost 0.005 % Ophth Sol 2.5 ML DROPS 1 DROP EYE-BOTH (22:21)
[2024-07-05] MEDS: Brimonidine Tartrate 0.2% Oph 5 ML BOTTLE 1 DROP EYE-BOTH (22:21)
[2024-07-05] MEDS: timoloL maleate 0.5 % Oph Sol 5 ML DRBTL 1 DROP EYE-BOTH (22:21)
[2024-07-05] MEDS: LORazepam 1 MG TABLET PO (22:22)
[2024-07-05] MEDS: OLANZapine 5 MG TABLET PO (22:23)
[2024-07-05] MEDS: traZODone HCL 50 MG TABLET PO (22:23)
[2024-07-05] MEDS: Paliperidone ER 9 MG TAB.ER.24 PO (22:23)
[2024-07-06 07:00] VITALS: BMI 25.1
[2024-07-06 08:07] VITALS: BP 167/77; PULSE 79; RESP 18; TEMP 35.9; O2SAT 98
[2024-07-06] MEDS: Thiamine HCL 100 MG TABLET PO (08:52)
[2024-07-06] MEDS: lisinopriL 20 MG TABLET PO (08:52)
[2024-07-06] MEDS: Brimonidine Tartrate 0.2% Oph 5 ML BOTTLE 1 DROP EYE-BOTH ×2 (08:53→21:18)
[2024-07-06] MEDS: Dorzolamide HCl 2 % Ophth Sol 10 ML DRPBTL 1 DROP EYE-BOTH ×2 (08:53→21:20)
[2024-07-06] MEDS: timoloL maleate 0.5 % Oph Sol 5 ML DRBTL 1 DROP EYE-BOTH ×2 (08:53→21:19)
[2024-07-06 14:24] VITALS: BP 156/70; PULSE 62; RESP 18; TEMP 35.9; O2SAT 98
--- NOTE | 2024-07-06 15:12 | P.PNPSI_ITS ---
Subjective Subjective Date of Service: 07/06/24 Reason For Visit: schizophrenia Subjective Notes: Conditional Voluntary Interim History: Pt slept about 6 hrs. He reports he was brought to the hospital illegally. Police just brought him to the hospital. His speech is somewhat disorganized. He has signs in his room that he has been seeing gangs for several years around his house and same people stole my . When asked about this, he reports, don't worried about that He reports he is willing to take paliperidone but not vraylar. He has declined vraylar. He has taken paliperidone. He has also taken prn doses of olanzapine. He denies SI/HI. He asks if he can be discharged home soon. Diagnostics Vital Signs (24Hr): Vital Signs - 24 hr 07/05/24 18:00 07/06/24 08:07 07/06/24 14:24 Temperature 97.1 F 96.7 F L 96.7 F L Pulse Rate 70 79 62 Respiratory Rate 16 18 18 Blood Pressure 155/70 H 167/77 H 156/70 H Pulse Oximetry 96 98 98 Oxygen Delivery Method Room Air Room Air Room Air BMI result Body Mass Index 25.1 Labs 06/14/24 00:45 06/14/24 00:45 Medications Medications Current Medications Acetaminophen (Acetaminophen 325 Mg Tablet) 650 mg PO Q6H PRN PRN Reason: Headache/Pain Mild Scale (1-3) Last Admin: 06/16/24 13:42 Dose: 650 mg Al Hydroxide/Mg Hydroxide (Magnesium Hydrox/Alum Hydrox 30 Ml Oral.Susp) 30 ml PO Q6H PRN PRN Reason: Heartburn/Nausea Brimonidine Tartrate (Brimonidine Tartrate 0.2% Oph 5 Ml Bottle) 1 drop EYE- BOTH BID [facility] Last Admin: 07/06/24 08:53 Dose: 1 drop Cariprazine (Cariprazine Hcl 3 Mg Capsule) 3 mg PO BEDTIME [facility] Last Admin: 07/05/24 22:23 Dose: Not Given Dorzolamide HCl (Dorzolamide Hcl 2 % Ophth Jossy 10 Ml Drpbtl) 1 drop EYE-BOTH TID [facility] Last Admin: 07/06/24 14:20 Dose: Not Given Hydroxyzine HCl (Hydroxyzine Hcl 25 Mg Tablet) 25 mg PO Q6H PRN PRN Reason: Anxiety Last Admin: 07/05/24 15:25 Dose: 25 mg Latanoprost (Latanoprost 0.005 % Ophth Jossy 2.5 Ml Drops) 1 drop EYE-BOTH BEDTIME [facility] Last Admin: 07/05/24 22:21 Dose: 1 drop Lisinopril (Lisinopril 20 Mg Tablet) 20 mg PO DAILY [facility]; Protocol Last Admin: 07/06/24 08:52 Dose: 20 mg Lorazepam (Lorazepam 1 Mg Tablet) 1 mg PO BEDTIME [facility] Last Admin: 07/05/24 22:22 Dose: 1 mg Magnesium Hydroxide (Milk Of Magnesia 30 Ml Oral.Susp) 30 ml PO DAILY PRN PRN Reason: Constipation Nicotine (Nicotine 21 Mg Patch.Td24) 21 mg TRANSDERMA DAILY PRN PRN Reason: nicotine cravings Nicotine Polacrilex (Nicotine Polacrilex 2 Mg Gum) 4 mg BUCCAL Q2H PRN PRN Reason: Nicotine Cravings Olanzapine (Olanzapine 5 Mg Tablet) 5 mg PO Q4H PRN PRN Reason: agitation,psychosis Last Admin: 07/05/24 22:23 Dose: 5 mg Paliperidone (Paliperidone Er 9 Mg Tab.Er.24) 9 mg PO BEDTIME [facility] Last Admin: 07/05/24 22:23 Dose: 9 mg Thiamine HCl (Thiamine Hcl 100 Mg Tablet) 100 mg PO DAILY [facility] Last Admin: 07/06/24 08:52 Dose: 100 mg Timolol Maleate (Timolol Maleate 0.5 % Oph Jossy 5 Ml Drbtl) 1 drop EYE-BOTH BID [facility] Last Admin: 07/06/24 08:53 Dose: 1 drop Trazodone HCl (Trazodone Hcl 50 Mg Tablet) 50 mg PO BEDTIME MRX1 PRN PRN Reason: Insomnia Last Admin: 07/05/24 22:23 Dose: 50 mg Allergies Allergies Allergy/AdvReac Type Severity Reaction Status Date / Time No Known Allergies Allergy Unknown UNKNOWN Verified 06/14/24 00:30 Assessment & Plan Assessment & Plan (1) Schizoaffective disorder, bipolar type: Status: Acute Code(s): F25.0 - Schizoaffective disorder, bipolar type (2) Glaucoma: Status: Acute Code(s): H40.9 - Unspecified glaucoma (3) Hypertension: Status: Acute Code(s): I10 - Essential (primary) hypertension Plan Patient is a 68-year-old male with history of schizoaffective, bipolar type (vs bipolar), glaucoma who presents via police for disorganized behavior in the community in the face of medication noncompliance. Patient is disorganized in speech, rambling, often incoherently. He asks financial underwriter. about the mott of the sexes and Eleazar and Vidya... Content Specialist inquired about ED/police report that he was disorganized, that he was driving in the backyard of his house, shiny his lights on neighbors house. He said he was trying to park in his driveway and I did not. Mean to drive in the backyard.. Saying it was accidental. Regarding being disorganized outside a convenience store, patient said that there was a angry woman there a sick woman.. Who was upset with and all he was doing was sitting in his car outside the convenience store for a little while, listening to music. Patient denies any drug or alcohol use. Says his throat is bothering him but he can not tolerate any questions regarding it. Says he does not need medications but has been taking them since he got here. Collateral report says patient was brought in for acting erratic, driving in circles and backyard of his house after neighbors called; also reports that he was acting erratically at nighttime outside of a convenience store. Formulation/clinical reasoning: Patient presents in a manic episode and acting erratically in the community. Recently discharged from [facility] on paliperidone 6mg qhs and Vraylar 3mg qhs. Not sure why patient is on 2 antipsychotics unless Vraylar is meant to be only a mood stabilizer. Will continue this regimen now since he seemed to somewhat stabilize on [facility]. If stabilizes will strongly consider long-acting injectable of paliperidone given history of noncompliance Hospital course: 06/19 Patient remains disorganized and is having a difficult time explaining his thoughts. On approach he is rambling about something and financial underwriter has a very hard time understanding him as he is jumping from topic to topic. He says he wants to go home and that he has a lot to accomplish. He has not been taking Vraylar and says he does not like it. He said he will take the paliperidone but refuses long-acting injectable. Content Specialist asked about paranoid delusional thinking and he said that others are making fictitious statements. Regarding driving erratically, he says I was driving between the lines... However he does acknowledge he was playing his music too loudly. Content Specialist discussed that team does not feel he is ready for discharge however patient is unable to tolerate this discussion just says no that he wants to go... licensed master social worker discussed case with patient's cousin Marlin Dowd who is also his healthcare proxy (document in chart). She has significant concerns about his safety. She said that over the past week to 2 weeks he has been increasingly disorganized; financial underwriter around [place] he refused his meds (from [facility]?); she drove in the car as a passenger with him and said she was very fearful as he was driving well below the speed limit, weaving in and out of the lanes and completely unsafe. She said he recently showed up at a work place and employees were scared of him because he was talking nonsensically. She says that he is delusional, thinking that his food is poisoned and threw away a significant amount of food that he got from a food shelf. She says he has lost about 30-40 lb over the past 2 months. She says that he has talked about raise or beams beaming down onto his head; saying that he seeing cars Vanish, planes Vanish and other bizarre delusional things. She says that he is historically not compliant with medication and would like him to be on a long-acting injectable. Content Specialist discussed case with [facility] inpatient provider who saw patient on his recent admission to a few weeks ago; she talked with his outpatient psychiatric provider Dr. Condon the said that patient needed Vraylar in addition to palpate own for stabilization. 06/20 rambling, hard to understand. Impossible to have a therapeutic conversation with patient as he quickly becomes oblivious to financial underwriter, lost in a tangential thought and rambling about unrelated and mostly non-sensical things. Tried to ask pt about collateral reports, however he adamantly denies reports. t. Pt standing in [place] talking to himself. from the unit, pt called 911 and told police there is a sniper loose; on inquiry, could not explain his concern 06/21/24 Patient remains disorganized; perseveration on his relationship. He says he is good today...wants to get back to his house since he rebuilt his whole house and has things to do...He said he does not think he'll take psychiatric medications. He tells financial underwriter that he has his own doctor, Dr. Hay. However, pt seemed open to writers explanation that medications ordered are the same ones that Dr. Hay prescribed. He seemed to agree to consider taking psych meds. 06/22 no change in presentation, remains disorganized, manic, delusional. Patient said he will contemplate taking the paliperidone. Will increase dose 06/23 patient took paliperidone last night. No change in presentation. Content Specialist discussed hypertension with patient and he said he used to be on an ISAC inhibitor and agreed to restart 1 now 06/25/2024: Continue to encourage medication adherence 06/26 No change in presentation; patient remains manic, rambling about various unrelated things. Came up to financial underwriter and said something about [address] which patient could not explain. Staff reports only sleeping 2 hours last night. Patient again refuses Vraylar or long-acting medication. He says that the police that came to take him to the hospital were not real police... And says they were just dressed up to look like police. Again patient could not discuss this further; patient did however agree to increase lisinopril to 10 mg given continued hypertension 06/27 remains manic; reviewed blood pressures which was still avoided however lisinopril was just increase so needs more time to be effective. -patient remains manic, disorganized and without any insight. It seems that without a mood stabilizer on board, patient will remain manic and disorganized and unable to be safe in the community. 06/28 pt remains disorganized, rambling about various things perseverates on going home to fix his house, repair the roof. Telling staff that this financial underwriter is an imposter and saying i know who my 's killer is... 06/29 continue tx plan; pt not open to increasing dose. 06/30 No change in presentation. Says he wants to get home so he can work on his house. Continuing to rambling about unrelated, irrelevant and or delusional things. Refuses any medication changes. Walking around the milieu with buttocks exposed. 07/01 patient remains disorganized; rambling about various things, often talking about his , referring to paranoid delusions about terrorists... Reviewed BP, HTN; discussed with pt who agrees to increasing lisinopril -will switch blood pressure measurements to t.i.d. to better assess effectiveness of antihypertensive 07/02 No change in presentation. Content Specialist asks patient how he is doing any patient starts talking about his , having been stolen, put into slavery and sex trafficking; says she is probably somewhere crying... Content Specialist tried to apply reality testing however patient kept talking about such things. Patient difficult to interrupt or with which to engage further 07/04 no change in presentation; no insight and refusing mood stabilizing meds o change in presentation. starts asking financial underwriter for discharge, talking about medications, but quickly his ramble changes from unrelated topic to unrelated topic, imbued with paranoid ideations 07/06 continue tx. refuses vraylar but taking paliperidone as prescribed. Impression: As patient remains without any insight to his illness or his behaviors, he remains unsafe and a danger to himself and others due to his erratic driving; also due to paranoid delusions he has been eating very little and seems to have lost significant weight and only a few months. At this time patient is not safe for discharge. He is not willing to sign a CV. Content Specialist will file for involuntary commitment and substituted judgment. Also, financial underwriter is invoking the HCP on 06/19/24 as patient is unable to make medical decisions for himself. Plan: Section 7 (Filing for involuntary commitment and substituted judgment) Invoking healthcare proxy (06/19/2024) Q 15 minute checks Increased Lisinopril 20mg daily (patient said he used to be on enalapril however not on formulary) Continue Vraylar 3 mg q.h.s. patient has been refusing Continue Paliperidone 6 mg q.h.s. Continue Brimonide Tartrate Continue Dorzolamide Continue Latanoprost Continue Timolol Reason for continued inpatient stay Substantial Risk for: inability to function Time Spent With Patient Time: Total time managing care of this patient today ____ minutes.
[2024-07-06 18:29] VITALS: BP 165/60; PULSE 73; RESP 18; TEMP 36.4; O2SAT 98
[2024-07-06] MEDS: Latanoprost 0.005 % Ophth Sol 2.5 ML DROPS 1 DROP EYE-BOTH (21:18)
[2024-07-06] MEDS: LORazepam 1 MG TABLET PO (21:21)
[2024-07-06] MEDS: Paliperidone ER 9 MG TAB.ER.24 PO (21:21)
[2024-07-06] MEDS: hydrOXYzine HCL 25 MG TABLET PO (21:21)
[2024-07-06] MEDS: OLANZapine 5 MG TABLET PO (21:21)
[2024-07-06] MEDS: traZODone HCL 50 MG TABLET PO (21:22)
[2024-07-07 08:08] VITALS: BP 127/58; PULSE 68; RESP 16; TEMP 36.4; O2SAT 98
[2024-07-07] MEDS: Dorzolamide HCl 2 % Ophth Sol 10 ML DRPBTL 1 DROP EYE-BOTH ×3 (08:44→22:26)
[2024-07-07] MEDS: Brimonidine Tartrate 0.2% Oph 5 ML BOTTLE 1 DROP EYE-BOTH ×2 (08:44→22:27)
[2024-07-07] MEDS: Thiamine HCL 100 MG TABLET PO (08:44)
[2024-07-07] MEDS: timoloL maleate 0.5 % Oph Sol 5 ML DRBTL 1 DROP EYE-BOTH ×2 (08:44→22:28)
[2024-07-07] MEDS: lisinopriL 20 MG TABLET PO (08:44)
--- NOTE | 2024-07-07 09:41 | P.PNPSI_ITS ---
Subjective Subjective Date of Service: 07/07/24 Reason For Visit: schizophrenia Interim History: met with patient; discussed with team; reviewed chart No change in presentation; remains delusional. Today patient expressed worries that people are out to murder his family. Not able to have a linear conversation Mental Status Exam Mental Status Exam Narrative: Pt is alert and oriented; behavior is disorganized, hyperverbal patient is not in distress; dressed in casual attire, adequate grooming; mood is described as anxious, affect congruent; eye contact appropriate; Speech is pressured and rambling, sometimes muttering incoherently but easier to understand; no psychomotor agitation present; thought process is still disorganized, rambling and tangential; Thought content is on often on his but with delusional twists; otherwise on various unrelated topics; paranoid delusions remain; denies any SI/HI. Denies AH but patient appears to be internally preoccupied and responding to internal stimuli. Patients insight and judgment impaired. Diagnostics Vital Signs (24Hr): Vital Signs - 24 hr 07/06/24 14:24 07/06/24 18:29 07/07/24 08:08 Temperature 96.7 F L 97.5 F 97.6 F Pulse Rate 62 73 68 Respiratory Rate 18 18 16 Blood Pressure 156/70 H 165/60 H 127/58 L Pulse Oximetry 98 98 98 Oxygen Delivery Method Room Air Room Air Room Air BMI result Body Mass Index 25.1 Labs 06/14/24 00:45 06/14/24 00:45 Medications Medications Current Medications Acetaminophen (Acetaminophen 325 Mg Tablet) 650 mg PO Q6H PRN PRN Reason: Headache/Pain Mild Scale (1-3) Last Admin: 06/16/24 13:42 Dose: 650 mg Al Hydroxide/Mg Hydroxide (Magnesium Hydrox/Alum Hydrox 30 Ml Oral.Susp) 30 ml PO Q6H PRN PRN Reason: Heartburn/Nausea Brimonidine Tartrate (Brimonidine Tartrate 0.2% Oph 5 Ml Bottle) 1 drop EYE- BOTH BID [facility] Last Admin: 07/07/24 08:44 Dose: 1 drop Cariprazine (Cariprazine Hcl 3 Mg Capsule) 3 mg PO BEDTIME [facility] Last Admin: 07/06/24 23:10 Dose: Not Given Dorzolamide HCl (Dorzolamide Hcl 2 % Ophth Jossy 10 Ml Drpbtl) 1 drop EYE-BOTH TID [facility] Last Admin: 07/07/24 08:44 Dose: 1 drop Hydroxyzine HCl (Hydroxyzine Hcl 25 Mg Tablet) 25 mg PO Q6H PRN PRN Reason: Anxiety Last Admin: 07/06/24 21:21 Dose: 25 mg Latanoprost (Latanoprost 0.005 % Ophth Jossy 2.5 Ml Drops) 1 drop EYE-BOTH BEDTIME [facility] Last Admin: 07/06/24 21:18 Dose: 1 drop Lisinopril (Lisinopril 20 Mg Tablet) 20 mg PO DAILY [facility]; Protocol Last Admin: 07/07/24 08:44 Dose: 20 mg Lorazepam (Lorazepam 1 Mg Tablet) 1 mg PO BEDTIME [facility] Last Admin: 07/06/24 21:21 Dose: 1 mg Magnesium Hydroxide (Milk Of Magnesia 30 Ml Oral.Susp) 30 ml PO DAILY PRN PRN Reason: Constipation Nicotine (Nicotine 21 Mg Patch.Td24) 21 mg TRANSDERMA DAILY PRN PRN Reason: nicotine cravings Nicotine Polacrilex (Nicotine Polacrilex 2 Mg Gum) 4 mg BUCCAL Q2H PRN PRN Reason: Nicotine Cravings Olanzapine (Olanzapine 5 Mg Tablet) 5 mg PO Q4H PRN PRN Reason: agitation,psychosis Last Admin: 07/06/24 21:21 Dose: 5 mg Paliperidone (Paliperidone Er 9 Mg Tab.Er.24) 9 mg PO BEDTIME [facility] Last Admin: 07/06/24 21:21 Dose: 9 mg Thiamine HCl (Thiamine Hcl 100 Mg Tablet) 100 mg PO DAILY [facility] Last Admin: 07/07/24 08:44 Dose: 100 mg Timolol Maleate (Timolol Maleate 0.5 % Oph Jossy 5 Ml Drbtl) 1 drop EYE-BOTH BID [facility] Last Admin: 07/07/24 08:44 Dose: 1 drop Trazodone HCl (Trazodone Hcl 50 Mg Tablet) 50 mg PO BEDTIME MRX1 PRN PRN Reason: Insomnia Last Admin: 07/06/24 21:22 Dose: 50 mg Allergies Allergies Allergy/AdvReac Type Severity Reaction Status Date / Time No Known Allergies Allergy Unknown UNKNOWN Verified 06/14/24 00:30 Assessment & Plan Assessment & Plan (1) Schizoaffective disorder, bipolar type: Status: Acute Code(s): F25.0 - Schizoaffective disorder, bipolar type (2) Glaucoma: Status: Acute Code(s): H40.9 - Unspecified glaucoma (3) Hypertension: Status: Acute Code(s): I10 - Essential (primary) hypertension Plan Patient is a 68-year-old male with history of schizoaffective, bipolar type (vs bipolar), glaucoma who presents via police for disorganized behavior in the community in the face of medication noncompliance. Patient is disorganized in speech, rambling, often incoherently. He asks residential mortgage underwriter. about the mott of the sexes and Eleazar and Vidya... Family Physician inquired about ED/police report that he was disorganized, that he was driving in the backyard of his house, shiny his lights on neighbors house. He said he was trying to park in his driveway and I did not. Mean to drive in the backyard.. Saying it was accidental. Regarding being disorganized outside a convenience store, patient said that there was a angry woman there a sick woman.. Who was upset with and all he was doing was sitting in his car outside the convenience store for a little while, listening to music. Patient denies any drug or alcohol use. Says his throat is bothering him but he can not tolerate any questions regarding it. Says he does not need medications but has been taking them since he got here. Collateral report says patient was brought in for acting erratic, driving in circles and backyard of his house after neighbors called; also reports that he was acting erratically at nighttime outside of a convenience store. Formulation/clinical reasoning: Patient presents in a manic episode and acting erratically in the community. Recently discharged from [facility] on paliperidone 6mg qhs and Vraylar 3mg qhs. Not sure why patient is on 2 antipsychotics unless Vraylar is meant to be only a mood stabilizer. Will continue this regimen now since he seemed to somewhat stabilize on [facility]. If stabilizes will strongly consider long-acting injectable of paliperidone given history of noncompliance Hospital course: 06/19 Patient remains disorganized and is having a difficult time explaining his thoughts. On approach he is rambling about something and residential mortgage underwriter has a very hard time understanding him as he is jumping from topic to topic. He says he wants to go home and that he has a lot to accomplish. He has not been taking Vraylar and says he does not like it. He said he will take the paliperidone but refuses long-acting injectable. Family Physician asked about paranoid delusional thinking and he said that others are making fictitious statements. Regarding driving erratically, he says I was driving between the lines... However he does acknowledge he was playing his music too loudly. Family Physician discussed that team does not feel he is ready for discharge however patient is unable to tolerate this discussion just says no that he wants to go... target worker discussed case with patient's cousin Marlin Dowd who is also his healthcare proxy (document in chart). She has significant concerns about his safety. She said that over the past week to 2 weeks he has been increasingly disorganized; residential mortgage underwriter around [place] he refused his meds (from [facility]?); she drove in the car as a passenger with him and said she was very fearful as he was driving well below the speed limit, weaving in and out of the lanes and completely unsafe. She said he recently showed up at a work place and employees were scared of him because he was talking nonsensically. She says that he is delusional, thinking that his food is poisoned and threw away a significant amount of food that he got from a food shelf. She says he has lost about 30-40 lb over the past 2 months. She says that he has talked about raise or beams beaming down onto his head; saying that he seeing cars Vanish, planes Vanish and other bizarre delusional things. She says that he is historically not compliant with medication and would like him to be on a long-acting injectable. Family Physician discussed case with LEARNING COORDINATOR inpatient provider who saw patient on his recent admission to a few weeks ago; she talked with his outpatient psychiatric provider Dr. Condon the said that patient needed Vraylar in addition to palpate own for stabilization. 06/20 rambling, hard to understand. Impossible to have a therapeutic conversation with patient as he quickly becomes oblivious to residential mortgage underwriter, lost in a tangential thought and rambling about unrelated and mostly non-sensical things. Tried to ask pt about collateral reports, however he adamantly denies reports. t. Pt standing in [place] talking to himself. from the unit, pt called 911 and told police there is a sniper loose; on inquiry, could not explain his concern 06/21/24 Patient remains disorganized; perseveration on his relationship. He says he is good today...wants to get back to his house since he rebuilt his whole house and has things to do...He said he does not think he'll take psychiatric medications. He tells residential mortgage underwriter that he has his own doctor, Dr. Hay. However, pt seemed open to writers explanation that medications ordered are the same ones that Dr. Hay prescribed. He seemed to agree to consider taking psych meds. 06/22 no change in presentation, remains disorganized, manic, delusional. Patient said he will contemplate taking the paliperidone. Will increase dose 06/23 patient took paliperidone last night. No change in presentation. Family Physician discussed hypertension with patient and he said he used to be on an ISAC inhibitor and agreed to restart 1 now 06/25/2024: Continue to encourage medication adherence 06/26 No change in presentation; patient remains manic, rambling about various unrelated things. Came up to residential mortgage underwriter and said something about [address] which patient could not explain. Staff reports only sleeping 2 hours last night. Patient again refuses Vraylar or long-acting medication. He says that the police that came to take him to the hospital were not real police... And says they were just dressed up to look like police. Again patient could not discuss this further; patient did however agree to increase lisinopril to 10 mg given continued hypertension 06/27 remains manic; reviewed blood pressures which was still avoided however lisinopril was just increase so needs more time to be effective. -patient remains manic, disorganized and without any insight. It seems that without a mood stabilizer on board, patient will remain manic and disorganized and unable to be safe in the community. 06/28 pt remains disorganized, rambling about various things perseverates on going home to fix his house, repair the roof. Telling staff that this residential mortgage underwriter is an imposter and saying i know who my 's killer is... 06/29 continue tx plan; pt not open to increasing dose. 06/30 No change in presentation. Says he wants to get home so he can work on his house. Continuing to rambling about unrelated, irrelevant and or delusional things. Refuses any medication changes. Walking around the milieu with buttocks exposed. 07/01 patient remains disorganized; rambling about various things, often talking about his , referring to paranoid delusions about terrorists... Reviewed BP, HTN; discussed with pt who agrees to increasing lisinopril -will switch blood pressure measurements to t.i.d. to better assess effectiveness of antihypertensive 07/02 No change in presentation. Family Physician asks patient how he is doing any patient starts talking about his , having been stolen, put into slavery and sex trafficking; says she is probably somewhere crying... Family Physician tried to apply reality testing however patient kept talking about such things. Patient difficult to interrupt or with which to engage further 07/04 no change in presentation; no insight and refusing mood stabilizing meds o change in presentation. starts asking residential mortgage underwriter for discharge, talking about medications, but quickly his ramble changes from unrelated topic to unrelated topic, imbued with paranoid ideations 07/06 continue tx. refuses vraylar but taking paliperidone as prescribed. 07/07 no change in presentation; refuses any medication changes, increase paliperidone or other mood stabilizer Impression: As patient remains without any insight to his illness or his behaviors, he remains unsafe and a danger to himself and others due to his erratic driving; also due to paranoid delusions he has been eating very little and seems to have lost significant weight and only a few months. At this time patient is not safe for discharge. He is not willing to sign a CV. Family Physician will file for involuntary commitment and substituted judgment. Also, residential mortgage underwriter is invoking the HCP on 06/19/24 as patient is unable to make medical decisions for himself. Plan: Section 7 (Filing for involuntary commitment and substituted judgment) Invoking healthcare proxy (06/19/2024) Q 15 minute checks Increased Lisinopril 20mg daily (patient said he used to be on enalapril however not on formulary) Continue Vraylar 3 mg q.h.s. patient has been refusing Continue Paliperidone 6 mg q.h.s. Continue Brimonide Tartrate Continue Dorzolamide Continue Latanoprost Continue Timolol Patient educated on: diagnosis Informed Consent: does not understand Reason for continued inpatient stay Substantial Risk for: inability to function Time Spent With Patient Time: Total time managing care of this patient today ____ minutes.
[2024-07-07 13:34] VITALS: BP 163/74; PULSE 72; RESP 16; TEMP 37.1; O2SAT 98
[2024-07-07] MEDS: traZODone HCL 50 MG TABLET PO (22:21)
[2024-07-07] MEDS: Paliperidone ER 9 MG TAB.ER.24 PO (22:21)
[2024-07-07] MEDS: LORazepam 1 MG TABLET PO (22:21)
[2024-07-07] MEDS: Latanoprost 0.005 % Ophth Sol 2.5 ML DROPS 1 DROP EYE-BOTH (22:24)
[2024-07-07] MEDS: Carbamide Peroxide 6.5% Otic 15 ML DRPBTL 5 DROP EAR-LEFT (22:24)
[2024-07-08] MEDS: traZODone HCL 50 MG TABLET PO (03:38)
[2024-07-08 07:55] VITALS: BP 103/54; PULSE 66; TEMP 36.3; O2SAT 96
[2024-07-08] MEDS: Brimonidine Tartrate 0.2% Oph 5 ML BOTTLE 1 DROP EYE-BOTH ×2 (09:50→22:02)
[2024-07-08] MEDS: Carbamide Peroxide 6.5% Otic 15 ML DRPBTL 5 DROP EAR-LEFT ×2 (09:50→22:01)
[2024-07-08] MEDS: Dorzolamide HCl 2 % Ophth Sol 10 ML DRPBTL 1 DROP EYE-BOTH ×3 (09:51→22:01)
[2024-07-08] MEDS: Thiamine HCL 100 MG TABLET PO (09:52)
[2024-07-08] MEDS: timoloL maleate 0.5 % Oph Sol 5 ML DRBTL 1 DROP EYE-BOTH ×2 (10:03→22:01)
--- NOTE | 2024-07-08 10:39 | P.PNPSI_ITS ---
Subjective Subjective Date of Service: 07/08/24 Reason For Visit: schizophrenia Subjective Notes: Section 7 Interim History: Patient was seen and discussed in rounds today. Records and plans were reviewed. He continues to be delusional but is visible and talkative. Thought processes are at times nonsensical. Continues to have paranoid ideations and delusions. No complaints or side effects. No behavioral issues. No changes were made today Review of Systems Review of Systems Yes all other systems are reviewed and are negative Mental Status Exam Mental Status Exam Narrative: He is alert, pleasant and somewhat interactive. Soft-spoken speech. No eye contact. Affect is appropriate and constricted. No acute signs of psychosis but as paranoid ideations. No SI. Cognitively is disorganized. Judgment is marginal Diagnostics Vital Signs (24Hr): Vital Signs - 24 hr 07/07/24 13:34 07/08/24 07:55 Temperature 98.7 F 97.4 F Pulse Rate 72 66 Respiratory Rate 16 Blood Pressure 163/74 H 103/54 L Pulse Oximetry 98 96 Oxygen Delivery Method Room Air Room Air BMI result Body Mass Index 25.1 Labs 06/14/24 00:45 06/14/24 00:45 Medications Medications Current Medications Acetaminophen (Acetaminophen 325 Mg Tablet) 650 mg PO Q6H PRN PRN Reason: Headache/Pain Mild Scale (1-3) Last Admin: 06/16/24 13:42 Dose: 650 mg Al Hydroxide/Mg Hydroxide (Magnesium Hydrox/Alum Hydrox 30 Ml Oral.Susp) 30 ml PO Q6H PRN PRN Reason: Heartburn/Nausea Brimonidine Tartrate (Brimonidine Tartrate 0.2% Oph 5 Ml Bottle) 1 drop EYE- BOTH BID [facility] Last Admin: 07/08/24 09:50 Dose: 1 drop Carbamide Peroxide (Carbamide Peroxide 6.5% Otic 15 Ml Drpbtl) 5 drop EAR-LEFT BID [facility] Stop: 07/09/24 23:18 Last Admin: 07/08/24 09:50 Dose: 5 drop Cariprazine (Cariprazine Hcl 3 Mg Capsule) 3 mg PO BEDTIME [facility] Last Admin: 07/07/24 22:23 Dose: Not Given Dorzolamide HCl (Dorzolamide Hcl 2 % Ophth Jossy 10 Ml Drpbtl) 1 drop EYE-BOTH TID [facility] Last Admin: 07/08/24 09:51 Dose: 1 drop Hydroxyzine HCl (Hydroxyzine Hcl 25 Mg Tablet) 25 mg PO Q6H PRN PRN Reason: Anxiety Last Admin: 07/06/24 21:21 Dose: 25 mg Latanoprost (Latanoprost 0.005 % Ophth Jossy 2.5 Ml Drops) 1 drop EYE-BOTH BEDTIME NAZ Last Admin: 07/07/24 22:24 Dose: 1 drop Lisinopril (Lisinopril 20 Mg Tablet) 20 mg PO DAILY [facility]; Protocol Last Admin: 07/08/24 09:53 Dose: Not Given Lorazepam (Lorazepam 1 Mg Tablet) 1 mg PO BEDTIME NAZ Last Admin: 07/07/24 22:21 Dose: 1 mg Magnesium Hydroxide (Milk Of Magnesia 30 Ml Oral.Susp) 30 ml PO DAILY PRN PRN Reason: Constipation Nicotine (Nicotine 21 Mg Patch.Td24) 21 mg TRANSDERMA DAILY PRN PRN Reason: nicotine cravings Nicotine Polacrilex (Nicotine Polacrilex 2 Mg Gum) 4 mg BUCCAL Q2H PRN PRN Reason: Nicotine Cravings Olanzapine (Olanzapine 5 Mg Tablet) 5 mg PO Q4H PRN PRN Reason: agitation,psychosis Last Admin: 07/06/24 21:21 Dose: 5 mg Paliperidone (Paliperidone Er 9 Mg Tab.Er.24) 9 mg PO BEDTIME [facility] Last Admin: 07/07/24 22:21 Dose: 9 mg Thiamine HCl (Thiamine Hcl 100 Mg Tablet) 100 mg PO DAILY [facility] Last Admin: 07/08/24 09:52 Dose: 100 mg Timolol Maleate (Timolol Maleate 0.5 % Oph Jossy 5 Ml Drbtl) 1 drop EYE-BOTH BID [facility] Last Admin: 07/08/24 10:03 Dose: 1 drop Trazodone HCl (Trazodone Hcl 50 Mg Tablet) 50 mg PO BEDTIME MRX1 PRN PRN Reason: Insomnia Last Admin: 07/08/24 03:38 Dose: 50 mg Allergies Allergies Allergy/AdvReac Type Severity Reaction Status Date / Time No Known Allergies Allergy Unknown UNKNOWN Verified 06/14/24 00:30 Assessment & Plan Assessment & Plan (1) Schizoaffective disorder, bipolar type: Status: Acute Code(s): F25.0 - Schizoaffective disorder, bipolar type (2) Glaucoma: Status: Acute Code(s): H40.9 - Unspecified glaucoma (3) Hypertension: Status: Acute Code(s): I10 - Essential (primary) hypertension Plan Patient is a 68-year-old male with history of schizoaffective, bipolar type (vs bipolar), glaucoma who presents via police for disorganized behavior in the community in the face of medication noncompliance. Patient is disorganized in speech, rambling, often incoherently. He asks script writer. about the mott of the sexes and Eleazar and Vidya... Physician Representative inquired about ED/police report that he was disorganized, that he was driving in the backyard of his house, shiny his lights on neighbors house. He said he was trying to park in his driveway and I did not. Mean to drive in the backyard.. Saying it was accidental. Regarding being disorganized outside a convenience store, patient said that there was a angry woman there a sick woman.. Who was upset with and all he was doing was sitting in his car outside the convenience store for a little while, listening to music. Patient denies any drug or alcohol use. Says his throat is bothering him but he can not tolerate any questions regarding it. Says he does not need medications but has been taking them since he got here. Collateral report says patient was brought in for acting erratic, driving in circles and backyard of his house after neighbors called; also reports that he was acting erratically at nighttime outside of a convenience store. Formulation/clinical reasoning: Patient presents in a manic episode and acting erratically in the community. Recently discharged from [facility] on paliperidone 6mg qhs and Vraylar 3mg qhs. Not sure why patient is on 2 antipsychotics unless Vraylar is meant to be only a mood stabilizer. Will continue this regimen now since he seemed to somewhat stabilize on [facility]. If stabilizes will strongly consider long-acting injectable of paliperidone given history of noncompliance Hospital course: 06/19 Patient remains disorganized and is having a difficult time explaining his thoughts. On approach he is rambling about something and script writer has a very hard time understanding him as he is jumping from topic to topic. He says he wants to go home and that he has a lot to accomplish. He has not been taking Vraylar and says he does not like it. He said he will take the paliperidone but refuses long-acting injectable. Physician Representative asked about paranoid delusional thinking and he said that others are making fictitious statements. Regarding driving erratically, he says I was driving between the lines... However he does acknowledge he was playing his music too loudly. Physician Representative discussed that team does not feel he is ready for discharge however patient is unable to tolerate this discussion just says no that he wants to go... barge worker discussed case with patient's cousin Marlin Dowd who is also his healthcare proxy (document in chart). She has significant concerns about his safety. She said that over the past week to 2 weeks he has been increasingly disorganized; script writer around [place] he refused his meds (from [facility]?); she drove in the car as a passenger with him and said she was very fearful as he was driving well below the speed limit, weaving in and out of the lanes and completely unsafe. She said he recently showed up at a work place and employees were scared of him because he was talking nonsensically. She says that he is delusional, thinking that his food is poisoned and threw away a significant amount of food that he got from a food shelf. She says he has lost about 30-40 lb over the past 2 months. She says that he has talked about raise or beams beaming down onto his head; saying that he seeing cars Vanish, planes Vanish and other bizarre delusional things. She says that he is historically not compliant with medication and would like him to be on a long-acting injectable. Physician Representative discussed case with [facility] inpatient provider who saw patient on his recent admission to a few weeks ago; she talked with his outpatient psychiatric provider Dr. Condon the said that patient needed Vraylar in addition to palpate own for stabilization. 06/20 rambling, hard to understand. Impossible to have a therapeutic conversation with patient as he quickly becomes oblivious to script writer, lost in a tangential thought and rambling about unrelated and mostly non-sensical things. Tried to ask pt about collateral reports, however he adamantly denies reports. t. Pt standing in [place] talking to himself. from the unit, pt called 911 and told police there is a sniper loose; on inquiry, could not explain his concern 1/1/25 Patient remains disorganized; perseveration on his relationship. He says he is good today...wants to get back to his house since he rebuilt his whole house and has things to do...He said he does not think he'll take psychiatric medications. He tells script writer that he has his own doctor, Dr. Hay. However, pt seemed open to writers explanation that medications ordered are the same ones that Dr. Hay prescribed. He seemed to agree to consider taking psych meds. 06/22 no change in presentation, remains disorganized, manic, delusional. Patient said he will contemplate taking the paliperidone. Will increase dose 06/23 patient took paliperidone last night. No change in presentation. Physician Representative discussed hypertension with patient and he said he used to be on an ISAC inhibitor and agreed to restart 1 now 06/25/2024: Continue to encourage medication adherence 06/26 No change in presentation; patient remains manic, rambling about various unrelated things. Came up to script writer and said something about [address] which patient could not explain. Staff reports only sleeping 2 hours last night. Patient again refuses Vraylar or long-acting medication. He says that the police that came to take him to the hospital were not real police... And says they were just dressed up to look like police. Again patient could not discuss this further; patient did however agree to increase lisinopril to 10 mg given continued hypertension 06/27 remains manic; reviewed blood pressures which was still avoided however lisinopril was just increase so needs more time to be effective. -patient remains manic, disorganized and without any insight. It seems that without a mood stabilizer on board, patient will remain manic and disorganized and unable to be safe in the community. 06/28 pt remains disorganized, rambling about various things perseverates on going home to fix his house, repair the roof. Telling staff that this script writer is an imposter and saying i know who my 's killer is... 06/29 continue tx plan; pt not open to increasing dose. 06/30 No change in presentation. Says he wants to get home so he can work on his house. Continuing to rambling about unrelated, irrelevant and or delusional things. Refuses any medication changes. Walking around the milieu with buttocks exposed. 07/01 patient remains disorganized; rambling about various things, often talking about his , referring to paranoid delusions about terrorists... Reviewed BP, HTN; discussed with pt who agrees to increasing lisinopril -will switch blood pressure measurements to t.i.d. to better assess effectiveness of antihypertensive 07/02 No change in presentation. Physician Representative asks patient how he is doing any patient starts talking about his , having been stolen, put into slavery and sex trafficking; says she is probably somewhere crying... Physician Representative tried to apply reality testing however patient kept talking about such things. Patient difficult to interrupt or with which to engage further 07/04 no change in presentation; no insight and refusing mood stabilizing meds o change in presentation. starts asking script writer for discharge, talking about medications, but quickly his ramble changes from unrelated topic to unrelated topic, imbued with paranoid ideations 07/06 continue tx. refuses vraylar but taking paliperidone as prescribed. 07/07 no change in presentation; refuses any medication changes, increase paliperidone or other mood stabilizer 07/08/2024: Continue current regimen and plans Impression: As patient remains without any insight to his illness or his behaviors, he remains unsafe and a danger to himself and others due to his erratic driving; also due to paranoid delusions he has been eating very little and seems to have lost significant weight and only a few months. At this time patient is not safe for discharge. He is not willing to sign a CV. Physician Representative will file for involuntary commitment and substituted judgment. Also, script writer is invoking the HCP on 06/19/24 as patient is unable to make medical decisions for himself. Plan: Section 7 (Filing for involuntary commitment and substituted judgment) Invoking healthcare proxy (06/19/2024) Q 15 minute checks Increased Lisinopril 20mg daily (patient said he used to be on enalapril however not on formulary) Continue Vraylar 3 mg q.h.s. patient has been refusing Continue Paliperidone 6 mg q.h.s. Continue Brimonide Tartrate Continue Dorzolamide Continue Latanoprost Continue Timolol Reason for continued inpatient stay Substantial Risk for: med/psych decompensation Time Spent With Patient Time: Total time managing care of this patient today ____ minutes.
[2024-07-08 13:00] VITALS: TEMP 36.4
[2024-07-08 18:00] VITALS: BP 163/77; PULSE 68; TEMP 37.1; O2SAT 96
[2024-07-08 18:01] VITALS: BP 163/77
[2024-07-08] MEDS: lisinopriL 20 MG TABLET PO (18:01)
[2024-07-08 20:00] VITALS: BP 151/70; PULSE 69; TEMP 36.3; O2SAT 98
[2024-07-08] MEDS: Paliperidone ER 9 MG TAB.ER.24 PO (21:59)
[2024-07-08] MEDS: LORazepam 1 MG TABLET PO (22:00)
[2024-07-08] MEDS: Latanoprost 0.005 % Ophth Sol 2.5 ML DROPS 1 DROP EYE-BOTH (22:05)
[2024-07-09] MEDS: timoloL maleate 0.5 % Oph Sol 5 ML DRBTL 1 DROP EYE-BOTH ×2 (08:26→21:37)
[2024-07-09] MEDS: Brimonidine Tartrate 0.2% Oph 5 ML BOTTLE 1 DROP EYE-BOTH ×2 (08:26→21:37)
[2024-07-09] MEDS: Dorzolamide HCl 2 % Ophth Sol 10 ML DRPBTL 1 DROP EYE-BOTH ×2 (08:27→21:37)
[2024-07-09 08:29] VITALS: BP 126/78
[2024-07-09] MEDS: lisinopriL 20 MG TABLET PO (08:29)
[2024-07-09] MEDS: Thiamine HCL 100 MG TABLET PO (08:29)
[2024-07-09] MEDS: Carbamide Peroxide 6.5% Otic 15 ML DRPBTL 5 DROP EAR-LEFT ×2 (08:33→21:45)
[2024-07-09 09:00] VITALS: BP 138/63; PULSE 64; RESP 16; TEMP 36.3; O2SAT 95
--- NOTE | 2024-07-09 10:36 | HO.PSYCHPN ---
Subjective Subjective Date of Service: 07/09/24 Reason For Visit: schizophrenia Subjective Notes: Section 7 Interim History: Patient was seen and discussed in rounds today. Records and plans were reviewed. He has been inquiring about his discharge plans and I referred him to his provider for tomorrow. He has resumed his blood pressure medications. He has visible, anxious and pacing at times. No SI. No AVH. Eating and sleeping adequately. No changes were made today Review of Systems Review of Systems Yes all other systems are reviewed and are negative Mental Status Exam Mental Status Exam Narrative: He is alert, pleasant and somewhat interactive. Soft-spoken speech. No eye contact. Affect is appropriate and constricted. No acute signs of psychosis but as paranoid ideations. No SI. Cognitively is disorganized. Judgment is marginal Diagnostics Vital Signs (24Hr): Vital Signs - 24 hr 07/08/24 13:00 07/08/24 18:00 07/08/24 18:01 Temperature 97.6 F 98.7 F Pulse Rate 68 Respiratory Rate Blood Pressure 163/77 H 163/77 H Pulse Oximetry 96 Oxygen Delivery Method Room Air 07/08/24 20:00 07/09/24 08:29 07/09/24 09:00 Temperature 97.3 F 97.4 F Pulse Rate 69 64 Respiratory Rate 16 Blood Pressure 151/70 H 126/78 138/63 Pulse Oximetry 98 95 Oxygen Delivery Method Room Air BMI result Body Mass Index 25.1 Labs 06/14/24 00:45 06/14/24 00:45 Medications Medications Current Medications Acetaminophen (Acetaminophen 325 Mg Tablet) 650 mg PO Q6H PRN PRN Reason: Headache/Pain Mild Scale (1-3) Last Admin: 06/16/24 13:42 Dose: 650 mg Al Hydroxide/Mg Hydroxide (Magnesium Hydrox/Alum Hydrox 30 Ml Oral.Susp) 30 ml PO Q6H PRN PRN Reason: Heartburn/Nausea Brimonidine Tartrate (Brimonidine Tartrate 0.2% Oph 5 Ml Bottle) 1 drop EYE-BOTH BID [facility] Last Admin: 07/09/24 08:26 Dose: 1 drop Carbamide Peroxide (Carbamide Peroxide 6.5% Otic 15 Ml Drpbtl) 5 drop EAR-LEFT BID [facility] Stop: 07/09/24 23:18 Last Admin: 07/09/24 08:33 Dose: 5 drop Cariprazine (Cariprazine Hcl 3 Mg Capsule) 3 mg PO BEDTIME [facility] Last Admin: 07/08/24 22:03 Dose: Not Given Dorzolamide HCl (Dorzolamide Hcl 2 % Ophth Jossy 10 Ml Drpbtl) 1 drop EYE-BOTH TID [facility] Last Admin: 07/09/24 08:27 Dose: 1 drop Hydroxyzine HCl (Hydroxyzine Hcl 25 Mg Tablet) 25 mg PO Q6H PRN PRN Reason: Anxiety Last Admin: 07/06/24 21:21 Dose: 25 mg Latanoprost (Latanoprost 0.005 % Ophth Jossy 2.5 Ml Drops) 1 drop EYE-BOTH BEDTIME [facility] Last Admin: 07/08/24 22:05 Dose: 1 drop Lisinopril (Lisinopril 20 Mg Tablet) 20 mg PO DAILY [facility]; Protocol Last Admin: 07/09/24 08:29 Dose: 20 mg Lorazepam (Lorazepam 1 Mg Tablet) 1 mg PO BEDTIME [facility] Last Admin: 07/08/24 22:00 Dose: 1 mg Magnesium Hydroxide (Milk Of Magnesia 30 Ml Oral.Susp) 30 ml PO DAILY PRN PRN Reason: Constipation Nicotine (Nicotine 21 Mg Patch.Td24) 21 mg TRANSDERMA DAILY PRN PRN Reason: nicotine cravings Nicotine Polacrilex (Nicotine Polacrilex 2 Mg Gum) 4 mg BUCCAL Q2H PRN PRN Reason: Nicotine Cravings Olanzapine (Olanzapine 5 Mg Tablet) 5 mg PO Q4H PRN PRN Reason: agitation,psychosis Last Admin: 07/06/24 21:21 Dose: 5 mg Paliperidone (Paliperidone Er 9 Mg Tab.Er.24) 9 mg PO BEDTIME [facility] Last Admin: 07/08/24 21:59 Dose: 9 mg Thiamine HCl (Thiamine Hcl 100 Mg Tablet) 100 mg PO DAILY [facility] Last Admin: 07/09/24 08:29 Dose: 100 mg Timolol Maleate (Timolol Maleate 0.5 % Oph Jossy 5 Ml Drbtl) 1 drop EYE-BOTH BID [facility] Last Admin: 07/09/24 08:26 Dose: 1 drop Trazodone HCl (Trazodone Hcl 50 Mg Tablet) 50 mg PO BEDTIME MRX1 PRN PRN Reason: Insomnia Last Admin: 07/08/24 03:38 Dose: 50 mg Allergies Allergies Allergy/AdvReac Type Severity Reaction Status Date / Time No Known Allergies Allergy Unknown UNKNOWN Verified 06/14/24 00:30 Assessment & Plan Assessment & Plan (1) Schizoaffective disorder, bipolar type: Status: Acute Code(s): F25.0 - Schizoaffective disorder, bipolar type (2) Glaucoma: Status: Acute Code(s): H40.9 - Unspecified glaucoma (3) Hypertension: Status: Acute Code(s): I10 - Essential (primary) hypertension Plan Patient is a 68-year-old male with history of schizoaffective, bipolar type (vs bipolar), glaucoma who presents via police for disorganized behavior in the community in the face of medication noncompliance. Patient is disorganized in speech, rambling, often incoherently. He asks financial underwriter. about the mott of the sexes and Eleazar and Vidya... Landscape Photographer inquired about ED/police report that he was disorganized, that he was driving in the backyard of his house, shiny his lights on neighbors house. He said he was trying to park in his driveway and I did not. Mean to drive in the backyard.. Saying it was accidental. Regarding being disorganized outside a convenience store, patient said that there was a angry woman there a sick woman.. Who was upset with and all he was doing was sitting in his car outside the convenience store for a little while, listening to music. Patient denies any drug or alcohol use. Says his throat is bothering him but he can not tolerate any questions regarding it. Says he does not need medications but has been taking them since he got here. Collateral report says patient was brought in for acting erratic, driving in circles and backyard of his house after neighbors called; also reports that he was acting erratically at nighttime outside of a convenience store. Formulation/clinical reasoning: Patient presents in a manic episode and acting erratically in the community. Recently discharged from [facility] on paliperidone 6mg qhs and Vraylar 3mg qhs. Not sure why patient is on 2 antipsychotics unless Vraylar is meant to be only a mood stabilizer. Will continue this regimen now since he seemed to somewhat stabilize on [facility]. If stabilizes will strongly consider long-acting injectable of paliperidone given history of noncompliance Hospital course: 06/19 Patient remains disorganized and is having a difficult time explaining his thoughts. On approach he is rambling about something and financial underwriter has a very hard time understanding him as he is jumping from topic to topic. He says he wants to go home and that he has a lot to accomplish. He has not been taking Vraylar and says he does not like it. He said he will take the paliperidone but refuses long-acting injectable. Landscape Photographer asked about paranoid delusional thinking and he said that others are making fictitious statements. Regarding driving erratically, he says I was driving between the lines... However he does acknowledge he was playing his music too loudly. Landscape Photographer discussed that team does not feel he is ready for discharge however patient is unable to tolerate this discussion just says no that he wants to go... direct support worker discussed case with patient's cousin Marlin Dowd who is also his healthcare proxy (document in chart). She has significant concerns about his safety. She said that over the past week to 2 weeks he has been increasingly disorganized; financial underwriter around [place] he refused his meds (from [facility]?); she drove in the car as a passenger with him and said she was very fearful as he was driving well below the speed limit, weaving in and out of the lanes and completely unsafe. She said he recently showed up at a work place and employees were scared of him because he was talking nonsensically. She says that he is delusional, thinking that his food is poisoned and threw away a significant amount of food that he got from a food shelf. She says he has lost about 30-40 lb over the past 2 months. She says that he has talked about raise or beams beaming down onto his head; saying that he seeing cars Vanish, planes Vanish and other bizarre delusional things. She says that he is historically not compliant with medication and would like him to be on a long-acting injectable. Landscape Photographer discussed case with [employer] inpatient provider who saw patient on his recent admission to a few weeks ago; she talked with his outpatient psychiatric provider Dr. Condon the said that patient needed Vraylar in addition to palpate own for stabilization. 06/20 rambling, hard to understand. Impossible to have a therapeutic conversation with patient as he quickly becomes oblivious to financial underwriter, lost in a tangential thought and rambling about unrelated and mostly non-sensical things. Tried to ask pt about collateral reports, however he adamantly denies reports. t. Pt standing in [place] talking to himself. from the unit, pt called 911 and told police there is a sniper loose; on inquiry, could not explain his concern 06/21/24 Patient remains disorganized; perseveration on his relationship. He says he is good today...wants to get back to his house since he rebuilt his whole house and has things to do...He said he does not think he'll take psychiatric medications. He tells financial underwriter that he has his own doctor, Dr. Hay. However, pt seemed open to writers explanation that medications ordered are the same ones that Dr. Hay prescribed. He seemed to agree to consider taking psych meds. 06/22 no change in presentation, remains disorganized, manic, delusional. Patient said he will contemplate taking the paliperidone. Will increase dose 06/23 patient took paliperidone last night. No change in presentation. Landscape Photographer discussed hypertension with patient and he said he used to be on an ISAC inhibitor and agreed to restart 1 now 06/25/2024: Continue to encourage medication adherence 06/26 No change in presentation; patient remains manic, rambling about various unrelated things. Came up to financial underwriter and said something about [address] which patient could not explain. Staff reports only sleeping 2 hours last night. Patient again refuses Vraylar or long-acting medication. He says that the police that came to take him to the hospital were not real police... And says they were just dressed up to look like police. Again patient could not discuss this further; patient did however agree to increase lisinopril to 10 mg given continued hypertension 06/27 remains manic; reviewed blood pressures which was still avoided however lisinopril was just increase so needs more time to be effective. -patient remains manic, disorganized and without any insight. It seems that without a mood stabilizer on board, patient will remain manic and disorganized and unable to be safe in the community. 06/28 pt remains disorganized, rambling about various things perseverates on going home to fix his house, repair the roof. Telling staff that this financial underwriter is an imposter and saying i know who my 's killer is... 06/29 continue tx plan; pt not open to increasing dose. 06/30 No change in presentation. Says he wants to get home so he can work on his house. Continuing to rambling about unrelated, irrelevant and or delusional things. Refuses any medication changes. Walking around the milieu with buttocks exposed. 07/01 patient remains disorganized; rambling about various things, often talking about his , referring to paranoid delusions about terrorists... Reviewed BP, HTN; discussed with pt who agrees to increasing lisinopril -will switch blood pressure measurements to t.i.d. to better assess effectiveness of antihypertensive 07/02 No change in presentation. Landscape Photographer asks patient how he is doing any patient starts talking about his , having been stolen, put into slavery and sex trafficking; says she is probably somewhere crying... Landscape Photographer tried to apply reality testing however patient kept talking about such things. Patient difficult to interrupt or with which to engage further 07/04 no change in presentation; no insight and refusing mood stabilizing meds o change in presentation. starts asking financial underwriter for discharge, talking about medications, but quickly his ramble changes from unrelated topic to unrelated topic, imbued with paranoid ideations 07/06 continue tx. refuses vraylar but taking paliperidone as prescribed. 07/07 no change in presentation; refuses any medication changes, increase paliperidone or other mood stabilizer 07/08/2024: Continue current regimen and plans 07/09/2024: Continue current regimen and plans Impression: As patient remains without any insight to his illness or his behaviors, he remains unsafe and a danger to himself and others due to his erratic driving; also due to paranoid delusions he has been eating very little and seems to have lost significant weight and only a few months. At this time patient is not safe for discharge. He is not willing to sign a CV. Landscape Photographer will file for involuntary commitment and substituted judgment. Also, financial underwriter is invoking the HCP on 06/19/24 as patient is unable to make medical decisions for himself. Plan: Section 7 (Filing for involuntary commitment and substituted judgment) Invoking healthcare proxy (06/19/2024) Q 15 minute checks Increased Lisinopril 20mg daily (patient said he used to be on enalapril however not on formulary) Continue Vraylar 3 mg q.h.s. patient has been refusing Continue Paliperidone 6 mg q.h.s. Continue Brimonide Tartrate Continue Dorzolamide Continue Latanoprost Continue Timolol Reason for continued inpatient stay Substantial Risk for: med/psych decompensation Time Spent With Patient Time: Total time managing care of this patient today ____ minutes.
[2024-07-09 20:00] VITALS: BP 152/67; PULSE 74; RESP 16; TEMP 36.8; O2SAT 92
[2024-07-09] MEDS: Latanoprost 0.005 % Ophth Sol 2.5 ML DROPS 1 DROP EYE-BOTH (21:35)
[2024-07-09] MEDS: LORazepam 1 MG TABLET PO (21:36)
[2024-07-09] MEDS: Paliperidone ER 9 MG TAB.ER.24 PO (21:36)
[2024-07-10] MEDS: OLANZapine 5 MG TABLET PO (01:17)
[2024-07-10] MEDS: traZODone HCL 50 MG TABLET PO (01:17)
[2024-07-10 07:54] VITALS: BP 150/67; PULSE 59; RESP 16; TEMP 36.4; O2SAT 97
[2024-07-10] MEDS: Thiamine HCL 100 MG TABLET PO (08:29)
[2024-07-10] MEDS: timoloL maleate 0.5 % Oph Sol 5 ML DRBTL 1 DROP EYE-BOTH ×2 (08:29→21:51)
[2024-07-10] MEDS: lisinopriL 20 MG TABLET PO (08:29)
[2024-07-10] MEDS: Dorzolamide HCl 2 % Ophth Sol 10 ML DRPBTL 1 DROP EYE-BOTH ×3 (08:30→21:52)
[2024-07-10] MEDS: Brimonidine Tartrate 0.2% Oph 5 ML BOTTLE 1 DROP EYE-BOTH ×2 (08:30→21:50)
[2024-07-10 14:06] VITALS: BP 159/71; PULSE 67; RESP 16; TEMP 36.4; O2SAT 99
--- NOTE | 2024-07-10 17:56 | HO.PSYCHPN ---
Subjective Subjective Date of Service: 07/10/24 Reason For Visit: schizophrenia Interim History: Met with patient; discussed with team pt remains disorganized and tangential...junior underwriter starts talking with him about his treatment, but quickly patient starts talking about a totally different, unrelated topic, talking about when he first got glaucoma and he worried if this would keep him from a girlfriend. Pt is not interruptible. Mental Status Exam Mental Status Exam Narrative: Pt is alert and oriented; behavior is more calm, cooperative, keeps to himself; hyperverbal; patient is not in distress; dressed in casual attire, adequate grooming; mood is described as anxious, affect congruent; eye contact appropriate; Speech is mildly pressured and rambling, improved articulation; no psychomotor agitation present; thought process is still disorganized, rambling and tangential; Thought content is on often on his but imbued with delusional twists; otherwise on various unrelated topics; paranoid delusions remain; denies any SI/HI. Denies AH but patient appears to be internally preoccupied and responding to internal stimuli. Patients insight and judgment impaired. Diagnostics Vital Signs (24Hr): Vital Signs - 24 hr 07/09/24 20:00 07/10/24 07:54 07/10/24 14:06 Temperature 98.2 F 97.5 F 97.6 F Pulse Rate 74 59 67 Respiratory Rate 16 16 16 Blood Pressure 152/67 H 150/67 H 159/71 H Pulse Oximetry 92 97 99 Oxygen Delivery Method Room Air Room Air Room Air BMI result Body Mass Index 25.1 Labs 06/14/24 00:45 06/14/24 00:45 Medications Medications Current Medications Acetaminophen (Acetaminophen 325 Mg Tablet) 650 mg PO Q6H PRN PRN Reason: Headache/Pain Mild Scale (1-3) Last Admin: 06/16/24 13:42 Dose: 650 mg Al Hydroxide/Mg Hydroxide (Magnesium Hydrox/Alum Hydrox 30 Ml Oral.Susp) 30 ml PO Q6H PRN PRN Reason: Heartburn/Nausea Brimonidine Tartrate (Brimonidine Tartrate 0.2% Oph 5 Ml Bottle) 1 drop EYE-BOTH BID [facility] Last Admin: 07/10/24 08:30 Dose: 1 drop Cariprazine (Cariprazine Hcl 3 Mg Capsule) 3 mg PO BEDTIME [facility] Last Admin: 07/09/24 21:44 Dose: Not Given Dorzolamide HCl (Dorzolamide Hcl 2 % Ophth Jossy 10 Ml Drpbtl) 1 drop EYE-BOTH TID [facility] Last Admin: 07/10/24 14:11 Dose: 1 drop Hydroxyzine HCl (Hydroxyzine Hcl 25 Mg Tablet) 25 mg PO Q6H PRN PRN Reason: Anxiety Last Admin: 07/06/24 21:21 Dose: 25 mg Latanoprost (Latanoprost 0.005 % Ophth Jossy 2.5 Ml Drops) 1 drop EYE-BOTH BEDTIME [facility] Last Admin: 07/09/24 21:35 Dose: 1 drop Lisinopril (Lisinopril 20 Mg Tablet) 20 mg PO DAILY [facility]; Protocol Last Admin: 07/10/24 08:29 Dose: 20 mg Lorazepam (Lorazepam 1 Mg Tablet) 1 mg PO BEDTIME [facility]Z Last Admin: 07/09/24 21:36 Dose: 1 mg Magnesium Hydroxide (Milk Of Magnesia 30 Ml Oral.Susp) 30 ml PO DAILY PRN PRN Reason: Constipation Nicotine (Nicotine 21 Mg Patch.Td24) 21 mg TRANSDERMA DAILY PRN PRN Reason: nicotine cravings Nicotine Polacrilex (Nicotine Polacrilex 2 Mg Gum) 4 mg BUCCAL Q2H PRN PRN Reason: Nicotine Cravings Olanzapine (Olanzapine 5 Mg Tablet) 5 mg PO Q4H PRN PRN Reason: agitation,psychosis Last Admin: 07/10/24 01:17 Dose: 5 mg Paliperidone (Paliperidone Er 9 Mg Tab.Er.24) 9 mg PO BEDTIME [facility] Last Admin: 07/09/24 21:36 Dose: 9 mg Thiamine HCl (Thiamine Hcl 100 Mg Tablet) 100 mg PO DAILY [facility] Last Admin: 07/10/24 08:29 Dose: 100 mg Timolol Maleate (Timolol Maleate 0.5 % Oph Jossy 5 Ml Drbtl) 1 drop EYE-BOTH BID [facility] Last Admin: 07/10/24 08:29 Dose: 1 drop Trazodone HCl (Trazodone Hcl 50 Mg Tablet) 50 mg PO BEDTIME MRX1 PRN PRN Reason: Insomnia Last Admin: 07/10/24 01:17 Dose: 50 mg Allergies Allergies Allergy/AdvReac Type Severity Reaction Status Date / Time No Known Allergies Allergy Unknown UNKNOWN Verified 06/14/24 00:30 Assessment & Plan Assessment & Plan (1) Schizoaffective disorder, bipolar type: Status: Acute Code(s): F25.0 - Schizoaffective disorder, bipolar type (2) Glaucoma: Status: Acute Code(s): H40.9 - Unspecified glaucoma (3) Hypertension: Status: Acute Code(s): I10 - Essential (primary) hypertension Plan Patient is a 68-year-old male with history of schizoaffective, bipolar type (vs bipolar), glaucoma who presents via police for disorganized behavior in the community in the face of medication noncompliance. Patient is disorganized in speech, rambling, often incoherently. He asks junior underwriter. about the mott of the sexes and Eleazar and Vidya... Chemical Milling Processor inquired about ED/police report that he was disorganized, that he was driving in the backyard of his house, shiny his lights on neighbors house. He said he was trying to park in his driveway and I did not. Mean to drive in the backyard.. Saying it was accidental. Regarding being disorganized outside a convenience store, patient said that there was a angry woman there a sick woman.. Who was upset with and all he was doing was sitting in his car outside the convenience store for a little while, listening to music. Patient denies any drug or alcohol use. Says his throat is bothering him but he can not tolerate any questions regarding it. Says he does not need medications but has been taking them since he got here. Collateral report says patient was brought in for acting erratic, driving in circles and backyard of his house after neighbors called; also reports that he was acting erratically at nighttime outside of a convenience store. Formulation/clinical reasoning: Patient presents in a manic episode and acting erratically in the community. Recently discharged from [facility] on paliperidone 6mg qhs and Vraylar 3mg qhs. Not sure why patient is on 2 antipsychotics unless Vraylar is meant to be only a mood stabilizer. Will continue this regimen now since he seemed to somewhat stabilize on [facility]. If stabilizes will strongly consider long-acting injectable of paliperidone given history of noncompliance Hospital course: 06/19 Patient remains disorganized and is having a difficult time explaining his thoughts. On approach he is rambling about something and junior underwriter has a very hard time understanding him as he is jumping from topic to topic. He says he wants to go home and that he has a lot to accomplish. He has not been taking Vraylar and says he does not like it. He said he will take the paliperidone but refuses long-acting injectable. Chemical Milling Processor asked about paranoid delusional thinking and he said that others are making fictitious statements. Regarding driving erratically, he says I was driving between the lines... However he does acknowledge he was playing his music too loudly. Chemical Milling Processor discussed that team does not feel he is ready for discharge however patient is unable to tolerate this discussion just says no that he wants to go... bushel worker discussed case with patient's cousin Marlin Dowd who is also his healthcare proxy (document in chart). She has significant concerns about his safety. She said that over the past week to 2 weeks he has been increasingly disorganized; junior underwriter around [place] he refused his meds (from [facility]?); she drove in the car as a passenger with him and said she was very fearful as he was driving well below the speed limit, weaving in and out of the lanes and completely unsafe. She said he recently showed up at a work place and employees were scared of him because he was talking nonsensically. She says that he is delusional, thinking that his food is poisoned and threw away a significant amount of food that he got from a food shelf. She says he has lost about 30-40 lb over the past 2 months. She says that he has talked about raise or beams beaming down onto his head; saying that he seeing cars Vanish, planes Vanish and other bizarre delusional things. She says that he is historically not compliant with medication and would like him to be on a long-acting injectable. Chemical Milling Processor discussed case with LAYOUT DESIGNER inpatient provider who saw patient on his recent admission to a few weeks ago; she talked with his outpatient psychiatric provider Dr. Condon the said that patient needed Vraylar in addition to palpate own for stabilization. 06/20 rambling, hard to understand. Impossible to have a therapeutic conversation with patient as he quickly becomes oblivious to junior underwriter, lost in a tangential thought and rambling about unrelated and mostly non-sensical things. Tried to ask pt about collateral reports, however he adamantly denies reports. t. Pt standing in [place] talking to himself. from the unit, pt called 911 and told police there is a sniper loose; on inquiry, could not explain his concern 06/21/24 Patient remains disorganized; perseveration on his relationship. He says he is good today...wants to get back to his house since he rebuilt his whole house and has things to do...He said he does not think he'll take psychiatric medications. He tells junior underwriter that he has his own doctor, Dr. Hay. However, pt seemed open to writers explanation that medications ordered are the same ones that Dr. Hay prescribed. He seemed to agree to consider taking psych meds. 06/22 no change in presentation, remains disorganized, manic, delusional. Patient said he will contemplate taking the paliperidone. Will increase dose 06/23 patient took paliperidone last night. No change in presentation. Chemical Milling Processor discussed hypertension with patient and he said he used to be on an ISAC inhibitor and agreed to restart 1 now 06/25/2024: Continue to encourage medication adherence 06/26 No change in presentation; patient remains manic, rambling about various unrelated things. Came up to junior underwriter and said something about [address] which patient could not explain. Staff reports only sleeping 2 hours last night. Patient again refuses Vraylar or long-acting medication. He says that the police that came to take him to the hospital were not real police... And says they were just dressed up to look like police. Again patient could not discuss this further; patient did however agree to increase lisinopril to 10 mg given continued hypertension 06/27 remains manic; reviewed blood pressures which was still avoided however lisinopril was just increase so needs more time to be effective. -patient remains manic, disorganized and without any insight. It seems that without a mood stabilizer on board, patient will remain manic and disorganized and unable to be safe in the community. 06/28 pt remains disorganized, rambling about various things perseverates on going home to fix his house, repair the roof. Telling staff that this junior underwriter is an imposter and saying i know who my 's killer is... 06/29 continue tx plan; pt not open to increasing dose. 06/30 No change in presentation. Says he wants to get home so he can work on his house. Continuing to rambling about unrelated, irrelevant and or delusional things. Refuses any medication changes. Walking around the milieu with buttocks exposed. 07/01 patient remains disorganized; rambling about various things, often talking about his , referring to paranoid delusions about terrorists... Reviewed BP, HTN; discussed with pt who agrees to increasing lisinopril -will switch blood pressure measurements to t.i.d. to better assess effectiveness of antihypertensive 07/02 No change in presentation. Chemical Milling Processor asks patient how he is doing any patient starts talking about his , having been stolen, put into slavery and sex trafficking; says she is probably somewhere crying... Chemical Milling Processor tried to apply reality testing however patient kept talking about such things. Patient difficult to interrupt or with which to engage further 07/04 no change in presentation; no insight and refusing mood stabilizing meds o change in presentation. starts asking junior underwriter for discharge, talking about medications, but quickly his ramble changes from unrelated topic to unrelated topic, imbued with paranoid ideations 07/06 continue tx. refuses vraylar but taking paliperidone as prescribed. 07/07 no change in presentation; refuses any medication changes, increase paliperidone or other mood stabilizer 07/08/2024: Continue current regimen and plans 07/09/2024: Continue current regimen and plans Impression: As patient remains without any insight to his illness or his behaviors, he remains unsafe and a danger to himself and others due to his erratic driving; also due to paranoid delusions he has been eating very little and seems to have lost significant weight and only a few months. At this time patient is not safe for discharge. He is not willing to sign a CV. Chemical Milling Processor will file for involuntary commitment and substituted judgment. Also, junior underwriter is invoking the HCP on 06/19/24 as patient is unable to make medical decisions for himself. 07/10 less manic, but no other change in presentation Plan: Section 7 (Filing for involuntary commitment and substituted judgment) Invoking healthcare proxy (06/19/2024) Q 15 minute checks Increased Lisinopril 20mg daily (patient said he used to be on enalapril however not on formulary) Continue Vraylar 3 mg q.h.s. patient has been refusing Continue Paliperidone 6 mg q.h.s. Continue Brimonide Tartrate Continue Dorzolamide Continue Latanoprost Continue Timolol Patient educated on: diagnosis and medication risk/benefits Informed Consent: does not understand Reason for continued inpatient stay Substantial Risk for: inability to function Time Spent With Patient Time: Total time managing care of this patient today ____ minutes.
[2024-07-10 20:10] VITALS: BP 180/84; PULSE 63; TEMP 36.4; O2SAT 97
[2024-07-10 20:43] VITALS: BP 140/67; PULSE 69; RESP 18
[2024-07-10] MEDS: Latanoprost 0.005 % Ophth Sol 2.5 ML DROPS 1 DROP EYE-BOTH (21:52)
[2024-07-10] MEDS: Paliperidone ER 9 MG TAB.ER.24 PO (21:52)
[2024-07-10] MEDS: LORazepam 1 MG TABLET PO (21:52)
[2024-07-11] MEDS: hydrOXYzine HCL 25 MG TABLET PO (04:44)
[2024-07-11 08:00] VITALS: BP 129/63; PULSE 58; RESP 18; TEMP 36.8; O2SAT 99
[2024-07-11] MEDS: lisinopriL 20 MG TABLET PO (08:32)
[2024-07-11] MEDS: Thiamine HCL 100 MG TABLET PO (08:32)
[2024-07-11] MEDS: Dorzolamide HCl 2 % Ophth Sol 10 ML DRPBTL 1 DROP EYE-BOTH ×3 (08:33→20:51)
[2024-07-11] MEDS: timoloL maleate 0.5 % Oph Sol 5 ML DRBTL 1 DROP EYE-BOTH ×2 (08:33→20:52)
[2024-07-11] MEDS: Brimonidine Tartrate 0.2% Oph 5 ML BOTTLE 1 DROP EYE-BOTH ×2 (08:34→20:50)
--- NOTE | 2024-07-11 10:18 | HO.PSYCHPN ---
Subjective Subjective Date of Service: 07/11/24 Reason For Visit: schizophrenia Interim History: Met with patient; discussed with team; attended court hearing for affirmation of healthcare proxy Today patient's healthcare proxy was affirmed by the court. Bioinformatics Programmer discussed this with patient who was upset about it, saying that he was wrongly diagnosed, there is nothing wrong with him. Mental Status Exam Mental Status Exam Narrative: Pt is alert and oriented; behavior is more calm, cooperative, keeps to himself; hyperverbal; patient is not in distress; dressed in casual attire, adequate grooming; mood is described as anxious, affect congruent; eye contact appropriate; Speech is mildly pressured and rambling, improved articulation; no psychomotor agitation present; thought process is still disorganized, rambling and tangential; Thought content is on often on his but imbued with delusional twists; otherwise on various unrelated topics; paranoid delusions remain; denies any SI/HI. Denies AH but patient appears to be internally preoccupied and responding to internal stimuli. Patients insight and judgment impaired. Diagnostics Vital Signs (24Hr): Vital Signs - 24 hr 07/10/24 14:06 07/10/24 20:10 07/10/24 20:43 Temperature 97.6 F 97.6 F Pulse Rate 67 63 69 Respiratory Rate 16 18 Blood Pressure 159/71 H 180/84 H 140/67 H Pulse Oximetry 99 97 Oxygen Delivery Method Room Air Room Air 07/11/24 08:00 Temperature 98.3 F Pulse Rate 58 Respiratory Rate 18 Blood Pressure 129/63 Pulse Oximetry 99 Oxygen Delivery Method Room Air BMI result Body Mass Index 25.1 Labs 06/14/24 00:45 06/14/24 00:45 Medications Medications Current Medications Acetaminophen (Acetaminophen 325 Mg Tablet) 650 mg PO Q6H PRN PRN Reason: Headache/Pain Mild Scale (1-3) Last Admin: 06/16/24 13:42 Dose: 650 mg Al Hydroxide/Mg Hydroxide (Magnesium Hydrox/Alum Hydrox 30 Ml Oral.Susp) 30 ml PO Q6H PRN PRN Reason: Heartburn/Nausea Brimonidine Tartrate (Brimonidine Tartrate 0.2% Oph 5 Ml Bottle) 1 drop EYE-BOTH BID NAZ Last Admin: 07/11/24 08:34 Dose: 1 drop Cariprazine (Cariprazine Hcl 3 Mg Capsule) 3 mg PO BEDTIME NAZ Last Admin: 07/10/24 22:35 Dose: Not Given Dorzolamide HCl (Dorzolamide Hcl 2 % Ophth Jossy 10 Ml Drpbtl) 1 drop EYE-BOTH TID [facility] Last Admin: 07/11/24 08:33 Dose: 1 drop Hydroxyzine HCl (Hydroxyzine Hcl 25 Mg Tablet) 25 mg PO Q6H PRN PRN Reason: Anxiety Last Admin: 07/11/24 04:44 Dose: 25 mg Latanoprost (Latanoprost 0.005 % Ophth Jossy 2.5 Ml Drops) 1 drop EYE-BOTH BEDTIME NAZ Last Admin: 07/10/24 21:52 Dose: 1 drop Lisinopril (Lisinopril 20 Mg Tablet) 20 mg PO DAILY [facility]; Protocol Last Admin: 07/11/24 08:32 Dose: 20 mg Lorazepam (Lorazepam 1 Mg Tablet) 1 mg PO BEDTIME NAZ Last Admin: 07/10/24 21:52 Dose: 1 mg Magnesium Hydroxide (Milk Of Magnesia 30 Ml Oral.Susp) 30 ml PO DAILY PRN PRN Reason: Constipation Nicotine (Nicotine 21 Mg Patch.Td24) 21 mg TRANSDERMA DAILY PRN PRN Reason: nicotine cravings Nicotine Polacrilex (Nicotine Polacrilex 2 Mg Gum) 4 mg BUCCAL Q2H PRN PRN Reason: Nicotine Cravings Olanzapine (Olanzapine 5 Mg Tablet) 5 mg PO Q4H PRN PRN Reason: agitation,psychosis Last Admin: 07/10/24 01:17 Dose: 5 mg Paliperidone (Paliperidone Er 9 Mg Tab.Er.24) 9 mg PO BEDTIME NAZ Last Admin: 07/10/24 21:52 Dose: 9 mg Thiamine HCl (Thiamine Hcl 100 Mg Tablet) 100 mg PO DAILY [facility] Last Admin: 07/11/24 08:32 Dose: 100 mg Timolol Maleate (Timolol Maleate 0.5 % Oph Jossy 5 Ml Drbtl) 1 drop EYE-BOTH BID [facility] Last Admin: 07/11/24 08:33 Dose: 1 drop Trazodone HCl (Trazodone Hcl 50 Mg Tablet) 50 mg PO BEDTIME MRX1 PRN PRN Reason: Insomnia Last Admin: 07/10/24 01:17 Dose: 50 mg Allergies Allergies Allergy/AdvReac Type Severity Reaction Status Date / Time No Known Allergies Allergy Unknown UNKNOWN Verified 06/14/24 00:30 Assessment & Plan Assessment & Plan (1) Schizoaffective disorder, bipolar type: Status: Acute Code(s): F25.0 - Schizoaffective disorder, bipolar type (2) Glaucoma: Status: Acute Code(s): H40.9 - Unspecified glaucoma (3) Hypertension: Status: Acute Code(s): I10 - Essential (primary) hypertension Plan Patient is a 68-year-old male with history of schizoaffective, bipolar type (vs bipolar), glaucoma who presents via police for disorganized behavior in the community in the face of medication noncompliance. Patient is disorganized in speech, rambling, often incoherently. He asks medical writer. about the mott of the sexes and Eleazar and Vidya... Bioinformatics Programmer inquired about ED/police report that he was disorganized, that he was driving in the backyard of his house, shiny his lights on neighbors house. He said he was trying to park in his driveway and I did not. Mean to drive in the backyard.. Saying it was accidental. Regarding being disorganized outside a convenience store, patient said that there was a angry woman there a sick woman.. Who was upset with and all he was doing was sitting in his car outside the convenience store for a little while, listening to music. Patient denies any drug or alcohol use. Says his throat is bothering him but he can not tolerate any questions regarding it. Says he does not need medications but has been taking them since he got here. Collateral report says patient was brought in for acting erratic, driving in circles and backyard of his house after neighbors called; also reports that he was acting erratically at nighttime outside of a convenience store. Formulation/clinical reasoning: Patient presents in a manic episode and acting erratically in the community. Recently discharged from [facility] on paliperidone 6mg qhs and Vraylar 3mg qhs. Not sure why patient is on 2 antipsychotics unless Vraylar is meant to be only a mood stabilizer. Will continue this regimen now since he seemed to somewhat stabilize on [facility]. If stabilizes will strongly consider long-acting injectable of paliperidone given history of noncompliance Hospital course: 06/19 Patient remains disorganized and is having a difficult time explaining his thoughts. On approach he is rambling about something and medical writer has a very hard time understanding him as he is jumping from topic to topic. He says he wants to go home and that he has a lot to accomplish. He has not been taking Vraylar and says he does not like it. He said he will take the paliperidone but refuses long-acting injectable. Bioinformatics Programmer asked about paranoid delusional thinking and he said that others are making fictitious statements. Regarding driving erratically, he says I was driving between the lines... However he does acknowledge he was playing his music too loudly. Bioinformatics Programmer discussed that team does not feel he is ready for discharge however patient is unable to tolerate this discussion just says no that he wants to go... print room worker discussed case with patient's cousin Marlin Dowd who is also his healthcare proxy (document in chart). She has significant concerns about his safety. She said that over the past week to 2 weeks he has been increasingly disorganized; medical writer around [place] he refused his meds (from [facility]?); she drove in the car as a passenger with him and said she was very fearful as he was driving well below the speed limit, weaving in and out of the lanes and completely unsafe. She said he recently showed up at a work place and employees were scared of him because he was talking nonsensically. She says that he is delusional, thinking that his food is poisoned and threw away a significant amount of food that he got from a food shelf. She says he has lost about 30-40 lb over the past 2 months. She says that he has talked about raise or beams beaming down onto his head; saying that he seeing cars Vanish, planes Vanish and other bizarre delusional things. She says that he is historically not compliant with medication and would like him to be on a long-acting injectable. Bioinformatics Programmer discussed case with PRODUCTION HELPER inpatient provider who saw patient on his recent admission to a few weeks ago; she talked with his outpatient psychiatric provider Dr. Condon the said that patient needed Vraylar in addition to palpate own for stabilization. 06/20 rambling, hard to understand. Impossible to have a therapeutic conversation with patient as he quickly becomes oblivious to medical writer, lost in a tangential thought and rambling about unrelated and mostly non-sensical things. Tried to ask pt about collateral reports, however he adamantly denies reports. t. Pt standing in [place] talking to himself. from the unit, pt called 911 and told police there is a sniper loose; on inquiry, could not explain his concern 06/21/24 Patient remains disorganized; perseveration on his relationship. He says he is good today...wants to get back to his house since he rebuilt his whole house and has things to do...He said he does not think he'll take psychiatric medications. He tells medical writer that he has his own doctor, Dr. Hay. However, pt seemed open to writers explanation that medications ordered are the same ones that Dr. Hay prescribed. He seemed to agree to consider taking psych meds. 06/22 no change in presentation, remains disorganized, manic, delusional. Patient said he will contemplate taking the paliperidone. Will increase dose 06/23 patient took paliperidone last night. No change in presentation. Bioinformatics Programmer discussed hypertension with patient and he said he used to be on an ISAC inhibitor and agreed to restart 1 now 06/25/2024: Continue to encourage medication adherence 06/26 No change in presentation; patient remains manic, rambling about various unrelated things. Came up to medical writer and said something about [address] which patient could not explain. Staff reports only sleeping 2 hours last night. Patient again refuses Vraylar or long-acting medication. He says that the police that came to take him to the hospital were not real police... And says they were just dressed up to look like police. Again patient could not discuss this further; patient did however agree to increase lisinopril to 10 mg given continued hypertension 06/27 remains manic; reviewed blood pressures which was still avoided however lisinopril was just increase so needs more time to be effective. -patient remains manic, disorganized and without any insight. It seems that without a mood stabilizer on board, patient will remain manic and disorganized and unable to be safe in the community. 06/28 pt remains disorganized, rambling about various things perseverates on going home to fix his house, repair the roof. Telling staff that this medical writer is an imposter and saying i know who my 's killer is... 06/29 continue tx plan; pt not open to increasing dose. 06/30 No change in presentation. Says he wants to get home so he can work on his house. Continuing to rambling about unrelated, irrelevant and or delusional things. Refuses any medication changes. Walking around the milieu with buttocks exposed. 07/01 patient remains disorganized; rambling about various things, often talking about his , referring to paranoid delusions about terrorists... Reviewed BP, HTN; discussed with pt who agrees to increasing lisinopril -will switch blood pressure measurements to t.i.d. to better assess effectiveness of antihypertensive 07/02 No change in presentation. Bioinformatics Programmer asks patient how he is doing any patient starts talking about his , having been stolen, put into slavery and sex trafficking; says she is probably somewhere crying... Bioinformatics Programmer tried to apply reality testing however patient kept talking about such things. Patient difficult to interrupt or with which to engage further 07/04 no change in presentation; no insight and refusing mood stabilizing meds o change in presentation. starts asking medical writer for discharge, talking about medications, but quickly his ramble changes from unrelated topic to unrelated topic, imbued with paranoid ideations 07/06 continue tx. refuses vraylar but taking paliperidone as prescribed. 07/07 no change in presentation; refuses any medication changes, increase paliperidone or other mood stabilizer 07/08/2024: Continue current regimen and plans 07/09/2024: Continue current regimen and plans Impression: As patient remains without any insight to his illness or his behaviors, he remains unsafe and a danger to himself and others due to his erratic driving; also due to paranoid delusions he has been eating very little and seems to have lost significant weight and only a few months. At this time patient is not safe for discharge. He is not willing to sign a CV. Bioinformatics Programmer will file for involuntary commitment and substituted judgment. Also, medical writer is invoking the HCP on 06/19/24 as patient is unable to make medical decisions for himself. 07/10 less manic, but no other change in presentation 07/11 healthcare proxy affirmed; patient upset about this; will leave current medication regimen as is to let patient adjust Plan: Healthcare proxy affirmed on 07/11/2024 Q 15 minute checks Continue Lisinopril 20mg daily (patient said he used to be on enalapril however not on formulary) Continue Vraylar 3 mg q.h.s. patient has been refusing Continue Paliperidone 6 mg q.h.s. Continue Brimonide Tartrate Continue Dorzolamide Continue Latanoprost Continue Timolol Patient educated on: diagnosis and medication risk/benefits Informed Consent: understands, does not understand and further education needed Reason for continued inpatient stay Substantial Risk for: inability to function Time Spent With Patient Time: Total time managing care of this patient today ____ minutes.
[2024-07-11] MEDS: Latanoprost 0.005 % Ophth Sol 2.5 ML DROPS 1 DROP EYE-BOTH (20:52)
[2024-07-11] MEDS: Paliperidone ER 9 MG TAB.ER.24 PO (20:54)
[2024-07-11] MEDS: LORazepam 1 MG TABLET PO (20:54)
[2024-07-12] MEDS: OLANZapine 5 MG TABLET PO (01:43)
[2024-07-12] MEDS: hydrOXYzine HCL 25 MG TABLET PO (02:14)
[2024-07-12] MEDS: traZODone HCL 50 MG TABLET PO (02:14)
[2024-07-12 07:58] VITALS: BP 120/56; PULSE 63; TEMP 36.4; O2SAT 98
[2024-07-12 09:22] VITALS: BP 124/66
[2024-07-12] MEDS: timoloL maleate 0.5 % Oph Sol 5 ML DRBTL 1 DROP EYE-BOTH ×2 (09:23→20:34)
[2024-07-12] MEDS: Dorzolamide HCl 2 % Ophth Sol 10 ML DRPBTL 1 DROP EYE-BOTH ×3 (09:24→20:33)
[2024-07-12] MEDS: Brimonidine Tartrate 0.2% Oph 5 ML BOTTLE 1 DROP EYE-BOTH ×2 (09:24→20:34)
[2024-07-12] MEDS: Thiamine HCL 100 MG TABLET PO (09:25)
[2024-07-12] MEDS: lisinopriL 20 MG TABLET PO (09:25)
[2024-07-12 10:00] VITALS: BP 140/88; PULSE 88
[2024-07-12 13:00] VITALS: BP 134/80; BP 143/63; PULSE 70; PULSE 76; TEMP 36.6; O2SAT 98
[2024-07-12 18:00] VITALS: BP 140/88
[2024-07-12] MEDS: Latanoprost 0.005 % Ophth Sol 2.5 ML DROPS 1 DROP EYE-BOTH (20:34)
[2024-07-12] MEDS: Paliperidone ER 9 MG TAB.ER.24 PO (20:36)
[2024-07-12] MEDS: Cariprazine HCl 3 MG CAPSULE PO (20:36)
[2024-07-12] MEDS: LORazepam 1 MG TABLET PO (20:36)
--- NOTE | 2024-07-12 23:07 | HO.PSYCHPN ---
Subjective Subjective Date of Service: 07/12/24 Reason For Visit: schizophrenia Interim History: Met with patient; discussed with team Shipyard Painting Supervisor again discussed healthcare proxy affirmation and that discussion was had with healthcare proxy who agrees with patient being on long acting injectable, Invega Sustenna. Shipyard Painting Supervisor asked about history of side effects and whether or not patient had erectile dysfunction. He says he is not having erections now since coming to the hospital and that he was prior to coming to the hospital; however he then says there were many years, when with his he was not getting an erection at all. Shipyard Painting Supervisor tried to see if there is a correlation with the medication and this experience however it was not possible as patient's discourse quickly wandered off and he started talking about his and other girlfriends, house as he bought... Patient said that he was going to call his cousin, healthcare proxy because he did not want to be on a long-acting medication. Mental Status Exam Mental Status Exam Narrative: Pt is alert and oriented; behavior is more calm, cooperative, keeps to himself; hyperverbal; patient is not in distress; dressed in casual attire, adequate grooming; mood is described as ok affect congruent, little down; eye contact appropriate; Speech is mildly pressured and rambling, adequate articulation; no psychomotor agitation present; thought process is still disorganized, rambling and tangential; Thought content is on often on his but imbued with delusional twists; otherwise on various unrelated topics; paranoid delusions remain; denies any SI/HI. Denies AH but patient appears to be internally preoccupied and responding to internal stimuli. Patients insight and judgment impaired. Diagnostics Vital Signs (24Hr): Vital Signs - 24 hr 07/12/24 07:58 07/12/24 09:22 07/12/24 10:00 Temperature 97.5 F Pulse Rate 63 88 Blood Pressure 120/56 L 124/66 140/88 H Pulse Oximetry 98 Oxygen Delivery Method Room Air 07/12/24 13:00 07/12/24 13:00 07/12/24 18:00 Temperature 97.9 F Pulse Rate 76 70 Blood Pressure 143/63 H 134/80 140/88 H Pulse Oximetry 98 Oxygen Delivery Method Room Air BMI result Body Mass Index 25.1 Labs 06/14/24 00:45 06/14/24 00:45 Medications Medications Current Medications Acetaminophen (Acetaminophen 325 Mg Tablet) 650 mg PO Q6H PRN PRN Reason: Headache/Pain Mild Scale (1-3) Last Admin: 06/16/24 13:42 Dose: 650 mg Al Hydroxide/Mg Hydroxide (Magnesium Hydrox/Alum Hydrox 30 Ml Oral.Susp) 30 ml PO Q6H PRN PRN Reason: Heartburn/Nausea Brimonidine Tartrate (Brimonidine Tartrate 0.2% Oph 5 Ml Bottle) 1 drop EYE-BOTH BID [facility] Last Admin: 07/12/24 20:34 Dose: 1 drop Cariprazine (Cariprazine Hcl 3 Mg Capsule) 3 mg PO BEDTIME [facility] Last Admin: 07/12/24 20:36 Dose: 3 mg Dorzolamide HCl (Dorzolamide Hcl 2 % Ophth Jossy 10 Ml Drpbtl) 1 drop EYE-BOTH TID [facility] Last Admin: 07/12/24 20:33 Dose: 1 drop Hydroxyzine HCl (Hydroxyzine Hcl 25 Mg Tablet) 25 mg PO Q6H PRN PRN Reason: Anxiety Last Admin: 07/12/24 02:14 Dose: 25 mg Latanoprost (Latanoprost 0.005 % Ophth Jossy 2.5 Ml Drops) 1 drop EYE-BOTH BEDTIME [facility] Last Admin: 07/12/24 20:34 Dose: 1 drop Lisinopril (Lisinopril 20 Mg Tablet) 20 mg PO DAILY [facility]; Protocol Last Admin: 07/12/24 09:25 Dose: 20 mg Lorazepam (Lorazepam 1 Mg Tablet) 1 mg PO BEDTIME [facility] Last Admin: 07/12/24 20:36 Dose: 1 mg Magnesium Hydroxide (Milk Of Magnesia 30 Ml Oral.Susp) 30 ml PO DAILY PRN PRN Reason: Constipation Nicotine (Nicotine 21 Mg Patch.Td24) 21 mg TRANSDERMA DAILY PRN PRN Reason: nicotine cravings Nicotine Polacrilex (Nicotine Polacrilex 2 Mg Gum) 4 mg BUCCAL Q2H PRN PRN Reason: Nicotine Cravings Olanzapine (Olanzapine 5 Mg Tablet) 5 mg PO Q4H PRN PRN Reason: agitation,psychosis Last Admin: 07/12/24 01:43 Dose: 5 mg Paliperidone (Paliperidone Er 9 Mg Tab.Er.24) 9 mg PO BEDTIME [facility] Last Admin: 07/12/24 20:36 Dose: 9 mg Thiamine HCl (Thiamine Hcl 100 Mg Tablet) 100 mg PO DAILY [facility] Last Admin: 07/12/24 09:25 Dose: 100 mg Timolol Maleate (Timolol Maleate 0.5 % Oph Jossy 5 Ml Drbtl) 1 drop EYE-BOTH BID [facility] Last Admin: 07/12/24 20:34 Dose: 1 drop Trazodone HCl (Trazodone Hcl 50 Mg Tablet) 50 mg PO BEDTIME [facility]X1 PRN PRN Reason: Insomnia Last Admin: 07/12/24 02:14 Dose: 50 mg Allergies Allergies Allergy/AdvReac Type Severity Reaction Status Date / Time No Known Allergies Allergy Unknown UNKNOWN Verified 06/14/24 00:30 Assessment & Plan Assessment & Plan (1) Schizoaffective disorder, bipolar type: Status: Acute Code(s): F25.0 - Schizoaffective disorder, bipolar type (2) Glaucoma: Status: Acute Code(s): H40.9 - Unspecified glaucoma (3) Hypertension: Status: Acute Code(s): I10 - Essential (primary) hypertension Plan Patient is a 68-year-old male with history of schizoaffective, bipolar type (vs bipolar), glaucoma who presents via police for disorganized behavior in the community in the face of medication noncompliance. Patient is disorganized in speech, rambling, often incoherently. He asks senior grant writer. about the mott of the sexes and Eleazar and Vidya... Shipyard Painting Supervisor inquired about ED/police report that he was disorganized, that he was driving in the backyard of his house, shiny his lights on neighbors house. He said he was trying to park in his driveway and I did not. Mean to drive in the backyard.. Saying it was accidental. Regarding being disorganized outside a convenience store, patient said that there was a angry woman there a sick woman.. Who was upset with and all he was doing was sitting in his car outside the convenience store for a little while, listening to music. Patient denies any drug or alcohol use. Says his throat is bothering him but he can not tolerate any questions regarding it. Says he does not need medications but has been taking them since he got here. Collateral report says patient was brought in for acting erratic, driving in circles and backyard of his house after neighbors called; also reports that he was acting erratically at nighttime outside of a convenience store. Formulation/clinical reasoning: Patient presents in a manic episode and acting erratically in the community. Recently discharged from [facility] on paliperidone 6mg qhs and Vraylar 3mg qhs. Not sure why patient is on 2 antipsychotics unless Vraylar is meant to be only a mood stabilizer. Will continue this regimen now since he seemed to somewhat stabilize on [facility]. If stabilizes will strongly consider long-acting injectable of paliperidone given history of noncompliance Hospital course: 06/19 Patient remains disorganized and is having a difficult time explaining his thoughts. On approach he is rambling about something and senior grant writer has a very hard time understanding him as he is jumping from topic to topic. He says he wants to go home and that he has a lot to accomplish. He has not been taking Vraylar and says he does not like it. He said he will take the paliperidone but refuses long-acting injectable. Shipyard Painting Supervisor asked about paranoid delusional thinking and he said that others are making fictitious statements. Regarding driving erratically, he says I was driving between the lines... However he does acknowledge he was playing his music too loudly. Shipyard Painting Supervisor discussed that team does not feel he is ready for discharge however patient is unable to tolerate this discussion just says no that he wants to go... frog or oyster farmworker discussed case with patient's cousin Marlin Dowd who is also his healthcare proxy (document in chart). She has significant concerns about his safety. She said that over the past week to 2 weeks he has been increasingly disorganized; senior grant writer around [place] he refused his meds (from [facility]?); she drove in the car as a passenger with him and said she was very fearful as he was driving well below the speed limit, weaving in and out of the lanes and completely unsafe. She said he recently showed up at a work place and employees were scared of him because he was talking nonsensically. She says that he is delusional, thinking that his food is poisoned and threw away a significant amount of food that he got from a food shelf. She says he has lost about 30-40 lb over the past 2 months. She says that he has talked about raise or beams beaming down onto his head; saying that he seeing cars Vanish, planes Vanish and other bizarre delusional things. She says that he is historically not compliant with medication and would like him to be on a long-acting injectable. Shipyard Painting Supervisor discussed case with SOLAR MAINTENANCE TECHNICIAN inpatient provider who saw patient on his recent admission to a few weeks ago; she talked with his outpatient psychiatric provider Dr. Condon the said that patient needed Vraylar in addition to palpate own for stabilization. 06/20 rambling, hard to understand. Impossible to have a therapeutic conversation with patient as he quickly becomes oblivious to senior grant writer, lost in a tangential thought and rambling about unrelated and mostly non-sensical things. Tried to ask pt about collateral reports, however he adamantly denies reports. t. Pt standing in [place] talking to himself. from the unit, pt called 911 and told police there is a sniper loose; on inquiry, could not explain his concern 06/21/24 Patient remains disorganized; perseveration on his relationship. He says he is good today...wants to get back to his house since he rebuilt his whole house and has things to do...He said he does not think he'll take psychiatric medications. He tells senior grant writer that he has his own doctor, Dr. Hay. However, pt seemed open to writers explanation that medications ordered are the same ones that Dr. Hay prescribed. He seemed to agree to consider taking psych meds. 06/22 no change in presentation, remains disorganized, manic, delusional. Patient said he will contemplate taking the paliperidone. Will increase dose 1/3 patient took paliperidone last night. No change in presentation. Shipyard Painting Supervisor discussed hypertension with patient and he said he used to be on an ISAC inhibitor and agreed to restart 1 now 06/25/2024: Continue to encourage medication adherence 06/26 No change in presentation; patient remains manic, rambling about various unrelated things. Came up to senior grant writer and said something about [address] which patient could not explain. Staff reports only sleeping 2 hours last night. Patient again refuses Vraylar or long-acting medication. He says that the police that came to take him to the hospital were not real police... And says they were just dressed up to look like police. Again patient could not discuss this further; patient did however agree to increase lisinopril to 10 mg given continued hypertension 06/27 remains manic; reviewed blood pressures which was still avoided however lisinopril was just increase so needs more time to be effective. -patient remains manic, disorganized and without any insight. It seems that without a mood stabilizer on board, patient will remain manic and disorganized and unable to be safe in the community. 06/28 pt remains disorganized, rambling about various things perseverates on going home to fix his house, repair the roof. Telling staff that this senior grant writer is an imposter and saying i know who my 's killer is... 06/29 continue tx plan; pt not open to increasing dose. 06/30 No change in presentation. Says he wants to get home so he can work on his house. Continuing to rambling about unrelated, irrelevant and or delusional things. Refuses any medication changes. Walking around the milieu with buttocks exposed. 07/01 patient remains disorganized; rambling about various things, often talking about his , referring to paranoid delusions about terrorists... Reviewed BP, HTN; discussed with pt who agrees to increasing lisinopril -will switch blood pressure measurements to t.i.d. to better assess effectiveness of antihypertensive 07/02 No change in presentation. Shipyard Painting Supervisor asks patient how he is doing any patient starts talking about his , having been stolen, put into slavery and sex trafficking; says she is probably somewhere crying... Shipyard Painting Supervisor tried to apply reality testing however patient kept talking about such things. Patient difficult to interrupt or with which to engage further 07/04 no change in presentation; no insight and refusing mood stabilizing meds o change in presentation. starts asking senior grant writer for discharge, talking about medications, but quickly his ramble changes from unrelated topic to unrelated topic, imbued with paranoid ideations 07/06 continue tx. refuses vraylar but taking paliperidone as prescribed. 07/07 no change in presentation; refuses any medication changes, increase paliperidone or other mood stabilizer 07/08/2024: Continue current regimen and plans 07/09/2024: Continue current regimen and plans Impression: As patient remains without any insight to his illness or his behaviors, he remains unsafe and a danger to himself and others due to his erratic driving; also due to paranoid delusions he has been eating very little and seems to have lost significant weight and only a few months. At this time patient is not safe for discharge. He is not willing to sign a CV. Shipyard Painting Supervisor will file for involuntary commitment and substituted judgment. Also, senior grant writer is invoking the HCP on 06/19/24 as patient is unable to make medical decisions for himself. 07/10 less manic, but no other change in presentation 07/11 healthcare proxy affirmed; patient upset about this; will leave current medication regimen as is to let patient adjust 07/12 Shipyard Painting Supervisor again discussed healthcare proxy affirmation and that discussion was had with healthcare proxy who agrees with patient being on long acting injectable, Invega Sustenna. Shipyard Painting Supervisor asked about history of side effects and whether or not patient had erectile dysfunction. He says he is not having erections now since coming to the hospital and that he was prior to coming to the hospital; however he then says there were many years, when with his he was not getting an erection at all. Shipyard Painting Supervisor tried to see if there is a correlation with the medication and this experience however it was not possible as patient's discourse quickly wandered off and he started talking about his and other girlfriends, house as he bought... Patient said that he was going to call his cousin, healthcare proxy because he did not want to be on a long-acting medication. -patient remains without any insight into his illness at all and is upset by the day of long-acting injectable. Shipyard Painting Supervisor finds it reasonable to give patient time to appeal to his healthcare proxy to discuss medication management so will not make any adjustments at this time. That said, patient's lack of insight and long history of non adherence are barriers to discharging him on p.o. medications only Plan: Healthcare proxy affirmed on 07/11/2024 Q 15 minute checks Continue Lisinopril 20mg daily (patient said he used to be on enalapril however not on formulary Continue Vraylar 3 mg q.h.s. patient has been refusing Continue Paliperidone 6 mg q.h.s. Continue Brimonide Tartrate Continue Dorzolamide Continue Latanoprost Continue Timolol Patient educated on: diagnosis and medication risk/benefits Informed Consent: understands, does not understand and further education needed Reason for continued inpatient stay Substantial Risk for: inability to function Time Spent With Patient Time: Total time managing care of this patient today ____ minutes.
[2024-07-13 07:00] VITALS: BMI 25.7
[2024-07-13] MEDS: Dorzolamide HCl 2 % Ophth Sol 10 ML DRPBTL 1 DROP EYE-BOTH ×2 (07:58→21:44)
[2024-07-13] MEDS: timoloL maleate 0.5 % Oph Sol 5 ML DRBTL 1 DROP EYE-BOTH ×2 (07:58→21:45)
[2024-07-13 07:59] VITALS: BP 112/60
[2024-07-13] MEDS: lisinopriL 20 MG TABLET PO (07:59)
[2024-07-13] MEDS: Brimonidine Tartrate 0.2% Oph 5 ML BOTTLE 1 DROP EYE-BOTH ×2 (07:59→22:50)
[2024-07-13] MEDS: Thiamine HCL 100 MG TABLET PO (08:00)
[2024-07-13 08:09] VITALS: BP 112/60; PULSE 52; RESP 18; TEMP 36.3; O2SAT 98
--- NOTE | 2024-07-13 14:42 | HO.PSYCHPN ---
Subjective Subjective Date of Service: 07/13/24 Reason For Visit: schizophrenia Interim History: Met with patient; discussed with team Patient did take Vraylar last night. Remains tangential, quickly getting off topic and not returning; talking about some delusional things but perhaps a little less. Dredge Mechanic discussed case with affirmed healthcare proxy Sienna who is very ambivalent about whether or not patient should be transitioned to a long-acting injectable. She agrees that he will very likely go off this medication but is sympathetic to his perceived complaints of side effects. Mental Status Exam Mental Status Exam Narrative: Pt is alert and oriented; behavior is more calm, cooperative, keeps to himself; hyperverbal; patient is not in distress; dressed in casual attire, adequate grooming; mood is described as ok affect congruent, little down; eye contact appropriate; Speech is mildly pressured and rambling, adequate articulation; no psychomotor agitation present; thought process is still disorganized, rambling and tangential; Thought content is on often on his but imbued with delusional twists; otherwise on various unrelated topics; paranoid delusions remain; denies any SI/HI. Denies AH but patient appears to be internally preoccupied and responding to internal stimuli. Patients insight and judgment impaired. Diagnostics Vital Signs (24Hr): Vital Signs - 24 hr 07/12/24 18:00 07/13/24 07:59 07/13/24 08:09 Temperature 97.4 F Pulse Rate 52 Respiratory Rate 18 Blood Pressure 140/88 H 112/60 112/60 Pulse Oximetry 98 Oxygen Delivery Method Room Air BMI result Body Mass Index 25.1 Labs 06/14/24 00:45 06/14/24 00:45 Medications Medications Current Medications Acetaminophen (Acetaminophen 325 Mg Tablet) 650 mg PO Q6H PRN PRN Reason: Headache/Pain Mild Scale (1-3) Last Admin: 06/16/24 13:42 Dose: 650 mg Al Hydroxide/Mg Hydroxide (Magnesium Hydrox/Alum Hydrox 30 Ml Oral.Susp) 30 ml PO Q6H PRN PRN Reason: Heartburn/Nausea Brimonidine Tartrate (Brimonidine Tartrate 0.2% Oph 5 Ml Bottle) 1 drop EYE-BOTH BID [facility] Last Admin: 07/13/24 07:59 Dose: 1 drop Cariprazine (Cariprazine Hcl 3 Mg Capsule) 3 mg PO BEDTIME [facility] Last Admin: 07/12/24 20:36 Dose: 3 mg Dorzolamide HCl (Dorzolamide Hcl 2 % Ophth Jossy 10 Ml Drpbtl) 1 drop EYE-BOTH TID [facility] Last Admin: 07/13/24 07:58 Dose: 1 drop Hydroxyzine HCl (Hydroxyzine Hcl 25 Mg Tablet) 25 mg PO Q6H PRN PRN Reason: Anxiety Last Admin: 07/12/24 02:14 Dose: 25 mg Latanoprost (Latanoprost 0.005 % Ophth Jossy 2.5 Ml Drops) 1 drop EYE-BOTH BEDTIME [facility] Last Admin: 07/12/24 20:34 Dose: 1 drop Lisinopril (Lisinopril 20 Mg Tablet) 20 mg PO DAILY [facility]; Protocol Last Admin: 07/13/24 07:59 Dose: 20 mg Lorazepam (Lorazepam 1 Mg Tablet) 1 mg PO BEDTIME [facility] Last Admin: 07/12/24 20:36 Dose: 1 mg Magnesium Hydroxide (Milk Of Magnesia 30 Ml Oral.Susp) 30 ml PO DAILY PRN PRN Reason: Constipation Nicotine (Nicotine 21 Mg Patch.Td24) 21 mg TRANSDERMA DAILY PRN PRN Reason: nicotine cravings Nicotine Polacrilex (Nicotine Polacrilex 2 Mg Gum) 4 mg BUCCAL Q2H PRN PRN Reason: Nicotine Cravings Olanzapine (Olanzapine 5 Mg Tablet) 5 mg PO Q4H PRN PRN Reason: agitation,psychosis Last Admin: 07/12/24 01:43 Dose: 5 mg Paliperidone (Paliperidone Er 9 Mg Tab.Er.24) 9 mg PO BEDTIME [facility] Last Admin: 07/12/24 20:36 Dose: 9 mg Thiamine HCl (Thiamine Hcl 100 Mg Tablet) 100 mg PO DAILY [facility] Last Admin: 07/13/24 08:00 Dose: 100 mg Timolol Maleate (Timolol Maleate 0.5 % Oph Jossy 5 Ml Drbtl) 1 drop EYE-BOTH BID [facility] Last Admin: 07/13/24 07:58 Dose: 1 drop Trazodone HCl (Trazodone Hcl 50 Mg Tablet) 50 mg PO BEDTIME MRX1 PRN PRN Reason: Insomnia Last Admin: 07/12/24 02:14 Dose: 50 mg Allergies Allergies Allergy/AdvReac Type Severity Reaction Status Date / Time No Known Allergies Allergy Unknown UNKNOWN Verified 06/14/24 00:30 Assessment & Plan Assessment & Plan (1) Schizoaffective disorder, bipolar type: Status: Acute Code(s): F25.0 - Schizoaffective disorder, bipolar type (2) Glaucoma: Status: Acute Code(s): H40.9 - Unspecified glaucoma (3) Hypertension: Status: Acute Code(s): I10 - Essential (primary) hypertension Plan Patient is a 68-year-old male with history of schizoaffective, bipolar type (vs bipolar), glaucoma who presents via police for disorganized behavior in the community in the face of medication noncompliance. Patient is disorganized in speech, rambling, often incoherently. He asks sports writer. about the mott of the sexes and Eleazar and Vidya... Dredge Mechanic inquired about ED/police report that he was disorganized, that he was driving in the backyard of his house, shiny his lights on neighbors house. He said he was trying to park in his driveway and I did not. Mean to drive in the backyard.. Saying it was accidental. Regarding being disorganized outside a convenience store, patient said that there was a angry woman there a sick woman.. Who was upset with and all he was doing was sitting in his car outside the convenience store for a little while, listening to music. Patient denies any drug or alcohol use. Says his throat is bothering him but he can not tolerate any questions regarding it. Says he does not need medications but has been taking them since he got here. Collateral report says patient was brought in for acting erratic, driving in circles and backyard of his house after neighbors called; also reports that he was acting erratically at nighttime outside of a convenience store. Formulation/clinical reasoning: Patient presents in a manic episode and acting erratically in the community. Recently discharged from [facility] on paliperidone 6mg qhs and Vraylar 3mg qhs. Not sure why patient is on 2 antipsychotics unless Vraylar is meant to be only a mood stabilizer. Will continue this regimen now since he seemed to somewhat stabilize on [facility]. If stabilizes will strongly consider long-acting injectable of paliperidone given history of noncompliance Hospital course: 06/19 Patient remains disorganized and is having a difficult time explaining his thoughts. On approach he is rambling about something and sports writer has a very hard time understanding him as he is jumping from topic to topic. He says he wants to go home and that he has a lot to accomplish. He has not been taking Vraylar and says he does not like it. He said he will take the paliperidone but refuses long-acting injectable. Dredge Mechanic asked about paranoid delusional thinking and he said that others are making fictitious statements. Regarding driving erratically, he says I was driving between the lines... However he does acknowledge he was playing his music too loudly. Dredge Mechanic discussed that team does not feel he is ready for discharge however patient is unable to tolerate this discussion just says no that he wants to go... sheet metal duct worker supervisor discussed case with patient's cousin Marlin Dowd who is also his healthcare proxy (document in chart). She has significant concerns about his safety. She said that over the past week to 2 weeks he has been increasingly disorganized; sports writer around [place] he refused his meds (from [facility]?); she drove in the car as a passenger with him and said she was very fearful as he was driving well below the speed limit, weaving in and out of the lanes and completely unsafe. She said he recently showed up at a work place and employees were scared of him because he was talking nonsensically. She says that he is delusional, thinking that his food is poisoned and threw away a significant amount of food that he got from a food shelf. She says he has lost about 30-40 lb over the past 2 months. She says that he has talked about raise or beams beaming down onto his head; saying that he seeing cars Vanish, planes Vanish and other bizarre delusional things. She says that he is historically not compliant with medication and would like him to be on a long-acting injectable. Dredge Mechanic discussed case with [facility] inpatient provider who saw patient on his recent admission to a few weeks ago; she talked with his outpatient psychiatric provider Dr. Condon the said that patient needed Vraylar in addition to palpate own for stabilization. 06/20 rambling, hard to understand. Impossible to have a therapeutic conversation with patient as he quickly becomes oblivious to sports writer, lost in a tangential thought and rambling about unrelated and mostly non-sensical things. Tried to ask pt about collateral reports, however he adamantly denies reports. t. Pt standing in [place] talking to himself. from the unit, pt called 911 and told police there is a sniper loose; on inquiry, could not explain his concern 06/21/24 Patient remains disorganized; perseveration on his relationship. He says he is good today...wants to get back to his house since he rebuilt his whole house and has things to do...He said he does not think he'll take psychiatric medications. He tells sports writer that he has his own doctor, Dr. Hay. However, pt seemed open to writers explanation that medications ordered are the same ones that Dr. Hay prescribed. He seemed to agree to consider taking psych meds. 06/22 no change in presentation, remains disorganized, manic, delusional. Patient said he will contemplate taking the paliperidone. Will increase dose 06/23 patient took paliperidone last night. No change in presentation. Dredge Mechanic discussed hypertension with patient and he said he used to be on an ISAC inhibitor and agreed to restart 1 now 06/25/2024: Continue to encourage medication adherence 06/26 No change in presentation; patient remains manic, rambling about various unrelated things. Came up to sports writer and said something about [address] which patient could not explain. Staff reports only sleeping 2 hours last night. Patient again refuses Vraylar or long-acting medication. He says that the police that came to take him to the hospital were not real police... And says they were just dressed up to look like police. Again patient could not discuss this further; patient did however agree to increase lisinopril to 10 mg given continued hypertension 06/27 remains manic; reviewed blood pressures which was still avoided however lisinopril was just increase so needs more time to be effective. -patient remains manic, disorganized and without any insight. It seems that without a mood stabilizer on board, patient will remain manic and disorganized and unable to be safe in the community. 06/28 pt remains disorganized, rambling about various things perseverates on going home to fix his house, repair the roof. Telling staff that this sports writer is an imposter and saying i know who my 's killer is... 06/29 continue tx plan; pt not open to increasing dose. 06/30 No change in presentation. Says he wants to get home so he can work on his house. Continuing to rambling about unrelated, irrelevant and or delusional things. Refuses any medication changes. Walking around the milieu with buttocks exposed. 07/01 patient remains disorganized; rambling about various things, often talking about his , referring to paranoid delusions about terrorists... Reviewed BP, HTN; discussed with pt who agrees to increasing lisinopril -will switch blood pressure measurements to t.i.d. to better assess effectiveness of antihypertensive 07/02 No change in presentation. Dredge Mechanic asks patient how he is doing any patient starts talking about his , having been stolen, put into slavery and sex trafficking; says she is probably somewhere crying... Dredge Mechanic tried to apply reality testing however patient kept talking about such things. Patient difficult to interrupt or with which to engage further 07/04 no change in presentation; no insight and refusing mood stabilizing meds o change in presentation. starts asking sports writer for discharge, talking about medications, but quickly his ramble changes from unrelated topic to unrelated topic, imbued with paranoid ideations 07/06 continue tx. refuses vraylar but taking paliperidone as prescribed. 07/07 no change in presentation; refuses any medication changes, increase paliperidone or other mood stabilizer 07/08/2024: Continue current regimen and plans 07/09/2024: Continue current regimen and plans Impression: As patient remains without any insight to his illness or his behaviors, he remains unsafe and a danger to himself and others due to his erratic driving; also due to paranoid delusions he has been eating very little and seems to have lost significant weight and only a few months. At this time patient is not safe for discharge. He is not willing to sign a CV. Dredge Mechanic will file for involuntary commitment and substituted judgment. Also, sports writer is invoking the HCP on 06/19/24 as patient is unable to make medical decisions for himself. 07/10 less manic, but no other change in presentation 07/11 healthcare proxy affirmed; patient upset about this; will leave current medication regimen as is to let patient adjust 07/12 Dredge Mechanic again discussed healthcare proxy affirmation and that discussion was had with healthcare proxy who agrees with patient being on long acting injectable, Nga Lugomarai antonia. Dredge Mechanic asked about history of side effects and whether or not patient had erectile dysfunction. He says he is not having erections now since coming to the hospital and that he was prior to coming to the hospital; however he then says there were many years, when with his he was not getting an erection at all. Dredge Mechanic tried to see if there is a correlation with the medication and this experience however it was not possible as patient's discourse quickly wandered off and he started talking about his and other girlfriends, house as he bought... Patient said that he was going to call his cousin, healthcare proxy because he did not want to be on a long-acting medication. -patient remains without any insight into his illness at all and is upset by the day of long-acting injectable. Dredge Mechanic finds it reasonable to give patient time to appeal to his healthcare proxy to discuss medication management so will not make any adjustments at this time. That said, patient's lack of insight and long history of non adherence are barriers to discharging him on p.o. medications only Reviewed blood pressure and much improved with increase lisinopril dose 07/13 Patient did take Vraylar last night. Remains tangential, quickly getting off topic and not returning; talking about some delusional things but perhaps a little less. Dredge Mechanic discussed case with affirmed healthcare proxy Sienna who is very ambivalent about whether or not patient should be transitioned to a long-acting injectable. She agrees that he will very likely go off this medication but is sympathetic to his perceived complaints of side effects. -per healthcare proxy will hold off on long-acting injectable; patient did take Vraylar last night and says he will continue taking Plan: Healthcare proxy affirmed on 07/11/2024 Q 15 minute checks Continue Lisinopril 20mg daily (patient said he used to be on enalapril however not on formulary Continue Vraylar 3 mg q.h.s. Continue Paliperidone 6 mg q.h.s. Continue Brimonide Tartrate Continue Dorzolamide Continue Latanoprost Continue Timolol Patient educated on: diagnosis and medication risk/benefits Informed Consent: does not understand Reason for continued inpatient stay Substantial Risk for: inability to function Time Spent With Patient Time: Total time managing care of this patient today ____ minutes.
[2024-07-13] MEDS: Cariprazine HCl 3 MG CAPSULE PO (21:41)
[2024-07-13] MEDS: Paliperidone ER 9 MG TAB.ER.24 PO (21:41)
[2024-07-13] MEDS: LORazepam 1 MG TABLET PO (21:42)
[2024-07-13] MEDS: Latanoprost 0.005 % Ophth Sol 2.5 ML DROPS 1 DROP EYE-BOTH (21:45)
[2024-07-13 22:00] VITALS: BP 172/79; PULSE 66; TEMP 36.8; O2SAT 100
[2024-07-13] MEDS: traZODone HCL 50 MG TABLET PO (22:52)
[2024-07-14 08:18] VITALS: BP 110/55; PULSE 53; TEMP 36.5; O2SAT 100
[2024-07-14] MEDS: timoloL maleate 0.5 % Oph Sol 5 ML DRBTL 1 DROP EYE-BOTH ×2 (09:49→21:42)
[2024-07-14] MEDS: Brimonidine Tartrate 0.2% Oph 5 ML BOTTLE 1 DROP EYE-BOTH ×2 (09:49→21:41)
[2024-07-14] MEDS: Dorzolamide HCl 2 % Ophth Sol 10 ML DRPBTL 1 DROP EYE-BOTH ×3 (09:49→21:41)
[2024-07-14] MEDS: Thiamine HCL 100 MG TABLET PO (09:52)
[2024-07-14 15:12] VITALS: BP 140/89
[2024-07-14] MEDS: lisinopriL 20 MG TABLET PO (15:12)
[2024-07-14 20:12] VITALS: BP 177/81; PULSE 66; RESP 18; TEMP 36.6; O2SAT 99
--- NOTE | 2024-07-14 21:19 | P.PNPSI_ITS ---
Subjective Subjective Date of Service: 07/14/24 Reason For Visit: schizophrenia Interim History: Met with patient; discussed with team Again took Vraylar last night. No change in presentation; talking about weapons and guns Mental Status Exam Mental Status Exam Narrative: Pt is alert and oriented; behavior is more calm, cooperative, keeps to himself; hyperverbal; patient is not in distress; dressed in casual attire, adequate grooming; mood is described as ok affect congruent, little down; eye contact appropriate; Speech is mildly pressured and rambling, adequate articulation; no psychomotor agitation present; thought process is still disorganized, rambling and tangential; Thought content is on often on his but imbued with delusional twists; otherwise on various unrelated topics; paranoid delusions remain; denies any SI/HI. Denies AH but patient appears to be internally preoccupied and responding to internal stimuli. Patients insight and judgment impaired. Diagnostics Vital Signs (24Hr): Vital Signs - 24 hr 07/13/24 22:00 07/14/24 08:18 07/14/24 15:12 Temperature 98.3 F 97.7 F Pulse Rate 66 53 Respiratory Rate Blood Pressure 172/79 H 110/55 L 140/89 H Pulse Oximetry 100 100 Oxygen Delivery Method Room Air Room Air 07/14/24 20:12 Temperature 97.8 F Pulse Rate 66 Respiratory Rate 18 Blood Pressure 177/81 H Pulse Oximetry 99 Oxygen Delivery Method Room Air BMI result Body Mass Index 25.7 Labs 06/14/24 00:45 06/14/24 00:45 Medications Medications Current Medications Acetaminophen (Acetaminophen 325 Mg Tablet) 650 mg PO Q6H PRN PRN Reason: Headache/Pain Mild Scale (1-3) Last Admin: 06/16/24 13:42 Dose: 650 mg Al Hydroxide/Mg Hydroxide (Magnesium Hydrox/Alum Hydrox 30 Ml Oral.Susp) 30 ml PO Q6H PRN PRN Reason: Heartburn/Nausea Brimonidine Tartrate (Brimonidine Tartrate 0.2% Oph 5 Ml Bottle) 1 drop EYE- BOTH BID [facility] Last Admin: 07/14/24 09:49 Dose: 1 drop Cariprazine (Cariprazine Hcl 3 Mg Capsule) 3 mg PO BEDTIME [facility] Last Admin: 07/13/24 21:41 Dose: 3 mg Dorzolamide HCl (Dorzolamide Hcl 2 % Ophth Jossy 10 Ml Drpbtl) 1 drop EYE-BOTH TID [facility] Last Admin: 07/14/24 15:12 Dose: 1 drop Hydroxyzine HCl (Hydroxyzine Hcl 25 Mg Tablet) 25 mg PO Q6H PRN PRN Reason: Anxiety Last Admin: 07/12/24 02:14 Dose: 25 mg Latanoprost (Latanoprost 0.005 % Ophth Jossy 2.5 Ml Drops) 1 drop EYE-BOTH BEDTIME NAZ Last Admin: 07/13/24 21:45 Dose: 1 drop Lisinopril (Lisinopril 20 Mg Tablet) 20 mg PO DAILY [facility]; Protocol Last Admin: 07/14/24 15:12 Dose: 20 mg Lorazepam (Lorazepam 1 Mg Tablet) 1 mg PO BEDTIME NAZ Last Admin: 07/13/24 21:42 Dose: 1 mg Magnesium Hydroxide (Milk Of Magnesia 30 Ml Oral.Susp) 30 ml PO DAILY PRN PRN Reason: Constipation Nicotine (Nicotine 21 Mg Patch.Td24) 21 mg TRANSDERMA DAILY PRN PRN Reason: nicotine cravings Nicotine Polacrilex (Nicotine Polacrilex 2 Mg Gum) 4 mg BUCCAL Q2H PRN PRN Reason: Nicotine Cravings Olanzapine (Olanzapine 5 Mg Tablet) 5 mg PO Q4H PRN PRN Reason: agitation,psychosis Last Admin: 07/12/24 01:43 Dose: 5 mg Paliperidone (Paliperidone Er 9 Mg Tab.Er.24) 9 mg PO BEDTIME [facility] Last Admin: 07/13/24 21:41 Dose: 9 mg Thiamine HCl (Thiamine Hcl 100 Mg Tablet) 100 mg PO DAILY [facility] Last Admin: 07/14/24 09:52 Dose: 100 mg Timolol Maleate (Timolol Maleate 0.5 % Oph Jossy 5 Ml Drbtl) 1 drop EYE-BOTH BID [facility] Last Admin: 07/14/24 09:49 Dose: 1 drop Trazodone HCl (Trazodone Hcl 50 Mg Tablet) 50 mg PO BEDTIME MRX1 PRN PRN Reason: Insomnia Last Admin: 07/13/24 22:52 Dose: 50 mg Allergies Allergies Allergy/AdvReac Type Severity Reaction Status Date / Time No Known Allergies Allergy Unknown UNKNOWN Verified 06/14/24 00:30 Assessment & Plan Assessment & Plan (1) Schizoaffective disorder, bipolar type: Status: Acute Code(s): F25.0 - Schizoaffective disorder, bipolar type (2) Glaucoma: Status: Acute Code(s): H40.9 - Unspecified glaucoma (3) Hypertension: Status: Acute Code(s): I10 - Essential (primary) hypertension Plan Patient is a 68-year-old male with history of schizoaffective, bipolar type (vs bipolar), glaucoma who presents via police for disorganized behavior in the community in the face of medication noncompliance. Patient is disorganized in speech, rambling, often incoherently. He asks advertising copy writer. about the mott of the sexes and Eleazar and Vidya... Manager Critical Care inquired about ED/police report that he was disorganized, that he was driving in the backyard of his house, shiny his lights on neighbors house. He said he was trying to park in his driveway and I did not. Mean to drive in the backyard.. Saying it was accidental. Regarding being disorganized outside a convenience store, patient said that there was a angry woman there a sick woman.. Who was upset with and all he was doing was sitting in his car outside the convenience store for a little while, listening to music. Patient denies any drug or alcohol use. Says his throat is bothering him but he can not tolerate any questions regarding it. Says he does not need medications but has been taking them since he got here. Collateral report says patient was brought in for acting erratic, driving in circles and backyard of his house after neighbors called; also reports that he was acting erratically at nighttime outside of a convenience store. Formulation/clinical reasoning: Patient presents in a manic episode and acting erratically in the community. Recently discharged from [facility] on paliperidone 6mg qhs and Vraylar 3mg qhs. Not sure why patient is on 2 antipsychotics unless Vraylar is meant to be only a mood stabilizer. Will continue this regimen now since he seemed to somewhat stabilize on [facility]. If stabilizes will strongly consider long-acting injectable of paliperidone given history of noncompliance Hospital course: 06/19 Patient remains disorganized and is having a difficult time explaining his thoughts. On approach he is rambling about something and advertising copy writer has a very hard time understanding him as he is jumping from topic to topic. He says he wants to go home and that he has a lot to accomplish. He has not been taking Vraylar and says he does not like it. He said he will take the paliperidone but refuses long-acting injectable. Manager Critical Care asked about paranoid delusional thinking and he said that others are making fictitious statements. Regarding driving erratically, he says I was driving between the lines... However he does acknowledge he was playing his music too loudly. Manager Critical Care discussed that team does not feel he is ready for discharge however patient is unable to tolerate this discussion just says no that he wants to go... dental laboratory worker discussed case with patient's cousin aMrlin Dowd who is also his healthcare proxy (document in chart). She has significant concerns about his safety. She said that over the past week to 2 weeks he has been increasingly disorganized; advertising copy writer around [place] he refused his meds (from [facility]?); she drove in the car as a passenger with him and said she was very fearful as he was driving well below the speed limit, weaving in and out of the lanes and completely unsafe. She said he recently showed up at a work place and employees were scared of him because he was talking nonsensically. She says that he is delusional, thinking that his food is poisoned and threw away a significant amount of food that he got from a food shelf. She says he has lost about 30-40 lb over the past 2 months. She says that he has talked about raise or beams beaming down onto his head; saying that he seeing cars Vanish, planes Vanish and other bizarre delusional things. She says that he is historically not compliant with medication and would like him to be on a long-acting injectable. Manager Critical Care discussed case with SHELLFISH MEAT SEPARATOR OPERATOR inpatient provider who saw patient on his recent admission to a few weeks ago; she talked with his outpatient psychiatric provider Dr. Condon the said that patient needed Vraylar in addition to palpate own for stabilization. 06/20 rambling, hard to understand. Impossible to have a therapeutic conversation with patient as he quickly becomes oblivious to advertising copy writer, lost in a tangential thought and rambling about unrelated and mostly non-sensical things. Tried to ask pt about collateral reports, however he adamantly denies reports. t. Pt standing in [place] talking to himself. from the unit, pt called 911 and told police there is a sniper loose; on inquiry, could not explain his concern 06/21/24 Patient remains disorganized; perseveration on his relationship. He says he is good today...wants to get back to his house since he rebuilt his whole house and has things to do...He said he does not think he'll take psychiatric medications. He tells advertising copy writer that he has his own doctor, Dr. Hay. However, pt seemed open to writers explanation that medications ordered are the same ones that Dr. Hay prescribed. He seemed to agree to consider taking psych meds. 06/22 no change in presentation, remains disorganized, manic, delusional. Patient said he will contemplate taking the paliperidone. Will increase dose 06/23 patient took paliperidone last night. No change in presentation. Manager Critical Care discussed hypertension with patient and he said he used to be on an ISAC inhibitor and agreed to restart 1 now 06/25/2024: Continue to encourage medication adherence 06/26 No change in presentation; patient remains manic, rambling about various unrelated things. Came up to advertising copy writer and said something about [address] which patient could not explain. Staff reports only sleeping 2 hours last night. Patient again refuses Vraylar or long-acting medication. He says that the police that came to take him to the hospital were not real police... And says they were just dressed up to look like police. Again patient could not discuss this further; patient did however agree to increase lisinopril to 10 mg given continued hypertension 06/27 remains manic; reviewed blood pressures which was still avoided however lisinopril was just increase so needs more time to be effective. -patient remains manic, disorganized and without any insight. It seems that without a mood stabilizer on board, patient will remain manic and disorganized and unable to be safe in the community. 06/28 pt remains disorganized, rambling about various things perseverates on going home to fix his house, repair the roof. Telling staff that this advertising copy writer is an imposter and saying i know who my 's killer is... 06/29 continue tx plan; pt not open to increasing dose. 06/30 No change in presentation. Says he wants to get home so he can work on his house. Continuing to rambling about unrelated, irrelevant and or delusional things. Refuses any medication changes. Walking around the milieu with buttocks exposed. 07/01 patient remains disorganized; rambling about various things, often talking about his , referring to paranoid delusions about terrorists... Reviewed BP, HTN; discussed with pt who agrees to increasing lisinopril -will switch blood pressure measurements to t.i.d. to better assess effectiveness of antihypertensive 07/02 No change in presentation. Manager Critical Care asks patient how he is doing any patient starts talking about his , having been stolen, put into slavery and sex trafficking; says she is probably somewhere crying... Manager Critical Care tried to apply reality testing however patient kept talking about such things. Patient difficult to interrupt or with which to engage further 07/04 no change in presentation; no insight and refusing mood stabilizing meds o change in presentation. starts asking advertising copy writer for discharge, talking about medications, but quickly his ramble changes from unrelated topic to unrelated topic, imbued with paranoid ideations 07/06 continue tx. refuses vraylar but taking paliperidone as prescribed. 07/07 no change in presentation; refuses any medication changes, increase paliperidone or other mood stabilizer 07/08/2024: Continue current regimen and plans 07/09/2024: Continue current regimen and plans Impression: As patient remains without any insight to his illness or his behaviors, he remains unsafe and a danger to himself and others due to his erratic driving; also due to paranoid delusions he has been eating very little and seems to have lost significant weight and only a few months. At this time patient is not safe for discharge. He is not willing to sign a CV. Manager Critical Care will file for involuntary commitment and substituted judgment. Also, advertising copy writer is invoking the HCP on 06/19/24 as patient is unable to make medical decisions for himself. 07/10 less manic, but no other change in presentation 07/11 healthcare proxy affirmed; patient upset about this; will leave current medication regimen as is to let patient adjust 07/12 Manager Critical Care again discussed healthcare proxy affirmation and that discussion was had with healthcare proxy who agrees with patient being on long acting injectable, [employer]. Manager Critical Care asked about history of side effects and whether or not patient had erectile dysfunction. He says he is not having erections now since coming to the hospital and that he was prior to coming to the hospital; however he then says there were many years, when with his he was not getting an erection at all. Manager Critical Care tried to see if there is a correlation with the medication and this experience however it was not possible as patient's discourse quickly wandered off and he started talking about his and other girlfriends, house as he bought... Patient said that he was going to call his cousin, healthcare proxy because he did not want to be on a long-acting medication. -patient remains without any insight into his illness at all and is upset by the day of long-acting injectable. Manager Critical Care finds it reasonable to give patient time to appeal to his healthcare proxy to discuss medication management so will not make any adjustments at this time. That said, patient's lack of insight and long history of non adherence are barriers to discharging him on p.o. medications only Reviewed blood pressure and much improved with increase lisinopril dose 07/13 Patient did take Vraylar last night. Remains tangential, quickly getting off topic and not returning; talking about some delusional things but perhaps a little less. Manager Critical Care discussed case with affirmed healthcare proxy Sienna who is very ambivalent about whether or not patient should be transitioned to a long- acting injectable. She agrees that he will very likely go off this medication but is sympathetic to his perceived complaints of side effects. -per healthcare proxy will hold off on long-acting injectable; patient did take Vraylar last night and says he will continue taking Plan: Healthcare proxy affirmed on 07/11/2024 Q 15 minute checks Continue Lisinopril 20mg daily (patient said he used to be on enalapril however not on formulary Continue Vraylar 3 mg q.h.s. Continue Paliperidone 6 mg q.h.s. Continue Brimonide Tartrate Continue Dorzolamide Continue Latanoprost Continue Timolol Patient educated on: diagnosis and medication risk/benefits Informed Consent: understands, does not understand and further education needed Reason for continued inpatient stay Substantial Risk for: inability to function Time Spent With Patient Time: Total time managing care of this patient today ____ minutes.
[2024-07-14] MEDS: Latanoprost 0.005 % Ophth Sol 2.5 ML DROPS 1 DROP EYE-BOTH (21:41)
[2024-07-14] MEDS: Cariprazine HCl 3 MG CAPSULE PO (21:43)
[2024-07-14] MEDS: traZODone HCL 50 MG TABLET PO (21:43)
[2024-07-14] MEDS: Paliperidone ER 9 MG TAB.ER.24 PO (21:43)
[2024-07-14] MEDS: LORazepam 1 MG TABLET PO (21:43)
[2024-07-14] MEDS: hydrOXYzine HCL 25 MG TABLET PO (21:43)
--- NOTE | 2024-07-15 05:58 | P.PNPSI_ITS ---
Subjective Subjective Date of Service: 07/15/24 Reason For Visit: schizophrenia Interim History: Pt seen, discussed with the team. Pt found doing sit ups in bed when seen Very interactive. Discussed his medications, effects upon his thinking and wanting to return home Denies current adverse effects Medication Compliance: Yes Side effects from medications: No Attending Groups: Intermittent Review of Systems Acute medical concerns: No Review of Systems Review of Systems Denies Mental Status Exam Mental Status Exam Patient Appearance: Appropriate Patient Orientation: Person, Place and Situation Level of Consciousness: Alert Patient Behavior: Appropriate, Hyperactive, Cooperative and Good Eye Contact Mood Description: Calm Affect Description: Calm Patient Cognition Impaired: No Ability to Follow Directions: Good Speech Pattern: Spontaneous Speech Memory Description: Episodic Impaired Hallucinations: None Delusions: Present Thought Process: Goal Oriented Thought Content: positive for Goal Oriented, positive for Tangential and positive for Suicidal Ideation (denies) Judgement: Fair Diagnostics Vital Signs (24Hr): Vital Signs - 24 hr 07/14/24 08:18 07/14/24 15:12 07/14/24 20:12 Temperature 97.7 F 97.8 F Pulse Rate 53 66 Respiratory Rate 18 Blood Pressure 110/55 L 140/89 H 177/81 H Pulse Oximetry 100 99 Oxygen Delivery Method Room Air Room Air BMI result Body Mass Index 25.7 Labs 06/14/24 00:45 06/14/24 00:45 Medications Medications Current Medications Acetaminophen (Acetaminophen 325 Mg Tablet) 650 mg PO Q6H PRN PRN Reason: Headache/Pain Mild Scale (1-3) Last Admin: 06/16/24 13:42 Dose: 650 mg Al Hydroxide/Mg Hydroxide (Magnesium Hydrox/Alum Hydrox 30 Ml Oral.Susp) 30 ml PO Q6H PRN PRN Reason: Heartburn/Nausea Brimonidine Tartrate (Brimonidine Tartrate 0.2% Oph 5 Ml Bottle) 1 drop EYE- BOTH BID [facility] Last Admin: 07/14/24 21:41 Dose: 1 drop Cariprazine (Cariprazine Hcl 3 Mg Capsule) 3 mg PO BEDTIME [facility] Last Admin: 07/14/24 21:43 Dose: 3 mg Dorzolamide HCl (Dorzolamide Hcl 2 % Ophth Jossy 10 Ml Drpbtl) 1 drop EYE-BOTH TID [facility] Last Admin: 07/14/24 21:41 Dose: 1 drop Hydroxyzine HCl (Hydroxyzine Hcl 25 Mg Tablet) 25 mg PO Q6H PRN PRN Reason: Anxiety Last Admin: 07/14/24 21:43 Dose: 25 mg Latanoprost (Latanoprost 0.005 % Ophth Jossy 2.5 Ml Drops) 1 drop EYE-BOTH BEDTIME [facility] Last Admin: 07/14/24 21:41 Dose: 1 drop Lisinopril (Lisinopril 20 Mg Tablet) 20 mg PO DAILY [facility]; Protocol Last Admin: 07/14/24 15:12 Dose: 20 mg Lorazepam (Lorazepam 1 Mg Tablet) 1 mg PO BEDTIME NAZ Last Admin: 07/14/24 21:43 Dose: 1 mg Magnesium Hydroxide (Milk Of Magnesia 30 Ml Oral.Susp) 30 ml PO DAILY PRN PRN Reason: Constipation Nicotine (Nicotine 21 Mg Patch.Td24) 21 mg TRANSDERMA DAILY PRN PRN Reason: nicotine cravings Nicotine Polacrilex (Nicotine Polacrilex 2 Mg Gum) 4 mg BUCCAL Q2H PRN PRN Reason: Nicotine Cravings Olanzapine (Olanzapine 5 Mg Tablet) 5 mg PO Q4H PRN PRN Reason: agitation,psychosis Last Admin: 07/12/24 01:43 Dose: 5 mg Paliperidone (Paliperidone Er 9 Mg Tab.Er.24) 9 mg PO BEDTIME [facility] Last Admin: 07/14/24 21:43 Dose: 9 mg Thiamine HCl (Thiamine Hcl 100 Mg Tablet) 100 mg PO DAILY [facility] Last Admin: 07/14/24 09:52 Dose: 100 mg Timolol Maleate (Timolol Maleate 0.5 % Oph Jossy 5 Ml Drbtl) 1 drop EYE-BOTH BID [facility] Last Admin: 07/14/24 21:42 Dose: 1 drop Trazodone HCl (Trazodone Hcl 50 Mg Tablet) 50 mg PO BEDTIME MRX1 PRN PRN Reason: Insomnia Last Admin: 07/14/24 21:43 Dose: 50 mg Allergies Allergies Allergy/AdvReac Type Severity Reaction Status Date / Time No Known Allergies Allergy Unknown UNKNOWN Verified 06/14/24 00:30 Assessment & Plan Assessment & Plan (1) Schizoaffective disorder, bipolar type: Status: Acute Code(s): F25.0 - Schizoaffective disorder, bipolar type (2) Glaucoma: Status: Acute Code(s): H40.9 - Unspecified glaucoma (3) Hypertension: Status: Acute Code(s): I10 - Essential (primary) hypertension Plan Patient is a 68-year-old male with history of schizoaffective, bipolar type (vs bipolar), glaucoma who presents via police for disorganized behavior in the community in the face of medication noncompliance. Patient is disorganized in speech, rambling, often incoherently. He asks typewriters functional tester. about the mott of the sexes and Eleazar and Vidya... Drilling Foreman inquired about ED/police report that he was disorganized, that he was driving in the backyard of his house, shiny his lights on neighbors house. He said he was trying to park in his driveway and I did not. Mean to drive in the backyard.. Saying it was accidental. Regarding being disorganized outside a convenience store, patient said that there was a angry woman there a sick woman.. Who was upset with and all he was doing was sitting in his car outside the convenience store for a little while, listening to music. Patient denies any drug or alcohol use. Says his throat is bothering him but he can not tolerate any questions regarding it. Says he does not need medications but has been taking them since he got here. Collateral report says patient was brought in for acting erratic, driving in circles and backyard of his house after neighbors called; also reports that he was acting erratically at nighttime outside of a convenience store. Formulation/clinical reasoning: Patient presents in a manic episode and acting erratically in the community. Recently discharged from [facility] on paliperidone 6mg qhs and Vraylar 3mg qhs. Not sure why patient is on 2 antipsychotics unless Vraylar is meant to be only a mood stabilizer. Will continue this regimen now since he seemed to somewhat stabilize on [facility]. If stabilizes will strongly consider long-acting injectable of paliperidone given history of noncompliance Hospital course: 06/19 Patient remains disorganized and is having a difficult time explaining his thoughts. On approach he is rambling about something and typewriters functional tester has a very hard time understanding him as he is jumping from topic to topic. He says he wants to go home and that he has a lot to accomplish. He has not been taking Vraylar and says he does not like it. He said he will take the paliperidone but refuses long-acting injectable. Drilling Foreman asked about paranoid delusional thinking and he said that others are making fictitious statements. Regarding driving erratically, he says I was driving between the lines... However he does acknowledge he was playing his music too loudly. Drilling Foreman discussed that team does not feel he is ready for discharge however patient is unable to tolerate this discussion just says no that he wants to go... ornamental iron worker helper discussed case with patient's cousin Marlin Dowd who is also his healthcare proxy (document in chart). She has significant concerns about his safety. She said that over the past week to 2 weeks he has been increasingly disorganized; typewriters functional tester around [place] he refused his meds (from [facility]?); she drove in the car as a passenger with him and said she was very fearful as he was driving well below the speed limit, weaving in and out of the lanes and completely unsafe. She said he recently showed up at a work place and employees were scared of him because he was talking nonsensically. She says that he is delusional, thinking that his food is poisoned and threw away a significant amount of food that he got from a food shelf. She says he has lost about 30-40 lb over the past 2 months. She says that he has talked about raise or beams beaming down onto his head; saying that he seeing cars Vanish, planes Vanish and other bizarre delusional things. She says that he is historically not compliant with medication and would like him to be on a long-acting injectable. Drilling Foreman discussed case with [employer] [facility] inpatient provider who saw patient on his recent admission to a few weeks ago; she talked with his outpatient psychiatric provider Dr. Condon the said that patient needed Vraylar in addition to palpate own for stabilization. 06/20 rambling, hard to understand. Impossible to have a therapeutic conversation with patient as he quickly becomes oblivious to typewriters functional tester, lost in a tangential thought and rambling about unrelated and mostly non-sensical things. Tried to ask pt about collateral reports, however he adamantly denies reports. t. Pt standing in [place] talking to himself. from the unit, pt called 911 and told police there is a sniper loose; on inquiry, could not explain his concern 06/21/24 Patient remains disorganized; perseveration on his relationship. He says he is good today...wants to get back to his house since he rebuilt his whole house and has things to do...He said he does not think he'll take psychiatric medications. He tells typewriters functional tester that he has his own doctor, Dr. Hay. However, pt seemed open to writers explanation that medications ordered are the same ones that Dr. Hay prescribed. He seemed to agree to consider taking psych meds. 06/22 no change in presentation, remains disorganized, manic, delusional. Patient said he will contemplate taking the paliperidone. Will increase dose 06/23 patient took paliperidone last night. No change in presentation. Drilling Foreman discussed hypertension with patient and he said he used to be on an ISAC inhibitor and agreed to restart 1 now 06/25/2024: Continue to encourage medication adherence 06/26 No change in presentation; patient remains manic, rambling about various unrelated things. Came up to typewriters functional tester and said something about [address] which patient could not explain. Staff reports only sleeping 2 hours last night. Patient again refuses Vraylar or long-acting medication. He says that the police that came to take him to the hospital were not real police... And says they were just dressed up to look like police. Again patient could not discuss this further; patient did however agree to increase lisinopril to 10 mg given continued hypertension 06/27 remains manic; reviewed blood pressures which was still avoided however lisinopril was just increase so needs more time to be effective. -patient remains manic, disorganized and without any insight. It seems that without a mood stabilizer on board, patient will remain manic and disorganized and unable to be safe in the community. 06/28 pt remains disorganized, rambling about various things perseverates on going home to fix his house, repair the roof. Telling staff that this typewriters functional tester is an imposter and saying i know who my 's killer is... 06/29 continue tx plan; pt not open to increasing dose. 06/30 No change in presentation. Says he wants to get home so he can work on his house. Continuing to rambling about unrelated, irrelevant and or delusional things. Refuses any medication changes. Walking around the milieu with buttocks exposed. 07/01 patient remains disorganized; rambling about various things, often talking about his , referring to paranoid delusions about terrorists... Reviewed BP, HTN; discussed with pt who agrees to increasing lisinopril -will switch blood pressure measurements to t.i.d. to better assess effectiveness of antihypertensive 07/02 No change in presentation. Drilling Foreman asks patient how he is doing any patient starts talking about his , having been stolen, put into slavery and sex trafficking; says she is probably somewhere crying... Drilling Foreman tried to apply reality testing however patient kept talking about such things. Patient difficult to interrupt or with which to engage further 07/04 no change in presentation; no insight and refusing mood stabilizing meds o change in presentation. starts asking typewriters functional tester for discharge, talking about medications, but quickly his ramble changes from unrelated topic to unrelated topic, imbued with paranoid ideations 07/06 continue tx. refuses vraylar but taking paliperidone as prescribed. 07/07 no change in presentation; refuses any medication changes, increase paliperidone or other mood stabilizer 07/08/2024: Continue current regimen and plans 07/09/2024: Continue current regimen and plans Impression: As patient remains without any insight to his illness or his behaviors, he remains unsafe and a danger to himself and others due to his erratic driving; also due to paranoid delusions he has been eating very little and seems to have lost significant weight and only a few months. At this time patient is not safe for discharge. He is not willing to sign a CV. Drilling Foreman will file for involuntary commitment and substituted judgment. Also, typewriters functional tester is invoking the HCP on 06/19/24 as patient is unable to make medical decisions for himself. 07/10 less manic, but no other change in presentation 07/11 healthcare proxy affirmed; patient upset about this; will leave current medication regimen as is to let patient adjust 07/12 Drilling Foreman again discussed healthcare proxy affirmation and that discussion was had with healthcare proxy who agrees with patient being on long acting injectable, Invega Sustenna. Drilling Foreman asked about history of side effects and whether or not patient had erectile dysfunction. He says he is not having erections now since coming to the hospital and that he was prior to coming to the hospital; however he then says there were many years, when with his he was not getting an erection at all. Drilling Foreman tried to see if there is a correlation with the medication and this experience however it was not possible as patient's discourse quickly wandered off and he started talking about his and other girlfriends, house as he bought... Patient said that he was going to call his cousin, healthcare proxy because he did not want to be on a long-acting medication. -patient remains without any insight into his illness at all and is upset by the day of long-acting injectable. Drilling Foreman finds it reasonable to give patient time to appeal to his healthcare proxy to discuss medication management so will not make any adjustments at this time. That said, patient's lack of insight and long history of non adherence are barriers to discharging him on p.o. medications only Reviewed blood pressure and much improved with increase lisinopril dose 07/15 continue tx Plan: Healthcare proxy affirmed on 07/11/2024 Q 15 minute checks Continue Lisinopril 20mg daily (patient said he used to be on enalapril however not on formulary Continue Vraylar 3 mg q.h.s. patient has been refusing Continue Paliperidone 6 mg q.h.s. Continue Brimonide Tartrate Continue Dorzolamide Continue Latanoprost Continue Timolol Reason for continued inpatient stay Substantial Risk for: rapid decompensation Time Spent With Patient Time: Total time managing care of this patient today ____ minutes.
[2024-07-15] MEDS: OLANZapine 5 MG TABLET PO (06:21)
[2024-07-15 08:25] VITALS: BP 144/69
[2024-07-15] MEDS: lisinopriL 20 MG TABLET PO (08:25)
[2024-07-15] MEDS: Thiamine HCL 100 MG TABLET PO (08:26)
[2024-07-15] MEDS: Brimonidine Tartrate 0.2% Oph 5 ML BOTTLE 1 DROP EYE-BOTH ×2 (08:28→22:04)
[2024-07-15] MEDS: Dorzolamide HCl 2 % Ophth Sol 10 ML DRPBTL 1 DROP EYE-BOTH ×3 (08:29→22:05)
[2024-07-15] MEDS: timoloL maleate 0.5 % Oph Sol 5 ML DRBTL 1 DROP EYE-BOTH ×2 (08:31→22:06)
[2024-07-15 19:41] VITALS: BP 130/82; PULSE 84; RESP 18; TEMP 36.8; O2SAT 98
[2024-07-15] MEDS: Latanoprost 0.005 % Ophth Sol 2.5 ML DROPS 1 DROP EYE-BOTH (22:06)
[2024-07-15] MEDS: Cariprazine HCl 3 MG CAPSULE PO (22:06)
[2024-07-15] MEDS: hydrOXYzine HCL 25 MG TABLET PO (22:06)
[2024-07-15] MEDS: traZODone HCL 50 MG TABLET PO (22:06)
[2024-07-15] MEDS: LORazepam 1 MG TABLET PO (22:06)
[2024-07-15] MEDS: Paliperidone ER 9 MG TAB.ER.24 PO (22:07)
[2024-07-16 08:01] VITALS: BP 142/67; PULSE 65; TEMP 37.1; O2SAT 98
[2024-07-16] MEDS: Brimonidine Tartrate 0.2% Oph 5 ML BOTTLE 1 DROP EYE-BOTH ×2 (08:33→20:11)
[2024-07-16] MEDS: Dorzolamide HCl 2 % Ophth Sol 10 ML DRPBTL 1 DROP EYE-BOTH ×3 (08:40→20:11)
--- NOTE | 2024-07-16 08:47 | P.PNPSI_ITS ---
Subjective Subjective Date of Service: 07/16/24 Reason For Visit: schizophrenia Interim History: Pt seen, discussed with team. Very interactive in our meeting. Discussed food choices and his impressions of what is sent. Talked of wanting to go home, and beginning to date, but states he does like the unit and feels comfortable here. He has found his stay to be positive. Medication Compliance: Yes Side effects from medications: No Attending Groups: Intermittent Review of Systems Acute medical concerns: No Review of Systems Review of Systems Denies Mental Status Exam Mental Status Exam Patient Appearance: Appropriate Patient Orientation: Person, Place and Situation Level of Consciousness: Alert Patient Behavior: Appropriate, Hyperactive, Cooperative and Good Eye Contact Mood Description: Calm Affect Description: Calm Patient Cognition Impaired: No Ability to Follow Directions: Good Speech Pattern: Spontaneous Speech Memory Description: Episodic Impaired Hallucinations: None Delusions: Present Thought Process: Goal Oriented Thought Content: positive for Goal Oriented, positive for Tangential and positive for Suicidal Ideation (denies) Judgement: Fair Diagnostics Vital Signs (24Hr): Vital Signs - 24 hr 07/15/24 19:41 07/16/24 08:01 Temperature 98.3 F 98.7 F Pulse Rate 84 65 Respiratory Rate 18 Blood Pressure 130/82 142/67 H Pulse Oximetry 98 98 Oxygen Delivery Method Room Air Room Air BMI result Body Mass Index 25.7 Labs 06/14/24 00:45 06/14/24 00:45 Medications Medications Current Medications Acetaminophen (Acetaminophen 325 Mg Tablet) 650 mg PO Q6H PRN PRN Reason: Headache/Pain Mild Scale (1-3) Last Admin: 06/16/24 13:42 Dose: 650 mg Al Hydroxide/Mg Hydroxide (Magnesium Hydrox/Alum Hydrox 30 Ml Oral.Susp) 30 ml PO Q6H PRN PRN Reason: Heartburn/Nausea Brimonidine Tartrate (Brimonidine Tartrate 0.2% Oph 5 Ml Bottle) 1 drop EYE- BOTH BID [facility] Last Admin: 07/15/24 22:04 Dose: 1 drop Cariprazine (Cariprazine Hcl 3 Mg Capsule) 3 mg PO BEDTIME [facility] Last Admin: 07/15/24 22:06 Dose: 3 mg Dorzolamide HCl (Dorzolamide Hcl 2 % Ophth Jossy 10 Ml Drpbtl) 1 drop EYE-BOTH TID [facility] Last Admin: 07/15/24 22:05 Dose: 1 drop Hydroxyzine HCl (Hydroxyzine Hcl 25 Mg Tablet) 25 mg PO Q6H PRN PRN Reason: Anxiety Last Admin: 07/15/24 22:06 Dose: 25 mg Latanoprost (Latanoprost 0.005 % Ophth Jossy 2.5 Ml Drops) 1 drop EYE-BOTH BEDTIME [facility] Last Admin: 07/15/24 22:06 Dose: 1 drop Lisinopril (Lisinopril 20 Mg Tablet) 20 mg PO DAILY [facility]; Protocol Last Admin: 07/15/24 08:25 Dose: 20 mg Lorazepam (Lorazepam 1 Mg Tablet) 1 mg PO BEDTIME NAZ Last Admin: 07/15/24 22:06 Dose: 1 mg Magnesium Hydroxide (Milk Of Magnesia 30 Ml Oral.Susp) 30 ml PO DAILY PRN PRN Reason: Constipation Nicotine (Nicotine 21 Mg Patch.Td24) 21 mg TRANSDERMA DAILY PRN PRN Reason: nicotine cravings Nicotine Polacrilex (Nicotine Polacrilex 2 Mg Gum) 4 mg BUCCAL Q2H PRN PRN Reason: Nicotine Cravings Olanzapine (Olanzapine 5 Mg Tablet) 5 mg PO Q4H PRN PRN Reason: agitation,psychosis Last Admin: 07/15/24 06:21 Dose: 5 mg Paliperidone (Paliperidone Er 9 Mg Tab.Er.24) 9 mg PO BEDTIME [facility] Last Admin: 07/15/24 22:07 Dose: 9 mg Thiamine HCl (Thiamine Hcl 100 Mg Tablet) 100 mg PO DAILY [facility] Last Admin: 07/15/24 08:26 Dose: 100 mg Timolol Maleate (Timolol Maleate 0.5 % Oph Jossy 5 Ml Drbtl) 1 drop EYE-BOTH BID [facility] Last Admin: 07/15/24 22:06 Dose: 1 drop Trazodone HCl (Trazodone Hcl 50 Mg Tablet) 50 mg PO BEDTIME MRX1 PRN PRN Reason: Insomnia Last Admin: 07/15/24 22:06 Dose: 50 mg Allergies Allergies Allergy/AdvReac Type Severity Reaction Status Date / Time No Known Allergies Allergy Unknown UNKNOWN Verified 06/14/24 00:30 Assessment & Plan Assessment & Plan (1) Schizoaffective disorder, bipolar type: Status: Acute Code(s): F25.0 - Schizoaffective disorder, bipolar type (2) Glaucoma: Status: Acute Code(s): H40.9 - Unspecified glaucoma (3) Hypertension: Status: Acute Code(s): I10 - Essential (primary) hypertension Plan Patient is a 68-year-old male with history of schizoaffective, bipolar type (vs bipolar), glaucoma who presents via police for disorganized behavior in the community in the face of medication noncompliance. Patient is disorganized in speech, rambling, often incoherently. He asks journalists and other writers. about the mott of the sexes and Eleazar and Vidya... Firewall Security Engineer inquired about ED/police report that he was disorganized, that he was driving in the backyard of his house, shiny his lights on neighbors house. He said he was trying to park in his driveway and I did not. Mean to drive in the backyard.. Saying it was accidental. Regarding being disorganized outside a convenience store, patient said that there was a angry woman there a sick woman.. Who was upset with and all he was doing was sitting in his car outside the convenience store for a little while, listening to music. Patient denies any drug or alcohol use. Says his throat is bothering him but he can not tolerate any questions regarding it. Says he does not need medications but has been taking them since he got here. Collateral report says patient was brought in for acting erratic, driving in circles and backyard of his house after neighbors called; also reports that he was acting erratically at nighttime outside of a convenience store. Formulation/clinical reasoning: Patient presents in a manic episode and acting erratically in the community. Recently discharged from [facility] on paliperidone 6mg qhs and Vraylar 3mg qhs. Not sure why patient is on 2 antipsychotics unless Vraylar is meant to be only a mood stabilizer. Will continue this regimen now since he seemed to somewhat stabilize on [facility]. If stabilizes will strongly consider long-acting injectable of paliperidone given history of noncompliance Hospital course: 06/19 Patient remains disorganized and is having a difficult time explaining his thoughts. On approach he is rambling about something and journalists and other writers has a very hard time understanding him as he is jumping from topic to topic. He says he wants to go home and that he has a lot to accomplish. He has not been taking Vraylar and says he does not like it. He said he will take the paliperidone but refuses long-acting injectable. Firewall Security Engineer asked about paranoid delusional thinking and he said that others are making fictitious statements. Regarding driving erratically, he says I was driving between the lines... However he does acknowledge he was playing his music too loudly. Firewall Security Engineer discussed that team does not feel he is ready for discharge however patient is unable to tolerate this discussion just says no that he wants to go... facility worker discussed case with patient's cousin Marlin Dowd who is also his healthcare proxy (document in chart). She has significant concerns about his safety. She said that over the past week to 2 weeks he has been increasingly disorganized; journalists and other writers around [place] he refused his meds (from [facility]?); she drove in the car as a passenger with him and said she was very fearful as he was driving well below the speed limit, weaving in and out of the lanes and completely unsafe. She said he recently showed up at a work place and employees were scared of him because he was talking nonsensically. She says that he is delusional, thinking that his food is poisoned and threw away a significant amount of food that he got from a food shelf. She says he has lost about 30-40 lb over the past 2 months. She says that he has talked about raise or beams beaming down onto his head; saying that he seeing cars Vanish, planes Vanish and other bizarre delusional things. She says that he is historically not compliant with medication and would like him to be on a long-acting injectable. Firewall Security Engineer discussed case with [employer] inpatient provider who saw patient on his recent admission to a few weeks ago; she talked with his outpatient psychiatric provider Dr. Condon the said that patient needed Vraylar in addition to palpate own for stabilization. 06/20 rambling, hard to understand. Impossible to have a therapeutic conversation with patient as he quickly becomes oblivious to journalists and other writers, lost in a tangential thought and rambling about unrelated and mostly non-sensical things. Tried to ask pt about collateral reports, however he adamantly denies reports. t. Pt standing in [place] talking to himself. from the unit, pt called 911 and told police there is a sniper loose; on inquiry, could not explain his concern 1/1/25 Patient remains disorganized; perseveration on his relationship. He says he is good today...wants to get back to his house since he rebuilt his whole house and has things to do...He said he does not think he'll take psychiatric medications. He tells journalists and other writers that he has his own doctor, Dr. Hay. However, pt seemed open to writers explanation that medications ordered are the same ones that Dr. Hay prescribed. He seemed to agree to consider taking psych meds. 06/22 no change in presentation, remains disorganized, manic, delusional. Patient said he will contemplate taking the paliperidone. Will increase dose 06/23 patient took paliperidone last night. No change in presentation. Firewall Security Engineer discussed hypertension with patient and he said he used to be on an ISAC inhibitor and agreed to restart 1 now 06/25/2024: Continue to encourage medication adherence 06/26 No change in presentation; patient remains manic, rambling about various unrelated things. Came up to journalists and other writers and said something about [address] which patient could not explain. Staff reports only sleeping 2 hours last night. Patient again refuses Vraylar or long-acting medication. He says that the police that came to take him to the hospital were not real police... And says they were just dressed up to look like police. Again patient could not discuss this further; patient did however agree to increase lisinopril to 10 mg given continued hypertension 06/27 remains manic; reviewed blood pressures which was still avoided however lisinopril was just increase so needs more time to be effective. -patient remains manic, disorganized and without any insight. It seems that without a mood stabilizer on board, patient will remain manic and disorganized and unable to be safe in the community. 06/28 pt remains disorganized, rambling about various things perseverates on going home to fix his house, repair the roof. Telling staff that this journalists and other writers is an imposter and saying i know who my 's killer is... 06/29 continue tx plan; pt not open to increasing dose. 06/30 No change in presentation. Says he wants to get home so he can work on his house. Continuing to rambling about unrelated, irrelevant and or delusional things. Refuses any medication changes. Walking around the milieu with buttocks exposed. 07/01 patient remains disorganized; rambling about various things, often talking about his , referring to paranoid delusions about terrorists... Reviewed BP, HTN; discussed with pt who agrees to increasing lisinopril -will switch blood pressure measurements to t.i.d. to better assess effectiveness of antihypertensive 07/02 No change in presentation. Firewall Security Engineer asks patient how he is doing any patient starts talking about his , having been stolen, put into slavery and sex trafficking; says she is probably somewhere crying... Firewall Security Engineer tried to apply reality testing however patient kept talking about such things. Patient difficult to interrupt or with which to engage further 07/04 no change in presentation; no insight and refusing mood stabilizing meds o change in presentation. starts asking journalists and other writers for discharge, talking about medications, but quickly his ramble changes from unrelated topic to unrelated topic, imbued with paranoid ideations 07/06 continue tx. refuses vraylar but taking paliperidone as prescribed. 07/07 no change in presentation; refuses any medication changes, increase paliperidone or other mood stabilizer 07/08/2024: Continue current regimen and plans 07/09/2024: Continue current regimen and plans Impression: As patient remains without any insight to his illness or his behaviors, he remains unsafe and a danger to himself and others due to his erratic driving; also due to paranoid delusions he has been eating very little and seems to have lost significant weight and only a few months. At this time patient is not safe for discharge. He is not willing to sign a CV. Firewall Security Engineer will file for involuntary commitment and substituted judgment. Also, journalists and other writers is invoking the HCP on 06/19/24 as patient is unable to make medical decisions for himself. 07/10 less manic, but no other change in presentation 07/11 healthcare proxy affirmed; patient upset about this; will leave current medication regimen as is to let patient adjust 07/12 Firewall Security Engineer again discussed healthcare proxy affirmation and that discussion was had with healthcare proxy who agrees with patient being on long acting injectable, Invega Sustenna. Firewall Security Engineer asked about history of side effects and whether or not patient had erectile dysfunction. He says he is not having erections now since coming to the hospital and that he was prior to coming to the hospital; however he then says there were many years, when with his he was not getting an erection at all. Firewall Security Engineer tried to see if there is a correlation with the medication and this experience however it was not possible as patient's discourse quickly wandered off and he started talking about his and other girlfriends, house as he bought... Patient said that he was going to call his cousin, healthcare proxy because he did not want to be on a long-acting medication. -patient remains without any insight into his illness at all and is upset by the day of long-acting injectable. Firewall Security Engineer finds it reasonable to give patient time to appeal to his healthcare proxy to discuss medication management so will not make any adjustments at this time. That said, patient's lack of insight and long history of non adherence are barriers to discharging him on p.o. medications only Reviewed blood pressure and much improved with increase lisinopril dose 07/16- continue tx Plan: Healthcare proxy affirmed on 07/11/2024 Q 15 minute checks Continue Lisinopril 20mg daily (patient said he used to be on enalapril however not on formulary Continue Vraylar 3 mg q.h.s. patient has been refusing Continue Paliperidone 6 mg q.h.s. Continue Brimonide Tartrate Continue Dorzolamide Continue Latanoprost Continue Timolol Reason for continued inpatient stay Substantial Risk for: rapid decompensation Time Spent With Patient Time: Total time managing care of this patient today ____ minutes.
[2024-07-16] MEDS: lisinopriL 20 MG TABLET PO (08:48)
[2024-07-16] MEDS: Thiamine HCL 100 MG TABLET PO (08:48)
[2024-07-16] MEDS: timoloL maleate 0.5 % Oph Sol 5 ML DRBTL 1 DROP EYE-BOTH ×2 (08:49→20:13)
[2024-07-16 19:53] VITALS: BP 185/77; PULSE 86; RESP 15; TEMP 36.8; O2SAT 100
[2024-07-16] MEDS: Cariprazine HCl 3 MG CAPSULE PO (20:08)
[2024-07-16] MEDS: Paliperidone ER 9 MG TAB.ER.24 PO (20:08)
[2024-07-16] MEDS: Latanoprost 0.005 % Ophth Sol 2.5 ML DROPS 1 DROP EYE-BOTH (20:14)
[2024-07-16] MEDS: traZODone HCL 50 MG TABLET PO (22:03)
[2024-07-16] MEDS: hydrOXYzine HCL 25 MG TABLET PO (22:03)
[2024-07-16] MEDS: LORazepam 1 MG TABLET PO (22:03)
[2024-07-17 08:07] VITALS: BP 147/70; PULSE 54; TEMP 36.6; O2SAT 98
[2024-07-17] MEDS: lisinopriL 20 MG TABLET PO (08:32)
[2024-07-17] MEDS: Thiamine HCL 100 MG TABLET PO (08:33)
[2024-07-17] MEDS: Brimonidine Tartrate 0.2% Oph 5 ML BOTTLE 1 DROP EYE-BOTH ×2 (08:34→22:02)
[2024-07-17] MEDS: Dorzolamide HCl 2 % Ophth Sol 10 ML DRPBTL 1 DROP EYE-BOTH ×3 (08:35→22:01)
[2024-07-17] MEDS: timoloL maleate 0.5 % Oph Sol 5 ML DRBTL 1 DROP EYE-BOTH ×2 (08:36→22:00)
--- NOTE | 2024-07-17 19:31 | HO.PSYCHPN ---
Subjective Subjective Date of Service: 07/17/24 Reason For Visit: schizophrenia Interim History: met with patient; discussed with team pt has been taking vraylar for past several days and he presents pt a little more calm today. Still tangential. At first, asks when he can discharge and that he wants to go home. But from there he starts talking about his home, the history of it...he says he'll keep taking vraylar. Perhaps talking a little less about delusional topics Mental Status Exam Mental Status Exam Narrative: Pt is alert and oriented; behavior is more calm, cooperative, keeps to himself; hyperverbal once he starts talking; patient is not in distress; dressed in casual attire, adequate grooming; mood is described as ok affect congruent; eye contact appropriate; Speech is mildly pressured and rambling, adequate articulation; no psychomotor agitation present; thought process is more organized, but tangential and rambling; Thought content is on often on his , discharge; seems to be less delusional content; denies any SI/HI. Denies AH; internally preoccupied but not clear if responding to internal stimuli. Patients insight and judgment impaired. Diagnostics Vital Signs (24Hr): Vital Signs - 24 hr 07/16/24 19:53 07/17/24 08:07 Temperature 98.2 F 97.8 F Pulse Rate 86 54 Respiratory Rate 15 Blood Pressure 185/77 H 147/70 H Pulse Oximetry 100 98 Oxygen Delivery Method Room Air BMI result Body Mass Index 25.7 Labs 06/14/24 00:45 06/14/24 00:45 Medications Medications Current Medications Acetaminophen (Acetaminophen 325 Mg Tablet) 650 mg PO Q6H PRN PRN Reason: Headache/Pain Mild Scale (1-3) Last Admin: 06/16/24 13:42 Dose: 650 mg Al Hydroxide/Mg Hydroxide (Magnesium Hydrox/Alum Hydrox 30 Ml Oral.Susp) 30 ml PO Q6H PRN PRN Reason: Heartburn/Nausea Brimonidine Tartrate (Brimonidine Tartrate 0.2% Oph 5 Ml Bottle) 1 drop EYE-BOTH BID [facility] Last Admin: 07/17/24 08:34 Dose: 1 drop Cariprazine (Cariprazine Hcl 3 Mg Capsule) 3 mg PO BEDTIME [facility] Last Admin: 07/16/24 20:08 Dose: 3 mg Dorzolamide HCl (Dorzolamide Hcl 2 % Ophth Jossy 10 Ml Drpbtl) 1 drop EYE-BOTH TID [facility] Last Admin: 07/17/24 15:28 Dose: 1 drop Hydroxyzine HCl (Hydroxyzine Hcl 25 Mg Tablet) 25 mg PO Q6H PRN PRN Reason: Anxiety Last Admin: 07/16/24 22:03 Dose: 25 mg Latanoprost (Latanoprost 0.005 % Ophth Jossy 2.5 Ml Drops) 1 drop EYE-BOTH BEDTIME NAZ Last Admin: 07/16/24 20:14 Dose: 1 drop Lisinopril (Lisinopril 20 Mg Tablet) 20 mg PO DAILY [facility]; Protocol Last Admin: 07/17/24 08:32 Dose: 20 mg Lorazepam (Lorazepam 1 Mg Tablet) 1 mg PO BEDTIME NAZ Last Admin: 07/16/24 22:03 Dose: 1 mg Magnesium Hydroxide (Milk Of Magnesia 30 Ml Oral.Susp) 30 ml PO DAILY PRN PRN Reason: Constipation Nicotine (Nicotine 21 Mg Patch.Td24) 21 mg TRANSDERMA DAILY PRN PRN Reason: nicotine cravings Nicotine Polacrilex (Nicotine Polacrilex 2 Mg Gum) 4 mg BUCCAL Q2H PRN PRN Reason: Nicotine Cravings Olanzapine (Olanzapine 5 Mg Tablet) 5 mg PO Q4H PRN PRN Reason: agitation,psychosis Last Admin: 07/15/24 06:21 Dose: 5 mg Paliperidone (Paliperidone Er 9 Mg Tab.Er.24) 9 mg PO BEDTIME [facility] Last Admin: 07/16/24 20:08 Dose: 9 mg Thiamine HCl (Thiamine Hcl 100 Mg Tablet) 100 mg PO DAILY [facility] Last Admin: 07/17/24 08:33 Dose: 100 mg Timolol Maleate (Timolol Maleate 0.5 % Oph Jossy 5 Ml Drbtl) 1 drop EYE-BOTH BID [facility] Last Admin: 07/17/24 08:36 Dose: 1 drop Trazodone HCl (Trazodone Hcl 50 Mg Tablet) 50 mg PO BEDTIME MRX1 PRN PRN Reason: Insomnia Last Admin: 07/16/24 22:03 Dose: 50 mg Allergies Allergies Allergy/AdvReac Type Severity Reaction Status Date / Time No Known Allergies Allergy Unknown UNKNOWN Verified 06/14/24 00:30 Assessment & Plan Assessment & Plan (1) Schizoaffective disorder, bipolar type: Status: Acute Code(s): F25.0 - Schizoaffective disorder, bipolar type (2) Glaucoma: Status: Acute Code(s): H40.9 - Unspecified glaucoma (3) Hypertension: Status: Acute Code(s): I10 - Essential (primary) hypertension Plan Patient is a 68-year-old male with history of schizoaffective, bipolar type (vs bipolar), glaucoma who presents via police for disorganized behavior in the community in the face of medication noncompliance. Patient is disorganized in speech, rambling, often incoherently. He asks ghost writer. about the mott of the sexes and Eleazar and Vidya... Medical Director/Head Team Physician inquired about ED/police report that he was disorganized, that he was driving in the backyard of his house, shiny his lights on neighbors house. He said he was trying to park in his driveway and I did not. Mean to drive in the backyard.. Saying it was accidental. Regarding being disorganized outside a convenience store, patient said that there was a angry woman there a sick woman.. Who was upset with and all he was doing was sitting in his car outside the convenience store for a little while, listening to music. Patient denies any drug or alcohol use. Says his throat is bothering him but he can not tolerate any questions regarding it. Says he does not need medications but has been taking them since he got here. Collateral report says patient was brought in for acting erratic, driving in circles and backyard of his house after neighbors called; also reports that he was acting erratically at nighttime outside of a convenience store. Formulation/clinical reasoning: Patient presents in a manic episode and acting erratically in the community. Recently discharged from [facility] on paliperidone 6mg qhs and Vraylar 3mg qhs. Not sure why patient is on 2 antipsychotics unless Vraylar is meant to be only a mood stabilizer. Will continue this regimen now since he seemed to somewhat stabilize on [facility]. If stabilizes will strongly consider long-acting injectable of paliperidone given history of noncompliance Hospital course: 06/19 Patient remains disorganized and is having a difficult time explaining his thoughts. On approach he is rambling about something and ghost writer has a very hard time understanding him as he is jumping from topic to topic. He says he wants to go home and that he has a lot to accomplish. He has not been taking Vraylar and says he does not like it. He said he will take the paliperidone but refuses long-acting injectable. Medical Director/Head Team Physician asked about paranoid delusional thinking and he said that others are making fictitious statements. Regarding driving erratically, he says I was driving between the lines... However he does acknowledge he was playing his music too loudly. Medical Director/Head Team Physician discussed that team does not feel he is ready for discharge however patient is unable to tolerate this discussion just says no that he wants to go... extension worker discussed case with patient's cousin Marlin Dowd who is also his healthcare proxy (document in chart). She has significant concerns about his safety. She said that over the past week to 2 weeks he has been increasingly disorganized; ghost writer around [place] he refused his meds (from [facility]?); she drove in the car as a passenger with him and said she was very fearful as he was driving well below the speed limit, weaving in and out of the lanes and completely unsafe. She said he recently showed up at a work place and employees were scared of him because he was talking nonsensically. She says that he is delusional, thinking that his food is poisoned and threw away a significant amount of food that he got from a food shelf. She says he has lost about 30-40 lb over the past 2 months. She says that he has talked about raise or beams beaming down onto his head; saying that he seeing cars Vanish, planes Vanish and other bizarre delusional things. She says that he is historically not compliant with medication and would like him to be on a long-acting injectable. Medical Director/Head Team Physician discussed case with [employer] inpatient provider who saw patient on his recent admission to a few weeks ago; she talked with his outpatient psychiatric provider Dr. Condon the said that patient needed Vraylar in addition to palpate own for stabilization. 06/20 rambling, hard to understand. Impossible to have a therapeutic conversation with patient as he quickly becomes oblivious to ghost writer, lost in a tangential thought and rambling about unrelated and mostly non-sensical things. Tried to ask pt about collateral reports, however he adamantly denies reports. t. Pt standing in [place] talking to himself. from the unit, pt called 911 and told police there is a sniper loose; on inquiry, could not explain his concern 06/21/24 Patient remains disorganized; perseveration on his relationship. He says he is good today...wants to get back to his house since he rebuilt his whole house and has things to do...He said he does not think he'll take psychiatric medications. He tells ghost writer that he has his own doctor, Dr. Hay. However, pt seemed open to writers explanation that medications ordered are the same ones that Dr. Hay prescribed. He seemed to agree to consider taking psych meds. 06/22 no change in presentation, remains disorganized, manic, delusional. Patient said he will contemplate taking the paliperidone. Will increase dose 06/23 patient took paliperidone last night. No change in presentation. Medical Director/Head Team Physician discussed hypertension with patient and he said he used to be on an ISAC inhibitor and agreed to restart 1 now 06/25/2024: Continue to encourage medication adherence 06/26 No change in presentation; patient remains manic, rambling about various unrelated things. Came up to ghost writer and said something about [address] which patient could not explain. Staff reports only sleeping 2 hours last night. Patient again refuses Vraylar or long-acting medication. He says that the police that came to take him to the hospital were not real police... And says they were just dressed up to look like police. Again patient could not discuss this further; patient did however agree to increase lisinopril to 10 mg given continued hypertension 06/27 remains manic; reviewed blood pressures which was still avoided however lisinopril was just increase so needs more time to be effective. -patient remains manic, disorganized and without any insight. It seems that without a mood stabilizer on board, patient will remain manic and disorganized and unable to be safe in the community. 06/28 pt remains disorganized, rambling about various things perseverates on going home to fix his house, repair the roof. Telling staff that this ghost writer is an imposter and saying i know who my 's killer is... 06/29 continue tx plan; pt not open to increasing dose. 06/30 No change in presentation. Says he wants to get home so he can work on his house. Continuing to rambling about unrelated, irrelevant and or delusional things. Refuses any medication changes. Walking around the milieu with buttocks exposed. 07/01 patient remains disorganized; rambling about various things, often talking about his , referring to paranoid delusions about terrorists... Reviewed BP, HTN; discussed with pt who agrees to increasing lisinopril -will switch blood pressure measurements to t.i.d. to better assess effectiveness of antihypertensive 07/02 No change in presentation. Medical Director/Head Team Physician asks patient how he is doing any patient starts talking about his , having been stolen, put into slavery and sex trafficking; says she is probably somewhere crying... Medical Director/Head Team Physician tried to apply reality testing however patient kept talking about such things. Patient difficult to interrupt or with which to engage further 07/04 no change in presentation; no insight and refusing mood stabilizing meds o change in presentation. starts asking ghost writer for discharge, talking about medications, but quickly his ramble changes from unrelated topic to unrelated topic, imbued with paranoid ideations 07/06 continue tx. refuses vraylar but taking paliperidone as prescribed. 07/07 no change in presentation; refuses any medication changes, increase paliperidone or other mood stabilizer 07/08/2024: Continue current regimen and plans 07/09/2024: Continue current regimen and plans Impression: As patient remains without any insight to his illness or his behaviors, he remains unsafe and a danger to himself and others due to his erratic driving; also due to paranoid delusions he has been eating very little and seems to have lost significant weight and only a few months. At this time patient is not safe for discharge. He is not willing to sign a CV. Medical Director/Head Team Physician will file for involuntary commitment and substituted judgment. Also, ghost writer is invoking the HCP on 06/19/24 as patient is unable to make medical decisions for himself. 07/10 less manic, but no other change in presentation 07/11 healthcare proxy affirmed; patient upset about this; will leave current medication regimen as is to let patient adjust 07/12 Medical Director/Head Team Physician again discussed healthcare proxy affirmation and that discussion was had with healthcare proxy who agrees with patient being on long acting injectable, [employer] Lugoenna. Medical Director/Head Team Physician asked about history of side effects and whether or not patient had erectile dysfunction. He says he is not having erections now since coming to the hospital and that he was prior to coming to the hospital; however he then says there were many years, when with his he was not getting an erection at all. Medical Director/Head Team Physician tried to see if there is a correlation with the medication and this experience however it was not possible as patient's discourse quickly wandered off and he started talking about his and other girlfriends, house as he bought... Patient said that he was going to call his cousin, healthcare proxy because he did not want to be on a long-acting medication. -patient remains without any insight into his illness at all and is upset by the day of long-acting injectable. Medical Director/Head Team Physician finds it reasonable to give patient time to appeal to his healthcare proxy to discuss medication management so will not make any adjustments at this time. That said, patient's lack of insight and long history of non adherence are barriers to discharging him on p.o. medications only Reviewed blood pressure and much improved with increase lisinopril dose 07/13 Patient did take Vraylar last night. Remains tangential, quickly getting off topic and not returning; talking about some delusional things but perhaps a little less. Medical Director/Head Team Physician discussed case with affirmed healthcare proxy Sienna who is very ambivalent about whether or not patient should be transitioned to a long-acting injectable. She agrees that he will very likely go off this medication but is sympathetic to his perceived complaints of side effects. -per healthcare proxy will hold off on long-acting injectable; patient did take Vraylar last night and says he will continue taking Reviewed blood pressure and much improved with increase lisinopril dose 07/13 Patient did take Vraylar last night. Remains tangential, quickly getting off topic and not returning; talking about some delusional things but perhaps a little less. Medical Director/Head Team Physician discussed case with affirmed healthcare proxy Sienna who is very ambivalent about whether or not patient should be transitioned to a long-acting injectable. She agrees that he will very likely go off this medication but is sympathetic to his perceived complaints of side effects. -per healthcare proxy will hold off on long-acting injectable; patient did take Vraylar last night and says he will continue taking 07/17 pt has been taking vraylar for past several days and he presents pt a little more calm today. Still tangential...he says he'll keep taking vraylar. Perhaps talking a little less about delusional topics -no change in insight and judgment and he has no sense of his mental illness or need for medication; taking vraylar only as a means to an end, that being discharge. Plan: Healthcare proxy affirmed on 07/11/2024 Q 15 minute checks Continue Lisinopril 20mg daily (patient said he used to be on enalapril however not on formulary Continue Vraylar 3 mg q.h.s. Continue Paliperidone 6 mg q.h.s. Continue Brimonide Tartrate Continue Dorzolamide Continue Latanoprost Continue Timolol Patient educated on: diagnosis and medication risk/benefits Informed Consent: does not understand Reason for continued inpatient stay Substantial Risk for: inability to function Time Spent With Patient Time: Total time managing care of this patient today ____ minutes.
[2024-07-17 22:00] VITALS: RESP 14
[2024-07-17] MEDS: Latanoprost 0.005 % Ophth Sol 2.5 ML DROPS 1 DROP EYE-BOTH (22:01)
[2024-07-17] MEDS: Cariprazine HCl 3 MG CAPSULE PO (22:02)
[2024-07-17] MEDS: LORazepam 1 MG TABLET PO (22:02)
[2024-07-17] MEDS: Paliperidone ER 9 MG TAB.ER.24 PO (22:02)
[2024-07-18] MEDS: traZODone HCL 50 MG TABLET PO (02:56)
[2024-07-18 09:00] VITALS: BP 153/65
[2024-07-18] MEDS: Thiamine HCL 100 MG TABLET PO (09:00)
[2024-07-18] MEDS: lisinopriL 20 MG TABLET PO (09:00)
[2024-07-18] MEDS: Dorzolamide HCl 2 % Ophth Sol 10 ML DRPBTL 1 DROP EYE-BOTH ×3 (09:01→22:51)
[2024-07-18] MEDS: timoloL maleate 0.5 % Oph Sol 5 ML DRBTL 1 DROP EYE-BOTH ×2 (09:02→22:51)
[2024-07-18] MEDS: Brimonidine Tartrate 0.2% Oph 5 ML BOTTLE 1 DROP EYE-BOTH ×2 (09:03→22:50)
--- NOTE | 2024-07-18 09:46 | P.PNPSI_ITS ---
Subjective Subjective Date of Service: 07/18/24 Reason For Visit: schizophrenia Interim History: met with patient; discussed with team Patient remains taking Vraylar at bedtime. Electrician Manager and patient talked about his house, 1 of his favorite topics which he says he loves and very much wants to go home so he can work on. Patient showed commercial insurance underwriter several pictures that he has of his late and shared some things about their relationship regarding the pictures. Of note, patient has not seem to mention any delusional thinking over the past 2 days and while he remains tangential, now seems to remain much more consistently on a given tangent rather than jumping from tangent to tangent. Electrician Manager inquired if patient is thinking or feeling differently than when he 1st came in and he shared that he feels a little slowed down. Electrician Manager offered that what seems slowed down to patient seems much more normal to commercial insurance underwriter and staff; commercial insurance underwriter shared that when patient 1st came in, he was very difficult to understand because he was talking so fast. Patient laughed and agreed that was probably true and that perhaps it is better that he is now talking more slowly. Electrician Manager discussed continuing to take medications on discharge which patient said he would. Mental Status Exam Mental Status Exam Narrative: Pt is alert and oriented; behavior is calm cooperative; patient mostly, keeps to himself; hyperverbal once he starts talking; patient is not in distress; dressed in casual attire, adequate grooming; mood is described as ok affect congruent; eye contact appropriate; Speech is mildly pressured and rambling, adequate articulation; no psychomotor agitation present; thought process remains tangential and rambling, however he is able to remain on a given tangent and though he may ramble and repeat himself he is overall expressing logical thoughts; overall more linear; Thought content is on discharge, getting back to his house, often on his ; lately no expressed delusional content; denies any SI/HI. Denies AH; internally preoccupied but not clear if responding to internal stimuli. Patients insight and judgment impaired but improved some. Diagnostics Vital Signs (24Hr): Vital Signs - 24 hr 07/17/24 22:00 07/18/24 09:00 Respiratory Rate 14 Blood Pressure 153/65 H BMI result Body Mass Index 25.7 Labs 06/14/24 00:45 06/14/24 00:45 Medications Medications Current Medications Acetaminophen (Acetaminophen 325 Mg Tablet) 650 mg PO Q6H PRN PRN Reason: Headache/Pain Mild Scale (1-3) Last Admin: 06/16/24 13:42 Dose: 650 mg Al Hydroxide/Mg Hydroxide (Magnesium Hydrox/Alum Hydrox 30 Ml Oral.Susp) 30 ml PO Q6H PRN PRN Reason: Heartburn/Nausea Brimonidine Tartrate (Brimonidine Tartrate 0.2% Oph 5 Ml Bottle) 1 drop EYE- BOTH BID [facility] Last Admin: 07/18/24 09:03 Dose: 1 drop Cariprazine (Cariprazine Hcl 3 Mg Capsule) 3 mg PO BEDTIME [facility] Last Admin: 07/17/24 22:02 Dose: 3 mg Dorzolamide HCl (Dorzolamide Hcl 2 % Ophth Jossy 10 Ml Drpbtl) 1 drop EYE-BOTH TID [facility] Last Admin: 07/18/24 09:01 Dose: 1 drop Hydroxyzine HCl (Hydroxyzine Hcl 25 Mg Tablet) 25 mg PO Q6H PRN PRN Reason: Anxiety Last Admin: 07/16/24 22:03 Dose: 25 mg Latanoprost (Latanoprost 0.005 % Ophth Jossy 2.5 Ml Drops) 1 drop EYE-BOTH BEDTIME [facility] Last Admin: 07/17/24 22:01 Dose: 1 drop Lisinopril (Lisinopril 20 Mg Tablet) 20 mg PO DAILY [facility]; Protocol Last Admin: 07/18/24 09:00 Dose: 20 mg Lorazepam (Lorazepam 1 Mg Tablet) 1 mg PO BEDTIME [facility] Last Admin: 07/17/24 22:02 Dose: 1 mg Magnesium Hydroxide (Milk Of Magnesia 30 Ml Oral.Susp) 30 ml PO DAILY PRN PRN Reason: Constipation Nicotine (Nicotine 21 Mg Patch.Td24) 21 mg TRANSDERMA DAILY PRN PRN Reason: nicotine cravings Nicotine Polacrilex (Nicotine Polacrilex 2 Mg Gum) 4 mg BUCCAL Q2H PRN PRN Reason: Nicotine Cravings Olanzapine (Olanzapine 5 Mg Tablet) 5 mg PO Q4H PRN PRN Reason: agitation,psychosis Last Admin: 07/15/24 06:21 Dose: 5 mg Paliperidone (Paliperidone Er 9 Mg Tab.Er.24) 9 mg PO BEDTIME NAZ Last Admin: 07/17/24 22:02 Dose: 9 mg Thiamine HCl (Thiamine Hcl 100 Mg Tablet) 100 mg PO DAILY [facility] Last Admin: 07/18/24 09:00 Dose: 100 mg Timolol Maleate (Timolol Maleate 0.5 % Oph Jossy 5 Ml Drbtl) 1 drop EYE-BOTH BID [facility] Last Admin: 07/18/24 09:02 Dose: 1 drop Trazodone HCl (Trazodone Hcl 50 Mg Tablet) 50 mg PO BEDTIME MRX1 PRN PRN Reason: Insomnia Last Admin: 07/18/24 02:56 Dose: 50 mg Allergies Allergies Allergy/AdvReac Type Severity Reaction Status Date / Time No Known Allergies Allergy Unknown UNKNOWN Verified 06/14/24 00:30 Assessment & Plan Assessment & Plan (1) Schizoaffective disorder, bipolar type: Status: Acute Code(s): F25.0 - Schizoaffective disorder, bipolar type (2) Glaucoma: Status: Acute Code(s): H40.9 - Unspecified glaucoma (3) Hypertension: Status: Acute Code(s): I10 - Essential (primary) hypertension Plan Patient is a 68-year-old male with history of schizoaffective, bipolar type (vs bipolar), glaucoma who presents via police for disorganized behavior in the community in the face of medication noncompliance. Patient is disorganized in speech, rambling, often incoherently. He asks commercial insurance underwriter. about the mott of the sexes and Eleazar and Vidya... Electrician Manager inquired about ED/police report that he was disorganized, that he was driving in the backyard of his house, shiny his lights on neighbors house. He said he was trying to park in his driveway and I did not. Mean to drive in the backyard.. Saying it was accidental. Regarding being disorganized outside a convenience store, patient said that there was a angry woman there a sick woman.. Who was upset with and all he was doing was sitting in his car outside the convenience store for a little while, listening to music. Patient denies any drug or alcohol use. Says his throat is bothering him but he can not tolerate any questions regarding it. Says he does not need medications but has been taking them since he got here. Collateral report says patient was brought in for acting erratic, driving in circles and backyard of his house after neighbors called; also reports that he was acting erratically at nighttime outside of a convenience store. Formulation/clinical reasoning: Patient presents in a manic episode and acting erratically in the community. Recently discharged from [facility] on paliperidone 6mg qhs and Vraylar 3mg qhs. Not sure why patient is on 2 antipsychotics unless Vraylar is meant to be only a mood stabilizer. Will continue this regimen now since he seemed to somewhat stabilize on [facility]. If stabilizes will strongly consider long-acting injectable of paliperidone given history of noncompliance Hospital course: 06/19 Patient remains disorganized and is having a difficult time explaining his thoughts. On approach he is rambling about something and commercial insurance underwriter has a very hard time understanding him as he is jumping from topic to topic. He says he wants to go home and that he has a lot to accomplish. He has not been taking Vraylar and says he does not like it. He said he will take the paliperidone but refuses long-acting injectable. Electrician Manager asked about paranoid delusional thinking and he said that others are making fictitious statements. Regarding driving erratically, he says I was driving between the lines... However he does acknowledge he was playing his music too loudly. Electrician Manager discussed that team does not feel he is ready for discharge however patient is unable to tolerate this discussion just says no that he wants to go... lasting floorworker discussed case with patient's cousin Marlin Dowd who is also his healthcare proxy (document in chart). She has significant concerns about his safety. She said that over the past week to 2 weeks he has been increasingly disorganized; commercial insurance underwriter around [place] he refused his meds (from [facility]?); she drove in the car as a passenger with him and said she was very fearful as he was driving well below the speed limit, weaving in and out of the lanes and completely unsafe. She said he recently showed up at a work place and employees were scared of him because he was talking nonsensically. She says that he is delusional, thinking that his food is poisoned and threw away a significant amount of food that he got from a food shelf. She says he has lost about 30-40 lb over the past 2 months. She says that he has talked about raise or beams beaming down onto his head; saying that he seeing cars Vanish, planes Vanish and other bizarre delusional things. She says that he is historically not compliant with medication and would like him to be on a long-acting injectable. Electrician Manager discussed case with [employer] inpatient provider who saw patient on his recent admission to a few weeks ago; she talked with his outpatient psychiatric provider Dr. Condon the said that patient needed Vraylar in addition to palpate own for stabilization. 06/20 rambling, hard to understand. Impossible to have a therapeutic conversation with patient as he quickly becomes oblivious to commercial insurance underwriter, lost in a tangential thought and rambling about unrelated and mostly non-sensical things. Tried to ask pt about collateral reports, however he adamantly denies reports. t. Pt standing in [place] talking to himself. from the unit, pt called 911 and told police there is a sniper loose; on inquiry, could not explain his concern 06/21/24 Patient remains disorganized; perseveration on his relationship. He says he is good today...wants to get back to his house since he rebuilt his whole house and has things to do...He said he does not think he'll take psychiatric medications. He tells commercial insurance underwriter that he has his own doctor, Dr. Hay. However, pt seemed open to writers explanation that medications ordered are the same ones that Dr. Hay prescribed. He seemed to agree to consider taking psych meds. 06/22 no change in presentation, remains disorganized, manic, delusional. Patient said he will contemplate taking the paliperidone. Will increase dose 1/3 patient took paliperidone last night. No change in presentation. Electrician Manager discussed hypertension with patient and he said he used to be on an ISAC inhibitor and agreed to restart 1 now 06/25/2024: Continue to encourage medication adherence 06/26 No change in presentation; patient remains manic, rambling about various unrelated things. Came up to commercial insurance underwriter and said something about [address] which patient could not explain. Staff reports only sleeping 2 hours last night. Patient again refuses Vraylar or long-acting medication. He says that the police that came to take him to the hospital were not real police... And says they were just dressed up to look like police. Again patient could not discuss this further; patient did however agree to increase lisinopril to 10 mg given continued hypertension 06/27 remains manic; reviewed blood pressures which was still avoided however lisinopril was just increase so needs more time to be effective. -patient remains manic, disorganized and without any insight. It seems that without a mood stabilizer on board, patient will remain manic and disorganized and unable to be safe in the community. 06/28 pt remains disorganized, rambling about various things perseverates on going home to fix his house, repair the roof. Telling staff that this commercial insurance underwriter is an imposter and saying i know who my 's killer is... 06/29 continue tx plan; pt not open to increasing dose. 06/30 No change in presentation. Says he wants to get home so he can work on his house. Continuing to rambling about unrelated, irrelevant and or delusional things. Refuses any medication changes. Walking around the milieu with buttocks exposed. 07/01 patient remains disorganized; rambling about various things, often talking about his , referring to paranoid delusions about terrorists... Reviewed BP, HTN; discussed with pt who agrees to increasing lisinopril -will switch blood pressure measurements to t.i.d. to better assess effectiveness of antihypertensive 07/02 No change in presentation. Electrician Manager asks patient how he is doing any patient starts talking about his , having been stolen, put into slavery and sex trafficking; says she is probably somewhere crying... Electrician Manager tried to apply reality testing however patient kept talking about such things. Patient difficult to interrupt or with which to engage further 07/04 no change in presentation; no insight and refusing mood stabilizing meds o change in presentation. starts asking commercial insurance underwriter for discharge, talking about medications, but quickly his ramble changes from unrelated topic to unrelated topic, imbued with paranoid ideations 07/06 continue tx. refuses vraylar but taking paliperidone as prescribed. 07/07 no change in presentation; refuses any medication changes, increase paliperidone or other mood stabilizer 07/08/2024: Continue current regimen and plans 07/09/2024: Continue current regimen and plans Impression: As patient remains without any insight to his illness or his behaviors, he remains unsafe and a danger to himself and others due to his erratic driving; also due to paranoid delusions he has been eating very little and seems to have lost significant weight and only a few months. At this time patient is not safe for discharge. He is not willing to sign a CV. Electrician Manager will file for involuntary commitment and substituted judgment. Also, commercial insurance underwriter is invoking the HCP on 06/19/24 as patient is unable to make medical decisions for himself. 07/10 less manic, but no other change in presentation 07/11 healthcare proxy affirmed; patient upset about this; will leave current medication regimen as is to let patient adjust 07/12 Electrician Manager again discussed healthcare proxy affirmation and that discussion was had with healthcare proxy who agrees with patient being on long acting injectable, Invega Sustenna. Electrician Manager asked about history of side effects and whether or not patient had erectile dysfunction. He says he is not having erections now since coming to the hospital and that he was prior to coming to the hospital; however he then says there were many years, when with his he was not getting an erection at all. Electrician Manager tried to see if there is a correlation with the medication and this experience however it was not possible as patient's discourse quickly wandered off and he started talking about his and other girlfriends, house as he bought... Patient said that he was going to call his cousin, healthcare proxy because he did not want to be on a long-acting medication. -patient remains without any insight into his illness at all and is upset by the day of long-acting injectable. Electrician Manager finds it reasonable to give patient time to appeal to his healthcare proxy to discuss medication management so will not make any adjustments at this time. That said, patient's lack of insight and long history of non adherence are barriers to discharging him on p.o. medications only Reviewed blood pressure and much improved with increase lisinopril dose 07/13 Patient did take Vraylar last night. Remains tangential, quickly getting off topic and not returning; talking about some delusional things but perhaps a little less. Electrician Manager discussed case with affirmed healthcare proxy Sienna who is very ambivalent about whether or not patient should be transitioned to a long- acting injectable. She agrees that he will very likely go off this medication but is sympathetic to his perceived complaints of side effects. -per healthcare proxy will hold off on long-acting injectable; patient did take Vraylar last night and says he will continue taking Reviewed blood pressure and much improved with increase lisinopril dose 07/13 Patient did take Vraylar last night. Remains tangential, quickly getting off topic and not returning; talking about some delusional things but perhaps a little less. Electrician Manager discussed case with affirmed healthcare proxy Sienna who is very ambivalent about whether or not patient should be transitioned to a long- acting injectable. She agrees that he will very likely go off this medication but is sympathetic to his perceived complaints of side effects. -per healthcare proxy will hold off on long-acting injectable; patient did take Vraylar last night and says he will continue taking 07/17 pt has been taking vraylar for past several days and he presents pt a little more calm today. Still tangential...he says he'll keep taking vraylar. Perhaps talking a little less about delusional topics -no change in insight and judgment and he has no sense of his mental illness or need for medication; taking vraylar only as a means to an end, that being discharge. 07/18 Patient remains taking Vraylar at bedtime. Electrician Manager and patient talked about his house, 1 of his favorite topics which he says he loves and very much wants to go home so he can work on. Patient showed commercial insurance underwriter several pictures that he has of his late and shared some things about their relationship regarding the pictures. Of note, patient has not seem to mention any delusional thinking over the past 2 days and while he remains tangential, now seems to remain much more consistently on a given tangent rather than jumping from tangent to tangent. Electrician Manager inquired if patient is thinking or feeling differently than when he 1st came in and he shared that he feels a little slowed down. Electrician Manager offered that what seems slowed down to patient seems much more normal to commercial insurance underwriter and staff; commercial insurance underwriter shared that when patient 1st came in, he was very difficult to understand because he was talking so fast. Patient laughed and agreed that was probably true and that perhaps it is better that he is now talking more slowly. Electrician Manager discussed continuing to take medications on discharge which patient said he would. -patient seems to be improving now that he is on Vraylar. Will discuss this with healthcare proxy. Electrician Manager maintains that unless patient is on a long-acting injectable, he remains very likely to discontinue taking medications and again decompensate. Plan: Healthcare proxy affirmed on 07/11/2024 Q 15 minute checks Continue Lisinopril 20mg daily (patient said he used to be on enalapril however not on formulary Continue Vraylar 3 mg q.h.s. Continue Paliperidone 6 mg q.h.s. Continue Brimonide Tartrate Continue Dorzolamide Continue Latanoprost Continue Timolol Patient educated on: diagnosis and medication risk/benefits Informed Consent: understands Reason for continued inpatient stay Substantial Risk for: stable for discharge, rapid decompensation and med/psych decompensation Time Spent With Patient Time: Total time managing care of this patient today ____ minutes.
[2024-07-18 10:00] VITALS: BP 153/65; PULSE 68; RESP 18; O2SAT 98
[2024-07-18 20:03] VITALS: BP 168/72; PULSE 69; RESP 16; TEMP 35.6; O2SAT 97
[2024-07-18] MEDS: Cariprazine HCl 3 MG CAPSULE PO (22:49)
[2024-07-18] MEDS: Paliperidone ER 9 MG TAB.ER.24 PO (22:49)
[2024-07-18] MEDS: Latanoprost 0.005 % Ophth Sol 2.5 ML DROPS 1 DROP EYE-BOTH (22:50)
[2024-07-18] MEDS: LORazepam 1 MG TABLET PO (22:50)
[2024-07-19 08:17] VITALS: BP 138/66; PULSE 55; TEMP 36.9; O2SAT 97
[2024-07-19] MEDS: Brimonidine Tartrate 0.2% Oph 5 ML BOTTLE 1 DROP EYE-BOTH ×2 (09:02→20:23)
[2024-07-19] MEDS: Dorzolamide HCl 2 % Ophth Sol 10 ML DRPBTL 1 DROP EYE-BOTH ×3 (09:02→20:21)
[2024-07-19] MEDS: timoloL maleate 0.5 % Oph Sol 5 ML DRBTL 1 DROP EYE-BOTH ×2 (09:03→20:22)
[2024-07-19] MEDS: Thiamine HCL 100 MG TABLET PO (09:03)
[2024-07-19] MEDS: lisinopriL 20 MG TABLET PO (09:03)
[2024-07-19 11:44] VITALS: BP 158/74; PULSE 71; TEMP 36.7; O2SAT 97
--- NOTE | 2024-07-19 11:51 | P.PNPSI_ITS ---
Subjective Subjective Date of Service: 07/19/24 Reason For Visit: schizophrenia Interim History: Met with patient; discussed with team Patient asked about going home and said he hopes he can be soon. He says he loves his house and really wants to get back to it to take care of it; he says that doing so helps him to stay in good mental and physical shape. Patient was encouraged to know that dispo planning is being discussed with his cousin. Mental Status Exam Mental Status Exam Narrative: Pt is alert and oriented; behavior is calm cooperative; patient mostly, keeps to himself; hyperverbal once he starts talking; patient is not in distress; dressed in casual attire, adequate grooming; mood is described as ok affect congruent; eye contact appropriate; Speech is mildly pressured and rambling, adequate articulation; no psychomotor agitation present; thought process remains tangential and rambling, however he is able to remain on a given tangent and though he may ramble and repeat himself he is overall expressing logical thoughts; overall more linear; Thought content is on discharge, getting back to his house, often on his ; lately no expressed delusional content; denies any SI/HI. Denies AH; internally preoccupied but not clear if responding to internal stimuli. Patients insight and judgment impaired but improved some. Diagnostics Vital Signs (24Hr): Vital Signs - 24 hr 07/18/24 20:03 07/19/24 08:17 07/19/24 11:44 Temperature 96.1 F L 98.4 F 98.0 F Pulse Rate 69 55 71 Respiratory Rate 16 Blood Pressure 168/72 H 138/66 158/74 H Pulse Oximetry 97 97 97 Oxygen Delivery Method Room Air Room Air Room Air BMI result Body Mass Index 25.7 Labs 06/14/24 00:45 06/14/24 00:45 Medications Medications Current Medications Acetaminophen (Acetaminophen 325 Mg Tablet) 650 mg PO Q6H PRN PRN Reason: Headache/Pain Mild Scale (1-3) Last Admin: 06/16/24 13:42 Dose: 650 mg Al Hydroxide/Mg Hydroxide (Magnesium Hydrox/Alum Hydrox 30 Ml Oral.Susp) 30 ml PO Q6H PRN PRN Reason: Heartburn/Nausea Brimonidine Tartrate (Brimonidine Tartrate 0.2% Oph 5 Ml Bottle) 1 drop EYE- BOTH BID NAZ Last Admin: 07/19/24 09:02 Dose: 1 drop Cariprazine (Cariprazine Hcl 3 Mg Capsule) 3 mg PO BEDTIME [facility] Last Admin: 07/18/24 22:49 Dose: 3 mg Dorzolamide HCl (Dorzolamide Hcl 2 % Ophth Jossy 10 Ml Drpbtl) 1 drop EYE-BOTH TID [facility] Last Admin: 07/19/24 09:02 Dose: 1 drop Hydroxyzine HCl (Hydroxyzine Hcl 25 Mg Tablet) 25 mg PO Q6H PRN PRN Reason: Anxiety Last Admin: 07/16/24 22:03 Dose: 25 mg Latanoprost (Latanoprost 0.005 % Ophth Jossy 2.5 Ml Drops) 1 drop EYE-BOTH BEDTIME [facility] Last Admin: 07/18/24 22:50 Dose: 1 drop Lisinopril (Lisinopril 20 Mg Tablet) 20 mg PO DAILY [facility]; Protocol Last Admin: 07/19/24 09:03 Dose: 20 mg Lorazepam (Lorazepam 1 Mg Tablet) 1 mg PO BEDTIME [facility] Last Admin: 07/18/24 22:50 Dose: 1 mg Magnesium Hydroxide (Milk Of Magnesia 30 Ml Oral.Susp) 30 ml PO DAILY PRN PRN Reason: Constipation Nicotine (Nicotine 21 Mg Patch.Td24) 21 mg TRANSDERMA DAILY PRN PRN Reason: nicotine cravings Nicotine Polacrilex (Nicotine Polacrilex 2 Mg Gum) 4 mg BUCCAL Q2H PRN PRN Reason: Nicotine Cravings Olanzapine (Olanzapine 5 Mg Tablet) 5 mg PO Q4H PRN PRN Reason: agitation,psychosis Last Admin: 07/15/24 06:21 Dose: 5 mg Paliperidone (Paliperidone Er 9 Mg Tab.Er.24) 9 mg PO BEDTIME [facility] Last Admin: 07/18/24 22:49 Dose: 9 mg Thiamine HCl (Thiamine Hcl 100 Mg Tablet) 100 mg PO DAILY [facility] Last Admin: 07/19/24 09:03 Dose: 100 mg Timolol Maleate (Timolol Maleate 0.5 % Oph Jossy 5 Ml Drbtl) 1 drop EYE-BOTH BID [facility] Last Admin: 07/19/24 09:03 Dose: 1 drop Trazodone HCl (Trazodone Hcl 50 Mg Tablet) 50 mg PO BEDTIME [facility] PRN PRN Reason: Insomnia Last Admin: 07/18/24 02:56 Dose: 50 mg Allergies Allergies Allergy/AdvReac Type Severity Reaction Status Date / Time No Known Allergies Allergy Unknown UNKNOWN Verified 06/14/24 00:30 Assessment & Plan Assessment & Plan (1) Schizoaffective disorder, bipolar type: Status: Acute Code(s): F25.0 - Schizoaffective disorder, bipolar type (2) Glaucoma: Status: Acute Code(s): H40.9 - Unspecified glaucoma (3) Hypertension: Status: Acute Code(s): I10 - Essential (primary) hypertension Plan Patient is a 68-year-old male with history of schizoaffective, bipolar type (vs bipolar), glaucoma who presents via police for disorganized behavior in the community in the face of medication noncompliance. Patient is disorganized in speech, rambling, often incoherently. He asks writer producer. about the mott of the sexes and Eleazar and Vidya... Chief Maintenance Supervisor inquired about ED/police report that he was disorganized, that he was driving in the backyard of his house, shiny his lights on neighbors house. He said he was trying to park in his driveway and I did not. Mean to drive in the backyard.. Saying it was accidental. Regarding being disorganized outside a convenience store, patient said that there was a angry woman there a sick woman.. Who was upset with and all he was doing was sitting in his car outside the convenience store for a little while, listening to music. Patient denies any drug or alcohol use. Says his throat is bothering him but he can not tolerate any questions regarding it. Says he does not need medications but has been taking them since he got here. Collateral report says patient was brought in for acting erratic, driving in circles and backyard of his house after neighbors called; also reports that he was acting erratically at nighttime outside of a convenience store. Formulation/clinical reasoning: Patient presents in a manic episode and acting erratically in the community. Recently discharged from [facility] on paliperidone 6mg qhs and Vraylar 3mg qhs. Not sure why patient is on 2 antipsychotics unless Vraylar is meant to be only a mood stabilizer. Will continue this regimen now since he seemed to somewhat stabilize on [facility]. If stabilizes will strongly consider long-acting injectable of paliperidone given history of noncompliance Hospital course: 06/19 Patient remains disorganized and is having a difficult time explaining his thoughts. On approach he is rambling about something and writer producer has a very hard time understanding him as he is jumping from topic to topic. He says he wants to go home and that he has a lot to accomplish. He has not been taking Vraylar and says he does not like it. He said he will take the paliperidone but refuses long-acting injectable. Chief Maintenance Supervisor asked about paranoid delusional thinking and he said that others are making fictitious statements. Regarding driving erratically, he says I was driving between the lines... However he does acknowledge he was playing his music too loudly. Chief Maintenance Supervisor discussed that team does not feel he is ready for discharge however patient is unable to tolerate this discussion just says no that he wants to go... drag out worker discussed case with patient's cousin Marlin Dowd who is also his healthcare proxy (document in chart). She has significant concerns about his safety. She said that over the past week to 2 weeks he has been increasingly disorganized; writer producer around [place] he refused his meds (from [facility]?); she drove in the car as a passenger with him and said she was very fearful as he was driving well below the speed limit, weaving in and out of the lanes and completely unsafe. She said he recently showed up at a work place and employees were scared of him because he was talking nonsensically. She says that he is delusional, thinking that his food is poisoned and threw away a significant amount of food that he got from a food shelf. She says he has lost about 30-40 lb over the past 2 months. She says that he has talked about raise or beams beaming down onto his head; saying that he seeing cars Vanish, planes Vanish and other bizarre delusional things. She says that he is historically not compliant with medication and would like him to be on a long-acting injectable. Chief Maintenance Supervisor discussed case with [facility] inpatient provider who saw patient on his recent admission to a few weeks ago; she talked with his outpatient psychiatric provider Dr. Condon the said that patient needed Vraylar in addition to palpate own for stabilization. 06/20 rambling, hard to understand. Impossible to have a therapeutic conversation with patient as he quickly becomes oblivious to writer producer, lost in a tangential thought and rambling about unrelated and mostly non-sensical things. Tried to ask pt about collateral reports, however he adamantly denies reports. t. Pt standing in [place] talking to himself. from the unit, pt called 911 and told police there is a sniper loose; on inquiry, could not explain his concern 06/21/24 Patient remains disorganized; perseveration on his relationship. He says he is good today...wants to get back to his house since he rebuilt his whole house and has things to do...He said he does not think he'll take psychiatric medications. He tells writer producer that he has his own doctor, Dr. Hay. However, pt seemed open to writers explanation that medications ordered are the same ones that Dr. Hay prescribed. He seemed to agree to consider taking psych meds. 06/22 no change in presentation, remains disorganized, manic, delusional. Patient said he will contemplate taking the paliperidone. Will increase dose 06/23 patient took paliperidone last night. No change in presentation. Chief Maintenance Supervisor discussed hypertension with patient and he said he used to be on an ISAC inhibitor and agreed to restart 1 now 06/25/2024: Continue to encourage medication adherence 06/26 No change in presentation; patient remains manic, rambling about various unrelated things. Came up to writer producer and said something about [address] which patient could not explain. Staff reports only sleeping 2 hours last night. Patient again refuses Vraylar or long-acting medication. He says that the police that came to take him to the hospital were not real police... And says they were just dressed up to look like police. Again patient could not discuss this further; patient did however agree to increase lisinopril to 10 mg given continued hypertension 06/27 remains manic; reviewed blood pressures which was still avoided however lisinopril was just increase so needs more time to be effective. -patient remains manic, disorganized and without any insight. It seems that without a mood stabilizer on board, patient will remain manic and disorganized and unable to be safe in the community. 06/28 pt remains disorganized, rambling about various things perseverates on going home to fix his house, repair the roof. Telling staff that this writer producer is an imposter and saying i know who my 's killer is... 06/29 continue tx plan; pt not open to increasing dose. 06/30 No change in presentation. Says he wants to get home so he can work on his house. Continuing to rambling about unrelated, irrelevant and or delusional things. Refuses any medication changes. Walking around the milieu with buttocks exposed. 07/01 patient remains disorganized; rambling about various things, often talking about his , referring to paranoid delusions about terrorists... Reviewed BP, HTN; discussed with pt who agrees to increasing lisinopril -will switch blood pressure measurements to t.i.d. to better assess effectiveness of antihypertensive 07/02 No change in presentation. Chief Maintenance Supervisor asks patient how he is doing any patient starts talking about his , having been stolen, put into slavery and sex trafficking; says she is probably somewhere crying... Chief Maintenance Supervisor tried to apply reality testing however patient kept talking about such things. Patient difficult to interrupt or with which to engage further 07/04 no change in presentation; no insight and refusing mood stabilizing meds o change in presentation. starts asking writer producer for discharge, talking about medications, but quickly his ramble changes from unrelated topic to unrelated topic, imbued with paranoid ideations 07/06 continue tx. refuses vraylar but taking paliperidone as prescribed. 07/07 no change in presentation; refuses any medication changes, increase paliperidone or other mood stabilizer 07/08/2024: Continue current regimen and plans 07/09/2024: Continue current regimen and plans Impression: As patient remains without any insight to his illness or his behaviors, he remains unsafe and a danger to himself and others due to his erratic driving; also due to paranoid delusions he has been eating very little and seems to have lost significant weight and only a few months. At this time patient is not safe for discharge. He is not willing to sign a CV. Chief Maintenance Supervisor will file for involuntary commitment and substituted judgment. Also, writer producer is invoking the HCP on 06/19/24 as patient is unable to make medical decisions for himself. 07/10 less manic, but no other change in presentation 07/11 healthcare proxy affirmed; patient upset about this; will leave current medication regimen as is to let patient adjust 07/12 Chief Maintenance Supervisor again discussed healthcare proxy affirmation and that discussion was had with healthcare proxy who agrees with patient being on long acting injectable, Invega Sustenna. Chief Maintenance Supervisor asked about history of side effects and whether or not patient had erectile dysfunction. He says he is not having erections now since coming to the hospital and that he was prior to coming to the hospital; however he then says there were many years, when with his he was not getting an erection at all. Chief Maintenance Supervisor tried to see if there is a correlation with the medication and this experience however it was not possible as patient's discourse quickly wandered off and he started talking about his and other girlfriends, house as he bought... Patient said that he was going to call his cousin, healthcare proxy because he did not want to be on a long-acting medication. -patient remains without any insight into his illness at all and is upset by the day of long-acting injectable. Chief Maintenance Supervisor finds it reasonable to give patient time to appeal to his healthcare proxy to discuss medication management so will not make any adjustments at this time. That said, patient's lack of insight and long history of non adherence are barriers to discharging him on p.o. medications only Reviewed blood pressure and much improved with increase lisinopril dose 07/13 Patient did take Vraylar last night. Remains tangential, quickly getting off topic and not returning; talking about some delusional things but perhaps a little less. Chief Maintenance Supervisor discussed case with affirmed healthcare proxy Sienna who is very ambivalent about whether or not patient should be transitioned to a long- acting injectable. She agrees that he will very likely go off this medication but is sympathetic to his perceived complaints of side effects. -per healthcare proxy will hold off on long-acting injectable; patient did take Vraylar last night and says he will continue taking Reviewed blood pressure and much improved with increase lisinopril dose 07/13 Patient did take Vraylar last night. Remains tangential, quickly getting off topic and not returning; talking about some delusional things but perhaps a little less. Chief Maintenance Supervisor discussed case with affirmed healthcare proxy Sienna who is very ambivalent about whether or not patient should be transitioned to a long- acting injectable. She agrees that he will very likely go off this medication but is sympathetic to his perceived complaints of side effects. -per healthcare proxy will hold off on long-acting injectable; patient did take Vraylar last night and says he will continue taking 07/17 pt has been taking vraylar for past several days and he presents pt a little more calm today. Still tangential...he says he'll keep taking vraylar. Perhaps talking a little less about delusional topics -no change in insight and judgment and he has no sense of his mental illness or need for medication; taking vraylar only as a means to an end, that being discharge. 07/18 Patient remains taking Vraylar at bedtime. Chief Maintenance Supervisor and patient talked about his house, 1 of his favorite topics which he says he loves and very much wants to go home so he can work on. Patient showed writer producer several pictures that he has of his late and shared some things about their relationship regarding the pictures. Of note, patient has not seem to mention any delusional thinking over the past 2 days and while he remains tangential, now seems to remain much more consistently on a given tangent rather than jumping from tangent to tangent. Chief Maintenance Supervisor inquired if patient is thinking or feeling differently than when he 1st came in and he shared that he feels a little slowed down. Chief Maintenance Supervisor offered that what seems slowed down to patient seems much more normal to writer producer and staff; writer producer shared that when patient 1st came in, he was very difficult to understand because he was talking so fast. Patient laughed and agreed that was probably true and that perhaps it is better that he is now talking more slowly. Chief Maintenance Supervisor discussed continuing to take medications on discharge which patient said he would. 07/19 Patient asked about going home and said he hopes he can be soon. He says he loves his house and really wants to get back to it to take care of it; he says that doing so helps him to stay in good mental and physical shape. Patient was encouraged to know that dispo planning is being discussed with his cousin. -patient seems to be improving now that he is on Vraylar. Will discuss this with healthcare proxy. Chief Maintenance Supervisor maintains that unless patient is on a long-acting injectable, he remains very likely to discontinue taking medications and again decompensate. Plan: Healthcare proxy affirmed on 07/11/2024 Q 15 minute checks Continue Lisinopril 20mg daily (patient said he used to be on enalapril however not on formulary Continue Vraylar 3 mg q.h.s. Continue Paliperidone 6 mg q.h.s. Continue Brimonide Tartrate Continue Dorzolamide Continue Latanoprost Continue Timolol Patient educated on: diagnosis Guardian/Caregiver educated on: medication risk/benefits Informed Consent: understands, does not understand and further education needed Reason for continued inpatient stay Substantial Risk for: stable for discharge, rapid decompensation and med/psych decompensation Time Spent With Patient Time: Total time managing care of this patient today ____ minutes.
[2024-07-19] MEDS: Paliperidone ER 9 MG TAB.ER.24 PO (20:13)
[2024-07-19] MEDS: LORazepam 1 MG TABLET PO (20:14)
[2024-07-19] MEDS: Cariprazine HCl 3 MG CAPSULE PO (20:14)
[2024-07-19] MEDS: Latanoprost 0.005 % Ophth Sol 2.5 ML DROPS 1 DROP EYE-BOTH (20:22)
[2024-07-19 22:00] VITALS: BP 150/77; PULSE 76; RESP 18; TEMP 36.7; O2SAT 100
[2024-07-20] MEDS: hydrOXYzine HCL 25 MG TABLET PO (00:51)
[2024-07-20] MEDS: traZODone HCL 50 MG TABLET PO (00:51)
[2024-07-20 07:00] VITALS: BMI 25.4
[2024-07-20] MEDS: Dorzolamide HCl 2 % Ophth Sol 10 ML DRPBTL 1 DROP EYE-BOTH ×3 (08:30→21:45)
[2024-07-20] MEDS: lisinopriL 20 MG TABLET PO (08:35)
[2024-07-20] MEDS: Thiamine HCL 100 MG TABLET PO (08:35)
[2024-07-20] MEDS: timoloL maleate 0.5 % Oph Sol 5 ML DRBTL 1 DROP EYE-BOTH ×2 (08:36→21:43)
[2024-07-20] MEDS: Brimonidine Tartrate 0.2% Oph 5 ML BOTTLE 1 DROP EYE-BOTH ×2 (08:40→21:44)
--- NOTE | 2024-07-20 09:03 | P.PNPSI_ITS ---
Subjective Subjective Date of Service: 07/20/24 Reason For Visit: schizophrenia Interim History: Met with patient; discussed with team pt polite; saying he wants discharge and happy to learn it is planned for next week. No change in presentation. Later yesterday afternoon, Mobile Manager discussed with patient, conversation with HCP and need for long-acting injectable; patient immediately got agitated and started saying loudly no shot no shot said he was going to call his cousin (healthcare proxy). Mental Status Exam Mental Status Exam Narrative: Pt is alert and oriented; behavior is calm cooperative; patient mostly, keeps to himself; hyperverbal once he starts talking; patient is not in distress; dressed in casual attire, adequate grooming; mood is described as ok affect congruent; eye contact appropriate; Speech is mildly pressured and rambling, adequate articulation; no psychomotor agitation present; thought process remains tangential and rambling, however he is able to remain on a given tangent and though he may ramble and repeat himself he is overall expressing logical thoughts; overall more linear; Thought content is on discharge, getting back to his house, often on his ; only intermittently expressing delusional content and no longer dominant theme; denies any SI/HI. Denies AH; internally preoccupied but not clear if responding to internal stimuli. Patients insight and judgment impaired but overall improved Diagnostics Vital Signs (24Hr): Vital Signs - 24 hr 07/19/24 11:44 07/19/24 22:00 Temperature 98.0 F 98.1 F Pulse Rate 71 76 Respiratory Rate 18 Blood Pressure 158/74 H 150/77 H Pulse Oximetry 97 100 Oxygen Delivery Method Room Air Room Air BMI result Body Mass Index 25.7 Labs 06/14/24 00:45 06/14/24 00:45 Medications Medications Current Medications Acetaminophen (Acetaminophen 325 Mg Tablet) 650 mg PO Q6H PRN PRN Reason: Headache/Pain Mild Scale (1-3) Last Admin: 06/16/24 13:42 Dose: 650 mg Al Hydroxide/Mg Hydroxide (Magnesium Hydrox/Alum Hydrox 30 Ml Oral.Susp) 30 ml PO Q6H PRN PRN Reason: Heartburn/Nausea Brimonidine Tartrate (Brimonidine Tartrate 0.2% Oph 5 Ml Bottle) 1 drop EYE- BOTH BID FORMERLY [facility], [facility] Last Admin: 07/20/24 08:40 Dose: 1 drop Cariprazine (Cariprazine Hcl 3 Mg Capsule) 3 mg PO BEDTIME FOR[facility], [facility] Last Admin: 07/19/24 20:14 Dose: 3 mg Dorzolamide HCl (Dorzolamide Hcl 2 % Ophth Jossy 10 Ml Drpbtl) 1 drop EYE-BOTH TID FOR[facility]LY [facility], [facility] Last Admin: 07/20/24 08:30 Dose: 1 drop Hydroxyzine HCl (Hydroxyzine Hcl 25 Mg Tablet) 25 mg PO Q6H PRN PRN Reason: Anxiety Last Admin: 07/20/24 00:51 Dose: 25 mg Latanoprost (Latanoprost 0.005 % Ophth Jossy 2.5 Ml Drops) 1 drop EYE-BOTH BEDTIME [facility]LY [facility], [facility] Last Admin: 07/19/24 20:22 Dose: 1 drop Lisinopril (Lisinopril 20 Mg Tablet) 20 mg PO DAILY [facility], [facility]; Protocol Last Admin: 07/20/24 08:35 Dose: 20 mg Lorazepam (Lorazepam 1 Mg Tablet) 1 mg PO BEDTIME [facility] Last Admin: 07/19/24 20:14 Dose: 1 mg Magnesium Hydroxide (Milk Of Magnesia 30 Ml Oral.Susp) 30 ml PO DAILY PRN PRN Reason: Constipation Nicotine (Nicotine 21 Mg Patch.Td24) 21 mg TRANSDERMA DAILY PRN PRN Reason: nicotine cravings Nicotine Polacrilex (Nicotine Polacrilex 2 Mg Gum) 4 mg BUCCAL Q2H PRN PRN Reason: Nicotine Cravings Olanzapine (Olanzapine 5 Mg Tablet) 5 mg PO Q4H PRN PRN Reason: agitation,psychosis Last Admin: 07/15/24 06:21 Dose: 5 mg Paliperidone (Paliperidone Er 9 Mg Tab.Er.24) 9 mg PO BEDTIME [facility] Last Admin: 07/19/24 20:13 Dose: 9 mg Thiamine HCl (Thiamine Hcl 100 Mg Tablet) 100 mg PO DAILY [facility] Last Admin: 07/20/24 08:35 Dose: 100 mg Timolol Maleate (Timolol Maleate 0.5 % Oph Jossy 5 Ml Drbtl) 1 drop EYE-BOTH BID [facility] Last Admin: 07/20/24 08:36 Dose: 1 drop Trazodone HCl (Trazodone Hcl 50 Mg Tablet) 50 mg PO BEDTIME MRX1 PRN PRN Reason: Insomnia Last Admin: 07/20/24 00:51 Dose: 50 mg Allergies Allergies Allergy/AdvReac Type Severity Reaction Status Date / Time No Known Allergies Allergy Unknown UNKNOWN Verified 06/14/24 00:30 Assessment & Plan Assessment & Plan (1) Schizoaffective disorder, bipolar type: Status: Acute Code(s): F25.0 - Schizoaffective disorder, bipolar type (2) Glaucoma: Status: Acute Code(s): H40.9 - Unspecified glaucoma (3) Hypertension: Status: Acute Code(s): I10 - Essential (primary) hypertension Plan Patient is a 68-year-old male with history of schizoaffective, bipolar type (vs bipolar), glaucoma who presents via police for disorganized behavior in the community in the face of medication noncompliance. Patient is disorganized in speech, rambling, often incoherently. He asks writer technical publications. about the mott of the sexes and Eleazar and Vidya... Mobile Manager inquired about ED/police report that he was disorganized, that he was driving in the backyard of his house, shiny his lights on neighbors house. He said he was trying to park in his driveway and I did not. Mean to drive in the backyard.. Saying it was accidental. Regarding being disorganized outside a convenience store, patient said that there was a angry woman there a sick woman.. Who was upset with and all he was doing was sitting in his car outside the convenience store for a little while, listening to music. Patient denies any drug or alcohol use. Says his throat is bothering him but he can not tolerate any questions regarding it. Says he does not need medications but has been taking them since he got here. Collateral report says patient was brought in for acting erratic, driving in circles and backyard of his house after neighbors called; also reports that he was acting erratically at nighttime outside of a convenience store. Formulation/clinical reasoning: Patient presents in a manic episode and acting erratically in the community. Recently discharged from [facility] on paliperidone 6mg qhs and Vraylar 3mg qhs. Not sure why patient is on 2 antipsychotics unless Vraylar is meant to be only a mood stabilizer. Will continue this regimen now since he seemed to somewhat stabilize on [facility]. If stabilizes will strongly consider long-acting injectable of paliperidone given history of noncompliance Hospital course: 06/19 Patient remains disorganized and is having a difficult time explaining his thoughts. On approach he is rambling about something and writer technical publications has a very hard time understanding him as he is jumping from topic to topic. He says he wants to go home and that he has a lot to accomplish. He has not been taking Vraylar and says he does not like it. He said he will take the paliperidone but refuses long-acting injectable. Mobile Manager asked about paranoid delusional thinking and he said that others are making fictitious statements. Regarding driving erratically, he says I was driving between the lines... However he does acknowledge he was playing his music too loudly. Mobile Manager discussed that team does not feel he is ready for discharge however patient is unable to tolerate this discussion just says no that he wants to go... dairy husbandry worker discussed case with patient's cousin Marlin Dowd who is also his healthcare proxy (document in chart). She has significant concerns about his safety. She said that over the past week to 2 weeks he has been increasingly disorganized; writer technical publications around [place] he refused his meds (from [facility]?); she drove in the car as a passenger with him and said she was very fearful as he was driving well below the speed limit, weaving in and out of the lanes and completely unsafe. She said he recently showed up at a work place and employees were scared of him because he was talking nonsensically. She says that he is delusional, thinking that his food is poisoned and threw away a significant amount of food that he got from a food shelf. She says he has lost about 30-40 lb over the past 2 months. She says that he has talked about raise or beams beaming down onto his head; saying that he seeing cars Vanish, planes Vanish and other bizarre delusional things. She says that he is historically not compliant with medication and would like him to be on a long-acting injectable. Mobile Manager discussed case with [facility] inpatient provider who saw patient on his recent admission to a few weeks ago; she talked with his outpatient psychiatric provider Dr. Condon the said that patient needed Vraylar in addition to palpate own for stabilization. 06/20 rambling, hard to understand. Impossible to have a therapeutic conversation with patient as he quickly becomes oblivious to writer technical publications, lost in a tangential thought and rambling about unrelated and mostly non-sensical things. Tried to ask pt about collateral reports, however he adamantly denies reports. t. Pt standing in [place] talking to himself. from the unit, pt called 911 and told police there is a sniper loose; on inquiry, could not explain his concern 06/21/24 Patient remains disorganized; perseveration on his relationship. He says he is good today...wants to get back to his house since he rebuilt his whole house and has things to do...He said he does not think he'll take psychiatric medications. He tells writer technical publications that he has his own doctor, Dr. Hay. However, pt seemed open to writers explanation that medications ordered are the same ones that Dr. Hay prescribed. He seemed to agree to consider taking psych meds. 06/22 no change in presentation, remains disorganized, manic, delusional. Patient said he will contemplate taking the paliperidone. Will increase dose 06/23 patient took paliperidone last night. No change in presentation. Mobile Manager discussed hypertension with patient and he said he used to be on an ISAC inhibitor and agreed to restart 1 now 06/25/2024: Continue to encourage medication adherence 06/26 No change in presentation; patient remains manic, rambling about various unrelated things. Came up to writer technical publications and said something about [address] which patient could not explain. Staff reports only sleeping 2 hours last night. Patient again refuses Vraylar or long-acting medication. He says that the police that came to take him to the hospital were not real police... And says they were just dressed up to look like police. Again patient could not discuss this further; patient did however agree to increase lisinopril to 10 mg given continued hypertension 06/27 remains manic; reviewed blood pressures which was still avoided however lisinopril was just increase so needs more time to be effective. -patient remains manic, disorganized and without any insight. It seems that without a mood stabilizer on board, patient will remain manic and disorganized and unable to be safe in the community. 06/28 pt remains disorganized, rambling about various things perseverates on going home to fix his house, repair the roof. Telling staff that this writer technical publications is an imposter and saying i know who my 's killer is... 06/29 continue tx plan; pt not open to increasing dose. 06/30 No change in presentation. Says he wants to get home so he can work on his house. Continuing to rambling about unrelated, irrelevant and or delusional things. Refuses any medication changes. Walking around the milieu with buttocks exposed. 07/01 patient remains disorganized; rambling about various things, often talking about his , referring to paranoid delusions about terrorists... Reviewed BP, HTN; discussed with pt who agrees to increasing lisinopril -will switch blood pressure measurements to t.i.d. to better assess effectiveness of antihypertensive 07/02 No change in presentation. Mobile Manager asks patient how he is doing any patient starts talking about his , having been stolen, put into slavery and sex trafficking; says she is probably somewhere crying... Mobile Manager tried to apply reality testing however patient kept talking about such things. Patient difficult to interrupt or with which to engage further 07/04 no change in presentation; no insight and refusing mood stabilizing meds o change in presentation. starts asking writer technical [employer] for discharge, talking about medications, but quickly his ramble changes from unrelated topic to unrelated topic, imbued with paranoid ideations 07/06 continue tx. refuses vraylar but taking paliperidone as prescribed. 07/07 no change in presentation; refuses any medication changes, increase paliperidone or other mood stabilizer 07/08/2024: Continue current regimen and plans 07/09/2024: Continue current regimen and plans Impression: As patient remains without any insight to his illness or his behaviors, he remains unsafe and a danger to himself and others due to his erratic driving; also due to paranoid delusions he has been eating very little and seems to have lost significant weight and only a few months. At this time patient is not safe for discharge. He is not willing to sign a CV. Mobile Manager will file for involuntary commitment and substituted judgment. Also, writer technical publications is invoking the HCP on 06/19/24 as patient is unable to make medical decisions for himself. 07/10 less manic, but no other change in presentation 07/11 healthcare proxy affirmed; patient upset about this; will leave current medication regimen as is to let patient adjust 07/12 Mobile Manager again discussed healthcare proxy affirmation and that discussion was had with healthcare proxy who agrees with patient being on long acting injectable, Invega Sustenna. Mobile Manager asked about history of side effects and whether or not patient had erectile dysfunction. He says he is not having erections now since coming to the hospital and that he was prior to coming to the hospital; however he then says there were many years, when with his he was not getting an erection at all. Mobile Manager tried to see if there is a correlation with the medication and this experience however it was not possible as patient's discourse quickly wandered off and he started talking about his and other girlfriends, house as he bought... Patient said that he was going to call his cousin, healthcare proxy because he did not want to be on a long-acting medication. -patient remains without any insight into his illness at all and is upset by the day of long-acting injectable. Mobile Manager finds it reasonable to give patient time to appeal to his healthcare proxy to discuss medication management so will not make any adjustments at this time. That said, patient's lack of insight and long history of non adherence are barriers to discharging him on p.o. medications only Reviewed blood pressure and much improved with increase lisinopril dose 07/13 Patient did take Vraylar last night. Remains tangential, quickly getting off topic and not returning; talking about some delusional things but perhaps a little less. Mobile Manager discussed case with affirmed healthcare proxy Sienna who is very ambivalent about whether or not patient should be transitioned to a long- acting injectable. She agrees that he will very likely go off this medication but is sympathetic to his perceived complaints of side effects. -per healthcare proxy will hold off on long-acting injectable; patient did take Vraylar last night and says he will continue taking Reviewed blood pressure and much improved with increase lisinopril dose 07/13 Patient did take Vraylar last night. Remains tangential, quickly getting off topic and not returning; talking about some delusional things but perhaps a little less. Mobile Manager discussed case with affirmed healthcare proxy Sienna who is very ambivalent about whether or not patient should be transitioned to a long- acting injectable. She agrees that he will very likely go off this medication but is sympathetic to his perceived complaints of side effects. -per healthcare proxy will hold off on long-acting injectable; patient did take Vraylar last night and says he will continue taking 07/17 pt has been taking vraylar for past several days and he presents pt a little more calm today. Still tangential...he says he'll keep taking vraylar. Perhaps talking a little less about delusional topics -no change in insight and judgment and he has no sense of his mental illness or need for medication; taking vraylar only as a means to an end, that being discharge. 07/18 Patient remains taking Vraylar at bedtime. Mobile Manager and patient talked about his house, 1 of his favorite topics which he says he loves and very much wants to go home so he can work on. Patient showed writer technical publications several pictures that he has of his late and shared some things about their relationship regarding the pictures. Of note, patient has not seem to mention any delusional thinking over the past 2 days and while he remains tangential, now seems to remain much more consistently on a given tangent rather than jumping from tangent to tangent. Mobile Manager inquired if patient is thinking or feeling differently than when he 1st came in and he shared that he feels a little slowed down. Mobile Manager offered that what seems slowed down to patient seems much more normal to writer technical publications and staff; writer technical publications shared that when patient 1st came in, he was very difficult to understand because he was talking so fast. Patient laughed and agreed that was probably true and that perhaps it is better that he is now talking more slowly. Mobile Manager discussed continuing to take medications on discharge which patient said he would. 07/19 Patient asked about going home and said he hopes he can be soon. He says he loves his house and really wants to get back to it to take care of it; he says that doing so helps him to stay in good mental and physical shape. Patient was encouraged to know that dispo planning is being discussed with his cousin. 07/20 affirmed HCP says yes ODROÑEZ; pt was upset by this and wanted to call HcP. -patient seems to be improving now that he is on Vraylar. Will discuss this with healthcare proxy. Mobile Manager maintains that unless patient is on a long-acting injectable, he remains very likely to discontinue taking medications and again decompensate. Plan: Healthcare proxy affirmed on 07/11/2024 Q 15 minute checks Continue Lisinopril 20mg daily (patient said he used to be on enalapril however not on formulary Continue Vraylar 3 mg q.h.s. Continue Paliperidone 6 mg q.h.s. Continue Brimonide Tartrate Continue Dorzolamide Continue Latanoprost Continue Timolol Patient educated on: diagnosis and medication risk/benefits Informed Consent: does not understand Reason for continued inpatient stay Substantial Risk for: rapid decompensation Time Spent With Patient Time: Total time managing care of this patient today ____ minutes.
[2024-07-20] MEDS: LORazepam 1 MG TABLET PO (21:40)
[2024-07-20] MEDS: Cariprazine HCl 3 MG CAPSULE PO (21:40)
[2024-07-20] MEDS: Paliperidone ER 9 MG TAB.ER.24 PO (21:41)
[2024-07-20] MEDS: Latanoprost 0.005 % Ophth Sol 2.5 ML DROPS 1 DROP EYE-BOTH (21:42)
[2024-07-20 22:00] VITALS: BP 150/71; PULSE 67; TEMP 36.8; O2SAT 98
[2024-07-21] MEDS: hydrOXYzine HCL 25 MG TABLET PO (01:01)
[2024-07-21] MEDS: traZODone HCL 50 MG TABLET PO ×2 (01:01→21:06)
[2024-07-21] MEDS: Brimonidine Tartrate 0.2% Oph 5 ML BOTTLE 1 DROP EYE-BOTH ×2 (09:15→21:07)
[2024-07-21] MEDS: timoloL maleate 0.5 % Oph Sol 5 ML DRBTL 1 DROP EYE-BOTH ×2 (09:20→21:07)
[2024-07-21 09:27] VITALS: BP 159/82
[2024-07-21] MEDS: lisinopriL 20 MG TABLET PO (09:27)
[2024-07-21] MEDS: Thiamine HCL 100 MG TABLET PO (09:27)
[2024-07-21] MEDS: Dorzolamide HCl 2 % Ophth Sol 10 ML DRPBTL 1 DROP EYE-BOTH ×3 (09:28→21:07)
[2024-07-21 10:00] VITALS: BP 147/83; PULSE 74; TEMP 37.6; O2SAT 97
[2024-07-21] MEDS: Paliperidone Palmitate 234 MG/1.5 ML SYRINGE IM (16:12)
--- NOTE | 2024-07-21 18:30 | P.PNPSI_ITS ---
Subjective Subjective Date of Service: 07/21/24 Reason For Visit: schizophrenia Interim History: met with patient; discussed with team; discussed with HCP no change in presentation. Auction Clerk again discussed case with HCP who remains decided that patient requires ORDOÑEZ to have a chance at continued stability in the community. Auction Clerk discussed this with patient who grudgingly agrees; he expressed uneducated worries about the ORDOÑEZ and parts data writer provided education which seemed to help assuage his anxieties about getting the ORDOÑEZ; also how it is different then the Covid immunization. Mental Status Exam Mental Status Exam Narrative: Pt is alert and oriented; behavior is calm cooperative; patient mostly, keeps to himself; hyperverbal once he starts talking; patient is not in distress; dressed in casual attire, adequate grooming; mood is described as ok affect congruent; eye contact appropriate; Speech is mildly pressured and rambling, adequate articulation; no psychomotor agitation present; thought process remains tangential and rambling, however he is able to remain on a given tangent and though he may ramble and repeat himself he is overall expressing logical thoughts; overall more linear; Thought content is on discharge, getting back to his house, often on his ; only intermittently expressing delusional content and no longer dominant theme; denies any SI/HI. Denies AH; internally preoccupied but not clear if responding to internal stimuli. Patients insight and judgment impaired but overall improved Diagnostics Vital Signs (24Hr): Vital Signs - 24 hr 07/20/24 22:00 07/21/24 09:27 Temperature 98.3 F Pulse Rate 67 Blood Pressure 150/71 H 159/82 H Pulse Oximetry 98 Oxygen Delivery Method Room Air BMI result Body Mass Index 25.4 Labs 06/14/24 00:45 06/14/24 00:45 Medications Medications Current Medications Acetaminophen (Acetaminophen 325 Mg Tablet) 650 mg PO Q6H PRN PRN Reason: Headache/Pain Mild Scale (1-3) Last Admin: 06/16/24 13:42 Dose: 650 mg Al Hydroxide/Mg Hydroxide (Magnesium Hydrox/Alum Hydrox 30 Ml Oral.Susp) 30 ml PO Q6H PRN PRN Reason: Heartburn/Nausea Brimonidine Tartrate (Brimonidine Tartrate 0.2% Oph 5 Ml Bottle) 1 drop EYE- BOTH BID NAZ Last Admin: 07/21/24 09:15 Dose: 1 drop Cariprazine (Cariprazine Hcl 3 Mg Capsule) 3 mg PO BEDTIME [facility] Last Admin: 07/20/24 21:40 Dose: 3 mg Dorzolamide HCl (Dorzolamide Hcl 2 % Ophth Jossy 10 Ml Drpbtl) 1 drop EYE-BOTH TID [facility] Last Admin: 07/21/24 14:50 Dose: 1 drop Hydroxyzine HCl (Hydroxyzine Hcl 25 Mg Tablet) 25 mg PO Q6H PRN PRN Reason: Anxiety Last Admin: 07/21/24 01:01 Dose: 25 mg Latanoprost (Latanoprost 0.005 % Ophth Jossy 2.5 Ml Drops) 1 drop EYE-BOTH BEDTIME [facility] Last Admin: 07/20/24 21:42 Dose: 1 drop Lidocaine HCl (Lidocaine Hcl 4 % Topical 50 Ml Solution) 1 appl TOPICAL DAILY PRN; Protocol PRN Reason: apply to injection site prior Lisinopril (Lisinopril 20 Mg Tablet) 20 mg PO DAILY [facility]; Protocol Last Admin: 07/21/24 09:27 Dose: 20 mg Lorazepam (Lorazepam 1 Mg Tablet) 1 mg PO BEDTIME NAZ Last Admin: 07/20/24 21:40 Dose: 1 mg Magnesium Hydroxide (Milk Of Magnesia 30 Ml Oral.Susp) 30 ml PO DAILY PRN PRN Reason: Constipation Nicotine (Nicotine 21 Mg Patch.Td24) 21 mg TRANSDERMA DAILY PRN PRN Reason: nicotine cravings Nicotine Polacrilex (Nicotine Polacrilex 2 Mg Gum) 4 mg BUCCAL Q2H PRN PRN Reason: Nicotine Cravings Olanzapine (Olanzapine 5 Mg Tablet) 5 mg PO Q4H PRN PRN Reason: agitation,psychosis Last Admin: 07/15/24 06:21 Dose: 5 mg Paliperidone (Paliperidone Er 9 Mg Tab.Er.24) 9 mg PO BEDTIME [facility] Last Admin: 07/20/24 21:41 Dose: 9 mg Thiamine HCl (Thiamine Hcl 100 Mg Tablet) 100 mg PO DAILY [facility] Last Admin: 07/21/24 09:27 Dose: 100 mg Timolol Maleate (Timolol Maleate 0.5 % Oph Jossy 5 Ml Drbtl) 1 drop EYE-BOTH BID [facility] Last Admin: 07/21/24 09:20 Dose: 1 drop Trazodone HCl (Trazodone Hcl 50 Mg Tablet) 50 mg PO BEDTIME MRX1 PRN PRN Reason: Insomnia Last Admin: 07/21/24 01:01 Dose: 50 mg Allergies Allergies Allergy/AdvReac Type Severity Reaction Status Date / Time No Known Allergies Allergy Unknown UNKNOWN Verified 06/14/24 00:30 Assessment & Plan Assessment & Plan (1) Schizoaffective disorder, bipolar type: Status: Acute Code(s): F25.0 - Schizoaffective disorder, bipolar type (2) Glaucoma: Status: Acute Code(s): H40.9 - Unspecified glaucoma (3) Hypertension: Status: Acute Code(s): I10 - Essential (primary) hypertension Plan Patient is a 68-year-old male with history of schizoaffective, bipolar type (vs bipolar), glaucoma who presents via police for disorganized behavior in the community in the face of medication noncompliance. Patient is disorganized in speech, rambling, often incoherently. He asks parts data writer. about the mott of the sexes and Eleazar and Vidya... Auction Clerk inquired about ED/police report that he was disorganized, that he was driving in the backyard of his house, shiny his lights on neighbors house. He said he was trying to park in his driveway and I did not. Mean to drive in the backyard.. Saying it was accidental. Regarding being disorganized outside a convenience store, patient said that there was a angry woman there a sick woman.. Who was upset with and all he was doing was sitting in his car outside the convenience store for a little while, listening to music. Patient denies any drug or alcohol use. Says his throat is bothering him but he can not tolerate any questions regarding it. Says he does not need medications but has been taking them since he got here. Collateral report says patient was brought in for acting erratic, driving in circles and backyard of his house after neighbors called; also reports that he was acting erratically at nighttime outside of a convenience store. Formulation/clinical reasoning: Patient presents in a manic episode and acting erratically in the community. Recently discharged from [facility] on paliperidone 6mg qhs and Vraylar 3mg qhs. Not sure why patient is on 2 antipsychotics unless Vraylar is meant to be only a mood stabilizer. Will continue this regimen now since he seemed to somewhat stabilize on [facility]. If stabilizes will strongly consider long-acting injectable of paliperidone given history of noncompliance Hospital course: 06/19 Patient remains disorganized and is having a difficult time explaining his thoughts. On approach he is rambling about something and parts data writer has a very hard time understanding him as he is jumping from topic to topic. He says he wants to go home and that he has a lot to accomplish. He has not been taking Vraylar and says he does not like it. He said he will take the paliperidone but refuses long-acting injectable. Auction Clerk asked about paranoid delusional thinking and he said that others are making fictitious statements. Regarding driving erratically, he says I was driving between the lines... However he does acknowledge he was playing his music too loudly. Auction Clerk discussed that team does not feel he is ready for discharge however patient is unable to tolerate this discussion just says no that he wants to go... mold release worker discussed case with patient's cousin Marlin Dowd who is also his healthcare proxy (document in chart). She has significant concerns about his safety. She said that over the past week to 2 weeks he has been increasingly disorganized; parts data writer around [place] he refused his meds (from [facility]?); she drove in the car as a passenger with him and said she was very fearful as he was driving well below the speed limit, weaving in and out of the lanes and completely unsafe. She said he recently showed up at a work place and employees were scared of him because he was talking nonsensically. She says that he is delusional, thinking that his food is poisoned and threw away a significant amount of food that he got from a food shelf. She says he has lost about 30-40 lb over the past 2 months. She says that he has talked about raise or beams beaming down onto his head; saying that he seeing cars Vanish, planes Vanish and other bizarre delusional things. She says that he is historically not compliant with medication and would like him to be on a long-acting injectable. Auction Clerk discussed case with TECHNICAL BUSINESS ANALYST inpatient provider who saw patient on his recent admission to [facility] a few weeks ago; she talked with his outpatient psychiatric provider Dr. Condon the said that patient needed Vraylar in addition to palpate own for stabilization. 06/20 rambling, hard to understand. Impossible to have a therapeutic conversation with patient as he quickly becomes oblivious to parts data writer, lost in a tangential thought and rambling about unrelated and mostly non-sensical things. Tried to ask pt about collateral reports, however he adamantly denies reports. t. Pt standing in [place] talking to himself. from the unit, pt called 911 and told police there is a sniper loose; on inquiry, could not explain his concern 06/21/24 Patient remains disorganized; perseveration on his relationship. He says he is good today...wants to get back to his house since he rebuilt his whole house and has things to do...He said he does not think he'll take psychiatric medications. He tells parts data writer that he has his own doctor, Dr. Hay. However, pt seemed open to writers explanation that medications ordered are the same ones that Dr. Hay prescribed. He seemed to agree to consider taking psych meds. 06/22 no change in presentation, remains disorganized, manic, delusional. Patient said he will contemplate taking the paliperidone. Will increase dose /3 patient took paliperidone last night. No change in presentation. Auction Clerk discussed hypertension with patient and he said he used to be on an ISAC inhibitor and agreed to restart 1 now 06/25/2024: Continue to encourage medication adherence 06/26 No change in presentation; patient remains manic, rambling about various unrelated things. Came up to parts data writer and said something about [address] which patient could not explain. Staff reports only sleeping 2 hours last night. Patient again refuses Vraylar or long-acting medication. He says that the police that came to take him to the hospital were not real police... And says they were just dressed up to look like police. Again patient could not discuss this further; patient did however agree to increase lisinopril to 10 mg given continued hypertension 06/27 remains manic; reviewed blood pressures which was still avoided however lisinopril was just increase so needs more time to be effective. -patient remains manic, disorganized and without any insight. It seems that without a mood stabilizer on board, patient will remain manic and disorganized and unable to be safe in the community. 06/28 pt remains disorganized, rambling about various things perseverates on going home to fix his house, repair the roof. Telling staff that this parts data writer is an imposter and saying i know who my 's killer is... 06/29 continue tx plan; pt not open to increasing dose. 06/30 No change in presentation. Says he wants to get home so he can work on his house. Continuing to rambling about unrelated, irrelevant and or delusional things. Refuses any medication changes. Walking around the milieu with buttocks exposed. 07/01 patient remains disorganized; rambling about various things, often talking about his , referring to paranoid delusions about terrorists... Reviewed BP, HTN; discussed with pt who agrees to increasing lisinopril -will switch blood pressure measurements to t.i.d. to better assess effectiveness of antihypertensive 07/02 No change in presentation. Auction Clerk asks patient how he is doing any patient starts talking about his , having been stolen, put into slavery and sex trafficking; says she is probably somewhere crying... Auction Clerk tried to apply reality testing however patient kept talking about such things. Patient difficult to interrupt or with which to engage further 07/04 no change in presentation; no insight and refusing mood stabilizing meds o change in presentation. starts asking parts data writer for discharge, talking about medications, but quickly his ramble changes from unrelated topic to unrelated topic, imbued with paranoid ideations 07/06 continue tx. refuses vraylar but taking paliperidone as prescribed. 07/07 no change in presentation; refuses any medication changes, increase paliperidone or other mood stabilizer 07/08/2024: Continue current regimen and plans 07/09/2024: Continue current regimen and plans Impression: As patient remains without any insight to his illness or his behaviors, he remains unsafe and a danger to himself and others due to his erratic driving; also due to paranoid delusions he has been eating very little and seems to have lost significant weight and only a few months. At this time patient is not safe for discharge. He is not willing to sign a CV. Auction Clerk will file for involuntary commitment and substituted judgment. Also, parts data writer is invoking the HCP on 06/19/24 as patient is unable to make medical decisions for himself. 07/10 less manic, but no other change in presentation 07/11 healthcare proxy affirmed; patient upset about this; will leave current medication regimen as is to let patient adjust 07/12 Auction Clerk again discussed healthcare proxy affirmation and that discussion was had with healthcare proxy who agrees with patient being on long acting injectable, Invega Sustenna. Auction Clerk asked about history of side effects and whether or not patient had erectile dysfunction. He says he is not having erections now since coming to the hospital and that he was prior to coming to the hospital; however he then says there were many years, when with his he was not getting an erection at all. Auction Clerk tried to see if there is a correlation with the medication and this experience however it was not possible as patient's discourse quickly wandered off and he started talking about his and other girlfriends, house as he bought... Patient said that he was going to call his cousin, healthcare proxy because he did not want to be on a long-acting medication. -patient remains without any insight into his illness at all and is upset by the day of long-acting injectable. Auction Clerk finds it reasonable to give patient time to appeal to his healthcare proxy to discuss medication management so will not make any adjustments at this time. That said, patient's lack of insight and long history of non adherence are barriers to discharging him on p.o. medications only Reviewed blood pressure and much improved with increase lisinopril dose 07/13 Patient did take Vraylar last night. Remains tangential, quickly getting off topic and not returning; talking about some delusional things but perhaps a little less. Auction Clerk discussed case with affirmed healthcare proxy Sienna who is very ambivalent about whether or not patient should be transitioned to a long- acting injectable. She agrees that he will very likely go off this medication but is sympathetic to his perceived complaints of side effects. -per healthcare proxy will hold off on long-acting injectable; patient did take Vraylar last night and says he will continue taking Reviewed blood pressure and much improved with increase lisinopril dose 07/13 Patient did take Vraylar last night. Remains tangential, quickly getting off topic and not returning; talking about some delusional things but perhaps a little less. Auction Clerk discussed case with affirmed healthcare proxy Sienna who is very ambivalent about whether or not patient should be transitioned to a long- acting injectable. She agrees that he will very likely go off this medication but is sympathetic to his perceived complaints of side effects. -per healthcare proxy will hold off on long-acting injectable; patient did take Vraylar last night and says he will continue taking 07/17 pt has been taking vraylar for past several days and he presents pt a little more calm today. Still tangential...he says he'll keep taking vraylar. Perhaps talking a little less about delusional topics -no change in insight and judgment and he has no sense of his mental illness or need for medication; taking vraylar only as a means to an end, that being discharge. 07/18 Patient remains taking Vraylar at bedtime. Auction Clerk and patient talked about his house, 1 of his favorite topics which he says he loves and very much wants to go home so he can work on. Patient showed parts data writer several pictures that he has of his late and shared some things about their relationship regarding the pictures. Of note, patient has not seem to mention any delusional thinking over the past 2 days and while he remains tangential, now seems to remain much more consistently on a given tangent rather than jumping from tangent to tangent. Auction Clerk inquired if patient is thinking or feeling differently than when he 1st came in and he shared that he feels a little slowed down. Auction Clerk offered that what seems slowed down to patient seems much more normal to parts data writer and staff; parts data writer shared that when patient 1st came in, he was very difficult to understand because he was talking so fast. Patient laughed and agreed that was probably true and that perhaps it is better that he is now talking more slowly. Auction Clerk discussed continuing to take medications on discharge which patient said he would. 07/19 Patient asked about going home and said he hopes he can be soon. He says he loves his house and really wants to get back to it to take care of it; he says that doing so helps him to stay in good mental and physical shape. Patient was encouraged to know that dispo planning is being discussed with his cousin. 07/20 affirmed HCP says yes ORDOÑEZ; pt was upset by this and wanted to call HcP. 07/21 affirmed HCP remains decided on ORDOÑEZ; pt agrees though anxious -though improved on Vraylar, HCP and Auction Clerk agree patient needs long-acting injectable for best chance of stability in the community Plan: Healthcare proxy affirmed on 07/11/2024 Q 15 minute checks INVEGA SUSTENNA 234 mg IM one time dose; cannot refuse as per Affirmed HCP (affirmed by Court) Continue Lisinopril 20mg daily (patient said he used to be on enalapril however not on formulary Continue Vraylar 3 mg q.h.s. Continue Paliperidone 6 mg q.h.s. Continue Brimonide Tartrate Continue Dorzolamide Continue Latanoprost Continue Timolol Patient educated on: diagnosis and medication risk/benefits Informed Consent: understands, does not understand and further education needed Reason for continued inpatient stay Substantial Risk for: stable for discharge, rapid decompensation and med/psych decompensation Time Spent With Patient Time: Total time managing care of this patient today ____ minutes.
[2024-07-21] MEDS: Paliperidone ER 9 MG TAB.ER.24 PO (21:06)
[2024-07-21] MEDS: LORazepam 1 MG TABLET PO (21:06)
[2024-07-21] MEDS: Cariprazine HCl 3 MG CAPSULE PO (21:06)
[2024-07-21] MEDS: Latanoprost 0.005 % Ophth Sol 2.5 ML DROPS 1 DROP EYE-BOTH (21:07)
[2024-07-21 21:24] VITALS: BP 120/64; PULSE 55; RESP 15; TEMP 36.6; O2SAT 99
[2024-07-22 08:10] VITALS: BP 153/72; PULSE 60; RESP 16; TEMP 36.3; O2SAT 98
--- NOTE | 2024-07-22 08:52 | P.PNPSI_ITS ---
Documented by User: Eleazar Rodriguez MD 07/22/24 15:47 Subjective Subjective Date of Service: 07/22/24 Reason For Visit: schizophrenia Interim History: met with patient; discussed with nursing. Overall no significant change in presentation. Received long-acting injectable yesterday. Remains year for discharge with no insight. Healthcare proxy involved. Is self dialoguing. Appears to be excessively masturbating in room, while other roommate present at nighttime. Has no insight. Gives very vague answers when asked about admission and treatment a little disagreement , Im doing my stuff and taking care of things and unable to get into specifics or expand. Medication Compliance: Yes Side effects from medications: No Attending Groups: Intermittent Review of Systems Acute medical concerns: No Review of Systems Review of Systems Denies Yes all other systems are reviewed and are negative and Unobtainable due to mental status Mental Status Exam Mental Status Exam Patient Appearance: Appropriate Patient Orientation: Person, Place and Situation Level of Consciousness: Alert Patient Behavior: Appropriate, Hyperactive, Cooperative and Good Eye Contact Mood Description: Calm Affect Description: Calm Patient Cognition Impaired: Yes Ability to Follow Directions: Fair Speech Pattern: Spontaneous Speech Memory Description: Episodic Impaired Thought Process: Distracted Thought Content: positive for Circumstantial Judgement: Poor Diagnostics Vital Signs (24Hr): Vital Signs - 24 hr 07/21/24 09:27 07/21/24 10:00 07/21/24 21:24 Temperature 99.7 F 98 F Pulse Rate 74 55 Respiratory Rate 15 Blood Pressure 159/82 H 147/83 H 120/64 Pulse Oximetry 97 99 Oxygen Delivery Method Room Air 07/22/24 08:10 Temperature 97.3 F Pulse Rate 60 Respiratory Rate 16 Blood Pressure 153/72 H Pulse Oximetry 98 Oxygen Delivery Method Room Air BMI result Body Mass Index 25.4 Labs 06/14/24 00:45 06/14/24 00:45 Medications Medications Current Medications Acetaminophen (Acetaminophen 325 Mg Tablet) 650 mg PO Q6H PRN PRN Reason: Headache/Pain Mild Scale (1-3) Last Admin: 06/16/24 13:42 Dose: 650 mg Al Hydroxide/Mg Hydroxide (Magnesium Hydrox/Alum Hydrox 30 Ml Oral.Susp) 30 ml PO Q6H PRN PRN Reason: Heartburn/Nausea Brimonidine Tartrate (Brimonidine Tartrate 0.2% Oph 5 Ml Bottle) 1 drop EYE- BOTH BID NAZ Last Admin: 07/21/24 21:07 Dose: 1 drop Cariprazine (Cariprazine Hcl 3 Mg Capsule) 3 mg PO BEDTIME [facility] Last Admin: 07/21/24 21:06 Dose: 3 mg Dorzolamide HCl (Dorzolamide Hcl 2 % Ophth Jossy 10 Ml Drpbtl) 1 drop EYE-BOTH TID [facility] Last Admin: 07/21/24 21:07 Dose: 1 drop Hydroxyzine HCl (Hydroxyzine Hcl 25 Mg Tablet) 25 mg PO Q6H PRN PRN Reason: Anxiety Last Admin: 07/21/24 01:01 Dose: 25 mg Latanoprost (Latanoprost 0.005 % Ophth Jossy 2.5 Ml Drops) 1 drop EYE-BOTH BEDTIME [facility] Last Admin: 07/21/24 21:07 Dose: 1 drop Lidocaine HCl (Lidocaine Hcl 4 % Topical 50 Ml Solution) 1 appl TOPICAL DAILY PRN; Protocol PRN Reason: apply to injection site prior Lisinopril (Lisinopril 20 Mg Tablet) 20 mg PO DAILY [facility]; Protocol Last Admin: 07/21/24 09:27 Dose: 20 mg Lorazepam (Lorazepam 1 Mg Tablet) 1 mg PO BEDTIME [facility] Last Admin: 07/21/24 21:06 Dose: 1 mg Magnesium Hydroxide (Milk Of Magnesia 30 Ml Oral.Susp) 30 ml PO DAILY PRN PRN Reason: Constipation Nicotine (Nicotine 21 Mg Patch.Td24) 21 mg TRANSDERMA DAILY PRN PRN Reason: nicotine cravings Nicotine Polacrilex (Nicotine Polacrilex 2 Mg Gum) 4 mg BUCCAL Q2H PRN PRN Reason: Nicotine Cravings Olanzapine (Olanzapine 5 Mg Tablet) 5 mg PO Q4H PRN PRN Reason: agitation,psychosis Last Admin: 07/15/24 06:21 Dose: 5 mg Paliperidone (Paliperidone Er 9 Mg Tab.Er.24) 9 mg PO BEDTIME [facility] Last Admin: 07/21/24 21:06 Dose: 9 mg Thiamine HCl (Thiamine Hcl 100 Mg Tablet) 100 mg PO DAILY [facility] Last Admin: 07/21/24 09:27 Dose: 100 mg Timolol Maleate (Timolol Maleate 0.5 % Oph Jossy 5 Ml Drbtl) 1 drop EYE-BOTH BID [facility] Last Admin: 07/21/24 21:07 Dose: 1 drop Trazodone HCl (Trazodone Hcl 50 Mg Tablet) 50 mg PO BEDTIME [facility]X1 PRN PRN Reason: Insomnia Last Admin: 07/21/24 21:06 Dose: 50 mg Allergies Allergies Allergy/AdvReac Type Severity Reaction Status Date / Time No Known Allergies Allergy Unknown UNKNOWN Verified 06/14/24 00:30 Assessment & Plan Assessment & Plan (1) Schizoaffective disorder, bipolar type: Status: Acute Code(s): F25.0 - Schizoaffective disorder, bipolar type (2) Glaucoma: Status: Acute Code(s): H40.9 - Unspecified glaucoma (3) Hypertension: Status: Acute Code(s): I10 - Essential (primary) hypertension Plan Patient is a 68-year-old male with history of schizoaffective, bipolar type (vs bipolar), glaucoma who presents via police for disorganized behavior in the community in the face of medication noncompliance. Patient is disorganized in speech, rambling, often incoherently. He asks senior technical writer. about the mott of the sexes and Eleazar and Vidya... Embedded Firmware Developer inquired about ED/police report that he was disorganized, that he was driving in the backyard of his house, shiny his lights on neighbors house. He said he was trying to park in his driveway and I did not. Mean to drive in the backyard.. Saying it was accidental. Regarding being disorganized outside a convenience store, patient said that there was a angry woman there a sick woman.. Who was upset with and all he was doing was sitting in his car outside the convenience store for a little while, listening to music. Patient denies any drug or alcohol use. Says his throat is bothering him but he can not tolerate any questions regarding it. Says he does not need medications but has been taking them since he got here. Collateral report says patient was brought in for acting erratic, driving in circles and backyard of his house after neighbors called; also reports that he was acting erratically at nighttime outside of a convenience store. Formulation/clinical reasoning: Patient presents in a manic episode and acting erratically in the community. Recently discharged from on paliperidone 6mg qhs and Vraylar 3mg qhs. Not sure why patient is on 2 antipsychotics unless Vraylar is meant to be only a mood stabilizer. Will continue this regimen now since he seemed to somewhat stabilize on [facility]. If stabilizes will strongly consider long-acting injectable of paliperidone given history of noncompliance Hospital course: 06/19 Patient remains disorganized and is having a difficult time explaining his thoughts. On approach he is rambling about something and senior technical writer has a very hard time understanding him as he is jumping from topic to topic. He says he wants to go home and that he has a lot to accomplish. He has not been taking Vraylar and says he does not like it. He said he will take the paliperidone but refuses long-acting injectable. Embedded Firmware Developer asked about paranoid delusional thinking and he said that others are making fictitious statements. Regarding driving erratically, he says I was driving between the lines... However he does acknowledge he was playing his music too loudly. Embedded Firmware Developer discussed that team does not feel he is ready for discharge however patient is unable to tolerate this discussion just says no that he wants to go... boom worker discussed case with patient's cousin Marlin Dowd who is also his healthcare proxy (document in chart). She has significant concerns about his safety. She said that over the past week to 2 weeks he has been increasingly disorganized; senior technical writer around [place] he refused his meds (from [facility]?); she drove in the car as a passenger with him and said she was very fearful as he was driving well below the speed limit, weaving in and out of the lanes and completely unsafe. She said he recently showed up at a work place and employees were scared of him because he was talking nonsensically. She says that he is delusional, thinking that his food is poisoned and threw away a significant amount of food that he got from a food shelf. She says he has lost about 30-40 lb over the past 2 months. She says that he has talked about raise or beams beaming down onto his head; saying that he seeing cars Vanish, planes Vanish and other bizarre delusional things. She says that he is historically not compliant with medication and would like him to be on a long-acting injectable. Embedded Firmware Developer discussed case with [facility] [employer] inpatient provider who saw patient on his recent admission to [facility] a few weeks ago; she talked with his outpatient psychiatric provider Dr. Condon the said that patient needed Vraylar in addition to palpate own for stabilization. 06/20 rambling, hard to understand. Impossible to have a therapeutic conversation with patient as he quickly becomes oblivious to senior technical writer, lost in a tangential thought and rambling about unrelated and mostly non-sensical things. Tried to ask pt about collateral reports, however he adamantly denies reports. t. Pt standing in [place] talking to himself. from the unit, pt called 911 and told police there is a sniper loose; on inquiry, could not explain his concern 06/21/24 Patient remains disorganized; perseveration on his relationship. He says he is good today...wants to get back to his house since he rebuilt his whole house and has things to do...He said he does not think he'll take psychiatric medications. He tells senior technical writer that he has his own doctor, Dr. Hay. However, pt seemed open to writers explanation that medications ordered are the same ones that Dr. Hay prescribed. He seemed to agree to consider taking psych meds. 06/22 no change in presentation, remains disorganized, manic, delusional. Patient said he will contemplate taking the paliperidone. Will increase dose /3 patient took paliperidone last night. No change in presentation. Embedded Firmware Developer discussed hypertension with patient and he said he used to be on an ISAC inhibitor and agreed to restart 1 now 06/25/2024: Continue to encourage medication adherence 06/26 No change in presentation; patient remains manic, rambling about various unrelated things. Came up to senior technical writer and said something about [address] which patient could not explain. Staff reports only sleeping 2 hours last night. Patient again refuses Vraylar or long-acting medication. He says that the police that came to take him to the hospital were not real police... And says they were just dressed up to look like police. Again patient could not discuss this further; patient did however agree to increase lisinopril to 10 mg given continued hypertension 06/27 remains manic; reviewed blood pressures which was still avoided however lisinopril was just increase so needs more time to be effective. -patient remains manic, disorganized and without any insight. It seems that without a mood stabilizer on board, patient will remain manic and disorganized and unable to be safe in the community. 06/28 pt remains disorganized, rambling about various things perseverates on going home to fix his house, repair the roof. Telling staff that this senior technical writer is an imposter and saying i know who my 's killer is... 06/29 continue tx plan; pt not open to increasing dose. 06/30 No change in presentation. Says he wants to get home so he can work on his house. Continuing to rambling about unrelated, irrelevant and or delusional things. Refuses any medication changes. Walking around the milieu with buttocks exposed. 07/01 patient remains disorganized; rambling about various things, often talking about his , referring to paranoid delusions about terrorists... Reviewed BP, HTN; discussed with pt who agrees to increasing lisinopril -will switch blood pressure measurements to t.i.d. to better assess effectiveness of antihypertensive 07/02 No change in presentation. Embedded Firmware Developer asks patient how he is doing any patient starts talking about his , having been stolen, put into slavery and sex trafficking; says she is probably somewhere crying... Embedded Firmware Developer tried to apply reality testing however patient kept talking about such things. Patient difficult to interrupt or with which to engage further 07/04 no change in presentation; no insight and refusing mood stabilizing meds o change in presentation. starts asking senior technical writer for discharge, talking about medications, but quickly his ramble changes from unrelated topic to unrelated topic, imbued with paranoid ideations 07/06 continue tx. refuses vraylar but taking paliperidone as prescribed. 07/07 no change in presentation; refuses any medication changes, increase paliperidone or other mood stabilizer 07/08/2024: Continue current regimen and plans 07/09/2024: Continue current regimen and plans Impression: As patient remains without any insight to his illness or his behaviors, he remains unsafe and a danger to himself and others due to his erratic driving; also due to paranoid delusions he has been eating very little and seems to have lost significant weight and only a few months. At this time patient is not safe for discharge. He is not willing to sign a CV. Embedded Firmware Developer will file for involuntary commitment and substituted judgment. Also, senior technical writer is invoking the HCP on 06/19/24 as patient is unable to make medical decisions for himself. 07/10 less manic, but no other change in presentation 07/11 healthcare proxy affirmed; patient upset about this; will leave current medication regimen as is to let patient adjust 07/12 Embedded Firmware Developer again discussed healthcare proxy affirmation and that discussion was had with healthcare proxy who agrees with patient being on long acting injectable, Nga Ruiz. Embedded Firmware Developer asked about history of side effects and whether or not patient had erectile dysfunction. He says he is not having erections now since coming to the hospital and that he was prior to coming to the hospital; however he then says there were many years, when with his he was not getting an erection at all. Embedded Firmware Developer tried to see if there is a correlation with the medication and this experience however it was not possible as patient's discourse quickly wandered off and he started talking about his and other girlfriends, house as he bought... Patient said that he was going to call his cousin, healthcare proxy because he did not want to be on a long-acting medication. -patient remains without any insight into his illness at all and is upset by the day of long-acting injectable. Embedded Firmware Developer finds it reasonable to give patient time to appeal to his healthcare proxy to discuss medication management so will not make any adjustments at this time. That said, patient's lack of insight and long history of non adherence are barriers to discharging him on p.o. medications only Reviewed blood pressure and much improved with increase lisinopril dose 07/13 Patient did take Vraylar last night. Remains tangential, quickly getting off topic and not returning; talking about some delusional things but perhaps a little less. Embedded Firmware Developer discussed case with affirmed healthcare proxy Sienna who is very ambivalent about whether or not patient should be transitioned to a long- acting injectable. She agrees that he will very likely go off this medication but is sympathetic to his perceived complaints of side effects. -per healthcare proxy will hold off on long-acting injectable; patient did take Vraylar last night and says he will continue taking Reviewed blood pressure and much improved with increase lisinopril dose 07/13 Patient did take Vraylar last night. Remains tangential, quickly getting off topic and not returning; talking about some delusional things but perhaps a little less. Embedded Firmware Developer discussed case with affirmed healthcare proxy Sienna who is very ambivalent about whether or not patient should be transitioned to a long- acting injectable. She agrees that he will very likely go off this medication but is sympathetic to his perceived complaints of side effects. -per healthcare proxy will hold off on long-acting injectable; patient did take Vraylar last night and says he will continue taking 07/17 pt has been taking vraylar for past several days and he presents pt a little more calm today. Still tangential...he says he'll keep taking vraylar. Perhaps talking a little less about delusional topics -no change in insight and judgment and he has no sense of his mental illness or need for medication; taking vraylar only as a means to an end, that being discharge. 07/18 Patient remains taking Vraylar at bedtime. Embedded Firmware Developer and patient talked about his house, 1 of his favorite topics which he says he loves and very much wants to go home so he can work on. Patient showed senior technical writer several pictures that he has of his late and shared some things about their relationship regarding the pictures. Of note, patient has not seem to mention any delusional thinking over the past 2 days and while he remains tangential, now seems to remain much more consistently on a given tangent rather than jumping from tangent to tangent. Embedded Firmware Developer inquired if patient is thinking or feeling differently than when he 1st came in and he shared that he feels a little slowed down. Embedded Firmware Developer offered that what seems slowed down to patient seems much more normal to senior technical writer and staff; senior technical writer shared that when patient 1st came in, he was very difficult to understand because he was talking so fast. Patient laughed and agreed that was probably true and that perhaps it is better that he is now talking more slowly. Embedded Firmware Developer discussed continuing to take medications on discharge which patient said he would. 07/19 Patient asked about going home and said he hopes he can be soon. He says he loves his house and really wants to get back to it to take care of it; he says that doing so helps him to stay in good mental and physical shape. Patient was encouraged to know that dispo planning is being discussed with his cousin. 07/20 affirmed HCP says yes ORDOÑEZ; pt was upset by this and wanted to call HcP. 07/21 affirmed HCP remains decided on ORDOÑEZ; pt agrees though anxious -though improved on Vraylar, HCP and Embedded Firmware Developer agree patient needs long-acting injectable for best chance of stability in the community 07/22: no changes. received ORDOÑEZ yesterday. Plan: Healthcare proxy affirmed on 07/11/2024 Q 15 minute checks INVEGA SUSTENNA 234 mg IM one time dose; cannot refuse as per Affirmed HCP (affirmed by Court) will dc PO Palliperidone before second Invega loading dose Continue Lisinopril 20mg daily (patient said he used to be on enalapril however not on formulary Continue Vraylar 3 mg q.h.s. Continue Brimonide Tartrate Continue Dorzolamide Continue Latanoprost Continue Timolol Reason for continued inpatient stay Substantial Risk for: inability to function Time Spent With Patient Time: Total time managing care of this patient today ____ minutes. Documented by User: Kaleb Loza MD 07/23/24 10:13 Subjective Subjective Reason For Visit: schizophrenia Diagnostics Labs 06/14/24 00:45 06/14/24 00:45 Assessment & Plan Assessment & Plan (1) Schizoaffective disorder, bipolar type: Status: Acute Code(s): F25.0 - Schizoaffective disorder, bipolar type (2) Glaucoma: Status: Acute Code(s): H40.9 - Unspecified glaucoma (3) Hypertension: Status: Acute Code(s): I10 - Essential (primary) hypertension Plan Patient is a 68-year-old male with history of schizoaffective, bipolar type (vs bipolar), glaucoma who presents via police for disorganized behavior in the community in the face of medication noncompliance. Patient is disorganized in speech, rambling, often incoherently. He asks senior technical writer. about the mott of the sexes and S[place]... Embedded Firmware Developer inquired about ED/police report that he was disorganized, that he was driving in the backyard of his house, shiny his lights on neighbors house. He said he was trying to park in his driveway and I did not. Mean to drive in the backyard.. Saying it was accidental. Regarding being disorganized outside a convenience store, patient said that there was a angry woman there a sick woman.. Who was upset with and all he was doing was sitting in his car outside the convenience store for a little while, listening to music. Patient denies any drug or alcohol use. Says his throat is bothering him but he can not tolerate any questions regarding it. Says he does not need medications but has been taking them since he got here. Collateral report says patient was brought in for acting erratic, driving in circles and backyard of his house after neighbors called; also reports that he was acting erratically at nighttime outside of a convenience store. Formulation/clinical reasoning: Patient presents in a manic episode and acting erratically in the community. Recently discharged from [facility] on paliperidone 6mg qhs and Vraylar 3mg qhs. Not sure why patient is on 2 antipsychotics unless Vraylar is meant to be only a mood stabilizer. Will continue this regimen now since he seemed to somewhat stabilize on [facility]. If stabilizes will strongly consider long-acting injectable of paliperidone given history of noncompliance Hospital course: 06/19 Patient remains disorganized and is having a difficult time explaining his thoughts. On approach he is rambling about something and senior technical writer has a very hard time understanding him as he is jumping from topic to topic. He says he wants to go home and that he has a lot to accomplish. He has not been taking Vraylar and says he does not like it. He said he will take the paliperidone but refuses long-acting injectable. Embedded Firmware Developer asked about paranoid delusional thinking and he said that others are making fictitious statements. Regarding driving erratically, he says I was driving between the lines... However he does acknowledge he was playing his music too loudly. Embedded Firmware Developer discussed that team does not feel he is ready for discharge however patient is unable to tolerate this discussion just says no that he wants to go... boom worker discussed case with patient's cousin Marlin Dowd who is also his healthcare proxy (document in chart). She has significant concerns about his safety. She said that over the past week to 2 weeks he has been increasingly disorganized; senior technical writer around [place] he refused his meds (from [facility]?); she drove in the car as a passenger with him and said she was very fearful as he was driving well below the speed limit, weaving in and out of the lanes and completely unsafe. She said he recently showed up at a work place and employees were scared of him because he was talking nonsensically. She says that he is delusional, thinking that his food is poisoned and threw away a significant amount of food that he got from a food shelf. She says he has lost about 30-40 lb over the past 2 months. She says that he has talked about raise or beams beaming down onto his head; saying that he seeing cars Vanish, planes Vanish and other bizarre delusional things. She says that he is historically not compliant with medication and would like him to be on a long-acting injectable. Embedded Firmware Developer discussed case with [employer] inpatient provider who saw patient on his recent admission to a few weeks ago; she talked with his outpatient psychiatric provider Dr. Condon the said that patient needed Vraylar in addition to palpate own for stabilization. 06/20 rambling, hard to understand. Impossible to have a therapeutic conversation with patient as he quickly becomes oblivious to senior technical writer, lost in a tangential thought and rambling about unrelated and mostly non-sensical things. Tried to ask pt about collateral reports, however he adamantly denies reports. t. Pt standing in [place] talking to himself. from the unit, pt called 911 and told police there is a sniper loose; on inquiry, could not explain his concern 06/21/24 Patient remains disorganized; perseveration on his relationship. He says he is good today...wants to get back to his house since he rebuilt his whole house and has things to do...He said he does not think he'll take psychiatric medications. He tells senior technical writer that he has his own doctor, Dr. Hay. However, pt seemed open to writers explanation that medications ordered are the same ones that Dr. Hay prescribed. He seemed to agree to consider taking psych meds. 06/22 no change in presentation, remains disorganized, manic, delusional. Patient said he will contemplate taking the paliperidone. Will increase dose 06/23 patient took paliperidone last night. No change in presentation. Embedded Firmware Developer discussed hypertension with patient and he said he used to be on an ISAC inhibitor and agreed to restart 1 now 06/25/2024: Continue to encourage medication adherence 06/26 No change in presentation; patient remains manic, rambling about various unrelated things. Came up to senior technical writer and said something about [address] which patient could not explain. Staff reports only sleeping 2 hours last night. Patient again refuses Vraylar or long-acting medication. He says that the police that came to take him to the hospital were not real police... And says they were just dressed up to look like police. Again patient could not discuss this further; patient did however agree to increase lisinopril to 10 mg given continued hypertension 06/27 remains manic; reviewed blood pressures which was still avoided however lisinopril was just increase so needs more time to be effective. -patient remains manic, disorganized and without any insight. It seems that without a mood stabilizer on board, patient will remain manic and disorganized and unable to be safe in the community. 06/28 pt remains disorganized, rambling about various things perseverates on going home to fix his house, repair the roof. Telling staff that this senior technical writer is an imposter and saying i know who my 's killer is... 06/29 continue tx plan; pt not open to increasing dose. 06/30 No change in presentation. Says he wants to get home so he can work on his house. Continuing to rambling about unrelated, irrelevant and or delusional things. Refuses any medication changes. Walking around the milieu with buttocks exposed. 07/01 patient remains disorganized; rambling about various things, often talking about his , referring to paranoid delusions about terrorists... Reviewed BP, HTN; discussed with pt who agrees to increasing lisinopril -will switch blood pressure measurements to t.i.d. to better assess effectiveness of antihypertensive 07/02 No change in presentation. Embedded Firmware Developer asks patient how he is doing any patient starts talking about his , having been stolen, put into slavery and sex trafficking; says she is probably somewhere crying... Embedded Firmware Developer tried to apply reality testing however patient kept talking about such things. Patient difficult to interrupt or with which to engage further 07/04 no change in presentation; no insight and refusing mood stabilizing meds o change in presentation. starts asking senior technical writer for discharge, talking about medications, but quickly his ramble changes from unrelated topic to unrelated topic, imbued with paranoid ideations 07/06 continue tx. refuses vraylar but taking paliperidone as prescribed. 07/07 no change in presentation; refuses any medication changes, increase paliperidone or other mood stabilizer 07/08/2024: Continue current regimen and plans 07/09/2024: Continue current regimen and plans Impression: As patient remains without any insight to his illness or his behaviors, he remains unsafe and a danger to himself and others due to his erratic driving; also due to paranoid delusions he has been eating very little and seems to have lost significant weight and only a few months. At this time patient is not safe for discharge. He is not willing to sign a CV. Embedded Firmware Developer will file for involuntary commitment and substituted judgment. Also, senior technical writer is invoking the HCP on 06/19/24 as patient is unable to make medical decisions for himself. 07/10 less manic, but no other change in presentation 07/11 healthcare proxy affirmed; patient upset about this; will leave current medication regimen as is to let patient adjust 07/12 Embedded Firmware Developer again discussed healthcare proxy affirmation and that discussion was had with healthcare proxy who agrees with patient being on long acting injectable, Invega Sustenna. Embedded Firmware Developer asked about history of side effects and whether or not patient had erectile dysfunction. He says he is not having erections now since coming to the hospital and that he was prior to coming to the hospital; however he then says there were many years, when with his he was not getting an erection at all. Embedded Firmware Developer tried to see if there is a correlation with the medication and this experience however it was not possible as patient's discourse quickly wandered off and he started talking about his and other girlfriends, house as he bought... Patient said that he was going to call his cousin, healthcare proxy because he did not want to be on a long-acting medication. -patient remains without any insight into his illness at all and is upset by the day of long-acting injectable. Embedded Firmware Developer finds it reasonable to give patient time to appeal to his healthcare proxy to discuss medication management so will not make any adjustments at this time. That said, patient's lack of insight and long history of non adherence are barriers to discharging him on p.o. medications only Reviewed blood pressure and much improved with increase lisinopril dose 07/13 Patient did take Vraylar last night. Remains tangential, quickly getting off topic and not returning; talking about some delusional things but perhaps a little less. Embedded Firmware Developer discussed case with affirmed healthcare proxy Sienna who is very ambivalent about whether or not patient should be transitioned to a long- acting injectable. She agrees that he will very likely go off this medication but is sympathetic to his perceived complaints of side effects. -per healthcare proxy will hold off on long-acting injectable; patient did take Vraylar last night and says he will continue taking Reviewed blood pressure and much improved with increase lisinopril dose 07/13 Patient did take Vraylar last night. Remains tangential, quickly getting off topic and not returning; talking about some delusional things but perhaps a little less. Embedded Firmware Developer discussed case with affirmed healthcare proxy Sienna who is very ambivalent about whether or not patient should be transitioned to a long- acting injectable. She agrees that he will very likely go off this medication but is sympathetic to his perceived complaints of side effects. -per healthcare proxy will hold off on long-acting injectable; patient did take Vraylar last night and says he will continue taking 07/17 pt has been taking vraylar for past several days and he presents pt a little more calm today. Still tangential...he says he'll keep taking vraylar. Perhaps talking a little less about delusional topics -no change in insight and judgment and he has no sense of his mental illness or need for medication; taking vraylar only as a means to an end, that being discharge. 07/18 Patient remains taking Vraylar at bedtime. Embedded Firmware Developer and patient talked about his house, 1 of his favorite topics which he says he loves and very much wants to go home so he can work on. Patient showed senior technical writer several pictures that he has of his late and shared some things about their relationship regarding the pictures. Of note, patient has not seem to mention any delusional thinking over the past 2 days and while he remains tangential, now seems to remain much more consistently on a given tangent rather than jumping from tangent to tangent. Embedded Firmware Developer inquired if patient is thinking or feeling differently than when he 1st came in and he shared that he feels a little slowed down. Embedded Firmware Developer offered that what seems slowed down to patient seems much more normal to senior technical writer and staff; senior technical writer shared that when patient 1st came in, he was very difficult to understand because he was talking so fast. Patient laughed and agreed that was probably true and that perhaps it is better that he is now talking more slowly. Embedded Firmware Developer discussed continuing to take medications on discharge which patient said he would. 07/19 Patient asked about going home and said he hopes he can be soon. He says he loves his house and really wants to get back to it to take care of it; he says that doing so helps him to stay in good mental and physical shape. Patient was encouraged to know that dispo planning is being discussed with his cousin. 07/20 affirmed HCP says yes ORDOÑEZ; pt was upset by this and wanted to call HcP. 07/21 affirmed HCP remains decided on ORDOÑEZ; pt agrees though anxious -though improved on Vraylar, HCP and Embedded Firmware Developer agree patient needs long-acting injectable for best chance of stability in the community Plan: Healthcare proxy affirmed on 07/11/2024 Q 15 minute checks INVEGA SUSTENNA 234 mg IM one time dose; cannot refuse as per Affirmed HCP (affirmed by Court) will dc PO Palliperidone before second Invega loading dose Continue Lisinopril 20mg daily (patient said he used to be on enalapril however not on formulary Continue Vraylar 3 mg q.h.s. Continue Brimonide Tartrate Continue Dorzolamide Continue Latanoprost Continue Timolol
[2024-07-22] MEDS: lisinopriL 20 MG TABLET PO (08:59)
[2024-07-22] MEDS: Thiamine HCL 100 MG TABLET PO (08:59)
[2024-07-22] MEDS: Dorzolamide HCl 2 % Ophth Sol 10 ML DRPBTL 1 DROP EYE-BOTH ×3 (09:00→20:28)
[2024-07-22] MEDS: timoloL maleate 0.5 % Oph Sol 5 ML DRBTL 1 DROP EYE-BOTH ×2 (09:00→20:28)
[2024-07-22] MEDS: Brimonidine Tartrate 0.2% Oph 5 ML BOTTLE 1 DROP EYE-BOTH ×2 (09:00→20:27)
[2024-07-22] MEDS: Cariprazine HCl 3 MG CAPSULE PO (20:25)
[2024-07-22] MEDS: traZODone HCL 50 MG TABLET PO (20:25)
[2024-07-22] MEDS: LORazepam 1 MG TABLET PO (20:25)
[2024-07-22] MEDS: Paliperidone ER 9 MG TAB.ER.24 PO (20:25)
[2024-07-22] MEDS: Latanoprost 0.005 % Ophth Sol 2.5 ML DROPS 1 DROP EYE-BOTH (20:28)
[2024-07-22 22:00] VITALS: BP 156/72; PULSE 84; RESP 15; TEMP 36.7; O2SAT 97
[2024-07-23 08:07] VITALS: BP 134/65; PULSE 66; RESP 16; TEMP 36.9; O2SAT 96
[2024-07-23] MEDS: lisinopriL 20 MG TABLET PO (08:49)
[2024-07-23] MEDS: Thiamine HCL 100 MG TABLET PO (08:49)
[2024-07-23] MEDS: Brimonidine Tartrate 0.2% Oph 5 ML BOTTLE 1 DROP EYE-BOTH ×2 (08:50→20:29)
[2024-07-23] MEDS: Dorzolamide HCl 2 % Ophth Sol 10 ML DRPBTL 1 DROP EYE-BOTH ×2 (08:50→20:28)
[2024-07-23] MEDS: timoloL maleate 0.5 % Oph Sol 5 ML DRBTL 1 DROP EYE-BOTH ×2 (08:50→20:28)
--- NOTE | 2024-07-23 09:44 | HO.PSYCHPN ---
Subjective Subjective Date of Service: 07/23/24 Reason For Visit: schizophrenia Interim History: met with patient; discussed with nursing. Overall no significant change in presentation- remains eager for DC, no insight, still self dialogues, ongoing vague answers when asked about admission and treatment. Denied feeling depressed or suicidal. Sleep ok Medication Compliance: Yes Side effects from medications: No Attending Groups: Intermittent Review of Systems Acute medical concerns: No Review of Systems Review of Systems Denies Mental Status Exam Mental Status Exam Patient Appearance: Appropriate Patient Orientation: Person, Place and Situation Level of Consciousness: Alert Patient Behavior: Appropriate, Hyperactive, Cooperative and Good Eye Contact Mood Description: Calm Affect Description: Calm Patient Cognition Impaired: Yes Ability to Follow Directions: Fair Speech Pattern: Spontaneous Speech Memory Description: Episodic Impaired Perceptual Disturbances: Hallucinations (denies but also self dialogues) Judgement: Poor Diagnostics Vital Signs (24Hr): Vital Signs - 24 hr 07/22/24 22:00 07/23/24 08:07 Temperature 98.1 F 98.4 F Pulse Rate 84 66 Respiratory Rate 15 16 Blood Pressure 156/72 H 134/65 Pulse Oximetry 97 96 Oxygen Delivery Method Room Air BMI result Body Mass Index 25.4 Labs 06/14/24 00:45 06/14/24 00:45 Medications Medications Current Medications Acetaminophen (Acetaminophen 325 Mg Tablet) 650 mg PO Q6H PRN PRN Reason: Headache/Pain Mild Scale (1-3) Last Admin: 06/16/24 13:42 Dose: 650 mg Al Hydroxide/Mg Hydroxide (Magnesium Hydrox/Alum Hydrox 30 Ml Oral.Susp) 30 ml PO Q6H PRN PRN Reason: Heartburn/Nausea Brimonidine Tartrate (Brimonidine Tartrate 0.2% Oph 5 Ml Bottle) 1 drop EYE-BOTH BID [facility] Last Admin: 07/23/24 08:50 Dose: 1 drop Cariprazine (Cariprazine Hcl 3 Mg Capsule) 3 mg PO BEDTIME [facility] Last Admin: 07/22/24 20:25 Dose: 3 mg Dorzolamide HCl (Dorzolamide Hcl 2 % Ophth Jossy 10 Ml Drpbtl) 1 drop EYE-BOTH TID [facility] Last Admin: 07/23/24 08:50 Dose: 1 drop Hydroxyzine HCl (Hydroxyzine Hcl 25 Mg Tablet) 25 mg PO Q6H PRN PRN Reason: Anxiety Last Admin: 07/21/24 01:01 Dose: 25 mg Latanoprost (Latanoprost 0.005 % Ophth Jossy 2.5 Ml Drops) 1 drop EYE-BOTH BEDTIME [facility] Last Admin: 07/22/24 20:28 Dose: 1 drop Lidocaine HCl (Lidocaine Hcl 4 % Topical 50 Ml Solution) 1 appl TOPICAL DAILY PRN; Protocol PRN Reason: apply to injection site prior Lisinopril (Lisinopril 20 Mg Tablet) 20 mg PO DAILY [facility]; Protocol Last Admin: 07/23/24 08:49 Dose: 20 mg Lorazepam (Lorazepam 1 Mg Tablet) 1 mg PO BEDTIME [facility] Last Admin: 07/22/24 20:25 Dose: 1 mg Magnesium Hydroxide (Milk Of Magnesia 30 Ml Oral.Susp) 30 ml PO DAILY PRN PRN Reason: Constipation Nicotine (Nicotine 21 Mg Patch.Td24) 21 mg TRANSDERMA DAILY PRN PRN Reason: nicotine cravings Nicotine Polacrilex (Nicotine Polacrilex 2 Mg Gum) 4 mg BUCCAL Q2H PRN PRN Reason: Nicotine Cravings Olanzapine (Olanzapine 5 Mg Tablet) 5 mg PO Q4H PRN PRN Reason: agitation,psychosis Last Admin: 07/15/24 06:21 Dose: 5 mg Paliperidone (Paliperidone Er 9 Mg Tab.Er.24) 9 mg PO BEDTIME [facility] Last Admin: 07/22/24 20:25 Dose: 9 mg Thiamine HCl (Thiamine Hcl 100 Mg Tablet) 100 mg PO DAILY [facility] Last Admin: 07/23/24 08:49 Dose: 100 mg Timolol Maleate (Timolol Maleate 0.5 % Oph Jossy 5 Ml Drbtl) 1 drop EYE-BOTH BID [facility] Last Admin: 07/23/24 08:50 Dose: 1 drop Trazodone HCl (Trazodone Hcl 50 Mg Tablet) 50 mg PO BEDTIME MRX1 PRN PRN Reason: Insomnia Last Admin: 07/22/24 20:25 Dose: 50 mg Allergies Allergies Allergy/AdvReac Type Severity Reaction Status Date / Time No Known Allergies Allergy Unknown UNKNOWN Verified 06/14/24 00:30 Assessment & Plan Assessment & Plan (1) Schizoaffective disorder, bipolar type: Status: Acute Code(s): F25.0 - Schizoaffective disorder, bipolar type (2) Glaucoma: Status: Acute Code(s): H40.9 - Unspecified glaucoma (3) Hypertension: Status: Acute Code(s): I10 - Essential (primary) hypertension Plan Patient is a 68-year-old male with history of schizoaffective, bipolar type (vs bipolar), glaucoma who presents via police for disorganized behavior in the community in the face of medication noncompliance. Patient is disorganized in speech, rambling, often incoherently. He asks health technical writer. about the mott of the sexes and Eleazar and Vidya... Object Oriented Developer inquired about ED/police report that he was disorganized, that he was driving in the backyard of his house, shiny his lights on neighbors house. He said he was trying to park in his driveway and I did not. Mean to drive in the backyard.. Saying it was accidental. Regarding being disorganized outside a convenience store, patient said that there was a angry woman there a sick woman.. Who was upset with and all he was doing was sitting in his car outside the convenience store for a little while, listening to music. Patient denies any drug or alcohol use. Says his throat is bothering him but he can not tolerate any questions regarding it. Says he does not need medications but has been taking them since he got here. Collateral report says patient was brought in for acting erratic, driving in circles and backyard of his house after neighbors called; also reports that he was acting erratically at nighttime outside of a convenience store. Formulation/clinical reasoning: Patient presents in a manic episode and acting erratically in the community. Recently discharged from [facility] on paliperidone 6mg qhs and Vraylar 3mg qhs. Not sure why patient is on 2 antipsychotics unless Vraylar is meant to be only a mood stabilizer. Will continue this regimen now since he seemed to somewhat stabilize on [facility]. If stabilizes will strongly consider long-acting injectable of paliperidone given history of noncompliance Hospital course: 06/19 Patient remains disorganized and is having a difficult time explaining his thoughts. On approach he is rambling about something and health technical writer has a very hard time understanding him as he is jumping from topic to topic. He says he wants to go home and that he has a lot to accomplish. He has not been taking Vraylar and says he does not like it. He said he will take the paliperidone but refuses long-acting injectable. Object Oriented Developer asked about paranoid delusional thinking and he said that others are making fictitious statements. Regarding driving erratically, he says I was driving between the lines... However he does acknowledge he was playing his music too loudly. Object Oriented Developer discussed that team does not feel he is ready for discharge however patient is unable to tolerate this discussion just says no that he wants to go... extrusion utility worker discussed case with patient's cousin Marlin Dowd who is also his healthcare proxy (document in chart). She has significant concerns about his safety. She said that over the past week to 2 weeks he has been increasingly disorganized; health technical writer around [place] he refused his meds (from [facility]?); she drove in the car as a passenger with him and said she was very fearful as he was driving well below the speed limit, weaving in and out of the lanes and completely unsafe. She said he recently showed up at a work place and employees were scared of him because he was talking nonsensically. She says that he is delusional, thinking that his food is poisoned and threw away a significant amount of food that he got from a food shelf. She says he has lost about 30-40 lb over the past 2 months. She says that he has talked about raise or beams beaming down onto his head; saying that he seeing cars Vanish, planes Vanish and other bizarre delusional things. She says that he is historically not compliant with medication and would like him to be on a long-acting injectable. Object Oriented Developer discussed case with HOME CARE COORDINATOR inpatient provider who saw patient on his recent admission to a few weeks ago; she talked with his outpatient psychiatric provider Dr. Condon the said that patient needed Vraylar in addition to palpate own for stabilization. 06/20 rambling, hard to understand. Impossible to have a therapeutic conversation with patient as he quickly becomes oblivious to health technical writer, lost in a tangential thought and rambling about unrelated and mostly non-sensical things. Tried to ask pt about collateral reports, however he adamantly denies reports. t. Pt standing in [place] talking to himself. from the unit, pt called 911 and told police there is a sniper loose; on inquiry, could not explain his concern 06/21/24 Patient remains disorganized; perseveration on his relationship. He says he is good today...wants to get back to his house since he rebuilt his whole house and has things to do...He said he does not think he'll take psychiatric medications. He tells health technical writer that he has his own doctor, Dr. Hay. However, pt seemed open to writers explanation that medications ordered are the same ones that Dr. Hay prescribed. He seemed to agree to consider taking psych meds. 06/22 no change in presentation, remains disorganized, manic, delusional. Patient said he will contemplate taking the paliperidone. Will increase dose 06/23 patient took paliperidone last night. No change in presentation. Object Oriented Developer discussed hypertension with patient and he said he used to be on an ISAC inhibitor and agreed to restart 1 now 06/25/2024: Continue to encourage medication adherence 06/26 No change in presentation; patient remains manic, rambling about various unrelated things. Came up to health technical writer and said something about [address] which patient could not explain. Staff reports only sleeping 2 hours last night. Patient again refuses Vraylar or long-acting medication. He says that the police that came to take him to the hospital were not real police... And says they were just dressed up to look like police. Again patient could not discuss this further; patient did however agree to increase lisinopril to 10 mg given continued hypertension 06/27 remains manic; reviewed blood pressures which was still avoided however lisinopril was just increase so needs more time to be effective. -patient remains manic, disorganized and without any insight. It seems that without a mood stabilizer on board, patient will remain manic and disorganized and unable to be safe in the community. 06/28 pt remains disorganized, rambling about various things perseverates on going home to fix his house, repair the roof. Telling staff that this health technical writer is an imposter and saying i know who my 's killer is... 06/29 continue tx plan; pt not open to increasing dose. 06/30 No change in presentation. Says he wants to get home so he can work on his house. Continuing to rambling about unrelated, irrelevant and or delusional things. Refuses any medication changes. Walking around the milieu with buttocks exposed. 07/01 patient remains disorganized; rambling about various things, often talking about his , referring to paranoid delusions about terrorists... Reviewed BP, HTN; discussed with pt who agrees to increasing lisinopril -will switch blood pressure measurements to t.i.d. to better assess effectiveness of antihypertensive 07/02 No change in presentation. Object Oriented Developer asks patient how he is doing any patient starts talking about his , having been stolen, put into slavery and sex trafficking; says she is probably somewhere crying... Object Oriented Developer tried to apply reality testing however patient kept talking about such things. Patient difficult to interrupt or with which to engage further 07/04 no change in presentation; no insight and refusing mood stabilizing meds o change in presentation. starts asking health technical writer for discharge, talking about medications, but quickly his ramble changes from unrelated topic to unrelated topic, imbued with paranoid ideations 07/06 continue tx. refuses vraylar but taking paliperidone as prescribed. 07/07 no change in presentation; refuses any medication changes, increase paliperidone or other mood stabilizer 07/08/2024: Continue current regimen and plans 07/09/2024: Continue current regimen and plans Impression: As patient remains without any insight to his illness or his behaviors, he remains unsafe and a danger to himself and others due to his erratic driving; also due to paranoid delusions he has been eating very little and seems to have lost significant weight and only a few months. At this time patient is not safe for discharge. He is not willing to sign a CV. Object Oriented Developer will file for involuntary commitment and substituted judgment. Also, health technical writer is invoking the HCP on 06/19/24 as patient is unable to make medical decisions for himself. 07/10 less manic, but no other change in presentation 07/11 healthcare proxy affirmed; patient upset about this; will leave current medication regimen as is to let patient adjust 07/12 Object Oriented Developer again discussed healthcare proxy affirmation and that discussion was had with healthcare proxy who agrees with patient being on long acting injectable, Invega Sustenna. Object Oriented Developer asked about history of side effects and whether or not patient had erectile dysfunction. He says he is not having erections now since coming to the hospital and that he was prior to coming to the hospital; however he then says there were many years, when with his he was not getting an erection at all. Object Oriented Developer tried to see if there is a correlation with the medication and this experience however it was not possible as patient's discourse quickly wandered off and he started talking about his and other girlfriends, house as he bought... Patient said that he was going to call his cousin, healthcare proxy because he did not want to be on a long-acting medication. -patient remains without any insight into his illness at all and is upset by the day of long-acting injectable. Object Oriented Developer finds it reasonable to give patient time to appeal to his healthcare proxy to discuss medication management so will not make any adjustments at this time. That said, patient's lack of insight and long history of non adherence are barriers to discharging him on p.o. medications only Reviewed blood pressure and much improved with increase lisinopril dose 07/13 Patient did take Vraylar last night. Remains tangential, quickly getting off topic and not returning; talking about some delusional things but perhaps a little less. Object Oriented Developer discussed case with affirmed healthcare proxy Sienna who is very ambivalent about whether or not patient should be transitioned to a long-acting injectable. She agrees that he will very likely go off this medication but is sympathetic to his perceived complaints of side effects. -per healthcare proxy will hold off on long-acting injectable; patient did take Vraylar last night and says he will continue taking Reviewed blood pressure and much improved with increase lisinopril dose 07/13 Patient did take Vraylar last night. Remains tangential, quickly getting off topic and not returning; talking about some delusional things but perhaps a little less. Object Oriented Developer discussed case with affirmed healthcare proxy Sienna who is very ambivalent about whether or not patient should be transitioned to a long-acting injectable. She agrees that he will very likely go off this medication but is sympathetic to his perceived complaints of side effects. -per healthcare proxy will hold off on long-acting injectable; patient did take Vraylar last night and says he will continue taking 07/17 pt has been taking vraylar for past several days and he presents pt a little more calm today. Still tangential...he says he'll keep taking vraylar. Perhaps talking a little less about delusional topics -no change in insight and judgment and he has no sense of his mental illness or need for medication; taking vraylar only as a means to an end, that being discharge. 07/18 Patient remains taking Vraylar at bedtime. Object Oriented Developer and patient talked about his house, 1 of his favorite topics which he says he loves and very much wants to go home so he can work on. Patient showed health technical writer several pictures that he has of his late and shared some things about their relationship regarding the pictures. Of note, patient has not seem to mention any delusional thinking over the past 2 days and while he remains tangential, now seems to remain much more consistently on a given tangent rather than jumping from tangent to tangent. Object Oriented Developer inquired if patient is thinking or feeling differently than when he 1st came in and he shared that he feels a little slowed down. Object Oriented Developer offered that what seems slowed down to patient seems much more normal to health technical writer and staff; health technical writer shared that when patient 1st came in, he was very difficult to understand because he was talking so fast. Patient laughed and agreed that was probably true and that perhaps it is better that he is now talking more slowly. Object Oriented Developer discussed continuing to take medications on discharge which patient said he would. 07/19 Patient asked about going home and said he hopes he can be soon. He says he loves his house and really wants to get back to it to take care of it; he says that doing so helps him to stay in good mental and physical shape. Patient was encouraged to know that dispo planning is being discussed with his cousin. 07/20 affirmed HCP says yes ORDOÑEZ; pt was upset by this and wanted to call HcP. 07/21 affirmed HCP remains decided on ORDOÑEZ; pt agrees though anxious -though improved on Vraylar, HCP and Object Oriented Developer agree patient needs long-acting injectable for best chance of stability in the community 07/22: no changes. received ORDOÑEZ yesterday. 07/23 no changes Plan: Healthcare proxy affirmed on 07/11/2024 Q 15 minute checks INVEGA SUSTENNA 234 mg IM one time dose; cannot refuse as per Affirmed HCP (affirmed by Court) will dc PO Palliperidone before second Invega loading dose Continue Lisinopril 20mg daily (patient said he used to be on enalapril however not on formulary Continue Vraylar 3 mg q.h.s. Continue Brimonide Tartrate Continue Dorzolamide Continue Latanoprost Continue Timolol Reason for continued inpatient stay Substantial Risk for: inability to function and rapid decompensation Time Spent With Patient Time: Total time managing care of this patient today ____ minutes.
[2024-07-23 19:56] VITALS: BP 141/65; PULSE 67; RESP 15; TEMP 36.9; O2SAT 96
[2024-07-23] MEDS: LORazepam 1 MG TABLET PO (20:26)
[2024-07-23] MEDS: traZODone HCL 50 MG TABLET PO (20:26)
[2024-07-23] MEDS: Cariprazine HCl 3 MG CAPSULE PO (20:26)
[2024-07-23] MEDS: Paliperidone ER 9 MG TAB.ER.24 PO (20:27)
[2024-07-23] MEDS: Latanoprost 0.005 % Ophth Sol 2.5 ML DROPS 1 DROP EYE-BOTH (20:29)
[2024-07-24] MEDS: OLANZapine 5 MG TABLET PO (03:31)
[2024-07-24] MEDS: hydrOXYzine HCL 25 MG TABLET PO (03:31)
[2024-07-24 08:15] VITALS: BP 153/72; PULSE 70; RESP 16; TEMP 37.1; O2SAT 95
[2024-07-24] MEDS: Dorzolamide HCl 2 % Ophth Sol 10 ML DRPBTL 1 DROP EYE-BOTH ×3 (08:41→21:10)
[2024-07-24] MEDS: Brimonidine Tartrate 0.2% Oph 5 ML BOTTLE 1 DROP EYE-BOTH ×2 (08:42→21:10)
[2024-07-24] MEDS: timoloL maleate 0.5 % Oph Sol 5 ML DRBTL 1 DROP EYE-BOTH ×2 (08:42→21:10)
[2024-07-24] MEDS: Thiamine HCL 100 MG TABLET PO (08:42)
[2024-07-24] MEDS: lisinopriL 20 MG TABLET PO (08:42)
--- NOTE | 2024-07-24 11:51 | P.PNPSI_ITS ---
Subjective Subjective Date of Service: 07/24/24 Reason For Visit: schizophrenia Interim History: Active on unit. superficial during conversation. reports feeling okay and not needing anything . pt stated, I'm just doing the usual. Watching tv, going to groups and reading . Denied feeling depressed or suicidal. Medication Compliance: Yes Side effects from medications: No Mental Status Exam Mental Status Exam Patient Appearance: Appropriate Patient Orientation: Person, Place and Situation Level of Consciousness: Alert Patient Behavior: Appropriate, Guarded and Good Eye Contact Mood Description: Calm Affect Description: Calm Patient Cognition Impaired: Yes Ability to Follow Directions: Fair Speech Pattern: Spontaneous Speech Memory Description: Episodic Impaired Diagnostics Vital Signs (24Hr): Vital Signs - 24 hr 07/23/24 19:56 07/24/24 08:15 Temperature 98.5 F 98.8 F Pulse Rate 67 70 Respiratory Rate 15 16 Blood Pressure 141/65 H 153/72 H Pulse Oximetry 96 95 Oxygen Delivery Method Room Air BMI result Body Mass Index 25.4 Labs 06/14/24 00:45 06/14/24 00:45 Medications Medications Current Medications Acetaminophen (Acetaminophen 325 Mg Tablet) 650 mg PO Q6H PRN PRN Reason: Headache/Pain Mild Scale (1-3) Last Admin: 06/16/24 13:42 Dose: 650 mg Al Hydroxide/Mg Hydroxide (Magnesium Hydrox/Alum Hydrox 30 Ml Oral.Susp) 30 ml PO Q6H PRN PRN Reason: Heartburn/Nausea Brimonidine Tartrate (Brimonidine Tartrate 0.2% Oph 5 Ml Bottle) 1 drop EYE- BOTH BID [facility] Last Admin: 07/24/24 08:42 Dose: 1 drop Cariprazine (Cariprazine Hcl 3 Mg Capsule) 3 mg PO BEDTIME NAZ Last Admin: 07/23/24 20:26 Dose: 3 mg Dorzolamide HCl (Dorzolamide Hcl 2 % Ophth Jossy 10 Ml Drpbtl) 1 drop EYE-BOTH TID [facility] Last Admin: 07/24/24 08:41 Dose: 1 drop Hydroxyzine HCl (Hydroxyzine Hcl 25 Mg Tablet) 25 mg PO Q6H PRN PRN Reason: Anxiety Last Admin: 07/24/24 03:31 Dose: 25 mg Latanoprost (Latanoprost 0.005 % Ophth Jossy 2.5 Ml Drops) 1 drop EYE-BOTH BEDTIME [facility] Last Admin: 07/23/24 20:29 Dose: 1 drop Lidocaine HCl (Lidocaine Hcl 4 % Topical 50 Ml Solution) 1 appl TOPICAL DAILY PRN; Protocol PRN Reason: apply to injection site prior Lisinopril (Lisinopril 20 Mg Tablet) 20 mg PO DAILY [facility]; Protocol Last Admin: 07/24/24 08:42 Dose: 20 mg Lorazepam (Lorazepam 1 Mg Tablet) 1 mg PO BEDTIME NAZ Last Admin: 07/23/24 20:26 Dose: 1 mg Magnesium Hydroxide (Milk Of Magnesia 30 Ml Oral.Susp) 30 ml PO DAILY PRN PRN Reason: Constipation Nicotine (Nicotine 21 Mg Patch.Td24) 21 mg TRANSDERMA DAILY PRN PRN Reason: nicotine cravings Nicotine Polacrilex (Nicotine Polacrilex 2 Mg Gum) 4 mg BUCCAL Q2H PRN PRN Reason: Nicotine Cravings Olanzapine (Olanzapine 5 Mg Tablet) 5 mg PO Q4H PRN PRN Reason: agitation,psychosis Last Admin: 07/24/24 03:31 Dose: 5 mg Paliperidone (Paliperidone Er 9 Mg Tab.Er.24) 9 mg PO BEDTIME [facility] Last Admin: 07/23/24 20:27 Dose: 9 mg Thiamine HCl (Thiamine Hcl 100 Mg Tablet) 100 mg PO DAILY [facility] Last Admin: 07/24/24 08:42 Dose: 100 mg Timolol Maleate (Timolol Maleate 0.5 % Oph Jossy 5 Ml Drbtl) 1 drop EYE-BOTH BID [facility] Last Admin: 07/24/24 08:42 Dose: 1 drop Trazodone HCl (Trazodone Hcl 50 Mg Tablet) 50 mg PO BEDTIME MRX1 PRN PRN Reason: Insomnia Last Admin: 07/23/24 20:26 Dose: 50 mg Allergies Allergies Allergy/AdvReac Type Severity Reaction Status Date / Time No Known Allergies Allergy Unknown UNKNOWN Verified 06/14/24 00:30 Assessment & Plan Assessment & Plan (1) Schizoaffective disorder, bipolar type: Status: Acute Code(s): F25.0 - Schizoaffective disorder, bipolar type (2) Glaucoma: Status: Acute Code(s): H40.9 - Unspecified glaucoma (3) Hypertension: Status: Acute Code(s): I10 - Essential (primary) hypertension Plan Patient is a 68-year-old male with history of schizoaffective, bipolar type (vs bipolar), glaucoma who presents via police for disorganized behavior in the community in the face of medication noncompliance. Patient is disorganized in speech, rambling, often incoherently. He asks typewriter ribbon winder. about the mott of the sexes and Eleazar and Vidya... Mold Car Pusher inquired about ED/police report that he was disorganized, that he was driving in the backyard of his house, shiny his lights on neighbors house. He said he was trying to park in his driveway and I did not. Mean to drive in the backyard.. Saying it was accidental. Regarding being disorganized outside a convenience store, patient said that there was a angry woman there a sick woman.. Who was upset with and all he was doing was sitting in his car outside the convenience store for a little while, listening to music. Patient denies any drug or alcohol use. Says his throat is bothering him but he can not tolerate any questions regarding it. Says he does not need medications but has been taking them since he got here. Collateral report says patient was brought in for acting erratic, driving in circles and backyard of his house after neighbors called; also reports that he was acting erratically at nighttime outside of a convenience store. Formulation/clinical reasoning: Patient presents in a manic episode and acting erratically in the community. Recently discharged from [facility] on paliperidone 6mg qhs and Vraylar 3mg qhs. Not sure why patient is on 2 antipsychotics unless Vraylar is meant to be only a mood stabilizer. Will continue this regimen now since he seemed to somewhat stabilize on [facility]. If stabilizes will strongly consider long-acting injectable of paliperidone given history of noncompliance Hospital course: 06/19 Patient remains disorganized and is having a difficult time explaining his thoughts. On approach he is rambling about something and typewriter ribbon winder has a very hard time understanding him as he is jumping from topic to topic. He says he wants to go home and that he has a lot to accomplish. He has not been taking Vraylar and says he does not like it. He said he will take the paliperidone but refuses long-acting injectable. Mold Car Pusher asked about paranoid delusional thinking and he said that others are making fictitious statements. Regarding driving erratically, he says I was driving between the lines... However he does acknowledge he was playing his music too loudly. Mold Car Pusher discussed that team does not feel he is ready for discharge however patient is unable to tolerate this discussion just says no that he wants to go... coloring room worker discussed case with patient's cousin Marlin Dowd who is also his healthcare proxy (document in chart). She has significant concerns about his safety. She said that over the past week to 2 weeks he has been increasingly disorganized; typewriter ribbon winder around [place] he refused his meds (from [facility]?); she drove in the car as a passenger with him and said she was very fearful as he was driving well below the speed limit, weaving in and out of the lanes and completely unsafe. She said he recently showed up at a work place and employees were scared of him because he was talking nonsensically. She says that he is delusional, thinking that his food is poisoned and threw away a significant amount of food that he got from a food shelf. She says he has lost about 30-40 lb over the past 2 months. She says that he has talked about raise or beams beaming down onto his head; saying that he seeing cars Vanish, planes Vanish and other bizarre delusional things. She says that he is historically not compliant with medication and would like him to be on a long-acting injectable. Mold Car Pusher discussed case with [facility] inpatient provider who saw patient on his recent admission to a few weeks ago; she talked with his outpatient psychiatric provider Dr. Condon the said that patient needed Vraylar in addition to palpate own for stabilization. 06/20 rambling, hard to understand. Impossible to have a therapeutic conversation with patient as he quickly becomes oblivious to typewriter ribbon winder, lost in a tangential thought and rambling about unrelated and mostly non-sensical things. Tried to ask pt about collateral reports, however he adamantly denies reports. t. Pt standing in [place] talking to himself. from the unit, pt called 911 and told police there is a sniper loose; on inquiry, could not explain his concern 06/21/24 Patient remains disorganized; perseveration on his relationship. He says he is good today...wants to get back to his house since he rebuilt his whole house and has things to do...He said he does not think he'll take psychiatric medications. He tells typewriter ribbon winder that he has his own doctor, Dr. Hay. However, pt seemed open to writers explanation that medications ordered are the same ones that Dr. Hay prescribed. He seemed to agree to consider taking psych meds. 06/22 no change in presentation, remains disorganized, manic, delusional. Patient said he will contemplate taking the paliperidone. Will increase dose 06/23 patient took paliperidone last night. No change in presentation. Mold Car Pusher discussed hypertension with patient and he said he used to be on an ISAC inhibitor and agreed to restart 1 now 06/25/2024: Continue to encourage medication adherence 06/26 No change in presentation; patient remains manic, rambling about various unrelated things. Came up to typewriter ribbon winder and said something about [address] which patient could not explain. Staff reports only sleeping 2 hours last night. Patient again refuses Vraylar or long-acting medication. He says that the police that came to take him to the hospital were not real police... And says they were just dressed up to look like police. Again patient could not discuss this further; patient did however agree to increase lisinopril to 10 mg given continued hypertension 06/27 remains manic; reviewed blood pressures which was still avoided however lisinopril was just increase so needs more time to be effective. -patient remains manic, disorganized and without any insight. It seems that without a mood stabilizer on board, patient will remain manic and disorganized and unable to be safe in the community. 06/28 pt remains disorganized, rambling about various things perseverates on going home to fix his house, repair the roof. Telling staff that this typewriter ribbon winder is an imposter and saying i know who my 's killer is... 06/29 continue tx plan; pt not open to increasing dose. 06/30 No change in presentation. Says he wants to get home so he can work on his house. Continuing to rambling about unrelated, irrelevant and or delusional things. Refuses any medication changes. Walking around the milieu with buttocks exposed. 07/01 patient remains disorganized; rambling about various things, often talking about his , referring to paranoid delusions about terrorists... Reviewed BP, HTN; discussed with pt who agrees to increasing lisinopril -will switch blood pressure measurements to t.i.d. to better assess effectiveness of antihypertensive 07/02 No change in presentation. Mold Car Pusher asks patient how he is doing any patient starts talking about his , having been stolen, put into slavery and sex trafficking; says she is probably somewhere crying... Mold Car Pusher tried to apply reality testing however patient kept talking about such things. Patient difficult to interrupt or with which to engage further 07/04 no change in presentation; no insight and refusing mood stabilizing meds o change in presentation. starts asking typewriter ribbon winder for discharge, talking about medications, but quickly his ramble changes from unrelated topic to unrelated topic, imbued with paranoid ideations 07/06 continue tx. refuses vraylar but taking paliperidone as prescribed. 07/07 no change in presentation; refuses any medication changes, increase paliperidone or other mood stabilizer 07/08/2024: Continue current regimen and plans 07/09/2024: Continue current regimen and plans Impression: As patient remains without any insight to his illness or his behaviors, he remains unsafe and a danger to himself and others due to his erratic driving; also due to paranoid delusions he has been eating very little and seems to have lost significant weight and only a few months. At this time patient is not safe for discharge. He is not willing to sign a CV. Mold Car Pusher will file for involuntary commitment and substituted judgment. Also, typewriter ribbon winder is invoking the HCP on 06/19/24 as patient is unable to make medical decisions for himself. 07/10 less manic, but no other change in presentation 07/11 healthcare proxy affirmed; patient upset about this; will leave current medication regimen as is to let patient adjust 07/12 Mold Car Pusher again discussed healthcare proxy affirmation and that discussion was had with healthcare proxy who agrees with patient being on long acting injectable, Invega Sustenna. Mold Car Pusher asked about history of side effects and whether or not patient had erectile dysfunction. He says he is not having erections now since coming to the hospital and that he was prior to coming to the hospital; however he then says there were many years, when with his he was not getting an erection at all. Mold Car Pusher tried to see if there is a correlation with the medication and this experience however it was not possible as patient's discourse quickly wandered off and he started talking about his and other girlfriends, house as he bought... Patient said that he was going to call his cousin, healthcare proxy because he did not want to be on a long-acting medication. -patient remains without any insight into his illness at all and is upset by the day of long-acting injectable. Mold Car Pusher finds it reasonable to give patient time to appeal to his healthcare proxy to discuss medication management so will not make any adjustments at this time. That said, patient's lack of insight and long history of non adherence are barriers to discharging him on p.o. medications only Reviewed blood pressure and much improved with increase lisinopril dose 07/13 Patient did take Vraylar last night. Remains tangential, quickly getting off topic and not returning; talking about some delusional things but perhaps a little less. Mold Car Pusher discussed case with affirmed healthcare proxy Sienna who is very ambivalent about whether or not patient should be transitioned to a long- acting injectable. She agrees that he will very likely go off this medication but is sympathetic to his perceived complaints of side effects. -per healthcare proxy will hold off on long-acting injectable; patient did take Vraylar last night and says he will continue taking Reviewed blood pressure and much improved with increase lisinopril dose 07/13 Patient did take Vraylar last night. Remains tangential, quickly getting off topic and not returning; talking about some delusional things but perhaps a little less. Mold Car Pusher discussed case with affirmed healthcare proxy Sienna who is very ambivalent about whether or not patient should be transitioned to a long- acting injectable. She agrees that he will very likely go off this medication but is sympathetic to his perceived complaints of side effects. -per healthcare proxy will hold off on long-acting injectable; patient did take Vraylar last night and says he will continue taking 07/17 pt has been taking vraylar for past several days and he presents pt a little more calm today. Still tangential...he says he'll keep taking vraylar. Perhaps talking a little less about delusional topics -no change in insight and judgment and he has no sense of his mental illness or need for medication; taking vraylar only as a means to an end, that being discharge. 07/18 Patient remains taking Vraylar at bedtime. Mold Car Pusher and patient talked about his house, 1 of his favorite topics which he says he loves and very much wants to go home so he can work on. Patient showed typewriter ribbon winder several pictures that he has of his late and shared some things about their relationship regarding the pictures. Of note, patient has not seem to mention any delusional thinking over the past 2 days and while he remains tangential, now seems to remain much more consistently on a given tangent rather than jumping from tangent to tangent. Mold Car Pusher inquired if patient is thinking or feeling differently than when he 1st came in and he shared that he feels a little slowed down. Mold Car Pusher offered that what seems slowed down to patient seems much more normal to typewriter ribbon winder and staff; typewriter ribbon winder shared that when patient 1st came in, he was very difficult to understand because he was talking so fast. Patient laughed and agreed that was probably true and that perhaps it is better that he is now talking more slowly. Mold Car Pusher discussed continuing to take medications on discharge which patient said he would. 07/19 Patient asked about going home and said he hopes he can be soon. He says he loves his house and really wants to get back to it to take care of it; he says that doing so helps him to stay in good mental and physical shape. Patient was encouraged to know that dispo planning is being discussed with his cousin. 07/20 affirmed HCP says yes ORDOÑEZ; pt was upset by this and wanted to call HcP. 07/21 affirmed HCP remains decided on ORDOÑEZ; pt agrees though anxious -though improved on Vraylar, HCP and Mold Car Pusher agree patient needs long-acting injectable for best chance of stability in the community 07/22: no changes. received ORDOÑEZ yesterday. 07/23 no changes 3: continue current tx plan Plan: Healthcare proxy affirmed on 07/11/2024 Q 15 minute checks INVEGA SUSTENNA 234 mg IM one time dose; cannot refuse as per Affirmed HCP (affirmed by Court) will dc PO Palliperidone before second Invega loading dose Continue Lisinopril 20mg daily (patient said he used to be on enalapril however not on formulary Continue Vraylar 3 mg q.h.s. Continue Brimonide Tartrate Continue Dorzolamide Continue Latanoprost Continue Timolol Patient educated on: medication risk/benefits Reason for continued inpatient stay Substantial Risk for: med/psych decompensation Time Spent With Patient Time: Total time managing care of this patient today _10___ minutes.
[2024-07-24 12:40] LABS: Influenza A PCR NEGATIVE (Negative); Influenza B PCR NEGATIVE (Negative); Resp Syncy Virus RNA Qual PCR NEGATIVE (Negative); SARS COV2 PCR INHOUSE NEGATIVE (Negative)
[2024-07-24 20:07] VITALS: BP 176/86; PULSE 91; TEMP 36.3; O2SAT 94
[2024-07-24] MEDS: Cariprazine HCl 3 MG CAPSULE PO (21:09)
[2024-07-24] MEDS: Paliperidone ER 9 MG TAB.ER.24 PO (21:09)
[2024-07-24] MEDS: LORazepam 1 MG TABLET PO (21:09)
[2024-07-24] MEDS: Latanoprost 0.005 % Ophth Sol 2.5 ML DROPS 1 DROP EYE-BOTH (21:10)
[2024-07-25] MEDS: Dorzolamide HCl 2 % Ophth Sol 10 ML DRPBTL 1 DROP EYE-BOTH ×3 (08:36→20:59)
[2024-07-25] MEDS: lisinopriL 20 MG TABLET PO (08:36)
[2024-07-25] MEDS: Thiamine HCL 100 MG TABLET PO (08:37)
[2024-07-25] MEDS: Brimonidine Tartrate 0.2% Oph 5 ML BOTTLE 1 DROP EYE-BOTH ×2 (08:37→20:59)
[2024-07-25] MEDS: timoloL maleate 0.5 % Oph Sol 5 ML DRBTL 1 DROP EYE-BOTH ×2 (09:01→20:59)
[2024-07-25 09:45] VITALS: BP 166/70; PULSE 70; RESP 16; TEMP 36.5; O2SAT 97
--- NOTE | 2024-07-25 13:41 | P.PNPSI_ITS ---
Subjective Subjective Date of Service: 07/25/24 Reason For Visit: schizophrenia Interim History: Met with patient; discussed with team No change in presentation; stable; understands needs to get next installment of Invega Sustenna. Looking forward to discharge tomorrow Mental Status Exam Mental Status Exam Narrative: Pt is alert and oriented; behavior is calm cooperative; patient mostly, keeps to himself; hyperverbal once he starts talking; patient is not in distress; dressed in casual attire, adequate grooming; mood is described as ok affect congruent; eye contact appropriate; Speech is mildly pressured and rambling, adequate articulation; no psychomotor agitation present; thought process remains tangential and rambling, however he is able to remain on a given tangent and though he may ramble and repeat himself he is overall expressing logical thoughts; overall more linear; Thought content is on discharge, getting back to his house, often on his ; only intermittently expressing delusional content and no longer dominant theme; denies any SI/HI. Denies AH; internally preoccupied but not clear if responding to internal stimuli. Patients insight and judgment impaired but overall improved Diagnostics Vital Signs (24Hr): Vital Signs - 24 hr 07/24/24 20:07 07/25/24 09:45 Temperature 97.4 F 97.7 F Pulse Rate 91 70 Respiratory Rate 16 Blood Pressure 176/86 H 166/70 H Pulse Oximetry 94 97 Oxygen Delivery Method Room Air BMI result Body Mass Index 25.4 Labs 06/14/24 00:45 06/14/24 00:45 Labs: Laboratory Results - last 48 hr 07/24/24 11:52 Influenza Type A (PCR) NEGATIVE Influenza Type B (PCR) NEGATIVE RSV RNA Qual (PCR) NEGATIVE SARS-CoV-2 RNA (RT-PCR) NEGATIVE Medications Medications Current Medications Acetaminophen (Acetaminophen 325 Mg Tablet) 650 mg PO Q6H PRN PRN Reason: Headache/Pain Mild Scale (1-3) Last Admin: 06/16/24 13:42 Dose: 650 mg Al Hydroxide/Mg Hydroxide (Magnesium Hydrox/Alum Hydrox 30 Ml Oral.Susp) 30 ml PO Q6H PRN PRN Reason: Heartburn/Nausea Brimonidine Tartrate (Brimonidine Tartrate 0.2% Oph 5 Ml Bottle) 1 drop EYE- BOTH BID NAZ Last Admin: 07/25/24 08:37 Dose: 1 drop Cariprazine (Cariprazine Hcl 3 Mg Capsule) 3 mg PO BEDTIME [facility] Last Admin: 07/24/24 21:09 Dose: 3 mg Dorzolamide HCl (Dorzolamide Hcl 2 % Ophth Jossy 10 Ml Drpbtl) 1 drop EYE-BOTH TID [facility] Last Admin: 07/25/24 08:36 Dose: 1 drop Hydroxyzine HCl (Hydroxyzine Hcl 25 Mg Tablet) 25 mg PO Q6H PRN PRN Reason: Anxiety Last Admin: 07/24/24 03:31 Dose: 25 mg Latanoprost (Latanoprost 0.005 % Ophth Jossy 2.5 Ml Drops) 1 drop EYE-BOTH BEDTIME [facility] Last Admin: 07/24/24 21:10 Dose: 1 drop Lidocaine HCl (Lidocaine Hcl 4 % Topical 50 Ml Solution) 1 appl TOPICAL DAILY PRN; Protocol PRN Reason: apply to injection site prior Lisinopril (Lisinopril 20 Mg Tablet) 20 mg PO DAILY [facility]; Protocol Last Admin: 07/25/24 08:36 Dose: 20 mg Lorazepam (Lorazepam 1 Mg Tablet) 1 mg PO BEDTIME NAZ Last Admin: 07/24/24 21:09 Dose: 1 mg Magnesium Hydroxide (Milk Of Magnesia 30 Ml Oral.Susp) 30 ml PO DAILY PRN PRN Reason: Constipation Nicotine (Nicotine 21 Mg Patch.Td24) 21 mg TRANSDERMA DAILY PRN PRN Reason: nicotine cravings Nicotine Polacrilex (Nicotine Polacrilex 2 Mg Gum) 4 mg BUCCAL Q2H PRN PRN Reason: Nicotine Cravings Olanzapine (Olanzapine 5 Mg Tablet) 5 mg PO Q4H PRN PRN Reason: agitation,psychosis Last Admin: 07/24/24 03:31 Dose: 5 mg Paliperidone (Paliperidone Er 9 Mg Tab.Er.24) 9 mg PO BEDTIME [facility] Last Admin: 07/24/24 21:09 Dose: 9 mg Paliperidone Palmitate (Paliperidone Palmitate 156 Mg/Ml Syringe) 156 mg IM ONCE ONE Stop: 07/28/24 09:01 Thiamine HCl (Thiamine Hcl 100 Mg Tablet) 100 mg PO DAILY [facility] Last Admin: 07/25/24 08:37 Dose: 100 mg Timolol Maleate (Timolol Maleate 0.5 % Oph Jossy 5 Ml Drbtl) 1 drop EYE-BOTH BID [facility] Last Admin: 07/25/24 09:01 Dose: 1 drop Trazodone HCl (Trazodone Hcl 50 Mg Tablet) 50 mg PO BEDTIME MRX1 PRN PRN Reason: Insomnia Last Admin: 07/23/24 20:26 Dose: 50 mg Allergies Allergies Allergy/AdvReac Type Severity Reaction Status Date / Time No Known Allergies Allergy Unknown UNKNOWN Verified 06/14/24 00:30 Assessment & Plan Assessment & Plan (1) Schizoaffective disorder, bipolar type: Status: Acute Code(s): F25.0 - Schizoaffective disorder, bipolar type (2) Glaucoma: Status: Acute Code(s): H40.9 - Unspecified glaucoma (3) Hypertension: Status: Acute Code(s): I10 - Essential (primary) hypertension Plan Patient is a 68-year-old male with history of schizoaffective, bipolar type (vs bipolar), glaucoma who presents via police for disorganized behavior in the community in the face of medication noncompliance. Patient is disorganized in speech, rambling, often incoherently. He asks business writer. about the mott of the sexes and Eleazar and Vidya... Chief Credit Officer inquired about ED/police report that he was disorganized, that he was driving in the backyard of his house, shiny his lights on neighbors house. He said he was trying to park in his driveway and I did not. Mean to drive in the backyard.. Saying it was accidental. Regarding being disorganized outside a convenience store, patient said that there was a angry woman there a sick woman.. Who was upset with and all he was doing was sitting in his car outside the convenience store for a little while, listening to music. Patient denies any drug or alcohol use. Says his throat is bothering him but he can not tolerate any questions regarding it. Says he does not need medications but has been taking them since he got here. Collateral report says patient was brought in for acting erratic, driving in circles and backyard of his house after neighbors called; also reports that he was acting erratically at nighttime outside of a convenience store. Formulation/clinical reasoning: Patient presents in a manic episode and acting erratically in the community. Recently discharged from on paliperidone 6mg qhs and Vraylar 3mg qhs. Not sure why patient is on 2 antipsychotics unless Vraylar is meant to be only a mood stabilizer. Will continue this regimen now since he seemed to somewhat stabilize on M3. If stabilizes will strongly consider long-acting injectable of paliperidone given history of noncompliance Hospital course: 06/19 Patient remains disorganized and is having a difficult time explaining his thoughts. On approach he is rambling about something and business writer has a very hard time understanding him as he is jumping from topic to topic. He says he wants to go home and that he has a lot to accomplish. He has not been taking Vraylar and says he does not like it. He said he will take the paliperidone but refuses long-acting injectable. Chief Credit Officer asked about paranoid delusional thinking and he said that others are making fictitious statements. Regarding driving erratically, he says I was driving between the lines... However he does acknowledge he was playing his music too loudly. Chief Credit Officer discussed that team does not feel he is ready for discharge however patient is unable to tolerate this discussion just says no that he wants to go... machine operator hop worker discussed case with patient's cousin Marlin Dowd who is also his healthcare proxy (document in chart). She has significant concerns about his safety. She said that over the past week to 2 weeks he has been increasingly disorganized; business writer around [place] he refused his meds (from [facility]?); she drove in the car as a passenger with him and said she was very fearful as he was driving well below the speed limit, weaving in and out of the lanes and completely unsafe. She said he recently showed up at a work place and employees were scared of him because he was talking nonsensically. She says that he is delusional, thinking that his food is poisoned and threw away a significant amount of food that he got from a food shelf. She says he has lost about 30-40 lb over the past 2 months. She says that he has talked about raise or beams beaming down onto his head; saying that he seeing cars Vanish, planes Vanish and other bizarre delusional things. She says that he is historically not compliant with medication and would like him to be on a long-acting injectable. Chief Credit Officer discussed case with PLAYGROUND DIRECTOR inpatient provider who saw patient on his recent admission to [facility] a few weeks ago; she talked with his outpatient psychiatric provider Dr. Condon the said that patient needed Vraylar in addition to palpate own for stabilization. 06/20 rambling, hard to understand. Impossible to have a therapeutic conversation with patient as he quickly becomes oblivious to business writer, lost in a tangential thought and rambling about unrelated and mostly non-sensical things. Tried to ask pt about collateral reports, however he adamantly denies reports. t. Pt standing in [place] talking to himself. from the unit, pt called 911 and told police there is a sniper loose; on inquiry, could not explain his concern 06/21/24 Patient remains disorganized; perseveration on his relationship. He says he is good today...wants to get back to his house since he rebuilt his whole house and has things to do...He said he does not think he'll take psychiatric medications. He tells business writer that he has his own doctor, Dr. Hay. However, pt seemed open to writers explanation that medications ordered are the same ones that Dr. Hay prescribed. He seemed to agree to consider taking psych meds. 06/22 no change in presentation, remains disorganized, manic, delusional. Patient said he will contemplate taking the paliperidone. Will increase dose 1/3 patient took paliperidone last night. No change in presentation. Chief Credit Officer discussed hypertension with patient and he said he used to be on an ISAC inhibitor and agreed to restart 1 now 06/25/2024: Continue to encourage medication adherence 06/26 No change in presentation; patient remains manic, rambling about various unrelated things. Came up to business writer and said something about [address] which patient could not explain. Staff reports only sleeping 2 hours last night. Patient again refuses Vraylar or long-acting medication. He says that the police that came to take him to the hospital were not real police... And says they were just dressed up to look like police. Again patient could not discuss this further; patient did however agree to increase lisinopril to 10 mg given continued hypertension 06/27 remains manic; reviewed blood pressures which was still avoided however lisinopril was just increase so needs more time to be effective. -patient remains manic, disorganized and without any insight. It seems that without a mood stabilizer on board, patient will remain manic and disorganized and unable to be safe in the community. 06/28 pt remains disorganized, rambling about various things perseverates on going home to fix his house, repair the roof. Telling staff that this business writer is an imposter and saying i know who my 's killer is... 06/29 continue tx plan; pt not open to increasing dose. 06/30 No change in presentation. Says he wants to get home so he can work on his house. Continuing to rambling about unrelated, irrelevant and or delusional things. Refuses any medication changes. Walking around the milieu with buttocks exposed. 07/01 patient remains disorganized; rambling about various things, often talking about his , referring to paranoid delusions about terrorists... Reviewed BP, HTN; discussed with pt who agrees to increasing lisinopril -will switch blood pressure measurements to t.i.d. to better assess effectiveness of antihypertensive 07/02 No change in presentation. Chief Credit Officer asks patient how he is doing any patient starts talking about his , having been stolen, put into slavery and sex trafficking; says she is probably somewhere crying... Chief Credit Officer tried to apply reality testing however patient kept talking about such things. Patient difficult to interrupt or with which to engage further 07/04 no change in presentation; no insight and refusing mood stabilizing meds o change in presentation. starts asking business writer for discharge, talking about medications, but quickly his ramble changes from unrelated topic to unrelated topic, imbued with paranoid ideations 07/06 continue tx. refuses vraylar but taking paliperidone as prescribed. 07/07 no change in presentation; refuses any medication changes, increase paliperidone or other mood stabilizer 07/08/2024: Continue current regimen and plans 07/09/2024: Continue current regimen and plans Impression: As patient remains without any insight to his illness or his behaviors, he remains unsafe and a danger to himself and others due to his erratic driving; also due to paranoid delusions he has been eating very little and seems to have lost significant weight and only a few months. At this time patient is not safe for discharge. He is not willing to sign a CV. Chief Credit Officer will file for involuntary commitment and substituted judgment. Also, business writer is invoking the HCP on 06/19/24 as patient is unable to make medical decisions for himself. 07/10 less manic, but no other change in presentation 07/11 healthcare proxy affirmed; patient upset about this; will leave current medication regimen as is to let patient adjust 07/12 Chief Credit Officer again discussed healthcare proxy affirmation and that discussion was had with healthcare proxy who agrees with patient being on long acting injectable, Nga Ruiz. Chief Credit Officer asked about history of side effects and whether or not patient had erectile dysfunction. He says he is not having erections now since coming to the hospital and that he was prior to coming to the hospital; however he then says there were many years, when with his he was not getting an erection at all. Chief Credit Officer tried to see if there is a correlation with the medication and this experience however it was not possible as patient's discourse quickly wandered off and he started talking about his and other girlfriends, house as he bought... Patient said that he was going to call his cousin, healthcare proxy because he did not want to be on a long-acting medication. -patient remains without any insight into his illness at all and is upset by the day of long-acting injectable. Chief Credit Officer finds it reasonable to give patient time to appeal to his healthcare proxy to discuss medication management so will not make any adjustments at this time. That said, patient's lack of insight and long history of non adherence are barriers to discharging him on p.o. medications only Reviewed blood pressure and much improved with increase lisinopril dose 07/13 Patient did take Vraylar last night. Remains tangential, quickly getting off topic and not returning; talking about some delusional things but perhaps a little less. Chief Credit Officer discussed case with affirmed healthcare proxy Sienna who is very ambivalent about whether or not patient should be transitioned to a long- acting injectable. She agrees that he will very likely go off this medication but is sympathetic to his perceived complaints of side effects. -per healthcare proxy will hold off on long-acting injectable; patient did take Vraylar last night and says he will continue taking Reviewed blood pressure and much improved with increase lisinopril dose 07/13 Patient did take Vraylar last night. Remains tangential, quickly getting off topic and not returning; talking about some delusional things but perhaps a little less. Chief Credit Officer discussed case with affirmed healthcare proxy Sienna who is very ambivalent about whether or not patient should be transitioned to a long- acting injectable. She agrees that he will very likely go off this medication but is sympathetic to his perceived complaints of side effects. -per healthcare proxy will hold off on long-acting injectable; patient did take Vraylar last night and says he will continue taking 07/17 pt has been taking vraylar for past several days and he presents pt a little more calm today. Still tangential...he says he'll keep taking vraylar. Perhaps talking a little less about delusional topics -no change in insight and judgment and he has no sense of his mental illness or need for medication; taking vraylar only as a means to an end, that being discharge. 07/18 Patient remains taking Vraylar at bedtime. Chief Credit Officer and patient talked about his house, 1 of his favorite topics which he says he loves and very much wants to go home so he can work on. Patient showed business writer several pictures that he has of his late and shared some things about their relationship regarding the pictures. Of note, patient has not seem to mention any delusional thinking over the past 2 days and while he remains tangential, now seems to remain much more consistently on a given tangent rather than jumping from tangent to tangent. Chief Credit Officer inquired if patient is thinking or feeling differently than when he 1st came in and he shared that he feels a little slowed down. Chief Credit Officer offered that what seems slowed down to patient seems much more normal to business writer and staff; business writer shared that when patient 1st came in, he was very difficult to understand because he was talking so fast. Patient laughed and agreed that was probably true and that perhaps it is better that he is now talking more slowly. Chief Credit Officer discussed continuing to take medications on discharge which patient said he would. 07/19 Patient asked about going home and said he hopes he can be soon. He says he loves his house and really wants to get back to it to take care of it; he says that doing so helps him to stay in good mental and physical shape. Patient was encouraged to know that dispo planning is being discussed with his cousin. 07/20 affirmed HCP says yes ORDOÑEZ; pt was upset by this and wanted to call HcP. 07/21 affirmed HCP remains decided on ORDOÑEZ; pt agrees though anxious -though improved on Vraylar, HCP and Chief Credit Officer agree patient needs long-acting injectable for best chance of stability in the community 07/22: no changes. received ORDOÑEZ yesterday. 07/25 received Invega Sustenna 156 mg; business writer decided to give a few days early for help with compliance. Patient will DC tomorrow Plan: Healthcare proxy affirmed on 07/11/2024 Q 15 minute checks INVEGA SUSTENNA 234 mg IM one time dose; cannot refuse as per Affirmed HCP (affirmed by Court) will dc PO Palliperidone before second Invega loading dose Continue Lisinopril 20mg daily (patient said he used to be on enalapril however not on formulary Continue Vraylar 3 mg q.h.s. Continue Brimonide Tartrate Continue Dorzolamide Continue Latanoprost Continue Timolol Patient educated on: diagnosis and medication risk/benefits Informed Consent: understands, does not understand and further education needed Reason for continued inpatient stay Substantial Risk for: stable for discharge Time Spent With Patient Time: Total time managing care of this patient today ____ minutes.
[2024-07-25] MEDS: Paliperidone Palmitate 156 MG/ML SYRINGE IM (14:11)
[2024-07-25] MEDS: LORazepam 1 MG TABLET PO (20:59)
[2024-07-25] MEDS: Latanoprost 0.005 % Ophth Sol 2.5 ML DROPS 1 DROP EYE-BOTH (20:59)
[2024-07-25] MEDS: Cariprazine HCl 3 MG CAPSULE PO (20:59)
[2024-07-25 21:30] VITALS: BP 164/79; PULSE 72; RESP 16; TEMP 36.4; O2SAT 99
[2024-07-25] MEDS: hydrOXYzine HCL 25 MG TABLET PO (22:38)
[2024-07-25] MEDS: traZODone HCL 50 MG TABLET PO (22:38)
[2024-07-26 08:15] VITALS: BP 159/69
[2024-07-26] MEDS: lisinopriL 20 MG TABLET PO (08:15)
[2024-07-26] MEDS: Thiamine HCL 100 MG TABLET PO (08:15)
[2024-07-26] MEDS: Dorzolamide HCl 2 % Ophth Sol 10 ML DRPBTL 1 DROP EYE-BOTH (08:21)
[2024-07-26] MEDS: Brimonidine Tartrate 0.2% Oph 5 ML BOTTLE 1 DROP EYE-BOTH (08:21)
[2024-07-26] MEDS: timoloL maleate 0.5 % Oph Sol 5 ML DRBTL 1 DROP EYE-BOTH (08:34)
[2024-07-26 08:53] VITALS: BP 159/69; PULSE 68; RESP 18; TEMP 36.8; O2SAT 98
--- NOTE | 2024-07-26 12:53 | PM.PSYDC ---
DS: Providers Provider Date of Service: 07/26/24 Date of admission: 06/15/24 16:49 Date of discharge: 07/26/24 Primary care physician: Unknown Physician Attending physician on admission: Kaleb Loza Attending physician on discharge: Kaleb Loza DS: Diagnosis Discharge Diagnosis (1) Schizoaffective disorder, bipolar type: Status: Acute (2) Glaucoma: Status: Acute (3) Hypertension: Status: Acute DS: Medications Discharge Medications Home Medications: Previous Rx's ?Medication ?Instructions ?Recorded betaxolol 0.5 % eye drops 1 drp ophthalmic (eye) Q12H 30 07/26/24 days #15 mL bimatoprost 0.01 % eye drops 1 drp ophthalmic (eye) BEDTIME 30 07/26/24 (Lumigan) days #7.5 mL brinzolamide 1 %-brimonidine 0.2 % 1 drp ophthalmic (eye) Q12H 30 07/26/24 eye drops,suspension (Simbrinza) days #8 mL cariprazine 3 mg capsule (Vraylar) 3 mg PO BEDTIME 30 days #30 caps 07/26/24 lisinopril 20 mg tablet 20 mg PO DAILY 30 days #30 tabs 07/26/24 lorazepam 1 mg tablet 1 mg PO BEDTIME 30 days #30 tabs 07/26/24 paliperidone palmitate 234 mg/1.5 234 mg (1.5 mL) IM Q28D #1.5 mL 07/26/24 mL intramuscular syringe (Invega Sustenna) trazodone 50 mg tablet 50 mg PO BEDTIME PRN Insomnia 30 07/26/24 days #30 tabs Mental Status Exam Mental Status Exam Narrative: Pt is alert and oriented; behavior is calm cooperative; patient mostly, keeps to himself; hyperverbal once he starts talking; patient is not in distress; dressed in casual attire, adequate grooming; mood is described as ok affect congruent; eye contact appropriate; Speech is mildly pressured and rambling, adequate articulation; no psychomotor agitation present; thought process remains tangential and rambling, however he is able to remain on a given tangent and though he may ramble and repeat himself he is overall expressing logical thoughts; overall more linear; Thought content is on discharge, getting back to his house, often on his ; only intermittently expressing delusional content and no longer dominant theme; denies any SI/HI. Denies AH; internally preoccupied but not clear if responding to internal stimuli. Patients insight and judgment impaired but overall improved and adequate for discharge Data Data Completed and Pending Completed studies during hospitalization [Text1]: 07/24/24 11:52 Influenza Type A (PCR) NEGATIVE Influenza Type B (PCR) NEGATIVE RSV RNA Qual (PCR) NEGATIVE SARS-CoV-2 RNA (RT-PCR) NEGATIVE 06/14/24 Unknown Urine clean catch - Clean Catch Midstream Urine Culture - Final No growth. DS: Summary Hospital Course Hospital Course: HPI: Patient is a 68-year-old male with history of schizoaffective, bipolar type (vs bipolar), glaucoma who presents via police for disorganized behavior in the community in the face of medication noncompliance. Patient is disorganized in speech, rambling, often incoherently. He asks physician underwriter. about the mott of the sexes and Eleazar and Vidya... Desktop Support Consultant inquired about ED/police report that he was disorganized, that he was driving in the backyard of his house, shiny his lights on neighbors house. He said he was trying to park in his driveway and I did not. Mean to drive in the backyard.. Saying it was accidental. Regarding being disorganized outside a convenience store, patient said that there was a angry woman there a sick woman.. Who was upset with and all he was doing was sitting in his car outside the convenience store for a little while, listening to music. Patient denies any drug or alcohol use. Says his throat is bothering him but he can not tolerate any questions regarding it. Says he does not need medications but has been taking them since he got here. Collateral report: Patients HCP/cousin Marlin Dowd reports that patient was brought in for acting erratic, driving in circles and backyard of his house after neighbors called; also reports that he was acting erratically at nighttime outside of a convenience store. She said that over the past week to 2 weeks he has been increasingly disorganized; physician underwriter around [place] he refused his meds (from [facility]?); she drove in the car as a passenger with him and said she was very fearful as he was driving well below the speed limit, weaving in and out of the lanes and completely unsafe. She said he recently showed up at a work place and employees were scared of him because he was talking nonsensically. She says that he is delusional, thinking that his food is poisoned and threw away a significant amount of food that he got from a food shelf. She says he has lost about 30-40 lb over the past 2 months. She says that he has talked about raise or beams beaming down onto his head; saying that he seeing cars Vanish, planes Vanish and other bizarre delusional things. She says that he is historically not compliant with medication and would like him to be on a long-acting injectable. Formulation/clinical reasoning: Patient presents in a manic episode and acting erratically in the community. Recently discharged from [facility] on paliperidone 6mg qhs and Vraylar 3mg qhs. Not sure why patient is on 2 antipsychotics unless Vraylar is meant to be only a mood stabilizer. Will continue this regimen now since he seemed to somewhat stabilize on M3. If stabilizes will strongly consider long-acting injectable of paliperidone given history of noncompliance Hospital course: Pt disorganized in speech and behavior, manic, with paranoid delusions (of various topics including imposters, killings, police...) and no insight on admission. It was difficult to understand him as he was talking fast and mumbling and jumping from topic to topic, but mostly perseverating on his . Pt willing to take Invega but refused Vraylar. He had no insight at all into his behaviors, psychiatric illness or need for treatment; that said he knew he needed and wanted Glaucoma medications and agreed to start Lisinopril for HTN. Patient had HCP his cousin Marlin Dowd; the HCP was invoked and eventually court affirmed. On Invega PO pt did improve some; and though he continued with paranoid deliusions and tangential, he started sleeping more and his speech became less pressured and more articulate. He remained however w/out insight, wanting discharge. With HCP affirmed, Pt eventually willing to take Vraylar knowing it was a requirement of treatment. Once on Vraylar he improved more and became organized in behavior, fully articulate and more linear in conversation (though he remained w/out insight and would still eventually become tangential and still perseverate on his ). Pt acquiesced regarding ORDOÑEZ of INvega at insistence of affirmed HCP (team agreed that patients best change to remain stable in community was to be on an ORDOÑEZ). By the end of admission, pt was much improved and at or near baseline (which includes psychotic symptoms and no insight, but has allowed him to remain in community as long as he has sufficient support). He remained eating and sleeping well and attending to aDL's. He was still w/out insight but said he would continue to take medications, agreeing it might help him avoid coming back to hospital and he agreed to VNA. Pt HCP agreed he was ready for discharge. While he remains vulnerable to medication non-adherence and decompensation, pt is not in imminent risk for harm to self or others and appropriate to return to community for care. Medications: started INVEGA SUSTENNA 234 mg IM q28 days started Lisinopril 20mg daily (patient said he used to be on enalapril however not on formulary restarted Vraylar 3 mg q.h.s. HCP remains affirmed (affirmed by Court) Time spent discussing smoking cessation with patient: 3 to 10 minutes Status at Discharge Functional status at discharge: independent ambulation Overall status at discharge: patient is back to baseline Time Spent with Patient Time attestation: Total time managing care of this patient today __40__ minutes. Time spent: Greater than 30 minutes Specific discharge activities: met with patient; discussed with team; charting; scripts Discharge Plan Discharge Anticipated Discharge Date/Time: 07/26/24 12:52 Patient Disposition: Home, Self-Care Discharge Diagnosis: Schizoaffective disorder, bipolar type Referrals: Mora Griffin Visiting RN [Other] - 07/26/24 (fa- [phone] Visiting RN to re start on 07/26/24 ) Dr. Bronson Condon [Other] - 08/03/24 2:30 pm (Hospital Discharge appointment with psychiatrist Appointment is in person ) Rodrick Milan MD [Physician] - 1 Week (office will call pt with follow up appointment ) Discharge Medications: New lisinopril 20 mg Tablet 20 mg PO DAILY 30 Days Qty: 30 0RF Protocol: Hold for SBP< HOLD for SBP < : 90 lorazepam 1 mg Tablet 1 mg PO BEDTIME 30 Days Qty: 30 0RF trazodone 50 mg Tablet 50 mg PO BEDTIME PRN (Reason: Insomnia) 30 Days Qty: 30 0RF Invega Sustenna 234 mg/1.5 mL syringe 234 mg IM Q28D Qty: 1.5 0RF Rx Instructions: last received on 07/25/24; next due 08/22/24 Continued betaxolol 0.5 % drops 1 drp ophthalmic (eye) Q12H 30 Days Qty: 15 0RF Lumigan 0.01 % drops 1 drp ophthalmic (eye) BEDTIME 30 Days Qty: 7.5 0RF Simbrinza 1-0.2 % drops,suspension 1 drp ophthalmic (eye) Q12H 30 Days Qty: 8 0RF Vraylar 3 mg capsule 3 mg PO BEDTIME 30 Days Qty: 30 0RF Discontinued paliperidone 6 mg tablet extended release 24 hr 6 mg PO BEDTIME 30 Days Qty: 30 0RF Discharge Orders: Discharge Order (Routine); Ordered 07/26/24 Ordered By: Kaleb Loza Diet: Regular diet Activity on Discharge: As tolerated Stand Alone Forms: Patient Portal Discharge page, Community Support Print Language: Occitan Care Plan Goals: Maintain mood and safe behaviors Take medications as prescribed Practice coping skills Continue with outpatient providers and reach out to them as needed Health Concerns: Mood stability and behaviors Hypertension Glaucoma Plan of Treatment: Follow up with your PCP, psychiatric provider and other outpatient providers regarding above concerns Take medications as prescribed Assessment: Risk assessment at time of discharge:? Patient was interviewed prior to discharge and found to be fully oriented and without any SI or HI. Patient has improved insight and judgment and wants to continue treatment. Patient is not in imminent risk of harm to self or others and has a safety plan that includes presenting to the closest ER or calling 911 if feeling unsafe.? Patient has been observed closely by nursing and unit staff throughout admission; patient has not engaged in any behaviors that suggest dangerousness to self or others and has demonstrated appropriate behaviors and impulse control Discharge Date/Time: 07/26/24 11:10
== END 2024-07-26 11:10 | disposition home or self-care (01) | DRG 885 ==
LOC: HO.ED 10:31 → HO.PM5 06-15 20:32
PROVIDERS: Registered Nurse; Admitting Provider Clinical Nurse Specialist Psychiatric/Mental Health, Adult; Emergency Provider Internal Medicine; Visit Provider Psychiatry & Neurology Psychiatry
DX: F25.0 Schizoaffective disorder, bipolar type (principal); I10 Essential (primary) hypertension; H40.9 Unspecified glaucoma; Z91.148 Patient's other noncompliance with medication regimen for other reason; Z20.822 Contact with and (suspected) exposure to COVID-19; Z79.899 Other long term (current) drug therapy
CPT/HCPCS: 0241U; 36415; 80053; 80061; 80307; 81001; 82607; 82746; 82947; 83036; 83735; 84439; 84443; 85025; 87086; 92610; 93005; 99285; J1200; J1630; J2426; S9485

== ENCOUNTER → 2024-06-15 08:13 | Outpatient (BNV) | payer MEDICARE, MEDICAID, SELFPAY | PROVIDERS: Admitting Provider Clinical Nurse Specialist Psychiatric/Mental Health, Adult; Emergency Provider Internal Medicine; Visit Provider Internal Medicine Cardiovascular Disease | DX: R41.82 Altered mental status, unspecified (principal) | CPT/HCPCS: 93010 ==

== ENCOUNTER → 2024-06-15 16:49 | Outpatient (BNV) | payer MEDICARE, MEDICAID, SELFPAY | PROVIDERS: Admitting Provider Clinical Nurse Specialist Psychiatric/Mental Health, Adult; Emergency Provider Internal Medicine; Visit Provider Psychiatry & Neurology Psychiatry | DX: F25.0 Schizoaffective disorder, bipolar type (principal); H40.9 Unspecified glaucoma | CPT/HCPCS: 90792; 99231 ==

== ENCOUNTER 2025-01-03 19:37 | Observation (INO) | payer MEDICARE, MEDICAID, SELFPAY ==
[2025-01-03 19:43] VITALS: BP 155/62; PULSE 73; RESP 16; TEMP 36.5; O2SAT 99; BMI 27.4
--- NOTE | 2025-01-03 19:48 | ED_ITS ---
HPI - General Adult General Chief complaint: Allergic Reaction Stated complaint: facial swelling and numbness Time Seen by Provider: 01/03/25 21:48 Source: patient Mode of arrival: ambulatory Limitations: no limitations History of Present Illness ED Provider: Dr. Ana Enrique HPI narrative: Patient comes to the emergency room complaining of facial swelling. Patient states that approximately 12 hours ago, patient started noticing that he had patient's swelling. Patient states that it started out with his upper lip bilaterally and then it progressed to both sides of the face. Patient states that he has no trouble swallowing or breathing. Patient states that he has had this before but did not go to the hospital. Patient states that he has history of hypertension and takes lisinopril. Patient believes that the patient's swelling got slightly worse 3 hours prior to arrival, therefore came to the hospital Related Data Previous Rx's ?Medication ?Instructions ?Recorded betaxolol 0.5 % eye drops 1 drp ophthalmic (eye) Q12H 30 07/26/24 days #15 mL bimatoprost 0.01 % eye drops 1 drp ophthalmic (eye) BE DTIME 30 07/26/24 (Lumigan) days #7.5 mL brinzolamide 1 %-brimonidine 0.2 % 1 drp ophthalmic (e ye) Q12H 30 07/26/24 eye drops,suspension (Simbrinza) days #8 mL cariprazine 3 mg capsule (Vraylar) 3 mg PO BEDTIME 30 days #30 caps 07/26/24 lisinopril 20 mg tablet 20 mg PO DAILY 30 days #30 t abs 07/26/24 lorazepam 1 mg tablet 1 mg PO BEDTIME 30 days #30 tabs 07/26/24 paliperidone palmitate 234 mg/1.5 234 mg (1.5 mL) IM Q 28D #1.5 mL 07/26/24 mL intramuscular syringe (Invega Sustenna) trazodone 50 mg tablet 50 mg PO BEDTIME PRN Insomni a 30 07/26/24 days #30 tabs Allergies Allergy/AdvReac Type Severity Reaction Status Date / Time No Known Allergies Allergy Unknown UNKNOWN Verified 01/03/25 19:45 Review of Systems 2 Review of Systems: Constitutional : No Weight loss, No Fever, No Chills, No Night Sweats, No Fatigue, No Malaise ENT/Mouth : Complaining of perioral swelling including upper lip bilaterally. No Hearing loss, No Ear Pain, No Nasal Congestion, No Sinus Pain, No Hoarseness, No sore throat, No Rhinorrhea, No Swallowing Difficulty Eyes: No Eye Pain, No Swelling, No Redness, No Foreign Body, No Discharge, No Vision Changes Cardiovascular : No Chest Pain, No SOB, No Dyspnea on Exertion, No Orthopnea, No Edema, No Palpitations Respiratory : No Cough, No Sputum, No Wheezing, No Smoke Exposure, No Dyspnea Gastrointestinal : No Nausea, No Vomiting, No Diarrhea, No Constipation, No abdominal Pain, No Hematochezia, No Melena Genitourinary : no irregular bleeding, No Dysuria, No Urinary Frequency, No Hematuria, No Urinary Incontinence, No Urgency, No Flank Pain, No Urinary Flow Changes, No Hesitancy Musculoskeletal : No joint pain, No Myalgias, No Joint Swelling Skin : No Skin Lesions, No rash Neuro : No Weakness, No Numbness, No Paresthesias, No Loss of Consciousness, No Dizziness, No Headache Psych : No Anxiety/Panic, No Depression, No SI/HI/AH/VH, No Social Issues, Heme/Lymph: No Bruising, No Bleeding,No Lymphadenopathy Endocrine : No Polyuria, No Polydipsia, No Temperature Intolerance [facility] Past Medical History Medical History Schizophrenia Hypertension Glaucoma Schizoaffective disorder, bipolar type Schizophrenia Social History Social History Household Members: None Housing: House Do you presently have visiting nurse or other home services: No Alcohol intake: never Patient Tobacco Use Status: Refuse Tobacco use screen Smoked in Last 30 Days: Yes Second Hand Smoke Exposure: No Use of substances other than those prescribed or required for medical reasons: No Substance Use Type: Marijuana Advance Directives: Yes Advance Directives on File: Yes Advance Directives Date on File: 06/05/24 service: No Sexual orientation: Unable to collect Physical Exam ED Vital Signs: Vital Signs - 24 hr 01/03/25 19:43 01/03/25 20:16 01/03/25 21:46 Temperature 97.7 F 97.7 F Pulse Rate 73 67 63 Respiratory Rate 16 14 14 Blood Pressure 155/62 H 172/85 H 144/74 H Pulse Oximetry 99 100 98 Oxygen Delivery Method Room Air Room Air Room Air BMI result Body Mass Index 27.4 Const Other: Appearance: Alert. Oriented X3. No acute distress. Eyes: Pupils equal, round and reactive to light. ENT: Pharynx normal. Uvula midline, no phlegmon buildup in the soft palate. Upper lip is swollen bilaterally, and there is moderate periorbital swelling Neck: Normal inspection. Neck supple. No lymph nodes noted. No crepitus CVS: Normal heart rate and rhythm. Pulses normal. Normal S1 and S2 Respiratory: No respiratory distress. Breath sounds normal. No Wheezing. No rales Abdomen: Soft and nontender. No rigidity. No distention. Skin: Skin warm and dry. Normal skin color. Normal skin turgor. Extremities: No lower extremity edema. No Lacerations. No Rash Neuro: Oriented X 3. No motor deficit. No sensory deficit. Moving all extremities. No slurred speech. CN 2 through 12 grossly intact Psych: calm, cooperative, normal affect Course Course Course Narrative: 01/03/251950 MELBA Vines This is a Rapid Medical Examination (RME) performed by Chon Gutierres PA-C in triage. Full HPI, ROS, assessment and treatment plan per primary provider in the Main ED. Hx: 69 yo M here w/ facial/upper lip swelling since this morning, worsening over the last 2-3 hours. no new meds. no known tick or insect bites. woke up like this. denies difficulty breathing. no pain. PE/vitals: Airway patent. Multiple dental caries/poor dentition without obvious dental infection. Noted swelling to bilateral cheeks and upper lip. No involvement of lower lip. Plan: labs sports journalist aware - pt to be brought back to ED. concern for possible angioedema given pt is on lisinopril. Medications Administered Discontinued Medications Generic Name Dose Route Start Last Admin Trade Name Freq PRN Reason Stop Dose Admin Diphenhydramine HCl 50 mg 01/03/25 21:55 01/03/25 22:09 Diphenhydramine Hcl 50 Mg/Ml Vial IVPUSH 01/03/25 21:56 50 mg ONCE ONE Administration Famotidine 20 mg 01/03/25 21:55 01/03/25 22:09 Famotidine/Pf 20 Mg/2 Ml Vial IVPUSH 01/03/25 21:56 20 mg ONCE ONE Administration Sodium Chloride 1,000 mls @ 999 mls/hr 01/03/25 21:56 01/03/25 22:06 Ns IVCONT 01/03/25 22:56 999 mls/hr .Q1H1M ONE Administration Methylprednisolone Sodium Succinate 125 mg 01/03/25 21:55 01/03/25 22:09 Methylprednisolone Sod Succ 125 Mg/2 Ml Vial IVPUSH 01/03/25 21:56 125 mg ONCE ONE Administration Medical Decision Making Medical Decision Making [facility] Narrative: Patient's labs do not show any significant abnormality. Patient was giving IV Solu-Medrol, Pepcid, Benadryl without any significant improvement. Patient has moderate periorbital facial swelling. However, the structures inside of the mouth are intact. Patient has no difficulty breathing or swallowing. Discussed with the patient that he should never take lisinopril again. Prior to discharge, his hypertension medication should be changed I discussed the above-mentioned with Dr. Johnson , patient being admitted/observation Start fresh frozen plasma. Discussed with the patient. Patient declined FFP transfusion Differential Diagnosis Differential Diagnoses: The differential diagnosis associated with the presentation includes (Angioedema, anaphylactic reaction, hypersensitivity reaction) Admission/Observation Consideration of admission/observation: Escalation of care including admission/observation considered Consult Healthcare Provider Management of the patient was discussed with: Hospitalist Lab Data [facility] Lab Attestation statement: I reviewed the patient's lab results. 01/03/25 22:06 01/03/25 22:06 Labs: Lab Results 01/03/25 01/03/25 Range/Units 20:07 22:06 WBC 7.2 5.3 (4.8-10.8) X10*3/uL RBC 4.49 L 4.38 L (4.60-5.80) X10*6/uL Hgb 14.3 14.0 (14.0-18.0) g/dl Hct 40.2 L 39.4 L (42.0-52.0) % MCV 89.5 90.0 (80.0-98.0) fL MCH 31.8 32.0 (27.0-33.0) pg MCHC 35.6 35.5 (31.0-36.0) g/dl RDW 13.4 13.3 (11.0-16.0) % Plt Count 181 168 (160-400) X10*3/uL MPV 9.7 9.4 (9.4-12.4) fL Immature Gran % (Auto) 0.7 H 0.6 H (0.0-0.4) % Neut % (Auto) 65.3 66.1 (45-73) % Lymph % (Auto) 19.1 L 18.4 L (20-40) % [place] % (Auto) 10.6 10.9 (2-11) % Eos % (Auto) 3.9 3.6 (0-4) % Baso % (Auto) 0.4 0.4 (0-2) % Lymph # (Auto) 1.4 1.0 L (1.2-4.9) X10*3/uL [place] # (Auto) 0.8 0.6 (0.1-1.2) X10*3/uL Eos # (Auto) 0.3 0.2 (0.0-0.4) X10*3/uL Baso # (Auto) 0.0 0.0 (0.0-0.2) X10*3/uL Abs Immat Gran (auto) 0.05 H 0.03 (0.00-0.03) X10*3/uL Absolute Neuts (auto) 4.7 3.5 (2.0-8.3) x10*3/uL Absolute Nucleated RBC 0.000 0.000 (0.0-0.012) X10*3/uL Nucleated RBC % (auto) 0.0 0.0 (0.0-0.2) /100WBC Sodium 136 139 (135-145) mmol/L Potassium 3.8 4.1 (3.3-5.1) mmol/L Chloride 106 107 (96-108) mmol/L Carbon Dioxide 22 24 (22-29) mmol/L Anion Gap 12 12 (12-20) BUN 13 12 (9-16) mg/dL Creatinine 0.88 0.85 (0.5-1.4) mg/dL Estim Creat Clear Calc 85.5 88.5 Estimated GFR > 60 > 60 Random Glucose 111 101 (60-115) mg/dL Calcium 8.5 D 8.3 L (8.4-10.2) mg/dL Magnesium 2.3 (1.6-2.6) mg/dL Total Bilirubin 0.3 0.3 (0.0-1.0) mg/dL Direct Bilirubin 0.1 (0.0-0.5) mg/dL AST 20 20 (5-37) U/L ALT 18 16 (0-40) U/L Alkaline Phosphatase 93 87 (39-117) U/L Total Protein 7.5 7.0 (6.5-8.0) g/dL Albumin 4.4 4.1 (3.5-5.0) g/dL Critical Care Time Critical Care Time Critical Care Time: Yes Total Critical Care Time: 60 Attestation: Please follow-up with your primary care physician tomorrow. If you have any worsening or new symptoms, please return to the emergency room or call 911 Discharge Plan Discharge Clinical Impression: Angioedema Patient Disposition: Admitted As Inpatient
[2025-01-03 20:11] LABS: MANUAL DIFF FLAG NO
[2025-01-03 20:12] LABS: Hematocrit 40.2 % (42.0-52.0); Hemoglobin 14.3 g/dl (14.0-18.0); Imm Gran Abs Auto 0.05 X10*3/uL (0.00-0.03); Imm Gran Pct Auto 0.7 % (0.0-0.4); Lymphocytes Absolute Auto 1.4 X10*3/uL (1.2-4.9); Mean Corpuscular HGB Conc 35.6 g/dl (31.0-36.0); Mean Corpuscular Hemoglobin 31.8 pg (27.0-33.0); Mean Corpuscular Volume 89.5 fL (80.0-98.0); NRBC Abs Auto 0.000 X10*3/uL (0.0-0.012); NRBC Pct Auto 0.0 /100WBC (0.0-0.2); Platelet Count 181 X10*3/uL (160-400); Red Blood Count 4.49 X10*6/uL (4.60-5.80); White Blood Count 7.2 X10*3/uL (4.8-10.8)
[2025-01-03 20:16] VITALS: BP 172/85; PULSE 67; RESP 14; TEMP 36.5; O2SAT 100
[2025-01-03 20:28] LABS: Alanine Aminotransferase 18 U/L (0-40); Albumin Level 4.4 g/dL (3.5-5.0); Alkaline Phosphatase 93 U/L (39-117); Anion Gap 12 (12-20); Aspartate Amino Transferase 20 U/L (5-37); Blood Urea Nitrogen 13 mg/dL (9-16); Calcium 8.5 mg/dL (8.4-10.2); Carbon Dioxide 22 mmol/L (22-29); Chloride 106 mmol/L (96-108); Creatinine Clr Calc Pharmacy 85.5; Estimated Glomerular Filt Rate > 60; Magnesium 2.3 mg/dL (1.6-2.6); Potassium 3.8 mmol/L (3.3-5.1); Sodium 136 mmol/L (135-145); Total Protein 7.5 g/dL (6.5-8.0)
[2025-01-03 21:46] VITALS: BP 144/74; PULSE 63; RESP 14; O2SAT 98
[2025-01-03 22:13] LABS: Hematocrit 39.4 % (42.0-52.0); Hemoglobin 14.0 g/dl (14.0-18.0); Imm Gran Abs Auto 0.03 X10*3/uL (0.00-0.03); Imm Gran Pct Auto 0.6 % (0.0-0.4); Lymphocytes Absolute Auto 1.0 X10*3/uL (1.2-4.9); MANUAL DIFF FLAG NO; Mean Corpuscular HGB Conc 35.5 g/dl (31.0-36.0); Mean Corpuscular Hemoglobin 32.0 pg (27.0-33.0); Mean Corpuscular Volume 90.0 fL (80.0-98.0); NRBC Abs Auto 0.000 X10*3/uL (0.0-0.012); NRBC Pct Auto 0.0 /100WBC (0.0-0.2); Platelet Count 168 X10*3/uL (160-400); Red Blood Count 4.38 X10*6/uL (4.60-5.80); White Blood Count 5.3 X10*3/uL (4.8-10.8)
[2025-01-03 22:29] LABS: Alanine Aminotransferase 16 U/L (0-40); Albumin Level 4.1 g/dL (3.5-5.0); Alkaline Phosphatase 87 U/L (39-117); Anion Gap 12 (12-20); Aspartate Amino Transferase 20 U/L (5-37); Blood Urea Nitrogen 12 mg/dL (9-16); Calcium 8.3 mg/dL (8.4-10.2); Carbon Dioxide 24 mmol/L (22-29); Chloride 107 mmol/L (96-108); Creatinine Clr Calc Pharmacy 88.5; Estimated Glomerular Filt Rate > 60; Potassium 4.1 mmol/L (3.3-5.1); Sodium 139 mmol/L (135-145); Total Protein 7.0 g/dL (6.5-8.0)
--- NOTE | 2025-01-03 23:00 | P.HPHOSP_ITS ---
History of Present Illness Date of Service: 01/03/25 Chief Complaint: facial swelling This is a 69-year-old male with pertinent history of mood disorder, hypertension who presents to the emergency department for concerns of facial swelling. Patient states his symptoms started on the morning of presentation. He had sudden onset of lip swelling that progressed to involve the cheeks. This has never happened before. He has been taking lisinopril for years. No dyspnea, dysphagia, change in voice. No fever, chills, chest pain, palpitations, shortness of breath, abdominal pain, changes in urinary or bowel habits. In the emergency department, patient was given IV Solu-Medrol, Pepcid and Benadryl. [facility] Medical History Schizophrenia Hypertension Glaucoma Schizoaffective disorder, bipolar type Schizophrenia Pertinent family history: No family history of early CAD Social History Household Members: None Housing: House Do you presently have visiting nurse or other home services: No Alcohol intake: never Patient Tobacco Use Status: Refuse Tobacco use screen Smoked in Last 30 Days: Yes Second Hand Smoke Exposure: No Use of substances other than those prescribed or required for medical reasons: No Substance Use Type: Marijuana Advance Directives: Yes Advance Directives on File: Yes Advance Directives Date on File: 06/05/24 service: No Sexual orientation: Unable to collect Meds Allergies Allergy/AdvReac Type Severity Reaction Status Date / Time No Known Allergies Allergy Unknown UNKNOWN Verified 01/03/25 19:45 Physical Exam 2 Vital Signs and Narrative: Vital Signs: Last Vital Signs Temp 97.7 F 01/03/25 20:16 Pulse 63 01/03/25 21:46 Resp 14 01/03/25 21:46 BP 144/74 H 01/03/25 21:46 Pulse Ox 98 01/03/25 21:46 O2 Del Method Room Air 01/03/25 21:46 BMI result Body Mass Index 27.4 Middle-aged male lying in bed in no distress Lip swelling seen, uvula midline, no throat swelling, no stridor Neck supple, no JVD Regular rate and rhythm, S1-S2 heard Regular breath sounds bilaterally, no wheezing or crackles appreciated Abdomen soft nontender, no guarding, no rigidity Patient is awake, alert and oriented to self, place, time and person ; no focal motor deficit Psych: Normal mood No pedal edema Results Labs 01/03/25 22:06 01/03/25 22:06 Labs: Laboratory Results - last 24 hr 01/03/25 01/03/25 20:07 22:06 MCV 89.5 90.0 MCH 31.8 32.0 MCHC 35.6 35.5 RDW 13.4 13.3 Plt Count 181 168 MPV 9.7 9.4 Immature Gran % (Auto) 0.7 H 0.6 H Neut % (Auto) 65.3 66.1 Lymph % (Auto) 19.1 L 18.4 L [place] % (Auto) 10.6 10.9 Eos % (Auto) 3.9 3.6 Baso % (Auto) 0.4 0.4 Lymph # (Auto) 1.4 1.0 L [place] # (Auto) 0.8 0.6 Eos # (Auto) 0.3 0.2 Baso # (Auto) 0.0 0.0 Abs Immat Gran (auto) 0.05 H 0.03 Absolute Neuts (auto) 4.7 3.5 Absolute Nucleated RBC 0.000 0.000 Nucleated RBC % (auto) 0.0 0.0 Anion Gap 12 12 Estim Creat Clear Calc 85.5 88.5 Estimated GFR > 60 > 60 Random Glucose 111 101 Calcium 8.5 D 8.3 L Magnesium 2.3 Total Bilirubin 0.3 0.3 Direct Bilirubin 0.1 AST 20 20 ALT 18 16 Alkaline Phosphatase 93 87 Total Protein 7.5 7.0 Albumin 4.4 4.1 Assessment and Plan (1) Angioedema: Status: Acute Plan This is a 69-year-old male with pertinent history of mood disorder, hypertension who presents to the emergency department for concerns of facial swelling. #. Angioedema likely due to ISAC-inhibitor: Will discontinue lisinopril and admit patient for observation. Patient received Solu-Medrol, Pepcid and Benadryl in the ER. Will order 2 unit FFP. Closely monitor. ESR, CRP and C4 levels pending. No difficulty breathing, voice change, throat swelling or stridor. No urticaria or anaphylaxis #. Hypertension: Discontinue lisinopril. Initiating p.o. amlodipine. #. Mood disorder: Continue home mood stabilizers Med rec pending DVT prophylaxis: Lovenox Full code. Discussed with patient at bedside Quality Stroke Does the patient have a stroke diagnosis?: No VTE Prior VTE?: No VTE Risk Level:: Medical - moderate - high VTE Device Contraindication: Treatment Not Indicated VTE Drug Contraindication: N/A - Med Ordered
--- NOTE | 2025-01-03 23:03 | PC.NURSE ---
pt brought back from with marked lip swelling. Pt sts he is on lisinopril, and this has happened before. MD Enrique to bedside, pt maintaining secretions, speaking in full complete sentences, uvula midline. IV access established, labs obtained, pt medicated per CLARENCE. Pt maintaining SpO2 at 96-99% on RA. call porter within reach.
[2025-01-03 23:19] VITALS: BP 139/53; PULSE 62
[2025-01-04] VITALS: BP 147/48; PULSE 99; RESP 18; O2SAT 95
[2025-01-04 01:00] VITALS: BP 136/61; PULSE 78; RESP 15; O2SAT 93
[2025-01-04 03:03] VITALS: BP 134/63; PULSE 64; RESP 16; TEMP 36.9; O2SAT 96
[2025-01-04 03:45] VITALS: BMI 26.1
[2025-01-04 07:03] LABS: Hematocrit 41.1 % (42.0-52.0); Hemoglobin 14.1 g/dl (14.0-18.0); Mean Corpuscular HGB Conc 34.3 g/dl (31.0-36.0); Mean Corpuscular Hemoglobin 31.5 pg (27.0-33.0); Mean Corpuscular Volume 91.9 fL (80.0-98.0); NRBC Abs Auto 0.000 X10*3/uL (0.0-0.012); NRBC Pct Auto 0.0 /100WBC (0.0-0.2); Platelet Count 184 X10*3/uL (160-400); Red Blood Count 4.47 X10*6/uL (4.60-5.80); White Blood Count 5.0 X10*3/uL (4.8-10.8)
[2025-01-04 07:24] LABS: Anion Gap 13 (12-20); Blood Urea Nitrogen 13 mg/dL (9-16); Calcium 8.5 mg/dL (8.4-10.2); Carbon Dioxide 21 mmol/L (22-29); Chloride 111 mmol/L (96-108); Creatinine Clr Calc Pharmacy 94.1; Estimated Glomerular Filt Rate > 60; Potassium 4.3 mmol/L (3.3-5.1); Sodium 141 mmol/L (135-145)
[2025-01-04 07:48] VITALS: BP 129/62; PULSE 80; RESP 16; TEMP 36.3; O2SAT 97
[2025-01-04 08:17] VITALS: BP 129/62
[2025-01-04] MEDS: 0.9 % Sodium Chloride Flush 3 ML SYRINGE IVFLUSH (08:18)
--- NOTE | 2025-01-04 08:28 | MHC.CM.PN ---
CM met with Patient at bedside and addressed BALTAZAR with him, providing Patient with the original and a copy has been placed on the chart. Patient lives alone in a house and he has SN from [facility] & no DME. Home/resume said services is the goal and CM has initiated and will follow for dc planning. PCP is Dr. Rodrick Mlian and Primary HCP Agent (/Radha) has ; the second Agent is Radha.
--- NOTE | 2025-01-04 09:03 | PHA.MEDREC ---
Addendum entered by Neha Villegas [facility] ED 01/04/25 09:05: provider made aware med rec complete Original Note: Pharmacy Consult ? Medication Reconciliation Pharmacy has completed the medication reconciliation. Spoke with patient in 443. Patient was able to confirm all medications and how many times per day he takes them. Vraylar dose increased to 6 mg bedtime. Patient states he last got his invgega injection a few days ago on 01/01/25
[2025-01-04 11:25] VITALS: BP 121/60; PULSE 79; RESP 16; TEMP 36.7; O2SAT 95
--- NOTE | 2025-01-04 12:14 | MHC.CM.PN ---
Addendum entered by Danica Rich 01/04/25 13:39: Mora MCFARLANE has been notified of today's dc. Original Note: Patient has been medically cleared for dc to home today, self care.
--- NOTE | 2025-01-04 12:18 | PM.DS ---
DS: Providers Provider Date of Service: 01/04/25 Date of admission: 01/03/25 22:56 Date of discharge: 01/04/25 Primary care physician: Rodrick Milan MD DS: Diagnosis Discharge Diagnosis (1) Angioedema: Status: Acute DS: Summary Hospital Course Hospital Course: From admission HPI: Date of Service: 01/03/25 Chief Complaint: facial swelling This is a 69-year-old male with pertinent history of mood disorder, hypertension who presents to the emergency department for concerns of facial swelling. Patient states his symptoms started on the morning of presentation. He had sudden onset of lip swelling that progressed to involve the cheeks. This has never happened before. He has been taking lisinopril for years. No dyspnea, dysphagia, change in voice. No fever, chills, chest pain, palpitations, shortness of breath, abdominal pain, changes in urinary or bowel habits. In the emergency department, patient was given IV Solu-Medrol, Pepcid and Benadryl. Hospital course: Pt was admitted to the hospital for face and lip swelling concerning for angioedema likely from lisinopril use. Besides IV Solu-Medrol, Pepcid, and Benadryl, was also offered FFP, but pt refused. Patient's hospital stay was uncomplicated, and pt reported improvement in swelling, though some swelling especially of right side of lower lip remained. Pt states had a similar incident sometime ago which resolved on its own. Reports did bite his inner lip prior to swelling, though is unsure if this had any contributory effect. Pt did not experience any difficulty breathing or swallowing while in the hospital, and was able to tolerate breakfast this morning. Pt reports he feels well and would like to go home. Pt should stop taking lisinopril, and continue taking amlodipine 5 mg daily. BP has been relatively well-controlled while in the hospital, and currently 121/60 at 11:25. At this time there is no indication to make further BP medication adjustments such as increasing amlodipine dose. He will also be discharged on a short dose of prednisone 40 mg daily for the next 4 days. Pt should keep a daily log of his BP readings in the morning and in the evening which he should then bring to his PCP in 1-2 weeks' time for a routine follow-up where further management and medical adjustments can be made for HTN. Pt knows to return to the hospital if swelling worsens or he develops difficulty breathing or swallowing. Pt should continue all other home medications. Time Attestation Discharge Coordination Time (in mins): 35 Quality: Safe Use of Opioids Does Pt have an Active Cancer Diagnosis on the Problem List?: No Quality: Stroke Does the patient have a stroke diagnosis?: No Physical Exam Vital Signs: Vital Signs: Last Vital Signs Temp 98.0 F 01/04/25 11:25 Pulse 79 01/04/25 11:25 Resp 16 01/04/25 11:25 BP 121/60 01/04/25 11:25 Pulse Ox 95 01/04/25 11:25 O2 Del Method Room Air 01/04/25 11:25 BMI result Body Mass Index 26.1 General: AOx3, no acute distress Face: Slight swelling of right lower and upper lips Resp: CTA bilaterally CVS: S1, S2, RRR GI: +BS, NT, no distention Skin: Warm, dry Neuro: Cranial nerves II-XII grossly intact bilaterally. Motor grossly intact bilaterally Extremities: No edema Psych: Appropriate affect DS: Data Data Completed and Pending Labs on day of discharge: Laboratory Results - last 24 hr 01/03/25 01/03/25 01/03/25 20:07 22:06 23:45 WBC 7.2 5.3 RBC 4.49 L 4.38 L Hgb 14.3 14.0 Hct 40.2 L 39.4 L MCV 89.5 90.0 MCH 31.8 32.0 MCHC 35.6 35.5 RDW 13.4 13.3 Plt Count 181 168 MPV 9.7 9.4 Immature Gran % (Auto) 0.7 H 0.6 H Neut % (Auto) 65.3 66.1 Lymph % (Auto) 19.1 L 18.4 L [place] % (Auto) 10.6 10.9 Eos % (Auto) 3.9 3.6 Baso % (Auto) 0.4 0.4 Lymph # (Auto) 1.4 1.0 L [place] # (Auto) 0.8 0.6 Eos # (Auto) 0.3 0.2 Baso # (Auto) 0.0 0.0 Abs Immat Gran (auto) 0.05 H 0.03 Absolute Neuts (auto) 4.7 3.5 Absolute Nucleated RBC 0.000 0.000 Nucleated RBC % (auto) 0.0 0.0 ESR 27 H Sodium 136 139 Potassium 3.8 4.1 Chloride 106 107 Carbon Dioxide 22 24 Anion Gap 12 12 BUN 13 12 Creatinine 0.88 0.85 Estim Creat Clear Calc 85.5 88.5 Estimated GFR > 60 > 60 Random Glucose 111 101 Calcium 8.5 D 8.3 L Magnesium 2.3 Total Bilirubin 0.3 0.3 Direct Bilirubin 0.1 AST 20 20 ALT 18 16 Alkaline Phosphatase 93 87 C-Reactive Protein 0.27 Total Protein 7.5 7.0 Albumin 4.4 4.1 Blood Type A Positive Antibody Screen POSITIVE Antibody Identification Anti-S CARI, Polyspecific POSITIVE A Positive CARI Work-up IgG=Pos A5w=Rvs A Enhanced Crossmatch See Detail 01/04/25 06:33 WBC 5.0 RBC 4.47 L Hgb 14.1 Hct 41.1 L MCV 91.9 MCH 31.5 MCHC 34.3 RDW 13.2 Plt Count 184 MPV 10.1 Immature Gran % (Auto) Neut % (Auto) Lymph % (Auto) [place] % (Auto) Eos % (Auto) Baso % (Auto) Lymph # (Auto) [place] # (Auto) Eos # (Auto) Baso # (Auto) Abs Immat Gran (auto) Absolute Neuts (auto) Absolute Nucleated RBC 0.000 Nucleated RBC % (auto) 0.0 ESR Sodium 141 Potassium 4.3 Chloride 111 H Carbon Dioxide 21 L Anion Gap 13 BUN 13 Creatinine 0.80 Estim Creat Clear Calc 94.1 Estimated GFR > 60 Random Glucose 178 H Calcium 8.5 Magnesium Total Bilirubin Direct Bilirubin AST ALT Alkaline Phosphatase C-Reactive Protein Total Protein Albumin Blood Type Antibody Screen Antibody Identification CARI, Polyspecific Positive CARI Work-up Enhanced Crossmatch Discharge Plan Discharge Anticipated Discharge Date/Time: 01/04/25 12:02 Patient Disposition: Home, Self-Care Referrals: Rodrick Milan MD [Primary Care Provider, Medical] - 1 Week Discharge Medications: New amlodipine 5 mg tablet 5 mg PO DAILY Qty: 90 0RF Rx Instructions: Take one tablet daily for hypertension prednisone 20 mg tablet 40 mg PO DAILY Qty: 8 0RF Rx Instructions: Take two tablets daily for the next 4 days Continued lorazepam 1 mg Tablet 1 mg PO BEDTIME 30 Days Qty: 30 0RF [place] 0.01 % drops 1 drp ophthalmic (eye) BEDTIME 30 Days Qty: 7.5 0RF bupropion HCl 150 mg tablet sustained-release 12 hr 150 mg PO DAILY Invega Sustenna 117 mg/0.75 mL syringe 117 mg IM QMONTH Vraylar 6 mg capsule 6 mg PO BEDTIME betaxolol 0.5 % drops 1 drp ophthalmic (eye) BID Simbrinza 1-0.2 % drops,suspension 1 drp ophthalmic (eye) BID [id number] Tablet 1 tab PO DAILY Discontinued lisinopril 20 mg Tablet 20 mg PO DAILY 30 Days Qty: 30 0RF Protocol: Hold for SBP< HOLD for SBP < : 90 amlodipine 5 mg tablet 5 mg PO DAILY Discharge Orders: Discharge Order (Routine); Ordered 01/04/25 Ordered By: Kyle Olivo Activity on Discharge: As tolerated Stand Alone Forms: Patient Portal Discharge page Print Language: Tuvaluan Care Plan Goals: Alleviation of symptoms Prevention of recurrent facial swelling Health Concerns: Angioedema Plan of Treatment: You were admitted to the hospital for facial and lip swelling concerning for angioedema from lisinopril. Stop taking lisinopril. Take predinsone 40mg daily for the next 4 days to prevent recurrent swelling Continue taking amlodipine 5mg daily for hypertension. Your blood pressure has been well-controlled since last night, though you may need additional medical changes for BP management. Measure BP twice daily -- once in the morning and in the evening -- and keep a record of the readings Follow up with your PCP in 1-2 weeks for routine hospitalization follow up and BP management. Bring in BP log to this visit. Return to the ED if swelling worsens of you have any difficulty breathing or swallowing Assessment: See discharge summary Discharge Date/Time: 01/04/25 13:34
== END 2025-01-04 13:34 | disposition home or self-care (01) ==
LOC: HO.ED 22:52 → HO.EDOVER 23:04 → HO.IMC 01-04 00:46
PROVIDERS: Physician Assistant Medical; Admitting Provider Student in an Organized Health Care Education/Training Program; Emergency Provider Emergency Medicine; PCP Internal Medicine; Visit Provider Student in an Organized Health Care Education/Training Program
DX: T78.3XXA Angioneurotic edema, initial encounter (principal); Y93.9 Activity, unspecified; Y99.9 Unspecified external cause status; Y92.9 Unspecified place or not applicable; I10 Essential (primary) hypertension; F39 Unspecified mood [affective] disorder; Z79.899 Other long term (current) drug therapy
CPT/HCPCS: 36415; 80048; 80053; 80076; 83735; 85025; 85027; 85652; 86140; 86160; 86850; 86870; 86880; 86900; 86901; 86902; 86920; 86921; 86927; 96361; 96372; 96374; 96375; 99222; 99285; J0165; J1200; J1308; J1650; J2919

== ENCOUNTER → 2025-01-03 22:56 | Outpatient (BNV) | payer MEDICARE, MEDICAID, SELFPAY | PROVIDERS: Admitting Provider Student in an Organized Health Care Education/Training Program; Emergency Provider Emergency Medicine; PCP Internal Medicine; Visit Provider Student in an Organized Health Care Education/Training Program | DX: T78.3XXA Angioneurotic edema, initial encounter (principal) | CPT/HCPCS: 99222; 99239 ==